=== PATIENT | female | born 1945 | race Caucasian/White ===

== ENCOUNTER 2020-09-07 06:39 | Outpatient (REF) | payer BC, MEDICARE, SELFPAY ==
[2020-09-07 06:52] LABS: Hemoglobin 7.9 g/dl (12.0-16.0); Mean Corpuscular HGB Conc 32.9 g/dl (31.0-35.0); Mean Corpuscular Hemoglobin 29.8 pg (27.0-33.0); Mean Corpuscular Volume 90.6 fL (80-98); Mean Platelet Volume 10.6 fL (9.4-12.3); Red Blood Count 2.65 X10*6/uL (4.20-5.50); Red Cell Distribution Width 17.4 % (11.0-16.0); White Blood Count 3.8 X10*3/uL (4.8-10.8)
[2020-09-07 06:54] LABS: NRBC Pct Auto 1.3 /100WBC (0.0-0.2); Platelet Count 46 X10*3/uL (160-400)
[2020-09-07 07:37] LABS: Alanine Aminotransferase 17 U/L (0-31); Albumin Level 1.6 g/dL (3.5-5.0); Alkaline Phosphatase 77 U/L (39-117); Anion Gap 9 (12-20); Aspartate Amino Transferase 23 U/L (5-31); Bilirubin Total 0.8 mg/dL (0.0-1.0); Blood Urea Nitrogen 14 mg/dL (9-16); Calcium 7.5 mg/dL (8.4-10.2); Carbon Dioxide 29 mmol/L (22-29); Chloride 90 mmol/L (96-108); Estimated Glomerular Filt Rate 9; Glucose Random 78 mg/dL (60-115); Potassium 3.8 mmol/L (3.3-5.1); Sodium 124 mmol/L (135-145); Total Protein 9.3 g/dL (6.5-8.0)
== END 2020-09-07 06:40 | disposition home or self-care (01) ==
LOC: HO.MMNH1L 06:39
PROVIDERS: Visit Provider Family Medicine
DX: A04.72 Enterocolitis due to Clostridium difficile, not specified as recurrent (principal)
CPT/HCPCS: 36415; 80053; 85027

== ENCOUNTER 2020-09-10 17:00 | Outpatient (REF) | payer MEDICARE, SELFPAY ==
[2020-09-12 12:20] LABS: CDiff Gene PCR POSITIVE (Negative)
[2020-09-12 13:08] LABS: CDiff Toxin Positive (Negative)
[2020-09-12 13:10] LABS: CDIFF Internal ctrl Dots and bkg OK (V)
== END 2020-09-10 17:01 | disposition home or self-care (01) ==
LOC: HO.MMNH1L 17:00
PROVIDERS: Visit Provider Family Medicine
DX: R19.7 Diarrhea, unspecified (principal); R19.5 Other fecal abnormalities
CPT/HCPCS: 36415; 87324; 87493

== ENCOUNTER 2020-09-13 00:27 | Outpatient (REF) | payer MEDICARE, SELFPAY ==
[2020-09-13 06:08] LABS: Mean Corpuscular HGB Conc 31.7 g/dl (31.0-35.0); Mean Corpuscular Hemoglobin 29.1 pg (27.0-33.0); Mean Corpuscular Volume 91.8 fL (80-98); Mean Platelet Volume 9.6 fL (9.4-12.3); NRBC Pct Auto 0.6 /100WBC (0.0-0.2); Red Cell Distribution Width 18.5 % (11.0-16.0); White Blood Count 4.9 X10*3/uL (4.8-10.8)
[2020-09-13 06:27] LABS: Anion Gap 9 (12-20); Blood Urea Nitrogen 20 mg/dL (9-16); Calcium 7.2 mg/dL (8.4-10.2); Carbon Dioxide 28 mmol/L (22-29); Chloride 98 mmol/L (96-108); Glucose Random 72 mg/dL (60-115); Potassium 3.5 mmol/L (3.3-5.1); Sodium 131 mmol/L (135-145)
[2020-09-13 06:33] LABS: Platelet Count 45 X10*3/uL (160-400)
[2020-09-13 06:37] LABS: Hematocrit 20.2 % (37-47); Hemoglobin 6.4 g/dl (12.0-16.0)
[2020-09-13 07:00] LABS: Estimated Glomerular Filt Rate 8
== END 2020-09-13 00:28 | disposition home or self-care (01) ==
LOC: HO.MMNH1L 00:27
PROVIDERS: Visit Provider Family Medicine
DX: A04.72 Enterocolitis due to Clostridium difficile, not specified as recurrent (principal)
CPT/HCPCS: 36415; 80048; 85027

== ENCOUNTER 2020-09-14 06:34 | Outpatient (REF) | payer MEDICARE, SELFPAY | END 2020-09-14 06:35 | disposition home or self-care (01) | LOC: HO.MMNH1L 06:34 | PROVIDERS: Visit Provider Family Medicine | DX: Z13.89 Encounter for screening for other disorder (principal) ==

== ENCOUNTER 2020-09-15 | Outpatient (REF) | payer MEDICARE, SELFPAY ==
[2020-09-15 06:20] LABS: Hematocrit 21.2 % (37-47); Mean Corpuscular HGB Conc 32.5 g/dl (31.0-35.0); Mean Corpuscular Hemoglobin 29.9 pg (27.0-33.0); Mean Corpuscular Volume 91.8 fL (80-98); Mean Platelet Volume 10.8 fL (9.4-12.3); NRBC Pct Auto 0.8 /100WBC (0.0-0.2); Red Blood Count 2.31 X10*6/uL (4.20-5.50); Red Cell Distribution Width 18.7 % (11.0-16.0); White Blood Count 5.3 X10*3/uL (4.8-10.8)
[2020-09-15 06:35] LABS: Platelet Count 57 X10*3/uL (160-400)
[2020-09-15 06:37] LABS: Hemoglobin 6.9 g/dl (12.0-16.0)
== END 2020-09-15 00:01 | disposition home or self-care (01) ==
LOC: HO.MMNH1L
PROVIDERS: Visit Provider Family Medicine
DX: I12.0 Hypertensive chronic kidney disease with stage 5 chronic kidney disease or end stage renal disease (principal); N18.6 End stage renal disease
CPT/HCPCS: 36415; 85027

== ENCOUNTER 2020-09-17 06:22 | Outpatient (REF) | payer MEDICARE, SELFPAY ==
[2020-09-19 20:01] LABS: TS Negative Control Passed; TS Panel A 0; TS Panel B 1; TS Positive Control Passed; TSpotTB Negative (SeeBelow)
== END 2020-09-17 06:23 | disposition home or self-care (01) ==
LOC: HO.MMNH1L 06:22
PROVIDERS: Visit Provider Family Medicine
DX: Z11.1 Encounter for screening for respiratory tuberculosis (principal); I10 Essential (primary) hypertension
CPT/HCPCS: 36415; 86481

== ENCOUNTER 2020-09-20 00:09 | Outpatient (REF) | payer MEDICARE, SELFPAY ==
[2020-09-20 07:08] LABS: Mean Corpuscular HGB Conc 31.5 g/dl (31.0-35.0); Mean Corpuscular Hemoglobin 29.1 pg (27.0-33.0); Mean Corpuscular Volume 92.5 fL (80-98); Mean Platelet Volume 10.8 fL (9.4-12.3); NRBC Pct Auto 0.9 /100WBC (0.0-0.2); Red Blood Count 1.99 X10*6/uL (4.20-5.50); Red Cell Distribution Width 19.5 % (11.0-16.0); White Blood Count 5.6 X10*3/uL (4.8-10.8)
[2020-09-20 07:37] LABS: Anion Gap 9 (12-20); Blood Urea Nitrogen 11 mg/dL (9-16); Calcium 7.3 mg/dL (8.4-10.2); Carbon Dioxide 26 mmol/L (22-29); Chloride 103 mmol/L (96-108); Estimated Glomerular Filt Rate 9; Glucose Random 75 mg/dL (60-115); Potassium 2.9 mmol/L (3.3-5.1); Sodium 135 mmol/L (135-145)
[2020-09-20 07:41] LABS: Hemoglobin 5.8 g/dl (12.0-16.0)
[2020-09-20 07:42] LABS: Hematocrit 18.4 % (37-47); Platelet Count 64 X10*3/uL (160-400)
== END 2020-09-20 00:10 | disposition home or self-care (01) ==
LOC: HO.MMNH1L 00:09
PROVIDERS: Visit Provider Family Medicine
DX: A04.72 Enterocolitis due to Clostridium difficile, not specified as recurrent (principal)
CPT/HCPCS: 36415; 80048; 85027

== ENCOUNTER 2020-09-20 10:09 | Inpatient (IN) | payer MEDICARE, SELFPAY ==
[2020-09-20] VITALS (13 sets, daily range): BP systolic 97–138; BP diastolic 41–69; PULSE 89–108; RESP 16–22; TEMP 36.3–37.2; O2SAT 95–100; BMI 33.8
--- NOTE | ~2020-09-20 | CT_ITS ---
EXAMINATION: CT ABDOMEN AND PELVIS WITHOUT CONTRAST CLINICAL INFORMATION: Cramping abdominal pain. History of C. difficile. COMPARISON: None TECHNIQUE: Multidetector volumetric imaging was performed from the superior aspect of the liver through the pubic symphysis. Sagittal and coronal reformatted images were obtained on the technologist's workstation. This CT examination was performed using dose optimization techniques as appropriate, variously including the following: *Automated exposure control *Adjustment of mA and/or kV according to patient size (this includes techniques or standardized protocols for targeted exams where dose is matched to indication/reason for exam; i.e. extremities or head) *Use of iterative reconstruction technique DLP: 658.98 mGy-cm FINDINGS: LUNG BASES: The visualized lung bases are unremarkable. No evidence of any pleural or pericardial effusion. Periarticular calcifications are seen. LIVER, GALLBLADDER, AND BILIARY TREE: Subtle nonspecific heterogeneous hypodensity is noted within the left lobe of the liver (image #25 series 5 on image #125 series 4), not optimally characterized. Nonvisualized gallbladder, presumably surgically absent. No evidence of any intrahepatic or extrahepatic biliary ductal dilatation. PANCREAS: Unremarkable. SPLEEN: Unremarkable. ADRENAL GLANDS: Unremarkable. KIDNEYS AND URETERS: The kidneys are normal in size, shape, and attenuation. Sub-5 mm nonobstructing calculus is present one on each side (image #67 series 5 and image #61 series 5), at the superior pole. No hydronephrosis, hydroureter seen. No perinephric stranding. Cortical hypodensities are present at the inferior pole of the right kidney and mid lateral cortex of the left kidney, not optimally characterized, may represent cysts. BLADDER: Suboptimally distended, not evaluated. GASTROINTESTINAL TRACT: Remarkable for presence of significant fecal residual within the large bowel to the level of the rectum. No evidence of any wall thickening is seen. No pericolonic inflammatory changes. The appendix is visualized at right lower quadrant (image #516 series 4) and is unremarkable. The small bowel loops are slightly prominent within the left upper to mid abdomen. Specific note is made of significant mural thickening solitary mid jejunum at left iliac fossa region (image #497 series 4). No evidence of any pneumatosis. No evidence of any abnormal air-fluid level present. The mesentery is unremarkable. The stomach is unremarkable. ABDOMINAL WALL: No significant hernia is appreciated. LYMPH NODES: Normal. VASCULAR: Diffuse atherosclerotic disease of the aorta and is branches PELVIC VISCERA: Trace amount of free fluid. No evidence of any free air. No pelvic mass. OSSEOUS STRUCTURES: Severe osteopenia. Multiple lytic lesions involving the sacrum, pelvis and multiple thoracolumbar vertebrae with superimposed severe compression fracture of L3, L1, T12, T11. The findings are suspicious for metastatic disease, myeloma or combination thereof. CT/CT abdomen pelvis wo con IMPRESSION: 1. Abnormal osseous skeleton showing multifocal destructive lesion associated with soft tissue component involving the pelvis, sacrum and the visualized thoracolumbar spine, suspicious for metastatic disease, myeloma, lymphoma etc. Given the spine involvement, the patient is at risk for cord compression. 2. Heterogeneous hypodense lesion involving left lower the liver, not optimally characterized on this nonenhanced study, given the osseous finding, suspicious for metastatic disease as well. 3. Proximal and mid small bowel loops are not abnormally thickened, may represent enteritis versus ischemia. Further differentiation cannot be made based on this imaging appearance alone. 4. Bilateral nonobstructing renal calculi. This critical result was discussed with Vanessa Quiroz M.D. at 11:57 AM on 09/20/2020 and it was ascertained that the content and urgency of the report was understood at the time of direct communication.
--- NOTE | 2020-09-20 10:11 | ECG_ITS ---
Test Reason : ABNORMAL LABS Blood Pressure : / mmHG Vent. Rate : 103 BPM Atrial Rate : 103 BPM P-R Int : 160 ms QRS Dur : 090 ms QT Int : 332 ms P-R-T Axes : 069 064 080 degrees QTc Int : 434 ms Artifact in tracing Sinus tachycardia ST & T wave abnormality, consider anterolateral ischemia Abnormal ECG No previous ECGs available Referred By: Vanessa Quiroz Electronically Signed By:JOSE SOLIS
--- NOTE | 2020-09-20 10:25 | ED.ABDPAIN ---
HPI - Abdominal Pain General Chief Complaint: Recheck/Abnormal Lab/Rx Stated Complaint: low h&h Time Seen by Provider: 09/20/20 10:11 Source: patient and EMS Mode of arrival: EMS Limitations: no limitations History of Present Illness HPI narrative: 75 yo female with hx of multiple myeloma on chemo, HTN, CKD on HD T S does not receive procrit, hx of anemia has had two transfusions in August, HLD, C diff on oral vancomycin dx 09/10 here with feeling weak, H/H trended down to 5.8 today, has noted some scant brb in her diarrhea up to 4 episodes a day, not on AC therapy, referred for transfusion of note Hgb has been below 7 since 09/13 and her baseline is around 8 to 9, she feels dry and weak on standing MD elicited complaint: abdominal pain (cramping) Pertinent past history: other (c diff colitis) Onset (ago): day(s) (few) Pain Consistency: intermittent Location: periumbilical Severity: mild Quality: cramping Radiation: none Migration to: no migration Exacerbating factors: nothing Relieving factors: nothing Context: recent antibiotic use Associated symptoms: nausea, hematochezia and other (weakness) Related Data Allergies Allergy/AdvReac Type Severity Reaction Status Date / Time No Known Allergies Allergy Unverified 08/23/20 15:09 [No Known Allergies*] Review of Systems Review of Systems Constitutional : No Weight loss, No Fever, No Chills ENT/Mouth : No sore throat, No Rhinorrhea Eyes: No Swelling, No Redness Cardiovascular : No Chest Pain, No SOB, No Edema Respiratory : No Cough, No Sputum, No Wheezing Gastrointestinal : Positive Nausea, Positive Vomiting, positive Diarrhea, positive abdominal Pain, pos Hematochezia, No Melena Genitourinary : No Dysuria, No Urinary Frequency, No Hematuria, No Urgency Musculoskeletal : No joint pain, No Myalgias, No Joint Swelling Skin : No Skin Lesions, No rash Neuro : pos Weakness, No Numbness, No Dizziness, No Headache Psych : No Anxiety/Panic, No Depression Heme/Lymph: No Bruising, No Lymphadenopathy Endocrine : No Polyuria, No Polydipsia All other systems reviewed and are negative. Physical Exam Vital Signs: Vital Signs: Last Vital Signs Temp 98.6 F 09/20/20 11:32 Pulse 107 H 09/20/20 11:32 Resp 22 H 09/20/20 11:32 BP 102/43 L 09/20/20 11:32 Pulse Ox 98 09/20/20 11:32 Body Mass Index 33.8 Appearance: Alert. Oriented X3. No acute distress. Eyes: Pupils equal, round and reactive to light. ENT: Pharynx normal. Neck: Normal inspection. Neck supple. CVS: Normal heart rate and rhythm. Pulses normal. perm a cath in chest c/d/i Respiratory: No respiratory distress. Breath sounds normal. Abdomen: Soft and mild periumbilical ttp no rebound or guarding, has small bruising and diffuse 1cm hematomas on pannus rectal: yellow brown stool, macerated buttock area but no abscess/cellulitis Skin: Skin warm and dry. pale skin color. Normal skin turgor. Extremities: No lower extremity edema. No calf ttp Neuro: Oriented X 3. No motor deficit. No sensory deficit. Course Course Course Narrative: plts are low but she is not actively bleeding right now. will hold transfusion at this time 2 UPRBCs ordered lactic acidosis due to CKD and not infection or severe sepsis, needs transfusion resuscitation not IVF patient's MAPs are low due to anemia and not infection or severe sepsis [id number] call from Radiology - extensive lytic lesions in her skeleton, pelvis/lumbar spine, bilateral non obstructing renal stones , L abdomen nonspecific colitis - which goes along with her c diff colitis for which she is on vancomycin MDM - Abdominal Pain MDM Narrative Medical decision making narrative: 75 yo female with hx of multiple myeloma on chemo, HTN, CKD on HD T S does not receive procrit, hx of anemia has had two transfusions in August, HLD, C diff on oral vancomycin dx 09/10 here with feeling weak, H/H trended down to 5.8 today, has noted some scant brb in her diarrhea up to 4 episodes a day, not on AC therapy, referred for transfusion of note Hgb has been below 7 since 09/13 and her baseline is around 8 to 9 - at this time the patient will need labs, lactic acid, EKG, 2 UPRBCs, CT scan for colitis, likely admission pending workup given her degree of anemia and symptoms. anemia likely multifactorial and related to the c diff, multiple myeloma, and CKD. Lab Data Result diagrams: 09/20/20 10:51 09/20/20 11:22 Labs: Lab Results 09/20/20 09/20/20 09/20/20 Range/Units 10:51 10:51 10:51 WBC 6.7 (4.8-10.8) X10*3/uL RBC 2.22 L (4.20-5.50) X10*6/uL Hgb 6.6 L* (12.0-16.0) g/dl Hct 20.7 L* (37-47) % MCV 93.2 (80-98) fL MCH 29.7 (27.0-33.0) pg MCHC 31.9 (31.0-35.0) g/dl RDW 19.8 H (11.0-16.0) % Plt Count 27 L D (160-400) X10*3/uL MPV 11.1 (9.4-12.3) fL Immature Gran % (Auto) Cancelled Neut % (Auto) Cancelled Lymph % (Auto) Cancelled [place] % (Auto) Cancelled Eos % (Auto) Cancelled Baso % (Auto) Cancelled Lymph # (Auto) Cancelled [place] # (Auto) Cancelled Eos # (Auto) Cancelled Baso # (Auto) Cancelled Abs Immat Gran (auto) Cancelled Absolute Neuts (auto) Cancelled Absolute Nucleated RBC 0.060 H (0.0-0.012) X10*3/uL Nucleated RBC % (auto) 0.9 H (0.0-0.2) /100WBC Neutrophils % (Manual) 66 (45-73) % Band Neutrophils % 8 H (3-5) % Lymphocytes % (Manual) 15 L (20-40) % Atypical Lymphs % (Man) 3 (0-6) % Monocytes % (Manual) 6 (2-11) % Metamyelocytes % 2 % Abs Neuts (Manual) 5.0 (2.2-7.9) X10*3/uL Lymphocytes # (Manual) 1.0 (0.6-4.8) X10*3/uL Atyp Lymphs # (Manual) 0.2 x10*3/uL Monocytes # (Manual) 0.4 (0.0-1.2) X10*3/uL Metamyelocytes # 0.1 X10*3/uL Nucleated RBCs 1 H (0-0) /100WBC Platelet Estimate DECREASED (NORMAL) Plt Morphology Comment NORMAL RBC Morphology NOTED Polychromasia 1+ (0-2) /OIF Macrocytosis 1+ (5-14) /OIF Ovalocytes 1+ (5-14) /OIF Acanthocytes (Spur) 1+ (0-2) /OIF PT 14.1 H (9.9-13.0) SEC INR 1.2 H (0.9-1.1) APTT 25.8 (24.1-38.0) SEC Sodium (135-145) mmol/L Potassium (3.3-5.1) mmol/L Chloride (96-108) mmol/L Carbon Dioxide (22-29) mmol/L Anion Gap (12-20) BUN (9-16) mg/dL Creatinine (0.5-1.4) mg/dL Estim Creat Clear Calc Estimated GFR Random Glucose (60-115) mg/dL Lactic Acid 2.4 H* (0.5-2.0) mmol/L Calcium (8.4-10.2) mg/dL Magnesium (1.6-2.6) mg/dL Total Bilirubin (0.0-1.0) mg/dL Direct Bilirubin (0.0-0.5) mg/dL AST (5-31) U/L ALT (0-31) U/L Alkaline Phosphatase (39-117) U/L Troponin I High Sens (<3.5-17.0) ng/L Total Protein (6.5-8.0) g/dL Albumin (3.5-5.0) g/dL Lipase (8-78) U/L Stool Occult Blood (NEGATIVE) COVID-19 (ISABELLA) (Negative) COVID-19 Clin Com Blood Type Antibody Screen Crossmatch 09/20/20 09/20/20 09/20/20 Range/Units 10:51 10:51 10:51 WBC (4.8-10.8) X10*3/uL RBC (4.20-5.50) X10*6/uL Hgb (12.0-16.0) g/dl Hct (37-47) % MCV (80-98) fL MCH (27.0-33.0) pg MCHC (31.0-35.0) g/dl RDW (11.0-16.0) % Plt Count (160-400) X10*3/uL MPV (9.4-12.3) fL Immature Gran % (Auto) Neut % (Auto) Lymph % (Auto) [place] % (Auto) Eos % (Auto) Baso % (Auto) Lymph # (Auto) [place] # (Auto) Eos # (Auto) Baso # (Auto) Abs Immat Gran (auto) Absolute Neuts (auto) Absolute Nucleated RBC (0.0-0.012) X10*3/uL Nucleated RBC % (auto) (0.0-0.2) /100WBC Neutrophils % (Manual) (45-73) % Band Neutrophils % (3-5) % Lymphocytes % (Manual) (20-40) % Atypical Lymphs % (Man) (0-6) % Monocytes % (Manual) (2-11) % Metamyelocytes % % Abs Neuts (Manual) (2.2-7.9) X10*3/uL Lymphocytes # (Manual) (0.6-4.8) X10*3/uL Atyp Lymphs # (Manual) x10*3/uL Monocytes # (Manual) (0.0-1.2) X10*3/uL Metamyelocytes # X10*3/uL Nucleated RBCs (0-0) /100WBC Platelet Estimate (NORMAL) Plt Morphology Comment RBC Morphology Polychromasia /OIF Macrocytosis /OIF Ovalocytes /OIF Acanthocytes (Spur) /OIF PT (9.9-13.0) SEC INR (0.9-1.1) APTT (24.1-38.0) SEC Sodium (135-145) mmol/L Potassium (3.3-5.1) mmol/L Chloride (96-108) mmol/L Carbon Dioxide (22-29) mmol/L Anion Gap (12-20) BUN (9-16) mg/dL Creatinine (0.5-1.4) mg/dL Estim Creat Clear Calc Estimated GFR Random Glucose (60-115) mg/dL Lactic Acid (0.5-2.0) mmol/L Calcium (8.4-10.2) mg/dL Magnesium (1.6-2.6) mg/dL Total Bilirubin (0.0-1.0) mg/dL Direct Bilirubin (0.0-0.5) mg/dL AST (5-31) U/L ALT (0-31) U/L Alkaline Phosphatase (39-117) U/L Troponin I High Sens 6.7 (<3.5-17.0) ng/L Total Protein (6.5-8.0) g/dL Albumin (3.5-5.0) g/dL Lipase (8-78) U/L Stool Occult Blood POSITIVE (NEGATIVE) COVID-19 (ISABELLA) Negative (Negative) COVID-19 Clin Com See Note Blood Type Antibody Screen Crossmatch 09/20/20 09/20/20 Range/Units 11:17 11:22 WBC (4.8-10.8) X10*3/uL RBC (4.20-5.50) X10*6/uL Hgb (12.0-16.0) g/dl Hct (37-47) % MCV (80-98) fL MCH (27.0-33.0) pg MCHC (31.0-35.0) g/dl RDW (11.0-16.0) % Plt Count (160-400) X10*3/uL MPV (9.4-12.3) fL Immature Gran % (Auto) Neut % (Auto) Lymph % (Auto) [place] % (Auto) Eos % (Auto) Baso % (Auto) Lymph # (Auto) [place] # (Auto) Eos # (Auto) Baso # (Auto) Abs Immat Gran (auto) Absolute Neuts (auto) Absolute Nucleated RBC (0.0-0.012) X10*3/uL Nucleated RBC % (auto) (0.0-0.2) /100WBC Neutrophils % (Manual) (45-73) % Band Neutrophils % (3-5) % Lymphocytes % (Manual) (20-40) % Atypical Lymphs % (Man) (0-6) % Monocytes % (Manual) (2-11) % Metamyelocytes % % Abs Neuts (Manual) (2.2-7.9) X10*3/uL Lymphocytes # (Manual) (0.6-4.8) X10*3/uL Atyp Lymphs # (Manual) x10*3/uL Monocytes # (Manual) (0.0-1.2) X10*3/uL Metamyelocytes # X10*3/uL Nucleated RBCs (0-0) /100WBC Platelet Estimate (NORMAL) Plt Morphology Comment RBC Morphology Polychromasia /OIF Macrocytosis /OIF Ovalocytes /OIF Acanthocytes (Spur) /OIF PT (9.9-13.0) SEC INR (0.9-1.1) APTT (24.1-38.0) SEC Sodium 134 L (135-145) mmol/L Potassium 3.5 D (3.3-5.1) mmol/L Chloride 101 (96-108) mmol/L Carbon Dioxide 24 (22-29) mmol/L Anion Gap 13 (12-20) BUN 14 (9-16) mg/dL Creatinine 5.36 H* (0.5-1.4) mg/dL Estim Creat Clear Calc 9.2 Estimated GFR 8 Random Glucose 91 (60-115) mg/dL Lactic Acid (0.5-2.0) mmol/L Calcium 7.8 L D (8.4-10.2) mg/dL Magnesium 1.6 (1.6-2.6) mg/dL Total Bilirubin 1.1 H (0.0-1.0) mg/dL Direct Bilirubin 0.4 (0.0-0.5) mg/dL AST 24 (5-31) U/L ALT 9 (0-31) U/L Alkaline Phosphatase 81 (39-117) U/L Troponin I High Sens (<3.5-17.0) ng/L Total Protein 9.2 H (6.5-8.0) g/dL Albumin 1.4 L (3.5-5.0) g/dL Lipase 35 (8-78) U/L Stool Occult Blood (NEGATIVE) COVID-19 (ISABELLA) (Negative) COVID-19 Clin Com Blood Type O Positive Antibody Screen NEGATIVE Crossmatch See Detail ECG Data Attestation: I personally reviewed and interpreted this ECG as follows: ECG interpretation date: 09/20/20 ECG interpretation time: 10:32 Interpretation: Rate: 103 Rhythm: sinus tachycardia [place]: normal Normal P waves. Normal TORY. Normal QRS complex. ST T wave : no [place], inverted in V4-V6, nonspecific flattening t waves qTC: normal prior studies: no priors The study has been interpreted contemporaneously by me. . Critical Care Time Critical Care Time Critical Care Time: Yes Total Critical Care Time: 30 Attestation: review of records, 2 units of PRBCs ordered I attest to this time spent taking care of the patient Discharge Plan Discharge Clinical Impression: Acute hypokalemia, C. difficile colitis Anemia Qualifiers: Anemia type: unspecified type Qualified Code(s): D64.9 - Anemia, unspecified CKD (chronic kidney disease) Qualifiers: Chronic kidney disease stage: unspecified stage Qualified Code(s): N18.9 - Chronic kidney disease, unspecified Patient Disposition: Admitted As Inpatient [facility] Past Medical History Attestation statement: The following information was validated with the patient. Medical History Anemia C. difficile colitis CKD (chronic kidney disease) HTN (hypertension) Multiple myeloma Social History Social History (Updated 09/20/20 @ 10:31 by Vanessa Quiroz DO) Patient Tobacco Use Status: Never used Tobacco Use of substances other than those prescribed or required for medical reasons: No Advance Directives: No Advance Directives Information Provided: Yes
[2020-09-20 10:58] LABS: Mean Corpuscular HGB Conc 31.9 g/dl (31.0-35.0); Mean Corpuscular Hemoglobin 29.7 pg (27.0-33.0); Mean Platelet Volume 11.1 fL (9.4-12.3); NRBC Pct Auto 0.9 /100WBC (0.0-0.2); Red Blood Count 2.22 X10*6/uL (4.20-5.50); Red Cell Distribution Width 19.8 % (11.0-16.0); White Blood Count 6.7 X10*3/uL (4.8-10.8)
[2020-09-20 11:00] LABS: OBS Int Ctl Valid YES; OBS1 POSITIVE (NEGATIVE)
[2020-09-20 11:06] LABS: Hemoglobin 6.6 g/dl (12.0-16.0)
[2020-09-20 11:07] LABS: Hematocrit 20.7 % (37-47); INTERNATIONAL NORM RATIO 1.2 (0.9-1.1); Mean Corpuscular Volume 93.2 fL (80-98)
[2020-09-20 11:08] LABS: Platelet Count 27 X10*3/uL (160-400)
[2020-09-20 11:10] LABS: Partial Thromboplastin Time 25.8 SEC (24.1-38.0)
[2020-09-20 11:15] LABS: COVID-19 Test Negative (Negative)
[2020-09-20 11:26] LABS: Atypical Lymph Absolute Manual 0.2 x10*3/uL; Atypical Lymphs Percent Manual 3 % (0-6); Band Neutrophils Percent 8 % (3-5); Lymphocytes Percent Manual 15 % (20-40); Metamyelocytes Absolute 0.1 X10*3/uL; Metamyelocytes Percent 2 %; Monocytes Absolute Manual 0.4 X10*3/uL (0.0-1.2); Monocytes Percent Manual 6 % (2-11); Neutrophils Percent Manual 66 % (45-73); Nucleated Red Blood Cells 1 /100WBC (0-0); Platelet Estimate DECREASED (NORMAL)
[2020-09-20 11:27] LABS: Platelet Morphology Comment NORMAL; RBC Morphology NOTED; Troponin-I High Sensitivity 6.7 ng/L (<3.5-17.0)
[2020-09-20 11:28] LABS: Acanthocytes 1+ (0-2) /OIF
[2020-09-20 11:29] LABS: Macrocytosis 1+ (5-14) /OIF; Ovalocytes 1+ (5-14) /OIF; Polychromasia 1+ (0-2) /OIF
[2020-09-20 11:30] LABS: Lactic Acid 2.4 mmol/L (0.5-2.0)
[2020-09-20] MEDS: Midodrine HCl 5 MG TABLET PO (11:31)
[2020-09-20 11:45] LABS: Prothrombin Time 14.1 SEC (9.9-13.0)
[2020-09-20 12:02] LABS: Alanine Aminotransferase 9 U/L (0-31); Albumin Level 1.4 g/dL (3.5-5.0); Alkaline Phosphatase 81 U/L (39-117); Anion Gap 13 (12-20); Aspartate Amino Transferase 24 U/L (5-31); Bilirubin Direct 0.4 mg/dL (0.0-0.5); Bilirubin Total 1.1 mg/dL (0.0-1.0); Blood Urea Nitrogen 14 mg/dL (9-16); Calcium 7.8 mg/dL (8.4-10.2); Carbon Dioxide 24 mmol/L (22-29); Chloride 101 mmol/L (96-108); Creatinine Clr Calc Pharmacy 9.2; Estimated Glomerular Filt Rate 8; Glucose Random 91 mg/dL (60-115); Lipase 35 U/L (8-78); Magnesium 1.6 mg/dL (1.6-2.6); Potassium 3.5 mmol/L (3.3-5.1); Sodium 134 mmol/L (135-145); Total Protein 9.2 g/dL (6.5-8.0)
[2020-09-20 12:56] LABS: Reflex Lactate? Lactic Acid Added
[2020-09-20 15:16] LABS: ~Lactic Acid-LAB USE ONLY 1.8 mmol/L (0.5-2.0)
--- NOTE | 2020-09-20 15:54 | P.HPHOSP_ITS ---
History of Present Illness Date of Service: 09/20/20 <Marianna Anne NP - Last Filed: 09/21/20 12:15> Chief Complaint: Dizziness <Marianna Anne NP - Last Filed: 09/21/20 12:15> 75-year-old presented to the ER with complaints dizziness, weakness over the last several days. She has a history of multiple myeloma and has been having diarrhea last Sunday to diff had noticed some blood in stool. She does have a history of blood transfusion past. She denied chest pain nausea, vomiting, fever, chills, recent illness. Her hemoglobin initially was noted to be 5.8 with hematocrit of 18.4, platelet count 64. abd ct showing nonspecific colitis. she was transfused 2 units of packed red blood cells in the ER, given Tylenol, midodrine, potassium. She will be admitted further management and treatment of symptomatic anemia. <Marianna Anne NP - Last Filed: 09/21/20 12:15> Review of Systems Review of Systems: Denies any recent fever chills or decrease in appetite respiratory denies any shortness of breath coverage production cardiovascular Denies chest pain gastrointestinal denies any dysphagia abdominal pain nausea vomiting or diarrhea genitourinary denies any dysuria frequency or hematuria musculoskeletal denies any joint pain or swelling neuropsych denies any weakness or seizures all other systems reviewed are negative <Marianna Anne NP - Last Filed: 09/21/20 12:15> [facility] Medical History: Medical History Anemia C. difficile colitis CKD (chronic kidney disease) HTN (hypertension) Multiple myeloma <Marianna Anne NP - Last Filed: 09/21/20 12:15> Pertinent family history: no cardiac history <Marianna Anne NP - Last Filed: 09/21/20 12:15> Social History: Social History (Updated 09/20/20 @ 10:31 by Vanessa Quiroz DO) Household Members: Significant Other Housing: House Do you presently have visiting nurse or other home services: No Patient Tobacco Use Status: Never used Tobacco service: No Current occupational status: retired <Marianna Anne NP - Last Filed: 09/21/20 12:15> Meds Allergies/Adverse reactions: Allergies Allergy/AdvReac Type Severity Reaction Status Date / Time lisinopril AdvReac Angioedema Verified 09/21/20 00:34 <Marianna Anne NP - Last Filed: 09/21/20 12:15> Home medications: Home Medications Medication Instructions Recorded Confirmed Last Taken Type acetaminophen 2 tab PO Q4H PRN 09/20/20 09/20/20 Unknown History albuterol sulfate [Proventil HFA] 2 puff INHALATION Q4H PRN 09/20/20 09/20/20 Unknown History allopurinol 2 tab PO DAILY 09/20/20 09/20/20 Unknown History atorvastatin 1 tab PO BEDTIME 09/20/20 09/20/20 Unknown History clonazepam 1 tab PO Q8H PRN 09/20/20 09/20/20 Unknown History loperamide 1 tab PO NEEDED 09/20/20 09/20/20 Unknown History loratadine 1 tab PO DAILY 09/20/20 09/20/20 Unknown History sevelamer carbonate [Renvela] 1 tab PO TID 09/20/20 09/20/20 Unknown History vancomycin HCl in water 125 mg QID 09/20/20 09/20/20 Unknown History <Marianna Anne NP - Last Filed: 09/21/20 12:15> Physical Exam Vital Signs and Narrative: Vital Signs: Last Vital Signs Temp 98.1 F 09/20/20 15:49 Pulse 96 09/20/20 15:49 Resp 16 09/20/20 15:49 BP 132/69 09/20/20 15:49 Pulse Ox 100 09/20/20 13:59 Body Mass Index 33.8 <Marianna Anne NP - Last Filed: 09/21/20 12:15> Appearing in no acute distress head is normocephalic atraumatic eyes pupils are PERRLA sclera is anicteric mouth throat mucous membranes are intact and moist neck is supple no lymphadenopathy, no JVD noted lung sounds are clear to auscultation heart regular rate rhythm, clear S1, S2 positive bowel sounds, abdomen is soft, nontender neuro patient is alert x3, no focal deficits <Marianna Anne NP - Last Filed: 09/21/20 12:15> Results Labs CBC and Chem 7: : 09/21/20 05:10 09/21/20 05:10 <Marianna Anne NP - Last Filed: 09/21/20 12:15> Labs: Laboratory Results - last 24 hr 09/20/20 09/20/20 09/20/20 10:51 10:51 10:51 MCV 93.2 MCH 29.7 MCHC 31.9 RDW 19.8 H Plt Count 27 L D MPV 11.1 Immature Gran % (Auto) Cancelled Neut % (Auto) Cancelled Lymph % (Auto) Cancelled [place] % (Auto) Cancelled Eos % (Auto) Cancelled Baso % (Auto) Cancelled Lymph # (Auto) Cancelled [place] # (Auto) Cancelled Eos # (Auto) Cancelled Baso # (Auto) Cancelled Abs Immat Gran (auto) Cancelled Absolute Neuts (auto) Cancelled Absolute Nucleated RBC 0.060 H Nucleated RBC % (auto) 0.9 H Neutrophils % (Manual) 66 Band Neutrophils % 8 H Lymphocytes % (Manual) 15 L Atypical Lymphs % (Man) 3 Monocytes % (Manual) 6 Metamyelocytes % 2 Abs Neuts (Manual) 5.0 Lymphocytes # (Manual) 1.0 Atyp Lymphs # (Manual) 0.2 Monocytes # (Manual) 0.4 Metamyelocytes # 0.1 Nucleated RBCs 1 H Platelet Estimate DECREASED Plt Morphology Comment NORMAL RBC Morphology NOTED Polychromasia 1+ (0-2) Macrocytosis 1+ (5-14) Ovalocytes 1+ (5-14) Acanthocytes (Spur) 1+ (0-2) PT 14.1 H INR 1.2 H APTT 25.8 Anion Gap Estim Creat Clear Calc Estimated GFR Random Glucose Lactic Acid 2.4 H* Lactic Acid Fup @ 2Hr Calcium Magnesium Total Bilirubin Direct Bilirubin AST ALT Alkaline Phosphatase Troponin I High Sens Total Protein Albumin Lipase Stool Occult Blood COVID-19 (ISABELLA) COVID-19 Clin Com Blood Type Antibody Screen Crossmatch 09/20/20 09/20/20 09/20/20 10:51 10:51 10:51 MCV MCH MCHC RDW Plt Count MPV Immature Gran % (Auto) Neut % (Auto) Lymph % (Auto) [place] % (Auto) Eos % (Auto) Baso % (Auto) Lymph # (Auto) [place] # (Auto) Eos # (Auto) Baso # (Auto) Abs Immat Gran (auto) Absolute Neuts (auto) Absolute Nucleated RBC Nucleated RBC % (auto) Neutrophils % (Manual) Band Neutrophils % Lymphocytes % (Manual) Atypical Lymphs % (Man) Monocytes % (Manual) Metamyelocytes % Abs Neuts (Manual) Lymphocytes # (Manual) Atyp Lymphs # (Manual) Monocytes # (Manual) Metamyelocytes # Nucleated RBCs Platelet Estimate Plt Morphology Comment RBC Morphology Polychromasia Macrocytosis Ovalocytes Acanthocytes (Spur) PT INR APTT Anion Gap Estim Creat Clear Calc Estimated GFR Random Glucose Lactic Acid Lactic Acid Fup @ 2Hr Calcium Magnesium Total Bilirubin Direct Bilirubin AST ALT Alkaline Phosphatase Troponin I High Sens 6.7 Total Protein Albumin Lipase Stool Occult Blood POSITIVE COVID-19 (ISABELLA) Negative COVID-19 Clin Com See Note Blood Type Antibody Screen Crossmatch 09/20/20 09/20/20 09/20/20 11:17 11:22 14:39 MCV MCH MCHC RDW Plt Count MPV Immature Gran % (Auto) Neut % (Auto) Lymph % (Auto) [place] % (Auto) Eos % (Auto) Baso % (Auto) Lymph # (Auto) [place] # (Auto) Eos # (Auto) Baso # (Auto) Abs Immat Gran (auto) Absolute Neuts (auto) Absolute Nucleated RBC Nucleated RBC % (auto) Neutrophils % (Manual) Band Neutrophils % Lymphocytes % (Manual) Atypical Lymphs % (Man) Monocytes % (Manual) Metamyelocytes % Abs Neuts (Manual) Lymphocytes # (Manual) Atyp Lymphs # (Manual) Monocytes # (Manual) Metamyelocytes # Nucleated RBCs Platelet Estimate Plt Morphology Comment RBC Morphology Polychromasia Macrocytosis Ovalocytes Acanthocytes (Spur) PT INR APTT Anion Gap 13 Estim Creat Clear Calc 9.2 Estimated GFR 8 Random Glucose 91 Lactic Acid Lactic Acid Fup @ 2Hr 1.8 Calcium 7.8 L D Magnesium 1.6 Total Bilirubin 1.1 H Direct Bilirubin 0.4 AST 24 ALT 9 Alkaline Phosphatase 81 Troponin I High Sens Total Protein 9.2 H Albumin 1.4 L Lipase 35 Stool Occult Blood COVID-19 (ISABELLA) COVID-19 Clin Com Blood Type O Positive Antibody Screen NEGATIVE Crossmatch See Detail <Marianna Anne HARDNESS INSPECTOR - Last Filed: 09/21/20 12:15> Imaging Radiologist's Impressions: Impressions Abdomen/Pelvis CT 09/20/20 10:22 IMPRESSION: 1. Abnormal osseous skeleton showing multifocal destructive lesion associated with soft tissue component involving the pelvis, sacrum and the visualized thoracolumbar spine, suspicious for metastatic disease, myeloma, lymphoma etc. Given the spine involvement, the patient is at risk for cord compression. 2. Heterogeneous hypodense lesion involving left lower the liver, not optimally characterized on this nonenhanced study, given the osseous finding, suspicious for metastatic disease as well. 3. Proximal and mid small bowel loops are not abnormally thickened, may represent enteritis versus ischemia. Further differentiation cannot be made based on this imaging appearance alone. 4. Bilateral nonobstructing renal calculi. This critical result was discussed with Vanessa Quiroz M.D. at 11:57 AM on 09/20/2020 and it was ascertained that the content and urgency of the report was understood at the time of direct communication. <Marianna Anne NP - Last Filed: 09/21/20 12:15> Assessment and Plan (1) Anemia: Qualifiers: Anemia type: unspecified type Qualified Code(s): D64.9 - Anemia, unspecified <Marianna Anne NP - Last Filed: 09/21/20 12:15> Status: Resolved <Marianna Anne NP - Last Filed: 09/21/20 12:15> 75 year old women admitted with anemia secondary to GI bleed GI bleed. unknown etiology. hx of cdiff diarrhea stool occult positive GI consult PPI Follow HH Symptomatic anemia. Mutifactorial with hx of multiple myeloma, cdiff with diarrhea, ckd -2 units prbc in the ED check HH post tx tx as necessary PPI Hypotension. likely secondary to anemia trending up Hold antihypertensives Hypokalemia. Repleted. Trend CKD. Dialysis , nephrology consult for dialysis schedule Cdiff. Chronic over 2 months. Continue oral vancomycin Multiple myeloma. Diagnosed several years ago follow onc as o/p chronically low platelets secondary to MM DVT prophylaxis with mechanical compression boots due to anemia Attending Dr. Hernandez Full code <Marianna Anne NP - Last Filed: 09/21/20 12:15> (2) CKD (chronic kidney disease): Qualifiers: Chronic kidney disease stage: unspecified stage Qualified Code(s): N18.9 - Chronic kidney disease, unspecified <VIRGINIA Santana L ast Filed: 09/21/20 12:15> Status: Acute <Marianna Anne NP - Last Filed: 09/21/20 12:15> I saw and examined patient and discussed finding, assessment, plan and disposition with midlvel and a I agree with the above, except if otherwise stated <Ricardo Hernandez MD - Last Filed: 10/05/20 15:38> Quality Stroke Does the patient have a stroke diagnosis?: No <Marianna Anne NP - Last Filed: 09/21/20 12:15> VTE Prior VTE?: No <Marianna Anne NP - Last Filed: 09/21/20 12:15> VTE Risk Level:: Medical - moderate - high <Marianna Anne NP - Last Filed: 09/21/20 12:15> VTE Device Contraindication: N/A - Device Ordered <Marianna Anne NP - Last Filed: 09/21/20 12:15> VTE Drug Contraindication: Treatment Not Indicated <Marianna Anne NP - Last Filed: 09/21/20 12:15>
[2020-09-20] MEDS: Acetaminophen 325 MG TABLET 650 MG PO (15:55)
[2020-09-20 18:50] LABS: Hemoglobin 8.4 g/dl (12.0-16.0)
[2020-09-20] MEDS: Atorvastatin Calcium 10 MG TABLET PO (20:17)
[2020-09-20] MEDS: vancomycin HCL Oral Solution 125 MG/5 ML SOLN.RECON PO (20:17)
[2020-09-20] MEDS: 0.9 % Sodium Chloride Flush 3 ML SYRINGE IVFLUSH (20:22)
[2020-09-21 03:45] VITALS: BP 105/59; PULSE 88; RESP 17; TEMP 36.6; O2SAT 98
[2020-09-21] MEDS: Omeprazole 20 MG CAPSULE.DR PO ×2 (05:11→16:34)
[2020-09-21 05:49] LABS: Hematocrit 26.8 % (37-47); Hemoglobin 8.6 g/dl (12.0-16.0); Mean Corpuscular HGB Conc 32.1 g/dl (31.0-35.0); Mean Corpuscular Hemoglobin 29.2 pg (27.0-33.0); Mean Corpuscular Volume 90.8 fL (80-98); Mean Platelet Volume 8.9 fL (9.4-12.3); NRBC Pct Auto 1.1 /100WBC (0.0-0.2); Red Blood Count 2.95 X10*6/uL (4.20-5.50); Red Cell Distribution Width 18.6 % (11.0-16.0); White Blood Count 7.2 X10*3/uL (4.8-10.8)
[2020-09-21 05:54] LABS: Platelet Count 56 X10*3/uL (160-400)
[2020-09-21 06:14] LABS: Band Neutrophils Percent 8 % (3-5); Basophils Abs Manual 0.1 X10*3/uL (0.0-0.3); Basophils Percent Manual 1 % (0-1); Lymphocytes Absolute Manual 0.6 X10*3/uL (0.6-4.8); Lymphocytes Percent Manual 9 % (20-40); Metamyelocytes Absolute 0.1 X10*3/uL; Metamyelocytes Percent 1 %; Monocytes Absolute Manual 0.5 X10*3/uL (0.0-1.2); Monocytes Percent Manual 7 % (2-11); Myelocytes Absolute 0.1 X10*/uL; Myelocytes Percent 1 %; Neutrophils Absolute Manual 5.8 X10*3/uL (2.2-7.9); Neutrophils Percent Manual 73 % (45-73)
[2020-09-21 06:16] LABS: Acanthocytes 1+ (0-2) /OIF; Platelet Estimate DECREASED (NORMAL); Platelet Morphology Comment NORMAL; Polychromasia 1+ (0-2) /OIF; RBC Morphology NOTED
[2020-09-21 06:40] LABS: Anion Gap 12 (12-20); Blood Urea Nitrogen 19 mg/dL (9-16); Calcium 7.8 mg/dL (8.4-10.2); Carbon Dioxide 24 mmol/L (22-29); Chloride 102 mmol/L (96-108); Creatinine Clr Calc Pharmacy 7.9; Estimated Glomerular Filt Rate 7; Glucose Random 72 mg/dL (60-115); Potassium 3.5 mmol/L (3.3-5.1); Sodium 134 mmol/L (135-145)
[2020-09-21 07:06] VITALS: BP 136/63; PULSE 86; RESP 18; TEMP 36.3; O2SAT 97
--- NOTE | 2020-09-21 08:51 | MHC.CM.PN ---
CM met with Patient ay bedside and addressed IMM, providing her with the original and placing a copy on the chart.Patient lives in a house with her S.O./HCP/Ramiro and she uses both a cane and a walker to assist with mobility. Patient's goal is to return home with a new referral to [facility] and CM has initiated and will follow for dc planning. Patient gores to HD Q T,TH,SAT 6 AM at [facility]. PCP is DR. Jesica Whiteside.
--- NOTE | 2020-09-21 09:38 | P.CDIC_ITS ---
CDI Concurrent Query Service Date: 09/21/20 Documentation Clarification: Please clarify if you are treating a proba ble/suspected/likely or confirmed: Based on the information below which of the following diagnosis best reflects the noted anemia: Acute blood loss Chronic blood loss anemia due to GI bleed Acute on chronic blood loss Other Unable to determine PLEASE DO NOT DELETE/MODIFY EXISTING CONTENT Additional information is needed in order to code to the highest accuracy and appropriate Severity of Illness (SOI). Please clarify the information noted below in your progress notes and discharge summary. Risk Factors/Clinical Indicators/Treatments GI bleed stool occult positive BRB in diarrhea HGB 6.4 Transfused 2 units PRBC in Ed feels dry and weak on standing hypotensive BP 107/53 CDS: Shayy Adhikari CCS, CDIS Contact Number: [phone] Please Review the information above and exercise your independent professional judgment in responding to the query. If you concur, pleas document in the PROGRESS NOTES and DISCHARGE SUMMARY. If you do not agree with the query, please document in the query above. THIS QUERY IS PART OF THE PERMANENT MEDICAL RECORD
--- NOTE | 2020-09-21 09:42 | P.CNGI_ITS ---
History of Present Illness Data of Consult Service Date: 09/21/20 Requesting physician: Marianna Anne Primary Care Provider: Kenna Whiteside MD HPI Reason for consult: anemia 75-year-old w hx of mutliple myeloma, CKD-on dilaysis and recent dx c diff who I am seeing for anemia. She presented to the ER with complaints dizziness, weakness over the last several days. she has also been having diarrhea and seen bright red blood in stools on 2-3 occasions. Labs revealed HGB 5.8 and she was transfused x 2 unit sPRBC CTY imaging revealed metastatic disease to spine and liver with non specifc colitis pattern she has had recurrent c diff infection as well, and being treated again for another bout, with her c/o 5-6 times diarrhea daily. she denies abdominal pain does a]have nausea. Not been taking nsaids. I saw her in dialysis unit and she felt better than admission. Review of Systems Review of Systems: Constitutional : No Weight loss, No Fever, No Chills ENT/Mouth : No sore throat, No Rhinorrhea Eyes: No Swelling, No Redness Cardiovascular : No Chest Pain, No SOB, No Edema Respiratory : No Cough, No Sputum, No Wheezing Gastrointestinal : see HPI Genitourinary : NO Dysuria, No Urinary Frequency, No Hematuria, No Urgency Musculoskeletal : No joint pain, No Myalgias, No Joint Swelling Skin : No Skin Lesions, No rash Neuro : No Weakness, No Numbness, No Dizziness, No Headache Psych : No Anxiety/Panic, No Depression Heme/Lymph: No Bruising, No Lymphadenopathy Endocrine : No Polyuria, No Polydipsia All other systems reviewed and are negative. [facility] Past Medical History Medical History Anemia C. difficile colitis CKD (chronic kidney disease) HTN (hypertension) Multiple myeloma Family History Pertinent family history: no cardiac history Social History Social History (Updated 09/20/20 @ 10:31 by Vanessa Quiroz DO) Household Members: Significant Other Housing: House Do you presently have visiting nurse or other home services: No Patient Tobacco Use Status: Never used Tobacco service: No Current occupational status: retired Meds Allergies Allergy/AdvReac Type Severity Reaction Status Date / Time lisinopril AdvReac Angioedema Verified 09/21/20 00:34 Active Medications: Current Medications Generic Name Dose Route Start Last Admin Trade Name Romainq PRN Reason Stop Dose Admin Acetaminophen 650 mg 09/20/20 15:55 Acetaminophen 325 Mg Tablet PO Q6H PRN Pain, Mild (Pain Scale 1-3) Albuterol Sulfate 2 puff 09/20/20 17:33 Albuterol Sulfate 90 Mcg 8 Gm Inhaler INHALE Q4H PRN dyspnea Allopurinol 200 mg 09/21/20 09:00 Allopurinol 100 Mg Tablet PO DAILY PENDING SALE TO [facility] Atorvastatin Calcium 10 mg 09/20/20 21:00 09/20/20 20:17 Atorvastatin Calcium 10 Mg Tablet PO 10 mg BEDTIME PENDING SALE TO [facility] Administration Clonazepam 0.5 mg 09/20/20 17:33 Clonazepam 0.5 Mg Tablet PO Q8H PRN anxiety Loperamide HCl 1 mg 09/20/20 17:45 Loperamide Hcl 2 Mg Capsule PO DAILY PRN Diarrhea Loratadine 10 mg 09/21/20 09:00 Loratadine 10 Mg Tablet PO DAILY PENDING SALE TO [facility] Omeprazole 20 mg 09/21/20 06:30 09/21/20 05:11 Omeprazole 20 Mg Capsule.Dr PO 20 mg BID@0630,1630 PENDING SALE TO [facility] Administration Ondansetron HCl 4 mg 09/20/20 15:55 Ondansetron Hcl 4 Mg/2 Ml Vial IVPUSH Q8H PRN Nausea and Vomiting Sevelamer Carbonate 800 mg 09/20/20 21:00 09/20/20 20:53 Sevelamer Carbonate Tablet 800 Mg Tablet PO Not Given TID PENDING SALE TO [facility] Sodium Chloride 3 ml 09/20/20 16:00 09/21/20 09:04 0.9 % Sodium Chloride Flush 3 Ml Syringe IVFLUSH Not Given QSHIFT PENDING SALE TO [facility] Vancomycin HCl 125 mg 09/20/20 21:00 09/20/20 20:17 Vancomycin Hcl Oral Solution 125 Mg/5 Ml Soln.Recon PO 125 mg QID PENDING SALE TO [facility] Administration Home Medications Medication Instructions Recorded Confirmed Last Taken Type acetaminophen 2 tab PO Q4H PRN 09/20/20 09/20/20 Unknown History albuterol sulfate [Proventil HFA] 2 puff INHALATION Q4H PRN 09/20/20 09/20/20 Unknown History allopurinol 2 tab PO DAILY 09/20/20 09/20/20 Unknown History atorvastatin 1 tab PO BEDTIME 09/20/20 09/20/20 Unknown History clonazepam 1 tab PO Q8H PRN 09/20/20 09/20/20 Unknown History loperamide 1 tab PO NEEDED 09/20/20 09/20/20 Unknown History loratadine 1 tab PO DAILY 09/20/20 09/20/20 Unknown History sevelamer carbonate [Renvela] 1 tab PO TID 09/20/20 09/20/20 Unknown History vancomycin HCl in water 125 mg QID 09/20/20 09/20/20 Unknown History Physical Exam Vital Signs: Vital Signs: Last Vital Signs Temp 97.3 F 09/21/20 07:06 Pulse 86 09/21/20 07:06 Resp 18 09/21/20 07:06 BP 136/63 09/21/20 07:06 Pulse Ox 97 09/21/20 07:06 Body Mass Index 33.8 EXAM: GENERAL: The patient is well developed and nontoxic. VITAL SIGNS:see workflow HEENT: Nonicteric sclerae, PERRLA, EOMI. Oropharynx clear. Moist mucous membranes. Conjunctivae appear well perfused. No thyroid mass. CHEST: Chest wall is nontender. HEART: Regular rate and rhythm without murmurs. LUNGS: Clear to auscultation bilaterally. ABDOMEN: Soft, positive bowel sounds, nontender, no organomegaly.no flank tenderness GENITAL:not done RECTAL: not done SKIN: No rash, no excessive bruising, petechiae, or purpura. NEUROLOGIC: Cranial nerves II-XII intact without motor/sensory deficit. Results Labs CBC & Chem 7: 09/21/20 05:10 09/21/20 05:10 Labs: Short CBC 09/20/20 09/20/20 09/21/20 Range/Units 10:51 18:34 05:10 WBC 6.7 7.2 (4.8-10.8) X10*3/uL Hgb 6.6 L* 8.4 L D 8.6 L (12.0-16.0) g/dl Hct 20.7 L* 26.0 L D 26.8 L (37-47) % Plt Count 27 L D 56 L D (160-400) X10*3/uL BMP 09/20/20 09/21/20 11:22 05:10 Sodium 134 L 134 L Potassium 3.5 D 3.5 Chloride 101 102 Carbon Dioxide 24 24 BUN 14 19 H Creatinine 5.36 H* 6.21 H* Calcium 7.8 L D 7.8 L Liver Function 09/20/20 Range/Units 11:22 Total Bilirubin 1.1 H (0.0-1.0) mg/dL Direct Bilirubin 0.4 (0.0-0.5) mg/dL AST 24 (5-31) U/L ALT 9 (0-31) U/L Alkaline Phosphatase 81 (39-117) U/L Albumin 1.4 L (3.5-5.0) g/dL A/P; 1/ Acute on chronic blood loss anemia -multifactorial from c diff colitis, myeloma with mets, rectal bleeding (prob hemorrhoidal from diarrhea), and anemia of chronic disease 2/2 CKD PLAN: 1/ Would treat the c diff aggressively, may benefit from fidaxomycin or fecal transplant vs monoclonal Ab therapy 2/ hold on endoscopy for the moment, cpnt to monitor stool output, if has ongoing bleeding then maybe limited sigmoidoscopy Procedures Date of Service Date of Service: 09/21/20
--- NOTE | 2020-09-21 10:22 | MHC.CLN ---
RE: CONSULT FOR WT LOSS AND POOR PO PT WITH 8% WT LOSS X 1 YEAR, NOT SIGNIFICANT AT THIS TIME POOR PO ESTIMATOR JEWELRY DIET RX: 2GM NA -WILL ADD LOW K LOW PHOS PER RENAL R/T HD PT WITH INCREASED NUTRITION RISK R/T HD AND C-DIFF+ WILL ADD GLUCERNA BID TO INCREASE KCALS FOLLOWING
[2020-09-21] MEDS: diphenhydrAMINE HCL 50 MG/ML VIAL 25 MG IVPUSH (10:40)
--- NOTE | 2020-09-21 11:02 | MHC.CM.PN ---
Per ROUNDS discussion, Patient will be medically cleared for dc to home today, with [facility]. A referral was made to NA, who has been notified of today's dc. Last IMM addressed this morning.
[2020-09-21 11:13] VITALS: BP 122/68; PULSE 92; RESP 18; TEMP 36.6; O2SAT 98
--- NOTE | 2020-09-21 12:19 | P.DS_ITS ---
DS: Providers Provider Date of Service: 09/22/20 Date of admission: 09/20/20 15:55 Date of discharge: 09/22/20 Primary care physician: Kenna Whiteside MD Admitting clinician: Marianna Anne Attending physician on admission: Ricardo Trent Consults: 09/20/20 16:07 Consult to Gastroenterology Routine Consulting Provider: Reagan Joel Reason for consultation: gi bleed, anemia Has provider been notified: No 09/20/20 16:12 Consult to Nephrology Routine Consulting Provider: Jose Miguel Fam Reason for consultation: dialysis t, th, sat Has provider been notified: No Attending physician on discharge: Rusty Catherine Discharging clinician: Marianna Anne DS: Diagnosis Discharge Diagnosis (1) Anemia: Status: Resolved DS: Medications Discharge Medications Home Medications: Home Medications Medication Instructions Recorded Confirmed acetaminophen 2 tab PO Q4H PRN 09/20/20 09/20/20 albuterol sulfate [Proventil HFA] 2 puff INHALATION Q4H PRN 09/20/20 09/20/20 allopurinol 2 tab PO DAILY 09/20/20 09/20/20 atorvastatin 1 tab PO BEDTIME 09/20/20 09/20/20 clonazepam 1 tab PO Q8H PRN 09/20/20 09/20/20 loperamide 1 tab PO NEEDED 09/20/20 09/20/20 loratadine 1 tab PO DAILY 09/20/20 09/20/20 sevelamer carbonate [Renvela] 1 tab PO TID 09/20/20 09/20/20 vancomycin HCl in water 125 mg QID 09/20/20 09/20/20 DS: Summary Hospital Course Hospital Course: 75-year-old presented to the ER with complaints dizziness, weakness over the last several days. She has a history of multiple myeloma and has been having diarrhea last Sunday to C diff had noticed some blood in stool. She does have a history of blood transfusion past. She denied chest pain nausea, vomiting, fever, chills, recent illness. Her hemoglobin initially was noted to be 5.8 with hematocrit of 18.4, platelet count 64. abd ct showing nonspecific colitis. she was transfused 2 units of packed red blood cells in the ER, given Tylenol, midodrine, potassium. She will be admitted further management and treatment of symptomatic anemia. Symptomatic anemia. History of multiple myeloma with history of anemia and blood transfusion in the past. She also has a hx of cdiff that she has been being treated for over the last 2 months with oral vancomycin. She was transfused with 2 units of PRBC while inpatient. She was seen and examined by gastroenterology with no further inpatient workup recommendations. She received dialysis on 09/21/20 and she should continue at her regular dialysis center as outpatient. Time Spent with Patient Time attestation: Total time spent providing and/or coordinating discharge services: Discharge coordination time: Greater than 30 minutes Quality: Stroke Does the patient have a stroke diagnosis?: No Physical Exam Vital Signs: Vital Signs: Last Vital Signs Temp 97.9 F 09/21/20 11:13 Pulse 92 09/21/20 11:13 Resp 18 09/21/20 11:13 BP 122/68 09/21/20 11:13 Pulse Ox 98 09/21/20 11:13 Body Mass Index 33.8 Appearing in no acute distress head is normocephalic atraumatic eyes pupils are PERRLA sclera is anicteric mouth throat mucous membranes are intact and moist neck is supple no lymphadenopathy, no JVD noted lung sounds are clear to auscultation heart regular rate rhythm, clear S1, S2 positive bowel sounds, abdomen is soft, nontender neuro patient is alert x3, no focal deficits DS: Data Data Completed and Pending Labs on day of discharge: Laboratory Results - last 24 hr 09/20/20 09/20/20 09/20/20 11:17 14:39 18:34 WBC RBC Hgb 8.4 L D Hct 26.0 L D MCV MCH MCHC RDW Plt Count MPV Immature Gran % (Auto) Neut % (Auto) Lymph % (Auto) [place] % (Auto) Eos % (Auto) Baso % (Auto) Lymph # (Auto) [place] # (Auto) Eos # (Auto) Baso # (Auto) Abs Immat Gran (auto) Absolute Neuts (auto) Absolute Nucleated RBC Nucleated RBC % (auto) Neutrophils % (Manual) Band Neutrophils % Lymphocytes % (Manual) Monocytes % (Manual) Basophils % (Manual) Metamyelocytes % Myelocytes % Abs Neuts (Manual) Lymphocytes # (Manual) Monocytes # (Manual) Basophils # (Manual) Metamyelocytes # Myelocytes # Platelet Estimate Plt Morphology Comment RBC Morphology Polychromasia Acanthocytes (Spur) Sodium Potassium Chloride Carbon Dioxide Anion Gap BUN Creatinine Estim Creat Clear Calc Estimated GFR Random Glucose Lactic Acid Fup @ 2Hr 1.8 Calcium Blood Type O Positive Antibody Screen NEGATIVE Crossmatch See Detail 09/21/20 09/21/20 05:10 05:10 WBC 7.2 RBC 2.95 L D Hgb 8.6 L Hct 26.8 L MCV 90.8 MCH 29.2 MCHC 32.1 RDW 18.6 H Plt Count 56 L D MPV 8.9 L Immature Gran % (Auto) Cancelled Neut % (Auto) Cancelled Lymph % (Auto) Cancelled [place] % (Auto) Cancelled Eos % (Auto) Cancelled Baso % (Auto) Cancelled Lymph # (Auto) Cancelled [place] # (Auto) Cancelled Eos # (Auto) Cancelled Baso # (Auto) Cancelled Abs Immat Gran (auto) Cancelled Absolute Neuts (auto) Cancelled Absolute Nucleated RBC 0.080 H Nucleated RBC % (auto) 1.1 H Neutrophils % (Manual) 73 Band Neutrophils % 8 H Lymphocytes % (Manual) 9 L Monocytes % (Manual) 7 Basophils % (Manual) 1 Metamyelocytes % 1 Myelocytes % 1 Abs Neuts (Manual) 5.8 Lymphocytes # (Manual) 0.6 Monocytes # (Manual) 0.5 Basophils # (Manual) 0.1 Metamyelocytes # 0.1 Myelocytes # 0.1 Platelet Estimate DECREASED Plt Morphology Comment NORMAL RBC Morphology NOTED Polychromasia 1+ (0-2) Acanthocytes (Spur) 1+ (0-2) Sodium 134 L Potassium 3.5 Chloride 102 Carbon Dioxide 24 Anion Gap 12 BUN 19 H Creatinine 6.21 H* Estim Creat Clear Calc 7.9 Estimated GFR 7 Random Glucose 72 Lactic Acid Fup @ 2Hr Calcium 7.8 L Blood Type Antibody Screen Crossmatch Discharge Plan Discharge Anticipated Discharge Date/Time: 09/21/20 12:15 Patient Disposition: Xfer Inpatient Rehab Fac Discharge Diagnosis: Severe anemia history of C diff hypotension CKD multiple myeloma Referrals: [facility] [Outside] - 1 Week [facility] [Outside] - 1 Week Kenna Whiteside MD [Primary Care Provider] - 1 Week Discharge Medications: Continued acetaminophen 325 mg tablet 2 tab PO Q4H PRN (Reason: Pain) RF: 0 atorvastatin 10 mg tablet 1 tab PO BEDTIME RF: 0 clonazepam 0.5 mg tablet 1 tab PO Q8H PRN (Reason: anxiety) RF: 0 loperamide 2 mg tablet 1 tab PO NEEDED RF: 0 allopurinol 100 mg tablet 2 tab PO DAILY RF: 0 albuterol sulfate [Proventil HFA] 90 mcg/actuation HFA aerosol inhaler 2 puff inhalation Q4H PRN (Reason: dyspnea) RF: 0 loratadine 10 mg tablet 1 tab PO DAILY RF: 0 sevelamer carbonate [Renvela] 800 mg tablet 1 tab PO TID RF: 0 vancomycin HCl in water 125 mg suspension 125 mg QID RF: 0 Discharge Orders: Discharge Order (Routine); Ordered 09/22/20 Ordered By: Marianna Anne Diet: advance to usual diet Activity on Discharge: As tolerated Stand Alone Forms: Patient Portal Discharge page Care Plan Goals: Complete treatment of C diff infection as prescribed Health Concerns: Severe anemia history of C diff hypotension CKD multiple myeloma Plan of Treatment: follow-up with primary care provider as needed follow-up with communications associate as needed Assessment: see discharge summary
[2020-09-21] MEDS: allopurinoL 100 MG TABLET 200 MG PO (14:21)
[2020-09-21] MEDS: Sevelamer Carbonate Tablet 800 MG TABLET PO ×2 (14:22→20:56)
[2020-09-21] MEDS: vancomycin HCL Oral Solution 125 MG/5 ML SOLN.RECON PO ×3 (14:22→20:56)
[2020-09-21] MEDS: Loratadine 10 MG TABLET PO (14:22)
[2020-09-21 15:06] VITALS: BP 121/57; PULSE 96; RESP 18; TEMP 36.8; O2SAT 99
[2020-09-21] MEDS: 0.9 % Sodium Chloride Flush 3 ML SYRINGE IVFLUSH ×2 (16:34→20:57)
--- NOTE | 2020-09-21 17:37 | P.PNIM_ITS ---
Subjective Subjective Date of Service: 09/21/20 Interval History: Follow up anemia better today no diarrhea Physical Exam Vital Signs: Vital Signs: Last Vital Signs Temp 98.3 F 09/21/20 15:06 Pulse 96 09/21/20 15:06 Resp 18 09/21/20 15:06 BP 121/57 L 09/21/20 15:06 Pulse Ox 99 09/21/20 15:06 Body Mass Index 33.8 Appearing in no acute distress lung sounds are clear to auscultation heart regular rate rhythm, clear S1, S2 positive bowel sounds, abdomen is soft, nontender neuro patient is alert x3, no focal deficits Objective Data Current Medications Generic Name Dose Route Start Last Admin Trade Name Freq PRN Reason Stop Dose Admin Acetaminophen 650 mg 09/20/20 15:55 Acetaminophen 325 Mg Tablet PO Q6H PRN Pain, Mild (Pain Scale 1-3) Albuterol Sulfate 2 puff 09/20/20 17:33 Albuterol Sulfate 90 Mcg 8 Gm Inhaler INHALE Q4H PRN dyspnea Allopurinol 200 mg 09/21/20 09:00 09/21/20 14:21 Allopurinol 100 Mg Tablet PO 200 mg DAILY DANIEL Administration Atorvastatin Calcium 10 mg 09/20/20 21:00 09/20/20 20:17 Atorvastatin Calcium 10 Mg Tablet PO 10 mg BEDTIME DANIEL Administration Clonazepam 0.5 mg 09/20/20 17:33 Clonazepam 0.5 Mg Tablet PO Q8H PRN anxiety Diphenhydramine HCl 25 mg 09/21/20 10:01 09/21/20 10:40 Diphenhydramine Hcl 50 Mg/Ml Vial IVPUSH 25 mg Q6H PRN Administration Rash Loperamide HCl 1 mg 09/20/20 17:45 Loperamide Hcl 2 Mg Capsule PO DAILY PRN Diarrhea Loratadine 10 mg 09/21/20 09:00 09/21/20 14:22 Loratadine 10 Mg Tablet PO 10 mg DAILY DANIEL Administration Omeprazole 20 mg 09/21/20 06:30 09/21/20 16:34 Omeprazole 20 Mg Capsule.Dr PO 20 mg BID@0630,1630 DANIEL Administration Ondansetron HCl 4 mg 09/20/20 15:55 Ondansetron Hcl 4 Mg/2 Ml Vial IVPUSH Q8H PRN Nausea and Vomiting Sevelamer Carbonate 800 mg 09/20/20 21:00 09/21/20 14:22 Sevelamer Carbonate Tablet 800 Mg Tablet PO 800 mg TID DANIEL Administration Sodium Chloride 3 ml 09/20/20 16:00 09/21/20 16:34 0.9 % Sodium Chloride Flush 3 Ml Syringe IVFLUSH 3 ml QSHIFT DANIEL Administration Vancomycin HCl 125 mg 09/20/20 21:00 09/21/20 16:34 Vancomycin Hcl Oral Solution 125 Mg/5 Ml Soln.Recon PO 125 mg QID DANIEL Administration Labs CBC & Chem 7: 09/21/20 05:10 09/21/20 05:10 Labs: Laboratory Results - last 24 hr 09/20/20 09/21/20 09/21/20 11:17 05:10 05:10 MCV 90.8 MCH 29.2 MCHC 32.1 RDW 18.6 H Plt Count 56 L D MPV 8.9 L Immature Gran % (Auto) Cancelled Neut % (Auto) Cancelled Lymph % (Auto) Cancelled [place] % (Auto) Cancelled Eos % (Auto) Cancelled Baso % (Auto) Cancelled Lymph # (Auto) Cancelled [place] # (Auto) Cancelled Eos # (Auto) Cancelled Baso # (Auto) Cancelled Abs Immat Gran (auto) Cancelled Absolute Neuts (auto) Cancelled Absolute Nucleated RBC 0.080 H Nucleated RBC % (auto) 1.1 H Neutrophils % (Manual) 73 Band Neutrophils % 8 H Lymphocytes % (Manual) 9 L Monocytes % (Manual) 7 Basophils % (Manual) 1 Metamyelocytes % 1 Myelocytes % 1 Abs Neuts (Manual) 5.8 Lymphocytes # (Manual) 0.6 Monocytes # (Manual) 0.5 Basophils # (Manual) 0.1 Metamyelocytes # 0.1 Myelocytes # 0.1 Platelet Estimate DECREASED Plt Morphology Comment NORMAL RBC Morphology NOTED Polychromasia 1+ (0-2) Acanthocytes (Spur) 1+ (0-2) Anion Gap 12 Estim Creat Clear Calc 7.9 Estimated GFR 7 Random Glucose 72 Calcium 7.8 L Crossmatch See Detail Progress Note: A&P (1) Anemia: Status: Acute Assessment and Plan: 75 year old women admitted with anemia secondary to GI bleed GI bleed. unknown etiology. hx of cdiff diarrhea stool occult positive no bleeding counts stable GI rec no furtherr workup at this time PPI Follow HH Symptomatic anemia. Mutifactorial with hx of multiple myeloma, cdiff with diarrhea, ckd -2 units prbc in the ED tx as necessary PPI Hypotension. likely secondary to anemia trending up Hold antihypertensives Hypokalemia. Repleted. Trend CKD. Dialysis T,, nephrology consult for dialysis schedule Cdiff. Chronic over 2 months. Continue oral vancomycin Multiple myeloma. Diagnosed several years ago follow onc as o/p chronically low platelets secondary to MM DISPO wants to return home. pt eval DVT prophylaxis with mechanical compression boots due to anemia Attending Dr. Catherine Full code Quality Stroke Does the patient have a stroke diagnosis?: No VTE Prior VTE?: No VTE Risk Level:: Medical - moderate - high VTE Device Contraindication: N/A - Device Ordered VTE Drug Contraindication: Treatment Not Indicated
--- NOTE | 2020-09-21 17:50 | PM.CNNEP ---
History of Present Illness Reason for Consult Consult date: 09/21/20 Reason for consult: ESRD Requesting physician: Ricardo Hernandez Chief Complaint Chief complaint: Anemia GI bleed History of Present Illness Narrative: ESRD PT adm with symptomatic anemia. Oveall feeling better now Relatively new to HD Makes very littel urine Review of Systems Review of Systems Constitutional : No Weight loss, No Fever, No Chills ENT/Mouth : No sore throat, No Rhinorrhea Eyes: No Swelling, No Redness Cardiovascular : No Chest Pain, No SOB, No Edema Respiratory : No Cough, No Sputum, No Wheezing Gastrointestinal : see HPI Genitourinary : NO Dysuria, No Urinary Frequency, No Hematuria, No Urgency Musculoskeletal : No joint pain, No Myalgias, No Joint Swelling Skin : No Skin Lesions, No rash Neuro : No Weakness, No Numbness, No Dizziness, No Headache Psych : No Anxiety/Panic, No Depression Heme/Lymph: No Bruising, No Lymphadenopathy Endocrine : No Polyuria, No Polydipsia All other systems reviewed and are negative. [facility] Past Medical History Medical History Anemia C. difficile colitis CKD (chronic kidney disease) HTN (hypertension) Multiple myeloma Family History Pertinent family history: no cardiac history Social History Social History (Updated 09/20/20 @ 10:31 by Vanessa Quiroz DO) Household Members: Significant Other Housing: House Do you presently have visiting nurse or other home services: No Patient Tobacco Use Status: Never used Tobacco service: No Current occupational status: retired Meds Allergies Allergy/AdvReac Type Severity Reaction Status Date / Time lisinopril AdvReac Angioedema Verified 09/21/20 00:34 Active Medications: Current Medications Generic Name Dose Route Start Last Admin Trade Name Freq PRN Reason Stop Dose Admin Acetaminophen 650 mg 09/20/20 15:55 Acetaminophen 325 Mg Tablet PO Q6H PRN Pain, Mild (Pain Scale 1-3) Albuterol Sulfate 2 puff 09/20/20 17:33 Albuterol Sulfate 90 Mcg 8 Gm Inhaler INHALE Q4H PRN dyspnea Allopurinol 200 mg 09/21/20 09:00 09/21/20 14:21 Allopurinol 100 Mg Tablet PO 200 mg DAILY DANIEL Administration Atorvastatin Calcium 10 mg 09/20/20 21:00 09/20/20 20:17 Atorvastatin Calcium 10 Mg Tablet PO 10 mg BEDTIME DANIEL Administration Clonazepam 0.5 mg 09/20/20 17:33 Clonazepam 0.5 Mg Tablet PO Q8H PRN anxiety Diphenhydramine HCl 25 mg 09/21/20 10:01 09/21/20 10:40 Diphenhydramine Hcl 50 Mg/Ml Vial IVPUSH 25 mg Q6H PRN Administration Rash Loperamide HCl 1 mg 09/20/20 17:45 Loperamide Hcl 2 Mg Capsule PO DAILY PRN Diarrhea Loratadine 10 mg 09/21/20 09:00 09/21/20 14:22 Loratadine 10 Mg Tablet PO 10 mg DAILY DANIEL Administration Omeprazole 20 mg 09/21/20 06:30 09/21/20 16:34 Omeprazole 20 Mg Capsule.Dr PO 20 mg BID@0630,1630 DANIEL Administration Ondansetron HCl 4 mg 09/20/20 15:55 Ondansetron Hcl 4 Mg/2 Ml Vial IVPUSH Q8H PRN Nausea and Vomiting Sevelamer Carbonate 800 mg 09/20/20 21:00 09/21/20 14:22 Sevelamer Carbonate Tablet 800 Mg Tablet PO 800 mg TID DANIEL Administration Sodium Chloride 3 ml 09/20/20 16:00 09/21/20 16:34 0.9 % Sodium Chloride Flush 3 Ml Syringe IVFLUSH 3 ml QSHIFT DANIEL Administration Vancomycin HCl 125 mg 09/20/20 21:00 09/21/20 16:34 Vancomycin Hcl Oral Solution 125 Mg/5 Ml Soln.Recon PO 125 mg QID DANIEL Administration Home Medications Medication Instructions Recorded Confirmed Last Taken Type acetaminophen 2 tab PO Q4H PRN 09/20/20 09/20/20 Unknown History albuterol sulfate [Proventil HFA] 2 puff INHALATION Q4H PRN 09/20/20 09/20/20 Unknown History allopurinol 2 tab PO DAILY 09/20/20 09/20/20 Unknown History atorvastatin 1 tab PO BEDTIME 09/20/20 09/20/20 Unknown History clonazepam 1 tab PO Q8H PRN 09/20/20 09/20/20 Unknown History loperamide 1 tab PO NEEDED 09/20/20 09/20/20 Unknown History loratadine 1 tab PO DAILY 09/20/20 09/20/20 Unknown History sevelamer carbonate [Renvela] 1 tab PO TID 09/20/20 09/20/20 Unknown History vancomycin HCl in water 125 mg QID 09/20/20 09/20/20 Unknown History Physical Exam Vital Signs: Last Vital Signs Temp 98.3 F 09/21/20 15:06 Pulse 96 09/21/20 15:06 Resp 18 09/21/20 15:06 BP 121/57 L 09/21/20 15:06 Pulse Ox 99 09/21/20 15:06 Body Mass Index 33.8 Results Lab Results Result Diagrams: 09/21/20 05:10 09/21/20 05:10 Lab results: Chemistry 09/20/20 09/21/20 11:22 05:10 Sodium 134 L 134 L Potassium 3.5 D 3.5 Carbon Dioxide 24 24 BUN 14 19 H Creatinine 5.36 H* 6.21 H* Calcium 7.8 L D 7.8 L Hematology 09/20/20 09/20/20 09/21/20 10:51 18:34 05:10 WBC 6.7 7.2 Hgb 6.6 L* 8.4 L D 8.6 L Plt Count 27 L D 56 L D Assessment and Plan (1) Anemia: Qualifiers: Anemia type: unspecified type Qualified Code(s): D64.9 - Anemia, unspecified Status: Acute 75 year old women ESRD ( TTS) admitted with anemia secondary to GI bleed 1. ESRD 2. Anemia: s/p xfusion; w/u in progress REC: cont HD TTS; cont usu meds; GI eval re anemia Procedures Date of Service Date of Service: 09/21/20
[2020-09-21 19:01] VITALS: BP 116/55; PULSE 100; RESP 18; TEMP 37.1; O2SAT 98
[2020-09-21] MEDS: Atorvastatin Calcium 10 MG TABLET PO (20:57)
[2020-09-21] MEDS: Acetaminophen 325 MG TABLET 650 MG PO (21:14)
[2020-09-22] VITALS: BP 113/63; PULSE 88; RESP 18; TEMP 37.2; O2SAT 98
[2020-09-22 04:00] VITALS: BP 116/63; PULSE 87; RESP 18; TEMP 36.4; O2SAT 98
[2020-09-22] MEDS: Omeprazole 20 MG CAPSULE.DR PO ×2 (05:33→15:26)
[2020-09-22 07:05] VITALS: BP 113/57; PULSE 89; RESP 18; TEMP 36.6; O2SAT 98
[2020-09-22 08:07] VITALS: BP 113/57; PULSE 89; O2SAT 98
[2020-09-22] MEDS: vancomycin HCL Oral Solution 125 MG/5 ML SOLN.RECON PO ×2 (08:17→12:21)
[2020-09-22] MEDS: Sevelamer Carbonate Tablet 800 MG TABLET PO ×2 (08:18→15:26)
[2020-09-22] MEDS: Loratadine 10 MG TABLET PO (08:18)
[2020-09-22] MEDS: allopurinoL 100 MG TABLET 200 MG PO (08:18)
[2020-09-22] MEDS: 0.9 % Sodium Chloride Flush 3 ML SYRINGE IVFLUSH (08:19)
[2020-09-22] MEDS: Acetaminophen 325 MG TABLET 650 MG PO (08:29)
--- NOTE | 2020-09-22 10:58 | MHC.CM.PN ---
Addendum entered by Luisa Lamb 09/22/20 15:10: [facility] HAS RECEIVED AUTH FROM [employer] INS[employer]ANCE [employer]. PT WILL BE TRANSPORTED VIA BLS TO [facility] Original Note: CM MET WITH PT THIS MORNING TO DISCUSS DC PLANS. PT INITIALLY REPORTING SHE WOULD LIKE TO GO HOME AND FEELS SHE CAN MANAGE. PT MADE AWARE SHE IS NOT LONGER ACTIVE WITH A [facility] HERS LEFT THE PRACTICE. CM PROVIDED A LIST OF [facility] IN THE SAME PRACTICE, [facility], AND INFORMED HER SHE WOULD NEED TO LIST A NEW ONE WITH HER INSURANCE COMPANY FOR [facility] TO BE ABLE TO PROVIDE SERVICES. PT INDICATED UNDERSTANDING AND A LIST OF MDS WAS PROVIDED. CM RETURNED TO SEE PT BEFORE ROUNDS AND PT REPORTED SHE WAS FEELING UNSURE ABOUT HER DC PLANS. AFTER FURTHER DISCUSSION, PT REPORTED SHE WOULD LIKE TO SEE IF SHE CAN RETURN TO STR AT [facility]. CM SENT UPDATES TO [facility] WHO REPORTED THEY COULD OFFER A BED. PT WILL DC TO [facility] FOR [id number] PENDING INSURANCE AUTH. BLS TRANSPORT
[2020-09-22 11:05] VITALS: BP 110/56; PULSE 90; RESP 18; TEMP 36.6; O2SAT 99
[2020-09-22] MEDS: ondansetron HCL 4 MG/2 ML VIAL IVPUSH (12:48)
[2020-09-22 15:20] VITALS: BP 120/64; PULSE 95; RESP 15; TEMP 37.2; O2SAT 98
== END 2020-09-22 15:44 | DRG 371 ==
LOC: HO.ED 13:08 → HO.IMC 16:10
PROVIDERS: Admitting Provider Nurse Practitioner Acute Care; Emergency Provider Emergency Medicine; PCP Internal Medicine; Visit Provider Family Medicine
DX: A04.71 Enterocolitis due to Clostridium difficile, recurrent (principal); N18.6 End stage renal disease; K92.1 Melena; D62 Acute posthemorrhagic anemia; C90.00 Multiple myeloma not having achieved remission; I12.0 Hypertensive chronic kidney disease with stage 5 chronic kidney disease or end stage renal disease; E87.2 Acidosis; D69.6 Thrombocytopenia, unspecified; I95.9 Hypotension, unspecified; E87.6 Hypokalemia; D63.1 Anemia in chronic kidney disease; Z99.2 Dependence on renal dialysis; Z20.822 Contact with and (suspected) exposure to COVID-19; Z79.899 Other long term (current) drug therapy
CPT/HCPCS: 36415; 74176; 80048; 80076; 82272; 83605; 83690; 83735; 84484; 85007; 85014; 85018; 85025; 85027; 85610; 85730; 86850; 86900; 86901; 86923; 87635; 90999; 93005; 97162; 99285; J1200; J2405; P9016

== ENCOUNTER 2020-09-27 | Outpatient (REF) | payer MEDICARE, SELFPAY ==
[2020-09-27 07:27] LABS: Hematocrit 25.1 % (37-47); Mean Corpuscular HGB Conc 31.9 g/dl (31.0-35.0); Mean Corpuscular Hemoglobin 29.3 pg (27.0-33.0); Mean Corpuscular Volume 91.9 fL (80-98); Mean Platelet Volume 10.7 fL (9.4-12.3); Red Blood Count 2.73 X10*6/uL (4.20-5.50); Red Cell Distribution Width 18.9 % (11.0-16.0); White Blood Count 4.9 X10*3/uL (4.8-10.8)
[2020-09-27 07:49] LABS: NRBC Pct Auto 1.6 /100WBC (0.0-0.2); Platelet Count 72 X10*3/uL (160-400)
[2020-09-27 08:22] LABS: Anion Gap 10 (12-20); Blood Urea Nitrogen 12 mg/dL (9-16); Calcium 7.5 mg/dL (8.4-10.2); Carbon Dioxide 26 mmol/L (22-29); Chloride 98 mmol/L (96-108); Estimated Glomerular Filt Rate 9; Glucose Random 72 mg/dL (60-115); Potassium 3.3 mmol/L (3.3-5.1); Sodium 131 mmol/L (135-145)
== END 2020-09-27 00:01 | disposition home or self-care (01) ==
LOC: HO.MMNH1L
PROVIDERS: Visit Provider Family Medicine
DX: A04.72 Enterocolitis due to Clostridium difficile, not specified as recurrent (principal)
CPT/HCPCS: 36415; 80048; 85027

== ENCOUNTER 2020-09-28 17:00 | Outpatient (REF) | payer MEDICARE, SELFPAY ==
[2020-09-29 07:44] LABS: CDiff Gene PCR NEGATIVE (Negative)
== END 2020-09-28 17:01 | disposition home or self-care (01) ==
LOC: HO.MMNH1L 17:00
PROVIDERS: Visit Provider Family Medicine
DX: A04.72 Enterocolitis due to Clostridium difficile, not specified as recurrent (principal)
CPT/HCPCS: 36415; 87493

== ENCOUNTER 2020-09-29 05:21 | Outpatient (REF) | payer MEDICARE, SELFPAY | END 2020-09-29 05:22 | disposition home or self-care (01) | LOC: HO.MMNH1L 05:21 | PROVIDERS: Visit Provider Family Medicine | DX: Z13.89 Encounter for screening for other disorder (principal) ==

== ENCOUNTER 2020-10-04 00:44 | Outpatient (REF) | payer MEDICARE, SELFPAY ==
[2020-10-04 06:13] LABS: Hematocrit 24.8 % (37-47); Hemoglobin 7.9 g/dl (12.0-16.0); Mean Corpuscular HGB Conc 31.9 g/dl (31.0-35.0); Mean Corpuscular Volume 91.2 fL (80-98); Mean Platelet Volume 9.8 fL (9.4-12.3); NRBC Pct Auto 0.8 /100WBC (0.0-0.2); Red Blood Count 2.72 X10*6/uL (4.20-5.50); Red Cell Distribution Width 18.8 % (11.0-16.0); White Blood Count 6.6 X10*3/uL (4.8-10.8)
[2020-10-04 06:26] LABS: Platelet Count 86 X10*3/uL (160-400)
[2020-10-04 06:36] LABS: Anion Gap 11 (12-20); Blood Urea Nitrogen 11 mg/dL (9-16); Calcium 7.2 mg/dL (8.4-10.2); Carbon Dioxide 26 mmol/L (22-29); Chloride 98 mmol/L (96-108); Estimated Glomerular Filt Rate 9; Glucose Random 74 mg/dL (60-115); Sodium 132 mmol/L (135-145)
== END 2020-10-04 00:45 | disposition home or self-care (01) ==
LOC: HO.MMNH1L 00:44
PROVIDERS: Visit Provider Family Medicine
DX: A04.72 Enterocolitis due to Clostridium difficile, not specified as recurrent (principal)
CPT/HCPCS: 36415; 80048; 85027

== ENCOUNTER 2020-10-05 20:00 | Outpatient (REF) | payer MEDICARE, SELFPAY ==
[2020-10-06 07:39] LABS: CDiff Gene PCR NEGATIVE (Negative)
== END 2020-10-05 20:01 | disposition home or self-care (01) ==
LOC: HO.MMNH1L 20:00
PROVIDERS: Visit Provider Family Medicine
DX: A04.72 Enterocolitis due to Clostridium difficile, not specified as recurrent (principal)
CPT/HCPCS: 36415; 87493

== ENCOUNTER 2020-10-08 07:00 | Outpatient (REF) | payer MEDICARE, SELFPAY ==
[2020-10-08 07:14] LABS: Hematocrit 22.3 % (37-47); Hemoglobin 7.4 g/dl (12.0-16.0); Mean Corpuscular HGB Conc 33.2 g/dl (31.0-35.0); Mean Corpuscular Hemoglobin 29.6 pg (27.0-33.0); Mean Corpuscular Volume 89.2 fL (80-98)
[2020-10-08 07:16] LABS: Mean Platelet Volume 10.4 fL (9.4-12.3); NRBC Pct Auto 0.7 /100WBC (0.0-0.2); Red Cell Distribution Width 18.9 % (11.0-16.0); White Blood Count 7.3 X10*3/uL (4.8-10.8)
[2020-10-08 07:17] LABS: Platelet Count 89 X10*3/uL (160-400)
[2020-10-08 07:57] LABS: Alanine Aminotransferase < 6 U/L (0-31); Albumin Level 1.3 g/dL (3.5-5.0); Alkaline Phosphatase 78 U/L (39-117); Aspartate Amino Transferase 20 U/L (5-31); Bilirubin Total 0.5 mg/dL (0.0-1.0); Blood Urea Nitrogen 24 mg/dL (9-16); Calcium 7.5 mg/dL (8.4-10.2); Glucose Random 84 mg/dL (60-115); Total Protein 9.5 g/dL (6.5-8.0)
[2020-10-08 08:13] LABS: Estimated Glomerular Filt Rate 7
[2020-10-08 08:14] LABS: Anion Gap 12 (12-20); Carbon Dioxide 22 mmol/L (22-29); Chloride 95 mmol/L (96-108); Potassium 3.4 mmol/L (3.3-5.1); Sodium 126 mmol/L (135-145)
== END 2020-10-08 07:01 | disposition home or self-care (01) ==
LOC: HO.MMNH1L 07:00
PROVIDERS: Visit Provider Family Medicine
DX: I95.9 Hypotension, unspecified (principal)
CPT/HCPCS: 36415; 80053; 85027

== ENCOUNTER 2020-10-11 07:57 | Outpatient (REF) | payer MEDICARE, SELFPAY ==
[2020-10-11 06:45] LABS: Mean Corpuscular HGB Conc 32.4 g/dl (31.0-35.0); Mean Corpuscular Hemoglobin 29.2 pg (27.0-33.0); Mean Corpuscular Volume 90.1 fL (80-98); Mean Platelet Volume 9.8 fL (9.4-12.3); Red Blood Count 2.02 X10*6/uL (4.20-5.50); Red Cell Distribution Width 19.4 % (11.0-16.0)
[2020-10-11 06:53] LABS: Anion Gap 8 (12-20); Blood Urea Nitrogen 14 mg/dL (9-16); Calcium 6.9 mg/dL (8.4-10.2); Carbon Dioxide 27 mmol/L (22-29); Chloride 100 mmol/L (96-108); Glucose Random 72 mg/dL (60-115); Potassium 3.2 mmol/L (3.3-5.1); Sodium 132 mmol/L (135-145)
[2020-10-11 07:33] LABS: Estimated Glomerular Filt Rate 8
[2020-10-11 07:39] LABS: NRBC Pct Auto 1.5 /100WBC (0.0-0.2); Platelet Count 70 X10*3/uL (160-400)
[2020-10-11 07:43] LABS: Hemoglobin 5.9 g/dl (12.0-16.0)
[2020-10-11 07:44] LABS: Hematocrit 18.2 % (37-47)
== END 2020-10-11 07:58 | disposition home or self-care (01) ==
LOC: HO.MMNH1L 07:57
PROVIDERS: Visit Provider Family Medicine
DX: A04.72 Enterocolitis due to Clostridium difficile, not specified as recurrent (principal)
CPT/HCPCS: 36415; 80048; 85027

== ENCOUNTER 2020-10-15 05:58 | Outpatient (REF) | payer MEDICARE, SELFPAY ==
[2020-10-15 06:16] LABS: Mean Corpuscular HGB Conc 33.8 g/dl (31.0-35.0); Mean Corpuscular Hemoglobin 29.7 pg (27.0-33.0); Mean Corpuscular Volume 87.8 fL (80-98); Mean Platelet Volume 9.9 fL (9.4-12.3); Red Blood Count 2.29 X10*6/uL (4.20-5.50); Red Cell Distribution Width 18.6 % (11.0-16.0); White Blood Count 6.4 X10*3/uL (4.8-10.8)
[2020-10-15 06:34] LABS: Alanine Aminotransferase 6 U/L (0-31); Albumin Level 1.1 g/dL (3.5-5.0); Alkaline Phosphatase 77 U/L (39-117); Anion Gap 7 (12-20); Aspartate Amino Transferase 16 U/L (5-31); Bilirubin Total 0.8 mg/dL (0.0-1.0); Blood Urea Nitrogen 10 mg/dL (9-16); Calcium 7.6 mg/dL (8.4-10.2); Carbon Dioxide 28 mmol/L (22-29); Chloride 96 mmol/L (96-108); Estimated Glomerular Filt Rate 14; Glucose Random 76 mg/dL (60-115); Potassium 3.4 mmol/L (3.3-5.1); Sodium 128 mmol/L (135-145); Total Protein 9.1 g/dL (6.5-8.0)
[2020-10-15 07:08] LABS: Platelet Count 64 X10*3/uL (160-400)
[2020-10-15 07:11] LABS: Hematocrit 20.1 % (37-47); Hemoglobin 6.8 g/dl (12.0-16.0)
== END 2020-10-15 05:59 | disposition home or self-care (01) ==
LOC: HO.MMNH1L 05:58
PROVIDERS: Visit Provider Family Medicine
DX: D64.9 Anemia, unspecified (principal)
CPT/HCPCS: 36415; 80053; 85027

== ENCOUNTER 2020-10-18 21:13 | Outpatient (REF) | payer MEDICARE, SELFPAY ==
[2020-10-18 06:43] LABS: Mean Corpuscular HGB Conc 33.9 g/dl (31.0-35.0); Mean Corpuscular Hemoglobin 29.4 pg (27.0-33.0); Mean Corpuscular Volume 86.6 fL (80-98); Mean Platelet Volume 11.6 fL (9.4-12.3); NRBC Pct Auto 0.5 /100WBC (0.0-0.2); Red Blood Count 2.01 X10*6/uL (4.20-5.50); Red Cell Distribution Width 18.7 % (11.0-16.0); White Blood Count 7.5 X10*3/uL (4.8-10.8)
[2020-10-18 07:27] LABS: Platelet Count 53 X10*3/uL (160-400)
[2020-10-18 07:28] LABS: Hematocrit 17.4 % (37-47); Hemoglobin 5.9 g/dl (12.0-16.0)
[2020-10-18 07:43] LABS: Anion Gap 9 (12-20); Blood Urea Nitrogen 15 mg/dL (9-16); Calcium 6.9 mg/dL (8.4-10.2); Carbon Dioxide 25 mmol/L (22-29); Chloride 95 mmol/L (96-108); Estimated Glomerular Filt Rate 10; Glucose Random 84 mg/dL (60-115); Potassium 3.1 mmol/L (3.3-5.1); Sodium 126 mmol/L (135-145)
== END 2020-10-18 21:14 | disposition home or self-care (01) ==
LOC: HO.MMNH1L 21:13
PROVIDERS: Visit Provider Family Medicine
DX: A04.72 Enterocolitis due to Clostridium difficile, not specified as recurrent (principal)
CPT/HCPCS: 36415; 80048; 85027

== ENCOUNTER 2020-10-19 12:25 | Inpatient (IN) | payer MEDICARE, SELFPAY ==
[2020-10-19] VITALS (19 sets, daily range): BP systolic 85–132; BP diastolic 37–66; PULSE 89–124; RESP 16–29; TEMP 37.1–38.5; O2SAT 96–100; BMI 32.0; BMI 31.1
--- NOTE | ~2020-10-19 | XR_ITS ---
EXAMINATION: XR SACRUM AND COCCYX CLINICAL INFORMATION: Decubitus ulcers. COMPARISON: CT pelvis 10/19/2020. TECHNIQUE: 2 frontal views and a lateral projection are obtained for a total of 3 views. FINDINGS: There are lytic lesions again noted involving the left and right sacral wing and medial right ilium, better visualized on recent CT. There is no interval new visible destructive process or periostitis or fracture. Degenerative changes are seen lower lumbar spine with mild disc narrowing L4-L5 and facet degeneration L4-S1. There is no gas tracking in the soft tissues. XR/XR sacrum coccyx min 2V IMPRESSION: 1. Known lytic lesion sacrum and pelvis, better appreciated on recent CT. 2. No interval visible new destructive process, fracture, or periostitis. No gas tracking in the soft tissues.
--- NOTE | ~2020-10-19 | XR_ITS ---
EXAMINATION: XR CHEST CLINICAL INFORMATION: NG tube placement COMPARISON: 10/19/2020 TECHNIQUE: Frontal view of the chest was obtained. FINDINGS: NG tube overlies the left upper quadrant may be within a dilated stomach. The distal tip is not visualized on this study. Catheter overlies the superior vena cava. There is no pneumothorax. Once again coarse interstitial markings within the lungs. More prominent than previous exam. Attention to follow-up XR/XR chest 1V IMPRESSION: NG tube overlying left upper quadrant may well be within the stomach. The distal tip is not visualized.
--- NOTE | ~2020-10-19 | IR_ITS ---
PROCEDURE: IR INSERTION OF TEMPORARY DIALYSIS CATHETER CLINICAL INFORMATION: Needs origin dialysis. Last dialysis catheter was removed due to infection 3 days ago. COMPARISON: None TECHNIQUE: Following explaining ultrasound fluoroscopy guided placement of temporary dialysis catheter procedure, benefits and risk to patient's , a written consent was obtained and percent. Patient was placed supine on fluoroscopy table and prone on the ultrasound imaging was obtained. An optimal site was selected and marked on the skin. The marked site was cleaned and draped in usual sterile manner. 1% lidocaine was injected puncture site. Under sterile ultrasound guidance a singlewall needle was advanced laterally into the jugular vein. After serving venous return 18 guidewire was advanced and placed in the SVC and needle withdrawn. Over the guidewire 5 [place] dilator was placed and guidewire Removed. A 0.035 inch guidewire this placed and advanced into the IVC under fluoroscopy guidance. The 5 [place] dilator was removed and the tract was dilated to 12 [place]. A 12 [place] temporary dialysis catheter was inserted under fluoroscopy. The guidewire was removed. The catheter was anchored by two 3-0 nylon sutures to the skin. Both ports of the catheter were flushed with heparinized saline. Sterile dressing was applied post procedure. Patient tolerated procedure extremely well. No IV sedation was administered. All elements of maximal sterile barrier technique followed including use of cap, mask, sterile gown, sterile gloves, a sterile full body drape and hand hygiene. Also followed skin preparation with 2% chlorhexidine for cutaneous antisepsis, and sterile ultrasound preparation with sterile gel and probe cover when applicable. FINDINGS: On preliminary ultrasound imaging there is widely patent jugular vein. There is a bruising seen along the right anterior chest wall and the anterior neck from low platelet count and previous surgical removal of permacath. A 12 [place] 32 cm long dialysis catheter was inserted without immediate convocations. IR/IR cvc insert central tunnel IMPRESSION: Successful ultrasound and fluoroscopy-guided placement of a 12 [place] temporary catheter 13 cm long. Fluoroscopy time: 0.2 minutes. Dose area product: 37 cGy/cm2
--- NOTE | ~2020-10-19 | CT_ITS ---
EXAMINATION: CT HEAD WITHOUT CONTRAST CLINICAL INFORMATION: Altered mental status COMPARISON: None TECHNIQUE: Contiguous axial imaging was performed from the skull base to vertex without intravenous administration of contrast. Today's examination is limited secondary to motion artifact. This CT examination was performed using dose optimization techniques as appropriate, variously including the following: *Automated exposure control *Adjustment of mA and/or kV according to patient size (this includes techniques or standardized protocols for targeted exams where dose is matched to indication/reason for exam; i.e. extremities or head) *Use of iterative reconstruction technique DLP: 767 mGy-cm FINDINGS: There is no evidence of acute intracranial hemorrhage or territorial infarction. No abnormal mass effect or midline shift is appreciated. Bosch-white differentiation is well preserved. No extra-axial fluid collections. The ventricular system and cortical sulci are mildly prominent, consistent with age-appropriate volume loss. There are areas of low density in the periventricular and subcortical white matter, most consistent with sequelae of microvascular ischemic change. The osseous structures and soft tissues are normal. There are calcifications of the cavernous internal carotid arteries. The visualized paranasal sinuses and mastoid air cells are well aerated. CT/CT head/brain wo con IMPRESSION: Chronic microvascular ischemic changes with no CT evidence of acute intracranial abnormality.
--- NOTE | ~2020-10-19 | MR_ITS ---
EXAMINATION: BRAIN MRI WITHOUT CONTRAST CLINICAL INFORMATION: Encephalopathy COMPARISON: CT scan of the head 10/24/2020. TECHNIQUE: Multiplanar MR imaging of the brain was performed without contrast. FINDINGS: There are scattered nonspecific foci of T2 FLAIR signal hyperintensity within the periventricular white matter. No acute territorial infarct. No pathological magnetic susceptibility artifact. Intracranial vascular flow voids are maintained. There is no intracranial mass effect or midline shift. Lateral and third ventricles are normal. No hydrocephalus. There is diffuse reduction of bone marrow signal intensity on T1 sequences. Midline structures are otherwise unremarkable. No mastoid middle ear effusion. No active paranasal sinus disease. MR/MR head/brain wo con IMPRESSION: There is diffuse reduction of bone marrow signal intensity on T1 sequences. This nonspecific finding can be seen in setting of anemia or other infiltrative bone marrow processes. Scattered chronic small vessel ischemic changes are visualized within the periventricular white matter. No evidence of acute territorial infarct or hemorrhage.
--- NOTE | ~2020-10-19 | XR_ITS ---
EXAMINATION: XR CHEST CLINICAL INFORMATION: Anemia COMPARISON: Previous chest x-ray most recent March 2019 TECHNIQUE: Frontal view of the chest was obtained. FINDINGS: The cardiac and mediastinal contours are normal. There is a new right jugular permacath with tip projecting over the cavoatrial junction. The lungs are clear. There is no pleural effusion or pneumothorax. There are degenerative changes of the spine. XR/XR chest 1V IMPRESSION: No evidence for acute disease in the chest.
--- NOTE | ~2020-10-19 | IR_ITS ---
EXAMINATION: TUNNELED CATHETER REMOVAL CLINICAL INFORMATION: Infected permacath COMPARISON: None TECHNIQUE/FINDINGS: The skin and soft tissues of the right anterior chest around the permacath were prepped and draped in the usual sterile fashion. The skin and soft tissues were anesthetized with 1% lidocaine plain. Using blunt dissection, the permacath was dissected from the fibrous cuff and removed. Manual pressure was held over the patient and hemostasis was achieved. The catheter tip was sent for culture. IR/IR cvc remov tunnel wo prt/felt checker IMPRESSION: Right internal jugular permacath removal.
--- NOTE | ~2020-10-19 | CT_ITS ---
EXAMINATION: CT ABDOMEN AND PELVIS WITHOUT CONTRAST CLINICAL INFORMATION: Diarrhea. Rule out toxic megacolon. COMPARISON: Previous CT of the abdomen and pelvis September 2020 TECHNIQUE: Multidetector volumetric imaging was performed from the superior aspect of the liver through the pubic symphysis. Sagittal and coronal reformatted images were obtained on the technologist's workstation. This CT examination was performed using dose optimization techniques as appropriate, variously including the following: *Automated exposure control *Adjustment of mA and/or kV according to patient size (this includes techniques or standardized protocols for targeted exams where dose is matched to indication/reason for exam; i.e. extremities or head) *Use of iterative reconstruction technique DLP: 637 mGy-cm FINDINGS: LUNG BASES: The visualized lung bases are unremarkable. LIVER, GALLBLADDER, AND BILIARY TREE: There is a heterogeneous ill-defined lesion in the lateral segment of the left lobe of the liver. This appears unchanged. The gallbladder is unremarkable. There is no biliary duct dilatation. PANCREAS: Unremarkable. SPLEEN: Unremarkable. ADRENAL GLANDS: Unremarkable. KIDNEYS AND URETERS: There are small bilateral renal stones. There are bilateral low-attenuation renal lesions that appears stable. These are not appreciably changed from prior exam and may represent this. BLADDER: There is a High catheter in the bladder. The bladder is empty. GASTROINTESTINAL TRACT: There is wall thickening of the distal colon and rectum. The bowel does not appear dilated. No evidence of megacolon is seen. Small and large bowel is otherwise unremarkable. The appendix is unremarkable. The stomach is not optimally distended. ABDOMINAL WALL: No hernia is seen. There are multiple subcutaneous nodular densities. This may be related to some mediastinal injection sites. LYMPH NODES: Normal. VASCULAR: There is evidence of atherosclerotic disease. No aneurysm is seen. PELVIC VISCERA: Unremarkable. OSSEOUS STRUCTURES: There are multiple lytic lesions. Largest lesion is in the right iliac bone near the sacroiliac joint measuring 1.5 x 3.5 cm with some extension into the soft tissues and lesion in the sacrum extending to the soft tissues measuring 3 cm. This does not appear appreciably changed from September 2020 exam. There are T8 T11 at L1 vertebral body compression fractures that appear unchanged. Probable Schmorl's node in the T12 vertebral body. There may be a compression fracture the inferior endplate of the L5 vertebral body. This appears unchanged. CT/CT abdomen pelvis wo con IMPRESSION: Wall thickening of the distal colon and rectum suggestive of proctocolitis. No evidence of megacolon. Stable heterogeneous lesion in the lateral segment of the left lobe of the liver. Small bilateral renal stones and probable bilateral renal cysts. High catheter in the bladder. No change in the lytic bone lesions from September 2020.
--- NOTE | 2020-10-19 12:56 | ECG_ITS ---
Test Reason : WEAKNESS Blood Pressure : / mmHG Vent. Rate : 120 BPM Atrial Rate : 120 BPM P-R Int : 162 ms QRS Dur : 084 ms QT Int : 308 ms P-R-T Axes : 036 064 202 degrees QTc Int : 435 ms Sinus tachycardia Cannot rule out Inferior infarct , age undetermined ST & T wave abnormality, consider anterolateral ischemia Abnormal ECG When compared with ECG of 20-SEP-2020 10:28, No significant change was found Referred By: Thelma Baez Electronically Signed By:Matthias Crooks
[2020-10-19 13:02] LABS: PLT CLUMP 1
[2020-10-19 13:04] LABS: Mean Corpuscular HGB Conc 35.1 g/dl (31.0-35.0); Mean Corpuscular Hemoglobin 29.7 pg (27.0-33.0); Mean Corpuscular Volume 84.5 fL (80-98); Mean Platelet Volume 10.4 fL (9.4-12.3); Red Blood Count 2.19 X10*6/uL (4.20-5.50); Red Cell Distribution Width 18.6 % (11.0-16.0); White Blood Count 9.3 X10*3/uL (4.8-10.8)
[2020-10-19 13:06] LABS: NRBC Pct Auto 1.4 /100WBC (0.0-0.2); Platelet Count 63 X10*3/uL (160-400)
[2020-10-19 13:08] LABS: INTERNATIONAL NORM RATIO 1.5 (0.9-1.1); Prothrombin Time 17.2 SEC (9.9-13.0)
[2020-10-19 13:09] LABS: Hemoglobin 6.5 g/dl (12.0-16.0)
[2020-10-19 13:10] LABS: Hematocrit 18.5 % (37-47)
[2020-10-19 13:17] LABS: Partial Thromboplastin Time 24.1 SEC (24.1-38.0)
[2020-10-19 13:44] LABS: Alanine Aminotransferase 8 U/L (0-31); Anion Gap 12 (12-20); Aspartate Amino Transferase 29 U/L (5-31); Bilirubin Total 0.6 mg/dL (0.0-1.0); Blood Urea Nitrogen 6 mg/dL (9-16); C Reactive Protein 17.17 mg/dL (< or = 0.50); Calcium 6.8 mg/dL (8.4-10.2); Carbon Dioxide 26 mmol/L (22-29); Chloride 96 mmol/L (96-108); Estimated Glomerular Filt Rate 27; Glucose Random 79 mg/dL (60-115); Magnesium 1.5 mg/dL (1.6-2.6); Potassium 3.5 mmol/L (3.3-5.1); Sodium 130 mmol/L (135-145); Total Protein 9.7 g/dL (6.5-8.0)
[2020-10-19 13:44] LABS: OBS1 NEGATIVE (NEGATIVE)
[2020-10-19 13:45] LABS: OBS Int Ctl Valid YES
[2020-10-19 13:45] LABS: Albumin Level 1.1 g/dL (3.5-5.0); Alkaline Phosphatase 95 U/L (39-117); Lipase 12 U/L (8-78)
--- NOTE | 2020-10-19 13:48 | ED.RECABL ---
HPI - Recheck/Abnormal Lab/Rx General Chief Complaint: Recheck/Abnormal Lab/Rx Stated Complaint: abnormal labs/blood transfusion Time Seen by Provider: 10/19/20 12:47 Source: patient and EMS Mode of arrival: EMS History of Present Illness HPI narrative: 75-year-old female with a past medical history of anemia, C diff colitis, CKD on dialysis (Sun//Sun), HTN, multiple myeloma, BIBA from [facility], [place] for low H&H noted to be 5.9/17.4 outpatient labs yesterday. Patient reports generalized myalgias and nonbloody diarrhea. Reports about 10-15 episodes of diarrhea daily. Was recently treated for C diff, not currently on antibiotics. Denies fever, chills, CP/SOB, abdominal pain, nausea/vomiting, lightheadedness/dizziness Last dialysis session today MD complaint: abnormal lab Related Data Home Medications Medication Instructions Recorded Confirmed acetaminophen 325 mg tablet 2 tab PO Q6H PRN 09/20/20 10/19/20 albuterol sulfate 90 mcg/actuation 2 puff INHALATION Q4H PRN 09/20/20 10/19/20 aerosol inhaler (Proventil HFA) allopurinol 100 mg tablet 2 tab PO DAILY 09/20/20 10/19/20 atorvastatin 10 mg tablet 1 tab PO BEDTIME 09/20/20 10/19/20 clonazepam 0.5 mg tablet 1 tab PO Q8H PRN 09/20/20 10/19/20 loperamide 2 mg tablet 1 tab PO Q3H PRN 09/20/20 10/19/20 loratadine 10 mg tablet 1 tab PO DAILY 09/20/20 10/19/20 aspirin 81 mg chewable tablet 81 mg PO DAILY 10/19/20 10/19/20 carboxymethylcellulose sodium 1 % 2 drp OPHTHALMIC (EYE) Q4H PRN 10/19/20 10/19/20 eye drops (Artificial Tears (carboxymethylcellulose)) diclofenac sodium 1 % topical gel 4 g TOPICAL BID 10/19/20 10/19/20 hydrocortisone 1 % topical cream 1 appl TOPICAL TID PRN 10/19/20 10/19/20 melatonin 5 mg tablet 5 mg PO BEDTIME 10/19/20 10/19/20 metoclopramide HCl 5 mg tablet 5 mg PO BID 10/19/20 10/19/20 midodrine 10 mg tablet 10 mg PO TUTHSA 10/19/20 10/19/20 nystatin 100,000 unit/gram topical 1 appl TOPICAL TID 10/19/20 10/19/20 powder omeprazole 40 mg capsule,delayed 40 mg PO DAILY 10/19/20 10/19/20 release ondansetron HCl 4 mg tablet 4 mg PO Q6H PRN 10/19/20 10/19/20 (Zofran) phenyleph-shark liver 1 appl [place] BID PRN 10/19/20 10/19/20 [id number] rectal cream polyethylene glycol 3350 17 17 g PO BEDTIME 10/19/20 10/19/20 gram/dose oral powder (Miralax) Allergies Allergy/AdvReac Type Severity Reaction Status Date / Time lisinopril AdvReac Angioedema Verified 09/21/20 00:34 Review of Systems Review of Systems: Constitutional: No Fever, No Chills, No Fatigue, No Malaise ENT/Mouth: No Ear Pain, No Nasal Congestion Eyes: No Eye Pain, No Vision Changes Cardiovascular: No Chest Pain, No SOB, No Edema Respiratory: No Cough, No Dyspnea Gastrointestinal: No Nausea, No Vomiting, + Diarrhea, No Constipation, No Abdominal pain, No Hematochezia, No Melena Genitourinary: No Dysuria, No Urinary Frequency, No Hematuria Musculoskeletal: No joint pain, + Myalgias Skin: No Skin Lesions, No rash Neuro: No Weakness, No Numbness, No Loss of Consciousness, No Dizziness Heme/Lymph: No Bruising, No Bleeding Yes all other systems are reviewed and are negative [facility] Past Medical History Attestation statement: The following information was validated with the patient. Medical History Anemia C. difficile colitis CKD (chronic kidney disease) HTN (hypertension) Multiple myeloma Social History Social History (Updated 09/20/20 @ 10:31 by Vanessa Quiroz DO) Household Members: Significant Other Housing: House Do you presently have visiting nurse or other home services: No Patient Tobacco Use Status: Never used Tobacco Advance Directives: No Advance Directives Information Provided: No service: No Current occupational status: retired Physical Exam Vital Signs: Vital Signs: Last Vital Signs Temp 100.8 F H 10/19/20 17:04 Pulse 113 H 10/19/20 17:04 Resp 20 10/19/20 17:04 BP 132/66 10/19/20 17:04 Pulse Ox 99 10/19/20 15:26 Body Mass Index 32.0 Const: General: cooperative Orientation/consciousness: patient oriented x3 Limitations: no limitations HENMT: Head: Yes normal to inspection Ears: hearing grossly normal bilaterally General nose exam: Normal external nose present Face and sinus: Yes normal facial exam Eyes: Other: Conjunctival pallor EOM: EOMs intact bilaterally Neck: Neck: Yes normal visual inspection Resp: Effort & Inspection: normal respiratory effort Auscultation: clear to auscultation bilaterally Cardio: Rate: regular rate Heart sounds: S1 normal heart sound present and S2 normal heart sound present GI: Inspection: Yes normal to inspection Palpation (GI): Soft to palpation, nontender, no guarding and not rigid : Other: Brown stool noted on rectal Skin breakdown noted to bilateral labia with skin friability/bleeding Skin: Rashes: no rashes Wounds: no wounds Neuro: General: patient oriented x3 Extrem: General: Yes normal to inspection Course Course Course Narrative: While cleaning patient noted skin breakdown, sent culture for herpes >reports she is chronically incontinent, High placed with pyuria expressed -1411--no leukocytosis. H&H low at 6.5 / 18.5 >> blood consent signed and in patient's chart. 2 units RBCs signed -hyponatremia chronically. Chronic CKD however renal function better than baseline as patient received dialysis this morning -lactic negative, occult stool negative -151--patient now noted to be febrile to 101.1, persistently tachycardic, hypotensive, likely due to anemia/volume. UA is positive. Organ dysfunction is chronic. Low concern for severe sepsis, vital sign abnormalities likely from anemia. Avoiding 30mg/kg IVF due to patient's CKD and need for blood products. RBCs currently running. IV Ceftriaxone ordered for UTI -1515--patient is C diff positive >> p.o. Vancomycin ordered Case discussed with GI doctor Marycruz who states patient may need of stool transplant, however has other reasons for infectious source at this time. Recommend ID consult, PO Vancomycin, IV Flagyl, and CT AP -1654--CT abdomen pelvis wo con IMPRESSION: Wall thickening of the distal colon and rectum suggestive of proctocolitis. No evidence of megacolon. Stable heterogeneous lesion in the lateral segment of the left lobe of the liver. Small bilateral renal stones and probable bilateral renal cysts. High catheter in the bladder. No change in the lytic bone lesions from September 2020. > vital signs improving with therapies. Plan to admit for further management. Patient currently ice packs placed on her to aid in fever reduction -1730--patient admitted for further management MDM - Recheck/Abnormal Lab/Rx MDM Narrative Medical decision making narrative: 75-year-old female with a past medical history of anemia, C diff colitis, CKD on dialysis (e//Sun), HTN, multiple myeloma, BIBA from [facility], [place] for low H&H noted to be 5.9/17.4 outpatient labs yesterday. Patient reports generalized myalgias and nonbloody diarrhea. On exam tachycardic likely from anemia, BP 103/55 likely from anemia/volume status, grade temp of 99.1?, NAD, abdomen soft/nontender, brown stool noted on rectal. Concern for anemia of chronic disease vs GI bleed. Rule out metabolic and infectious etiology. Concern for C diff/infectious diarrhea Plan: EKG, labs, UA, CXR, occult stool, stool studies, re-evaluate Medical Records Attestation: I reviewed the patient's medical records. Lab Data Attestation: I reviewed the patient's lab results. Result diagrams: 10/19/20 17:51 10/19/20 12:50 Labs: Lab Results 10/19/20 10/19/20 10/19/20 Range/Units 12:50 12:50 12:50 WBC 9.3 (4.8-10.8) X10*3/uL RBC 2.19 L (4.20-5.50) X10*6/uL Hgb 6.5 L* (12.0-16.0) g/dl Hct 18.5 L* (37-47) % MCV 84.5 (80-98) fL MCH 29.7 (27.0-33.0) pg MCHC 35.1 H (31.0-35.0) g/dl RDW 18.6 H (11.0-16.0) % Plt Count 63 L (160-400) X10*3/uL MPV 10.4 (9.4-12.3) fL Immature Gran % (Auto) Cancelled Neut % (Auto) Cancelled Lymph % (Auto) Cancelled [place] % (Auto) Cancelled Eos % (Auto) Cancelled Baso % (Auto) Cancelled Lymph # (Auto) Cancelled [place] # (Auto) Cancelled Eos # (Auto) Cancelled Baso # (Auto) Cancelled Abs Immat Gran (auto) Cancelled Absolute Neuts (auto) Cancelled Absolute Nucleated RBC 0.130 H (0.0-0.012) X10*3/uL Nucleated RBC % (auto) 1.4 H (0.0-0.2) /100WBC Neutrophils % (Manual) 58 (45-73) % Band Neutrophils % 15 H (3-5) % Lymphocytes % (Manual) 8 L (20-40) % Atypical Lymphs % (Man) 3 (0-6) % Monocytes % (Manual) 10 (2-11) % Eosinophils % (Manual) 1 (0-4) % Metamyelocytes % 5 % Abs Neuts (Manual) 6.8 (2.2-7.9) X10*3/uL Lymphocytes # (Manual) 0.7 (0.6-4.8) X10*3/uL Atyp Lymphs # (Manual) 0.3 x10*3/uL Monocytes # (Manual) 0.9 (0.0-1.2) X10*3/uL Eosinophils # (Manual) 0.1 (0.0-0.8) X10*3/UL Metamyelocytes # 0.5 X10*3/uL Nucleated RBCs 5 H (0-0) /100WBC Toxic Vacuolation PRESENT Platelet Estimate DECREASED (NORMAL) Large Platelets PRESENT Plt Morphology Comment NOTED RBC Morphology NOTED Polychromasia 1+ (0-2) /OIF Hypochromasia 1+ (5-14) /OIF Microcytosis 1+ (5-14) /OIF Macrocytosis 1+ (5-14) /OIF Target Cells 1+ (5-14) /OIF Tear Drop Cells 1+ (0-2) /OIF Ovalocytes 1+ (5-14) /OIF Acanthocytes (Spur) 1+ (0-2) /OIF PT 17.2 H D (9.9-13.0) SEC INR 1.5 H (0.9-1.1) APTT 24.1 (24.1-38.0) SEC Sodium 130 L (135-145) mmol/L Potassium 3.5 (3.3-5.1) mmol/L Chloride 96 (96-108) mmol/L Carbon Dioxide 26 (22-29) mmol/L Anion Gap 12 (12-20) BUN 6 L D (9-16) mg/dL Creatinine 1.85 H (0.5-1.4) mg/dL Estim Creat Clear Calc 26.0 Estimated GFR 27 Random Glucose 79 (60-115) mg/dL Lactic Acid (0.5-2.0) mmol/L Calcium 6.8 L (8.4-10.2) mg/dL Magnesium 1.5 L (1.6-2.6) mg/dL Total Bilirubin 0.6 (0.0-1.0) mg/dL AST 29 D (5-31) U/L ALT 8 (0-31) U/L Alkaline Phosphatase 95 D (39-117) U/L C-Reactive Protein 17.17 H (< or = 0.50) mg/dL Total Protein 9.7 H (6.5-8.0) g/dL Albumin 1.1 L (3.5-5.0) g/dL Lipase 12 (8-78) U/L Urine Color Urine Appearance Urine pH (5.0-8.0) Ur Specific [place] (1.005-1.025) Urine Protein (NEG-TRACE) MG/DL Urine Glucose (UA) (NEG) MG/DL Urine Ketones (NEG) MG/DL Urine Blood (NEG) Urine Nitrite (NEG) Ur Leukocyte Esterase (NEG) Urine RBC (0) /HPF Urine WBC (0-4) /HPF Ur Squamous Epith Cells /LPF Urine Bacteria /LPF Stool Occult Blood (NEGATIVE) Stool Leukocytes, Qual (NEGATIVE) Chlam trachomat DNA PCR C. difficile Tox B Gene (Negative) C. difficile Toxin A&B (Negative) C. difficile Interpret COVID-19 (ISABELLA) (Negative) COVID-19 Clin Com N.gonorrhoeae DNA (PCR) Blood Type Antibody Screen Crossmatch 10/19/20 10/19/20 10/19/20 Range/Units 13:19 13:19 13:29 WBC (4.8-10.8) X10*3/uL RBC (4.20-5.50) X10*6/uL Hgb (12.0-16.0) g/dl Hct (37-47) % MCV (80-98) fL MCH (27.0-33.0) pg MCHC (31.0-35.0) g/dl RDW (11.0-16.0) % Plt Count (160-400) X10*3/uL MPV (9.4-12.3) fL Immature Gran % (Auto) Neut % (Auto) Lymph % (Auto) [place] % (Auto) Eos % (Auto) Baso % (Auto) Lymph # (Auto) [place] # (Auto) Eos # (Auto) Baso # (Auto) Abs Immat Gran (auto) Absolute Neuts (auto) Absolute Nucleated RBC (0.0-0.012) X10*3/uL Nucleated RBC % (auto) (0.0-0.2) /100WBC Neutrophils % (Manual) (45-73) % Band Neutrophils % (3-5) % Lymphocytes % (Manual) (20-40) % Atypical Lymphs % (Man) (0-6) % Monocytes % (Manual) (2-11) % Eosinophils % (Manual) (0-4) % Metamyelocytes % % Abs Neuts (Manual) (2.2-7.9) X10*3/uL Lymphocytes # (Manual) (0.6-4.8) X10*3/uL Atyp Lymphs # (Manual) x10*3/uL Monocytes # (Manual) (0.0-1.2) X10*3/uL Eosinophils # (Manual) (0.0-0.8) X10*3/UL Metamyelocytes # X10*3/uL Nucleated RBCs (0-0) /100WBC Toxic Vacuolation Platelet Estimate (NORMAL) Large Platelets Plt Morphology Comment RBC Morphology Polychromasia /OIF Hypochromasia /OIF Microcytosis /OIF Macrocytosis /OIF Target Cells /OIF Tear Drop Cells /OIF Ovalocytes /OIF Acanthocytes (Spur) /OIF PT (9.9-13.0) SEC INR (0.9-1.1) APTT (24.1-38.0) SEC Sodium (135-145) mmol/L Potassium (3.3-5.1) mmol/L Chloride (96-108) mmol/L Carbon Dioxide (22-29) mmol/L Anion Gap (12-20) BUN (9-16) mg/dL Creatinine (0.5-1.4) mg/dL Estim Creat Clear Calc Estimated GFR Random Glucose (60-115) mg/dL Lactic Acid 1.8 (0.5-2.0) mmol/L Calcium (8.4-10.2) mg/dL Magnesium (1.6-2.6) mg/dL Total Bilirubin (0.0-1.0) mg/dL AST (5-31) U/L ALT (0-31) U/L Alkaline Phosphatase (39-117) U/L C-Reactive Protein (< or = 0.50) mg/dL Total Protein (6.5-8.0) g/dL Albumin (3.5-5.0) g/dL Lipase (8-78) U/L Urine Color Urine Appearance Urine pH (5.0-8.0) Ur Specific [place] (1.005-1.025) Urine Protein (NEG-TRACE) MG/DL Urine Glucose (UA) (NEG) MG/DL Urine Ketones (NEG) MG/DL Urine Blood (NEG) Urine Nitrite (NEG) Ur Leukocyte Esterase (NEG) Urine RBC (0) /HPF Urine WBC (0-4) /HPF Ur Squamous Epith Cells /LPF Urine Bacteria /LPF Stool Occult Blood (NEGATIVE) Stool Leukocytes, Qual NEGATIVE (NEGATIVE) Chlam trachomat DNA PCR C. difficile Tox B Gene POSITIVE A* (Negative) C. difficile Toxin A&B Positive A* (Negative) C. difficile Interpret SEE NOTE COVID-19 (ISABELLA) (Negative) COVID-19 Clin Com N.gonorrhoeae DNA (PCR) Blood Type Antibody Screen Crossmatch 10/19/20 10/19/20 10/19/20 Range/Units 13:29 13:32 13:33 WBC (4.8-10.8) X10*3/uL RBC (4.20-5.50) X10*6/uL Hgb (12.0-16.0) g/dl Hct (37-47) % MCV (80-98) fL MCH (27.0-33.0) pg MCHC (31.0-35.0) g/dl RDW (11.0-16.0) % Plt Count (160-400) X10*3/uL MPV (9.4-12.3) fL Immature Gran % (Auto) Neut % (Auto) Lymph % (Auto) [place] % (Auto) Eos % (Auto) Baso % (Auto) Lymph # (Auto) [place] # (Auto) Eos # (Auto) Baso # (Auto) Abs Immat Gran (auto) Absolute Neuts (auto) Absolute Nucleated RBC (0.0-0.012) X10*3/uL Nucleated RBC % (auto) (0.0-0.2) /100WBC Neutrophils % (Manual) (45-73) % Band Neutrophils % (3-5) % Lymphocytes % (Manual) (20-40) % Atypical Lymphs % (Man) (0-6) % Monocytes % (Manual) (2-11) % Eosinophils % (Manual) (0-4) % Metamyelocytes % % Abs Neuts (Manual) (2.2-7.9) X10*3/uL Lymphocytes # (Manual) (0.6-4.8) X10*3/uL Atyp Lymphs # (Manual) x10*3/uL Monocytes # (Manual) (0.0-1.2) X10*3/uL Eosinophils # (Manual) (0.0-0.8) X10*3/UL Metamyelocytes # X10*3/uL Nucleated RBCs (0-0) /100WBC Toxic Vacuolation Platelet Estimate (NORMAL) Large Platelets Plt Morphology Comment RBC Morphology Polychromasia /OIF Hypochromasia /OIF Microcytosis /OIF Macrocytosis /OIF Target Cells /OIF Tear Drop Cells /OIF Ovalocytes /OIF Acanthocytes (Spur) /OIF PT (9.9-13.0) SEC INR (0.9-1.1) APTT (24.1-38.0) SEC Sodium (135-145) mmol/L Potassium (3.3-5.1) mmol/L Chloride (96-108) mmol/L Carbon Dioxide (22-29) mmol/L Anion Gap (12-20) BUN (9-16) mg/dL Creatinine (0.5-1.4) mg/dL Estim Creat Clear Calc Estimated GFR Random Glucose (60-115) mg/dL Lactic Acid (0.5-2.0) mmol/L Calcium (8.4-10.2) mg/dL Magnesium (1.6-2.6) mg/dL Total Bilirubin (0.0-1.0) mg/dL AST (5-31) U/L ALT (0-31) U/L Alkaline Phosphatase (39-117) U/L C-Reactive Protein (< or = 0.50) mg/dL Total Protein (6.5-8.0) g/dL Albumin (3.5-5.0) g/dL Lipase (8-78) U/L Urine Color Urine Appearance Urine pH (5.0-8.0) Ur Specific [place] (1.005-1.025) Urine Protein (NEG-TRACE) MG/DL Urine Glucose (UA) (NEG) MG/DL Urine Ketones (NEG) MG/DL Urine Blood (NEG) Urine Nitrite (NEG) Ur Leukocyte Esterase (NEG) Urine RBC (0) /HPF Urine WBC (0-4) /HPF Ur Squamous Epith Cells /LPF Urine Bacteria /LPF Stool Occult Blood NEGATIVE (NEGATIVE) Stool Leukocytes, Qual (NEGATIVE) Chlam trachomat DNA PCR C. difficile Tox B Gene (Negative) C. difficile Toxin A&B (Negative) C. difficile Interpret COVID-19 (ISABELLA) Negative (Negative) COVID-19 Clin Com See Note N.gonorrhoeae DNA (PCR) Blood Type O Positive Antibody Screen NEGATIVE Crossmatch See Detail 10/19/20 10/19/20 10/19/20 Range/Units 14:24 14:24 17:51 WBC 10.5 (4.8-10.8) X10*3/uL RBC 2.84 L D (4.20-5.50) X10*6/uL Hgb 8.4 L D (12.0-16.0) g/dl Hct 24.3 L D (37-47) % MCV 85.6 (80-98) fL MCH 29.6 (27.0-33.0) pg MCHC 34.6 (31.0-35.0) g/dl RDW 16.7 H (11.0-16.0) % Plt Count 42 L D (160-400) X10*3/uL MPV 9.5 (9.4-12.3) fL Immature Gran % (Auto) Cancelled Neut % (Auto) Cancelled Lymph % (Auto) Cancelled [place] % (Auto) Cancelled Eos % (Auto) Cancelled Baso % (Auto) Cancelled Lymph # (Auto) Cancelled [place] # (Auto) Cancelled Eos # (Auto) Cancelled Baso # (Auto) Cancelled Abs Immat Gran (auto) Cancelled Absolute Neuts (auto) Cancelled Absolute Nucleated RBC 0.150 H (0.0-0.012) X10*3/uL Nucleated RBC % (auto) 1.4 H (0.0-0.2) /100WBC Neutrophils % (Manual) (45-73) % Band Neutrophils % (3-5) % Lymphocytes % (Manual) (20-40) % Atypical Lymphs % (Man) (0-6) % Monocytes % (Manual) (2-11) % Eosinophils % (Manual) (0-4) % Metamyelocytes % % Abs Neuts (Manual) (2.2-7.9) X10*3/uL Lymphocytes # (Manual) (0.6-4.8) X10*3/uL Atyp Lymphs # (Manual) x10*3/uL Monocytes # (Manual) (0.0-1.2) X10*3/uL Eosinophils # (Manual) (0.0-0.8) X10*3/UL Metamyelocytes # X10*3/uL Nucleated RBCs (0-0) /100WBC Toxic Vacuolation Platelet Estimate (NORMAL) Large Platelets Plt Morphology Comment RBC Morphology Polychromasia /OIF Hypochromasia /OIF Microcytosis /OIF Macrocytosis /OIF Target Cells /OIF Tear Drop Cells /OIF Ovalocytes /OIF Acanthocytes (Sp[place]) /OIF PT (9.9-13.0) SEC INR (0.9-1.1) APTT (24.1-38.0) SEC Sodium (135-145) mmol/L Potassium (3.3-5.1) mmol/L Chloride (96-108) mmol/L Carbon Dioxide (22-29) mmol/L Anion Gap (12-20) BUN (9-16) mg/dL Creatinine (0.5-1.4) mg/dL Estim Creat Clear Calc Estimated GFR Random Glucose (60-115) mg/dL Lactic Acid (0.5-2.0) mmol/L Calcium (8.4-10.2) mg/dL Magnesium (1.6-2.6) mg/dL Total Bilirubin (0.0-1.0) mg/dL AST (5-31) U/L ALT (0-31) U/L Alkaline Phosphatase (39-117) U/L C-Reactive Protein (< or = 0.50) mg/dL Total Protein (6.5-8.0) g/dL Albumin (3.5-5.0) g/dL Lipase (8-78) U/L Urine Color YELLOW Urine Appearance TURBID Urine pH 7.5 (5.0-8.0) Ur Specific [place] >= 1.030 H (1.005-1.025) Urine Protein 3+ H (NEG-TRACE) MG/DL Urine Glucose (UA) NEG (NEG) MG/DL Urine Ketones NEG (NEG) MG/DL Urine Blood 2+ H (NEG) Urine Nitrite POS H (NEG) Ur Leukocyte Esterase 3+ H (NEG) Urine RBC 5-9 H (0) /HPF Urine WBC 76-150 H (0-4) /HPF Ur Squamous Epith Cells NONE /LPF Urine Bacteria 4+ /LPF Stool Occult Blood (NEGATIVE) Stool Leukocytes, Qual (NEGATIVE) Chlam trachomat DNA PCR Cancelled C. difficile Tox B Gene (Negative) C. difficile Toxin A&B (Negative) C. difficile Interpret COVID-19 (ISABELLA) (Negative) COVID-19 Clin Com N.gonorrhoeae DNA (PCR) Cancelled Blood Type Antibody Screen Crossmatch Discharge Plan Discharge Clinical Impression: Anemia, CKD (chronic kidney disease), C. difficile colitis Patient Disposition: Admitted As Inpatient
[2020-10-19 13:51] LABS: Atypical Lymph Absolute Manual 0.3 x10*3/uL; Atypical Lymphs Percent Manual 3 % (0-6); Band Neutrophils Percent 15 % (3-5); Eosinophils Absolute Manual 0.1 X10*3/UL (0.0-0.8); Eosinophils Percent Manual 1 % (0-4); Lymphocytes Absolute Manual 0.7 X10*3/uL (0.6-4.8); Lymphocytes Percent Manual 8 % (20-40); Metamyelocytes Absolute 0.5 X10*3/uL; Metamyelocytes Percent 5 %; Monocytes Absolute Manual 0.9 X10*3/uL (0.0-1.2); Monocytes Percent Manual 10 % (2-11); Neutrophils Absolute Manual 6.8 X10*3/uL (2.2-7.9); Neutrophils Percent Manual 58 % (45-73); Nucleated Red Blood Cells 5 /100WBC (0-0)
[2020-10-19 13:52] LABS: Acanthocytes 1+ (0-2) /OIF; Hypochromasia 1+ (5-14) /OIF; Large Platelet PRESENT; Macrocytosis 1+ (5-14) /OIF; Microcytosis 1+ (5-14) /OIF; Ovalocytes 1+ (5-14) /OIF; Platelet Estimate DECREASED (NORMAL); Platelet Morphology Comment NOTED; Polychromasia 1+ (0-2) /OIF; RBC Morphology NOTED; Target Cells 1+ (5-14) /OIF; Tear Drop Cells 1+ (0-2) /OIF; Toxic Vacuolation PRESENT
[2020-10-19 14:01] LABS: IDNOW Serial# 9DD0AD1C
[2020-10-19 14:02] LABS: COVID-19 Test Negative (Negative)
[2020-10-19 14:09] LABS: Leukocytes Stool Qualitative NEGATIVE (NEGATIVE)
[2020-10-19 14:12] LABS: Lactic Acid 1.8 mmol/L (0.5-2.0)
[2020-10-19] MEDS: Magnesium Oxide 400 MG TABLET PO (14:26)
[2020-10-19 14:46] LABS: Glucose Urine UA NEG (NEG); Nitrite Urine POS (NEG); PH 7.5 (5.0-8.0); Specific Gravity - Urine >= 1.030 (1.005-1.025); UACC Culture Trigger YES; Urine Blood 2+ (NEG); Urine Ketones NEG (NEG); Urine Protein 3+ MG/DL (NEG-TRACE)
[2020-10-19 14:47] LABS: CDiff Gene PCR POSITIVE (Negative)
[2020-10-19 14:54] LABS: Appearance Urine TURBID; Color Urine YELLOW; Leukocyte Esterase Urine 3+ (NEG)
[2020-10-19 14:56] LABS: Bacteria Urine 4+ /LPF
--- NOTE | 2020-10-19 15:09 | PM.SEPSISNOT ---
Sepsis Bolus Exclusion Sepsis Bolus Exclusion CHF/Renal Failure This patient met severe sepsis criteria due to the following condition(s):: Hypotension In my clinical judgement the administration of 30 ml/kg of crystalloid would be detrimental to this patient due to the patient's following conditions:: Stage III or IV Chronic Kidney Disease (GFR<30) Replace the 30 mls/kg with: Crystalloids amount given in mls:: 1,050 Colloids amount given in mls:: 600
[2020-10-19] MEDS: Acetaminophen 325 MG TABLET 650 MG PO (15:11)
[2020-10-19 15:13] LABS: CDiff Toxin Positive (Negative)
[2020-10-19 15:15] LABS: CDIFF Internal ctrl Dots and bkg OK (V)
[2020-10-19] MEDS: cefTRIAXone sodium 1 GM in 0.9 % Sodium Chloride 50 ML IV (15:20)
[2020-10-19] MEDS: vancomycin HCL 125 MG CAPSULE PO ×2 (15:26→22:00)
[2020-10-19] MEDS: metroNIDAZOLE/NS 500 MG/100 ML PIGGYBACK 100 MG IV ×2 (16:01→23:19)
[2020-10-19] MEDS: 0.9 % Sodium Chloride 1,000 ML 999 ML IVCONT (16:43)
--- NOTE | 2020-10-19 16:51 | PHA.MEDREC ---
Pharmacy Consult ? Medication Reconciliation Pharmacy has completed the medication reconciliation.
[2020-10-19 18:01] LABS: Hematocrit 24.3 % (37-47); Hemoglobin 8.4 g/dl (12.0-16.0); Mean Corpuscular HGB Conc 34.6 g/dl (31.0-35.0); Mean Corpuscular Hemoglobin 29.6 pg (27.0-33.0); Mean Corpuscular Volume 85.6 fL (80-98); Mean Platelet Volume 9.5 fL (9.4-12.3); Red Blood Count 2.84 X10*6/uL (4.20-5.50); Red Cell Distribution Width 16.7 % (11.0-16.0); White Blood Count 10.5 X10*3/uL (4.8-10.8)
[2020-10-19 18:03] LABS: NRBC Pct Auto 1.4 /100WBC (0.0-0.2); Platelet Count 42 X10*3/uL (160-400)
[2020-10-19 19:00] LABS: Band Neutrophils Percent 3 % (3-5); Lymphocytes Absolute Manual 0.4 X10*3/uL (0.6-4.8); Lymphocytes Percent Manual 4 % (20-40); Monocytes Absolute Manual 0.5 X10*3/uL (0.0-1.2); Monocytes Percent Manual 5 % (2-11); Neutrophils Absolute Manual 9.6 X10*3/uL (2.2-7.9); Neutrophils Percent Manual 88 % (45-73); Nucleated Red Blood Cells 2 /100WBC (0-0)
[2020-10-19 19:01] LABS: Platelet Estimate DECREASED (NORMAL)
[2020-10-19 19:02] LABS: Large Platelet PRESENT
[2020-10-19 19:03] LABS: Hypochromasia 1+ (5-14) /OIF
[2020-10-19 19:05] LABS: Microcytosis 1+ (5-14) /OIF; Polychromasia 1+ (0-2) /OIF; Toxic Vacuolation PRESENT
[2020-10-19 19:07] LABS: Platelet Morphology Comment NORM
--- NOTE | 2020-10-19 19:09 | PC.NURSE ---
CTNG obtained and sent.
[2020-10-19 19:10] LABS: RBC Morphology NOTED
--- NOTE | 2020-10-19 20:10 | PC.NURSE ---
Hospitalist at bedside for primary eval.
--- NOTE | 2020-10-19 20:47 | PM.IMHP ---
History of Present Illness Date of Service: 10/19/20 Chief Complaint: Anemia 75-year-old female with a past medical history of multiple myeloma, anemia requiring blood transfusions-recently on 09/21/2020; history of C diff infection, ESRD on hemodialysis via Port-A-Cath, detention resident, mostly bed-bound as per the patient secondary to bilateral leg weakness; sent to the hospital today with a chief complaint of anemia. Patient mentioned that she was sent from the detention because her blood counts are low; patient denies any abdominal pain. Reports diarrhea. Denies any nausea or vomiting. Patient denies any chest pain palpitations lightheadedness or dizziness. Patient patient is not showed the chief she has any blood in the stool. Patient mentioned that she does not make urine; usually wears diapers at the detention. Off note patient has recent admission to the hospital on 09/20/2020 for a anemia, requiring 2 units of blood transfusion; ER course: ER team noted that the patient on presentation was mildly hypotensive; given gentle fluids of 1 L. Patient received dialysis. Patient's stool studies were positive for C diff; patient was given p.o. vancomycin; patient had a High placed and noted cloudy urine-consistent with UTI; given ceftriaxone. CT abdomen showed proctocolitis and stable liver lesion. Patient was also given Flagyl. Admitted to the hospital for further management. [facility] Medical History (Updated 10/24/20 @ 15:39 by Amparo Howard MD) Anemia Bacteremia C. difficile colitis CKD (chronic kidney disease) HTN (hypertension) Multiple myeloma Social History (Updated 09/20/20 @ 10:31 by Vanessa Quiroz DO) Household Members: None Housing: Other Do you presently have visiting nurse or other home services: Yes (from [facility]) Patient Tobacco Use Status: Never used Tobacco service: No Current occupational status: retired Meds Allergies Allergy/AdvReac Type Severity Reaction Status Date / Time lisinopril AdvReac Angioedema Verified 09/21/20 00:34 Active Medications: Current Medications Generic Name Dose Route Start Last Admin Trade Name Freq PRN Reason Stop Dose Admin Acetaminophen 650 mg 10/19/20 20:40 Acetaminophen 325 Mg Tablet PO Q6H PRN Pain, Mild (Pain Scale 1-3) Ceftriaxone Sodium 1 gm/ 50 mls @ 100 mls/hr 10/19/20 20:45 Sodium Chloride IV Q24H [facility] Metronidazole 500 mg in 100 mls @ 100 mls/hr 10/19/20 20:45 Flagyl IV Q8H [facility] Melatonin 6 mg 10/19/20 20:40 Melatonin 3 Mg Tablet PO BEDTIME PRN Insomnia Pharmacy Consult 1 each 10/19/20 12:56 Consult Rx Perform Med Rec MISCELLANE ONCE PRN Consult order Senna 17.2 mg 10/19/20 20:40 Sennosides 8.6 Mg Tablet PO BEDTIME PRN Constipation Sodium Chloride 3 ml 10/20/20 00:00 0.9 % Sodium Chloride Flush 3 Ml Syringe IVFLUSH QSHIFT [facility] Vancomycin HCl 125 mg 10/19/20 20:45 Vancomycin Hcl 125 Mg Capsule PO Q6H [facility] Home Medications Medication Instructions Recorded Confirmed Last Taken Type acetaminophen 325 mg tablet 2 tab PO Q6H PRN 09/20/20 10/19/20 Unknown History albuterol sulfate 90 mcg/actuation 2 puff INHALATION Q4H PRN 09/20/20 10/19/20 Unknown History aerosol inhaler (Proventil HFA) allopurinol 100 mg tablet 2 tab PO DAILY 09/20/20 10/19/20 Unknown History atorvastatin 10 mg tablet 1 tab PO BEDTIME 09/20/20 10/19/20 Unknown History clonazepam 0.5 mg tablet 1 tab PO Q8H PRN 09/20/20 10/19/20 Unknown History loperamide 2 mg tablet 1 tab PO Q3H PRN 09/20/20 10/19/20 Unknown History loratadine 10 mg tablet 1 tab PO DAILY 09/20/20 10/19/20 Unknown History aspirin 81 mg chewable tablet 81 mg PO DAILY 10/19/20 10/19/20 Unknown History carboxymethylcellulose sodium 1 % 2 drp OPHTHALMIC (EYE) Q4H PRN 10/19/20 10/19/20 Unknown History eye drops (Artificial Tears (carboxymethylcellulose)) diclofenac sodium 1 % topical gel 4 g TOPICAL BID 10/19/20 10/19/20 Unknown History hydrocortisone 1 % topical cream 1 appl TOPICAL TID PRN 10/19/20 10/19/20 Unknown History melatonin 5 mg tablet 5 mg PO BEDTIME 10/19/20 10/19/20 Unknown History metoclopramide HCl 5 mg tablet 5 mg PO BID 10/19/20 10/19/20 Unknown History midodrine 10 mg tablet 10 mg PO TUTHSA 10/19/20 10/19/20 Unknown History nystatin 100,000 unit/gram topical 1 appl TOPICAL TID 10/19/20 10/19/20 Unknown History powder omeprazole 40 mg capsule,delayed 40 mg PO DAILY 10/19/20 10/19/20 Unknown History release ondansetron HCl 4 mg tablet 4 mg PO Q6H PRN 10/19/20 10/19/20 Unknown History (Zofran) phenyleph-shark liver 1 appl MI BID PRN 10/19/20 10/19/20 Unknown History pvk-zkeyag-cal rectal cream polyethylene glycol 3350 17 17 g PO BEDTIME 10/19/20 10/19/20 Unknown History gram/dose oral powder (Miralax) Physical Exam Vital Signs and Narrative: Vital Signs: Last Vital Signs Temp 99.7 F 10/19/20 20:40 Pulse 103 H 10/19/20 20:40 Resp 24 H 10/19/20 20:40 BP 117/54 L 10/19/20 20:40 Pulse Ox 96 10/19/20 20:40 Body Mass Index 32.0 Gen: Appears be in no acute distress HEENT: NCAT, Moist mucosa. Pulmonary: Vesicular breath sounds, fair air entry CVS: Normal S1-S2 Abdomen: BS+, Soft, Nontender Extremities: Warm well perfused Neuro: Alert and awake. Moves all extremities equally. Mentating well. Skin: Noted decubitus ulcer/perineal rash/skin excoriations in the perineum; patient is on nystatin for. Patient was examined along with the RN at bedside Results Labs CBC and Chem 7: 10/29/20 08:41 10/29/20 08:41 Labs: Laboratory Results - last 24 hr 10/19/20 10/19/20 10/19/20 12:50 12:50 12:50 MCV 84.5 MCH 29.7 MCHC 35.1 H RDW 18.6 H Plt Count 63 L MPV 10.4 Immature Gran % (Auto) Cancelled Neut % (Auto) Cancelled Lymph % (Auto) Cancelled [place] % (Auto) Cancelled Eos % (Auto) Cancelled Baso % (Auto) Cancelled Lymph # (Auto) Cancelled [place] # (Auto) Cancelled Eos # (Auto) Cancelled Baso # (Auto) Cancelled Abs Immat Gran (auto) Cancelled Absolute Neuts (auto) Cancelled Absolute Nucleated RBC 0.130 H Nucleated RBC % (auto) 1.4 H Neutrophils % (Manual) 58 Band Neutrophils % 15 H Lymphocytes % (Manual) 8 L Atypical Lymphs % (Man) 3 Monocytes % (Manual) 10 Eosinophils % (Manual) 1 Metamyelocytes % 5 Abs Neuts (Manual) 6.8 Lymphocytes # (Manual) 0.7 Atyp Lymphs # (Manual) 0.3 Monocytes # (Manual) 0.9 Eosinophils # (Manual) 0.1 Metamyelocytes # 0.5 Nucleated RBCs 5 H Toxic Vacuolation PRESENT Platelet Estimate DECREASED Large Platelets PRESENT Plt Morphology Comment NOTED RBC Morphology NOTED Polychromasia 1+ (0-2) Hypochromasia 1+ (5-14) Microcytosis 1+ (5-14) Macrocytosis 1+ (5-14) Target Cells 1+ (5-14) Tear Drop Cells 1+ (0-2) Ovalocytes 1+ (5-14) Acanthocytes (Spur) 1+ (0-2) PT 17.2 H D INR 1.5 H APTT 24.1 Anion Gap 12 Estim Creat Clear Calc 26.0 Estimated GFR 27 Random Glucose 79 Lactic Acid Calcium 6.8 L Magnesium 1.5 L Total Bilirubin 0.6 AST 29 D ALT 8 Alkaline Phosphatase 95 D C-Reactive Protein 17.17 H Total Protein 9.7 H Albumin 1.1 L Lipase 12 Urine Color Urine Appearance Urine pH Ur Specific [place] Urine Protein Urine Glucose (UA) Urine Ketones Urine Blood Urine Nitrite Ur Leukocyte Esterase Urine RBC Urine WBC Ur Squamous Epith Cells Urine Bacteria Stool Occult Blood Stool Leukocytes, Qual Chlam trachomat DNA PCR C. difficile Tox B Gene C. difficile Toxin A&B C. difficile Interpret COVID-19 (ISABELLA) COVID-19 Clin Com N.gonorrhoeae DNA (PCR) Blood Type Antibody Screen Crossmatch 10/19/20 10/19/20 10/19/20 13:19 13:19 13:29 MCV MCH MCHC RDW Plt Count MPV Immature Gran % (Auto) Neut % (Auto) Lymph % (Auto) [place] % (Auto) Eos % (Auto) Baso % (Auto) Lymph # (Auto) [place] # (Auto) Eos # (Auto) Baso # (Auto) Abs Immat Gran (auto) Absolute Neuts (auto) Absolute Nucleated RBC Nucleated RBC % (auto) Neutrophils % (Manual) Band Neutrophils % Lymphocytes % (Manual) Atypical Lymphs % (Man) Monocytes % (Manual) Eosinophils % (Manual) Metamyelocytes % Abs Neuts (Manual) Lymphocytes # (Manual) Atyp Lymphs # (Manual) Monocytes # (Manual) Eosinophils # (Manual) Metamyelocytes # Nucleated RBCs Toxic Vacuolation Platelet Estimate Large Platelets Plt Morphology Comment RBC Morphology Polychromasia Hypochromasia Microcytosis Macrocytosis Target Cells Tear Drop Cells Ovalocytes Acanthocytes (Spur) PT INR APTT Anion Gap Estim Creat Clear Calc Estimated GFR Random Glucose Lactic Acid 1.8 Calcium Magnesium Total Bilirubin AST ALT Alkaline Phosphatase C-Reactive Protein Total Protein Albumin Lipase Urine Color Urine Appearance Urine pH Ur Specific [place] Urine Protein Urine Glucose (UA) Urine Ketones Urine Blood Urine Nitrite Ur Leukocyte Esterase Urine RBC Urine WBC Ur Squamous Epith Cells Urine Bacteria Stool Occult Blood Stool Leukocytes, Qual NEGATIVE Chlam trachomat DNA PCR C. difficile Tox B Gene POSITIVE A* C. difficile Toxin A&B Positive A* C. difficile Interpret SEE NOTE COVID-19 (ISABELLA) COVID-19 Clin Com N.gonorrhoeae DNA (PCR) Blood Type Antibody Screen Crossmatch 10/19/20 10/19/20 10/19/20 13:29 13:32 13:33 MCV MCH MCHC RDW Plt Count MPV Immature Gran % (Auto) Neut % (Auto) Lymph % (Auto) [place] % (Auto) Eos % (Auto) Baso % (Auto) Lymph # (Auto) [place] # (Auto) Eos # (Auto) Baso # (Auto) Abs Immat Gran (auto) Absolute Neuts (auto) Absolute Nucleated RBC Nucleated RBC % (auto) Neutrophils % (Manual) Band Neutrophils % Lymphocytes % (Manual) Atypical Lymphs % (Man) Monocytes % (Manual) Eosinophils % (Manual) Metamyelocytes % Abs Neuts (Manual) Lymphocytes # (Manual) Atyp Lymphs # (Manual) Monocytes # (Manual) Eosinophils # (Manual) Metamyelocytes # Nucleated RBCs Toxic Vacuolation Platelet Estimate Large Platelets Plt Morphology Comment RBC Morphology Polychromasia Hypochromasia Microcytosis Macrocytosis Target Cells Tear Drop Cells Ovalocytes Acanthocytes (Spur) PT INR APTT Anion Gap Estim Creat Clear Calc Estimated GFR Random Glucose Lactic Acid Calcium Magnesium Total Bilirubin AST ALT Alkaline Phosphatase C-Reactive Protein Total Protein Albumin Lipase Urine Color Urine Appearance Urine pH Ur Specific [place] Urine Protein Urine Glucose (UA) Urine Ketones Urine Blood Urine Nitrite Ur Leukocyte Esterase Urine RBC Urine WBC Ur Squamous Epith Cells Urine Bacteria Stool Occult Blood NEGATIVE Stool Leukocytes, Qual Chlam trachomat DNA PCR C. difficile Tox B Gene C. difficile Toxin A&B C. difficile Interpret COVID-19 (ISABELLA) Negative COVID-19 Clin Com See Note N.gonorrhoeae DNA (PCR) Blood Type O Positive Antibody Screen NEGATIVE Crossmatch See Detail 10/19/20 10/19/20 10/19/20 14:24 14:24 17:51 MCV 85.6 MCH 29.6 MCHC 34.6 RDW 16.7 H Plt Count 42 L D MPV 9.5 Immature Gran % (Auto) Cancelled Neut % (Auto) Cancelled Lymph % (Auto) Cancelled [place] % (Auto) Cancelled Eos % (Auto) Cancelled Baso % (Auto) Cancelled Lymph # (Auto) Cancelled [place] # (Auto) Cancelled Eos # (Auto) Cancelled Baso # (Auto) Cancelled Abs Immat Gran (auto) Cancelled Absolute Neuts (auto) Cancelled Absolute Nucleated RBC 0.150 H Nucleated RBC % (auto) 1.4 H Neutrophils % (Manual) 88 H Band Neutrophils % 3 Lymphocytes % (Manual) 4 L Atypical Lymphs % (Man) Monocytes % (Manual) 5 Eosinophils % (Manual) Metamyelocytes % Abs Neuts (Manual) 9.6 H Lymphocytes # (Manual) 0.4 L Atyp Lymphs # (Manual) Monocytes # (Manual) 0.5 Eosinophils # (Manual) Metamyelocytes # Nucleated RBCs 2 H Toxic Vacuolation PRESENT Platelet Estimate DECREASED Large Platelets PRESENT Plt Morphology Comment NORM RBC Morphology NOTED Polychromasia 1+ (0-2) Hypochromasia 1+ (5-14) Microcytosis 1+ (5-14) Macrocytosis Target Cells Tear Drop Cells Ovalocytes Acanthocytes (Spur) PT INR APTT Anion Gap Estim Creat Clear Calc Estimated GFR Random Glucose Lactic Acid Calcium Magnesium Total Bilirubin AST ALT Alkaline Phosphatase C-Reactive Protein Total Protein Albumin Lipase Urine Color YELLOW Urine Appearance TURBID Urine pH 7.5 Ur Specific [place] >= 1.030 H Urine Protein 3+ H Urine Glucose (UA) NEG Urine Ketones NEG Urine Blood 2+ H Urine Nitrite POS H Ur Leukocyte Esterase 3+ H Urine RBC 5-9 H Urine WBC 76-150 H Ur Squamous Epith Cells NONE Urine Bacteria 4+ Stool Occult Blood Stool Leukocytes, Qual Chlam trachomat DNA PCR Cancelled C. difficile Tox B Gene C. difficile Toxin A&B C. difficile Interpret COVID-19 (ISABELLA) COVID-19 Clin Com N.gonorrhoeae DNA (PCR) Cancelled Blood Type Antibody Screen Crossmatch Imaging Radiologist's Impressions: Impressions Chest X-Ray 10/19/20 13:17 IMPRESSION: No evidence for acute disease in the chest. Abdomen/Pelvis CT 10/19/20 15:45 IMPRESSION: Wall thickening of the distal colon and rectum suggestive of proctocolitis. No evidence of megacolon. Stable heterogeneous lesion in the lateral segment of the left lobe of the liver. Small bilateral renal stones and probable bilateral renal cysts. High catheter in the bladder. No change in the lytic bone lesions from September 2020. Assessment and Plan (1) Anemia: Status: Acute 75-year-old female with a past medical history of multiple myeloma, anemia requiring blood transfusions, ESRD on hemodialysis-TTS, history of C diff colitis, detention resident, mostly bedbound, history of thrombocytopenia with a chief complaint of anemia. Anemia: No obvious signs of bleeding reported. Stool guaiac was negative. Patient had similar presentations in the past requiring blood transfusion. Patient's hemoglobin on presentation was 5.9-received 2 units of blood transfusion; with improvement hemoglobin to 8.4. Thrombocytopenia: Stable at baseline. Patient denies any headaches blurry visions, bleeding. UTI/Proctocolitis/C diff infection: Continue p.o. vancomycin; continue IV ceftriaxone and Flagyl. Id consult for further recommendations on recurrent C diff. History of liver lesion: Stable as per the CT scan. Patient was seen by GI during the last admission. Recommended follow-up with GI. ESRD: Nephrology consult. DVT prophylaxis: SCD boots Code status: Full code Quality Stroke Does the patient have a stroke diagnosis?: No VTE Prior VTE?: No VTE Risk Level:: Medical - moderate - high VTE Device Contraindication: N/A - Device Ordered VTE Drug Contraindication: Treatment Not Indicated
--- NOTE | 2020-10-19 21:22 | PC.NURSE ---
This RN calling [facility] to give report.
[2020-10-19] MEDS: Atorvastatin Calcium 10 MG TABLET PO (22:00)
--- NOTE | 2020-10-19 22:03 | PC.NURSE ---
Pt medicated with 2100 medications, not all available in the pyxis. Pt requesting medications crushed, able to swallow Vanco without difficulty.
--- NOTE | 2020-10-19 22:21 | PC.NURSE ---
This RN calling [facility] again, [facility] to call back for report.
--- NOTE | 2020-10-19 22:32 | PC.NURSE ---
Report given to MARY Black.
[2020-10-19] MEDS: Metoclopramide HCl 5 MG TABLET PO (23:19)
[2020-10-19] MEDS: Midodrine HCl 10 MG TABLET PO (23:19)
--- NOTE | 2020-10-20 | ECG_ITS ---
Test Reason : WEAKNESS Blood Pressure : / mmHG Vent. Rate : 101 BPM Atrial Rate : 101 BPM P-R Int : 152 ms QRS Dur : 086 ms QT Int : 338 ms P-R-T Axes : 061 055 051 degrees QTc Int : 438 ms Sinus tachycardia T wave abnormality, consider inferior ischemia T wave abnormality, consider anterolateral ischemia Abnormal ECG When compared with ECG of 19-OCT-2020 14:22, Fusion complexes are no longer Present AR interval has decreased Referred By: Umair Brand Electronically Signed By:
[2020-10-20] MEDS: 0.9 % Sodium Chloride Flush 3 ML SYRINGE IVFLUSH ×4 (00:50→20:33)
[2020-10-20] MEDS: vancomycin HCL 125 MG CAPSULE PO ×4 (02:42→20:32)
[2020-10-20] MEDS: clonazePAM 0.5 MG TABLET PO (03:31)
[2020-10-20 04:00] VITALS: BP 118/56; PULSE 101; RESP 20; TEMP 36.4; O2SAT 98
[2020-10-20 06:19] LABS: CT PCR NOT DETECTED (Not Detect.); NG PCR NOT DETECTED (Not Detect.)
[2020-10-20 06:50] LABS: Hematocrit 24.1 % (37-47); Hemoglobin 8.4 g/dl (12.0-16.0); Mean Corpuscular HGB Conc 34.9 g/dl (31.0-35.0); Mean Corpuscular Hemoglobin 29.6 pg (27.0-33.0); Mean Corpuscular Volume 84.9 fL (80-98); Mean Platelet Volume 9.2 fL (9.4-12.3); Red Blood Count 2.84 X10*6/uL (4.20-5.50); Red Cell Distribution Width 17.1 % (11.0-16.0); White Blood Count 9.5 X10*3/uL (4.8-10.8)
[2020-10-20 06:53] LABS: NRBC Pct Auto 1.9 /100WBC (0.0-0.2); Platelet Count 49 X10*3/uL (160-400)
[2020-10-20 07:11] LABS: Anion Gap 8 (12-20); Blood Urea Nitrogen 11 mg/dL (9-16); Calcium 6.5 mg/dL (8.4-10.2); Carbon Dioxide 27 mmol/L (22-29); Chloride 98 mmol/L (96-108); Creatinine Clr Calc Pharmacy 17.6; Estimated Glomerular Filt Rate 17; Glucose Random 69 mg/dL (60-115); Potassium 3.2 mmol/L (3.3-5.1); Sodium 130 mmol/L (135-145)
[2020-10-20 07:36] LABS: Atypical Lymph Absolute Manual 0.3 x10*3/uL; Atypical Lymphs Percent Manual 3 % (0-6); Band Neutrophils Percent 5 % (3-5); Lymphocytes Absolute Manual 0.1 X10*3/uL (0.6-4.8); Lymphocytes Percent Manual 1 % (20-40); Metamyelocytes Absolute 0.1 X10*3/uL; Metamyelocytes Percent 1 %; Monocytes Absolute Manual 0.6 X10*3/uL (0.0-1.2); Monocytes Percent Manual 6 % (2-11); Neutrophils Absolute Manual 8.5 X10*3/uL (2.2-7.9); Neutrophils Percent Manual 84 % (45-73); Nucleated Red Blood Cells 4 /100WBC (0-0)
[2020-10-20 07:39] LABS: Hypochromasia 1+ (5-14) /OIF; Platelet Estimate DECREASED (NORMAL); Platelet Morphology Comment NORMAL; Polychromasia 1+ (0-2) /OIF; RBC Morphology NOTED; Rouleau PRESENT
[2020-10-20 07:40] LABS: Toxic Vacuolation PRESENT
[2020-10-20 08:00] VITALS: BP 114/61; PULSE 103; RESP 17; TEMP 37.3; O2SAT 98
[2020-10-20] MEDS: metroNIDAZOLE/NS 500 MG/100 ML PIGGYBACK 100 MG IV ×2 (09:21→17:25)
[2020-10-20] MEDS: Aspirin 81 MG TAB.CHEW PO (09:21)
[2020-10-20] MEDS: allopurinoL 100 MG TABLET 200 MG PO (09:22)
[2020-10-20] MEDS: Metoclopramide HCl 5 MG TABLET PO ×2 (09:22→20:32)
[2020-10-20] MEDS: Loratadine 10 MG TABLET PO (09:22)
[2020-10-20] MEDS: Nystatin Powder 15 GM BOTTLE 1 APPL TOPICAL ×3 (10:06→21:00)
--- NOTE | 2020-10-20 10:31 | PM.CNNEP ---
History of Present Illness Reason for Consult Consult date: 10/20/20 Reason for consult: ESRD Requesting physician: Ricardo Hernandez Chief Complaint Chief complaint: C Diff colitis History of Present Illness Narrative: Full Renal Conult dictated HD schedule for tomorrow to cont her on TTS schedule PMFSH Past Medical History Medical History Anemia C. difficile colitis CKD (chronic kidney disease) HTN (hypertension) Multiple myeloma Social History Social History (Updated 09/20/20 @ 10:31 by Vanessa Quiroz DO) Household Members: None Housing: Other Do you presently have visiting nurse or other home services: Yes (from [facility]) Patient Tobacco Use Status: Never used Tobacco Have you been hit, kicked, punched, or otherwise hurt by someone within the past year? If so, by whom?: No Do you feel safe in your current relationship?: No Is there a partner from a previous relationship who is making you feel unsafe now?: No Are you made to feel afraid or neglected: No Advance Directives: No Advance Directives Information Provided: No Do you have thoughts of harming others: None Recently lost weight without trying: No Eating poorly because of decreased appetite: No service: No Current occupational status: retired Meds Allergies Allergy/AdvReac Type Severity Reaction Status Date / Time lisinopril AdvReac Angioedema Verified 09/21/20 00:34 Active Medications: Current Medications Generic Name Dose Route Start Last Admin Trade Name Freq PRN Reason Stop Dose Admin Acetaminophen 650 mg 10/19/20 20:40 Acetaminophen 325 Mg Tablet PO Q6H PRN Pain, Mild (Pain Scale 1-3) Albuterol Sulfate 2 puff 10/19/20 20:44 Albuterol Sulfate 90 Mcg 8 Gm Inhaler INHALE Q4H PRN dyspnea Allopurinol 200 mg 10/20/20 09:00 10/20/20 09:22 Allopurinol 100 Mg Tablet PO 200 mg DAILY DANIEL Administration Aspirin 81 mg 10/20/20 09:00 10/20/20 09:21 Aspirin 81 Mg Tab.Chew PO 81 mg DAILY DANIEL Administration Atorvastatin Calcium 10 mg 10/19/20 21:00 10/19/20 22:00 Atorvastatin Calcium 10 Mg Tablet PO 10 mg BEDTIME DANIEL Administration Clonazepam 0.5 mg 10/19/20 20:44 10/20/20 03:31 Clonazepam 0.5 Mg Tablet PO 0.5 mg Q8H PRN Administration anxiety Ceftriaxone Sodium 1 gm/ 50 mls @ 100 mls/hr 10/20/20 15:00 Sodium Chloride IV Q24H DANIEL Metronidazole 500 mg in 100 mls @ 100 mls/hr 10/19/20 23:45 10/20/20 09:21 Flagyl IV 100 mls/hr Q8H [facility] Administration Loratadine 10 mg 10/20/20 09:00 10/20/20 09:22 Loratadine 10 Mg Tablet PO 10 mg DAILY [facility] Administration Melatonin 6 mg 10/19/20 20:40 Melatonin 3 Mg Tablet PO BEDTIME PRN Insomnia Metoclopramide HCl 5 mg 10/19/20 21:00 10/20/20 09:22 Metoclopramide Hcl 5 Mg Tablet PO 5 mg BID [facility] Administration Midodrine 10 mg 10/19/20 20:45 10/19/20 23:19 Midodrine Hcl 10 Mg Tablet PO 10 mg TUTHSA [facility] Administration Nystatin 1 appl 10/19/20 21:00 10/20/20 10:06 Nystatin Powder 15 Gm Bottle TOPICAL 1 appl TID [facility] Administration Protocol Omeprazole 40 mg 10/20/20 06:30 10/20/20 06:15 Omeprazole 40 Mg Capsule. PO Not Given DAILY@0630 [facility] Pharmacy Consult 1 each 10/19/20 12:56 Consult Rx Perform Med Rec MISCELLANE ONCE PRN Consult order Polyethylene Glycol 17 gm 10/19/20 21:00 10/19/20 23:20 Polyethylene Glycol 3350 17 Gm Powd.Pack PO Not Given BEDTIME [facility] Senna 17.2 mg 10/19/20 20:40 Sennosides 8.6 Mg Tablet PO BEDTIME PRN Constipation Sodium Chloride 3 ml 10/20/20 00:00 10/20/20 09:22 0.9 % Sodium Chloride Flush 3 Ml Syringe IVFLUSH 3 ml QSHIFT [facility] Administration Vancomycin HCl 125 mg 10/19/20 21:00 10/20/20 09:22 Vancomycin Hcl 125 Mg Capsule PO 125 mg Q6H [facility] Administration Home Medications Medication Instructions Recorded Confirmed Last Taken Type acetaminophen 325 mg tablet 2 tab PO Q6H PRN 09/20/20 10/19/20 Unknown History albuterol sulfate 90 mcg/actuation 2 puff INHALATION Q4H PRN 09/20/20 10/19/20 Unknown History aerosol inhaler (Proventil HFA) allopurinol 100 mg tablet 2 tab PO DAILY 09/20/20 10/19/20 Unknown History atorvastatin 10 mg tablet 1 tab PO BEDTIME 09/20/20 10/19/20 Unknown History clonazepam 0.5 mg tablet 1 tab PO Q8H PRN 09/20/20 10/19/20 Unknown History loperamide 2 mg tablet 1 tab PO Q3H PRN 09/20/20 10/19/20 Unknown History loratadine 10 mg tablet 1 tab PO DAILY 09/20/20 10/19/20 Unknown History aspirin 81 mg chewable tablet 81 mg PO DAILY 10/19/20 10/19/20 Unknown History carboxymethylcellulose sodium 1 % 2 drp OPHTHALMIC (EYE) Q4H PRN 10/19/20 10/19/20 Unknown History eye drops (Artificial Tears (carboxymethylcellulose)) diclofenac sodium 1 % topical gel 4 g TOPICAL BID 10/19/20 10/19/20 Unknown History hydrocortisone 1 % topical cream 1 appl TOPICAL TID PRN 10/19/20 10/19/20 Unknown History melatonin 5 mg tablet 5 mg PO BEDTIME 10/19/20 10/19/20 Unknown History metoclopramide HCl 5 mg tablet 5 mg PO BID 10/19/20 10/19/20 Unknown History midodrine 10 mg tablet 10 mg PO TUTHSA 10/19/20 10/19/20 Unknown History nystatin 100,000 unit/gram topical 1 appl TOPICAL TID 10/19/20 10/19/20 Unknown History powder omeprazole 40 mg capsule,delayed 40 mg PO DAILY 10/19/20 10/19/20 Unknown History release ondansetron HCl 4 mg tablet 4 mg PO Q6H PRN 10/19/20 10/19/20 Unknown History (Zofran) phenyleph-shark liver 1 appl [place] BID PRN 10/19/20 10/19/20 Unknown History [id number] rectal cream polyethylene glycol 3350 17 17 g PO BEDTIME 10/19/20 10/19/20 Unknown History gram/dose oral powder (Miralax) Physical Exam Vital Signs: Last Vital Signs Temp 99.2 F 10/20/20 08:00 Pulse 103 H 10/20/20 08:00 Resp 17 10/20/20 08:00 BP 114/61 10/20/20 08:00 Pulse Ox 98 10/20/20 08:00 Body Mass Index 31.1 Results Lab Results Result Diagrams: 10/20/20 05:17 10/20/20 05:17 Lab results: Chemistry 10/19/20 10/20/20 12:50 05:17 Sodium 130 L 130 L Potassium 3.5 3.2 L Carbon Dioxide 26 27 BUN 6 L D 11 D Creatinine 1.85 H 2.69 H Calcium 6.8 L 6.5 L Hematology 10/19/20 10/19/20 10/20/20 12:50 17:51 05:17 WBC 9.3 10.5 9.5 Hgb 6.5 L* 8.4 L D 8.4 L Plt Count 63 L 42 L D 49 L Urinalysis 10/19/20 14:24 Urine Color YELLOW Urine Appearance TURBID Urine pH 7.5 Ur Specific [place] >= 1.030 H Urine Protein 3+ H Urine Glucose (UA) NEG Urine Ketones NEG Urine Blood 2+ H Urine Nitrite POS H Ur Leukocyte Esterase 3+ H Urine RBC 5-9 H Urine WBC 76-150 H Ur Squamous Epith Cells NONE Procedures Date of Service Date of Service: 10/20/20
--- NOTE | 2020-10-20 11:24 | HO.PM.IMPN ---
Subjective Subjective Date of Service: 10/20/20 Interval History: Seen in f/u fo cdif, anemia is better, no new issues Review of Systems Gen: no fever Resp: no sob, no cough CV: no chest, no MAYORGA, no leg edema GI: No n/v, no abd pain Neuro: No confusion Physical Exam Vital Signs: Vital Signs: Last Vital Signs Temp 99.2 F 10/20/20 08:00 Pulse 103 H 10/20/20 08:00 Resp 17 10/20/20 08:00 BP 114/61 10/20/20 08:00 Pulse Ox 98 10/20/20 08:00 Body Mass Index 31.1 Const: General: cooperative Orientation/consciousness: patient oriented x3 Limitations: no limitations Resp: Effort & Inspection: normal respiratory effort Auscultation: clear to auscultation bilaterally Cardio: Rate: regular rate Heart sounds: S1 normal heart sound present and S2 normal heart sound present GI: Inspection: Yes normal to inspection Palpation (GI): Soft to palpation, nontender, no guarding and not rigid Skin: Rashes: no rashes Wounds: no wounds Neuro: General: patient oriented x3 Extrem: General: Yes normal to inspection Objective Data Current Medications Generic Name Dose Route Start Last Admin Trade Name Freq PRN Reason Stop Dose Admin Acetaminophen 650 mg 10/19/20 20:40 Acetaminophen 325 Mg Tablet PO Q6H PRN Pain, Mild (Pain Scale 1-3) Albuterol Sulfate 2 puff 10/19/20 20:44 Albuterol Sulfate 90 Mcg 8 Gm Inhaler INHALE Q4H PRN dyspnea Allopurinol 200 mg 10/20/20 09:00 10/20/20 09:22 Allopurinol 100 Mg Tablet PO 200 mg DAILY DANIEL Administration Aspirin 81 mg 10/20/20 09:00 10/20/20 09:21 Aspirin 81 Mg Tab.Chew PO 81 mg DAILY DANIEL Administration Atorvastatin Calcium 10 mg 10/19/20 21:00 10/19/20 22:00 Atorvastatin Calcium 10 Mg Tablet PO 10 mg BEDTIME DANIEL Administration Clonazepam 0.5 mg 10/19/20 20:44 10/20/20 03:31 Clonazepam 0.5 Mg Tablet PO 0.5 mg Q8H PRN Administration anxiety Ceftriaxone Sodium 1 gm/ 50 mls @ 100 mls/hr 10/20/20 15:00 Sodium Chloride IV Q24H DANIEL Metronidazole 500 mg in 100 mls @ 100 mls/hr 10/19/20 23:45 10/20/20 10:45 Flagyl IV Infused Q8H [facility] Infusion Loratadine 10 mg 10/20/20 09:00 10/20/20 09:22 Loratadine 10 Mg Tablet PO 10 mg DAILY [facility] Administration Melatonin 6 mg 10/19/20 20:40 Melatonin 3 Mg Tablet PO BEDTIME PRN Insomnia Metoclopramide HCl 5 mg 10/19/20 21:00 10/20/20 09:22 Metoclopramide Hcl 5 Mg Tablet PO 5 mg BID [facility] Administration Midodrine 10 mg 10/19/20 20:45 10/19/20 23:19 Midodrine Hcl 10 Mg Tablet PO 10 mg TUTHSA [facility] Administration Nystatin 1 appl 10/19/20 21:00 10/20/20 10:06 Nystatin Powder 15 Gm Bottle TOPICAL 1 appl TID [facility] Administration Protocol Omeprazole 40 mg 10/20/20 06:30 10/20/20 06:15 Omeprazole 40 Mg Capsule. PO Not Given DAILY@0630 [facility] Pharmacy Consult 1 each 10/19/20 12:56 Consult Rx Perform Med Rec MISCELLANE ONCE PRN Consult order Polyethylene Glycol 17 gm 10/19/20 21:00 10/19/20 23:20 Polyethylene Glycol 3350 17 Gm Powd.Pack PO Not Given BEDTIME [facility] Senna 17.2 mg 10/19/20 20:40 Sennosides 8.6 Mg Tablet PO BEDTIME PRN Constipation Sodium Chloride 3 ml 10/20/20 00:00 10/20/20 09:22 0.9 % Sodium Chloride Flush 3 Ml Syringe IVFLUSH 3 ml QSHIFT [facility] Administration Vancomycin HCl 125 mg 10/19/20 21:00 10/20/20 09:22 Vancomycin Hcl 125 Mg Capsule PO 125 mg Q6H [facility] Administration Labs CBC & Chem 7: 10/20/20 05:17 10/20/20 05:17 Labs: Laboratory Results - last 24 hr 10/19/20 10/19/20 10/19/20 12:50 12:50 12:50 MCV 84.5 MCH 29.7 MCHC 35.1 H RDW 18.6 H Plt Count 63 L MPV 10.4 Immature Gran % (Auto) Cancelled Neut % (Auto) Cancelled Lymph % (Auto) Cancelled [place] % (Auto) Cancelled Eos % (Auto) Cancelled Baso % (Auto) Cancelled Lymph # (Auto) Cancelled [place] # (Auto) Cancelled Eos # (Auto) Cancelled Baso # (Auto) Cancelled Abs Immat Gran (auto) Cancelled Absolute Neuts (auto) Cancelled Absolute Nucleated RBC 0.130 H Nucleated RBC % (auto) 1.4 H Neutrophils % (Manual) 58 Band Neutrophils % 15 H Lymphocytes % (Manual) 8 L Atypical Lymphs % (Man) 3 Monocytes % (Manual) 10 Eosinophils % (Manual) 1 Metamyelocytes % 5 Abs Neuts (Manual) 6.8 Lymphocytes # (Manual) 0.7 Atyp Lymphs # (Manual) 0.3 Monocytes # (Manual) 0.9 Eosinophils # (Manual) 0.1 Metamyelocytes # 0.5 Nucleated RBCs 5 H Toxic Vacuolation PRESENT Platelet Estimate DECREASED Large Platelets PRESENT Plt Morphology Comment NOTED RBC Morphology NOTED Polychromasia 1+ (0-2) Hypochromasia 1+ (5-14) Microcytosis 1+ (5-14) Macrocytosis 1+ (5-14) Target Cells 1+ (5-14) Tear Drop Cells 1+ (0-2) Ovalocytes 1+ (5-14) Acanthocytes (Spur) 1+ (0-2) Rouleaux Smear Path Review PT 17.2 H D INR 1.5 H APTT 24.1 Anion Gap 12 Estim Creat Clear Calc 26.0 Estimated GFR 27 Random Glucose 79 Lactic Acid Calcium 6.8 L Magnesium 1.5 L Total Bilirubin 0.6 AST 29 D ALT 8 Alkaline Phosphatase 95 D C-Reactive Protein 17.17 H Total Protein 9.7 H Albumin 1.1 L Lipase 12 Urine Color Urine Appearance Urine pH Ur Specific [place] Urine Protein Urine Glucose (UA) Urine Ketones Urine Blood Urine Nitrite Ur Leukocyte Esterase Urine RBC Urine WBC Ur Squamous Epith Cells Urine Bacteria Stool Occult Blood Stool Leukocytes, Qual Chlam trachomat DNA PCR C. difficile Tox B Gene C. difficile Toxin A&B C. difficile Interpret COVID-19 (ISABELLA) COVID-19 Clin Com N.gonorrhoeae DNA (PCR) Blood Type Antibody Screen Crossmatch 10/19/20 10/19/20 10/19/20 13:19 13:19 13:29 MCV MCH MCHC RDW Plt Count MPV Immature Gran % (Auto) Neut % (Auto) Lymph % (Auto) [place] % (Auto) Eos % (Auto) Baso % (Auto) Lymph # (Auto) [place] # (Auto) Eos # (Auto) Baso # (Auto) Abs Immat Gran (auto) Absolute Neuts (auto) Absolute Nucleated RBC Nucleated RBC % (auto) Neutrophils % (Manual) Band Neutrophils % Lymphocytes % (Manual) Atypical Lymphs % (Man) Monocytes % (Manual) Eosinophils % (Manual) Metamyelocytes % Abs Neuts (Manual) Lymphocytes # (Manual) Atyp Lymphs # (Manual) Monocytes # (Manual) Eosinophils # (Manual) Metamyelocytes # Nucleated RBCs Toxic Vacuolation Platelet Estimate Large Platelets Plt Morphology Comment RBC Morphology Polychromasia Hypochromasia Microcytosis Macrocytosis Target Cells Tear Drop Cells Ovalocytes Acanthocytes (Spur) Rouleaux Smear Path Review PT INR APTT Anion Gap Estim Creat Clear Calc Estimated GFR Random Glucose Lactic Acid 1.8 Calcium Magnesium Total Bilirubin AST ALT Alkaline Phosphatase C-Reactive Protein Total Protein Albumin Lipase Urine Color Urine Appearance Urine pH Ur Specific [place] Urine Protein Urine Glucose (UA) Urine Ketones Urine Blood Urine Nitrite Ur Leukocyte Esterase Urine RBC Urine WBC Ur Squamous Epith Cells Urine Bacteria Stool Occult Blood Stool Leukocytes, Qual NEGATIVE Chlam trachomat DNA PCR C. difficile Tox B Gene POSITIVE A* C. difficile Toxin A&B Positive A* C. difficile Interpret SEE NOTE COVID-19 (ISABELLA) COVID-19 Clin Com N.gonorrhoeae DNA (PCR) Blood Type Antibody Screen Crossmatch 10/19/20 10/19/20 10/19/20 13:29 13:32 13:33 MCV MCH MCHC RDW Plt Count MPV Immature Gran % (Auto) Neut % (Auto) Lymph % (Auto) [place] % (Auto) Eos % (Auto) Baso % (Auto) Lymph # (Auto) [place] # (Auto) Eos # (Auto) Baso # (Auto) Abs Immat Gran (auto) Absolute Neuts (auto) Absolute Nucleated RBC Nucleated RBC % (auto) Neutrophils % (Manual) Band Neutrophils % Lymphocytes % (Manual) Atypical Lymphs % (Man) Monocytes % (Manual) Eosinophils % (Manual) Metamyelocytes % Abs Neuts (Manual) Lymphocytes # (Manual) Atyp Lymphs # (Manual) Monocytes # (Manual) Eosinophils # (Manual) Metamyelocytes # Nucleated RBCs Toxic Vacuolation Platelet Estimate Large Platelets Plt Morphology Comment RBC Morphology Polychromasia Hypochromasia Microcytosis Macrocytosis Target Cells Tear Drop Cells Ovalocytes Acanthocytes (Spur) Rouleaux Smear Path Review PT INR APTT Anion Gap Estim Creat Clear Calc Estimated GFR Random Glucose Lactic Acid Calcium Magnesium Total Bilirubin AST ALT Alkaline Phosphatase C-Reactive Protein Total Protein Albumin Lipase Urine Color Urine Appearance Urine pH Ur Specific [place] Urine Protein Urine Glucose (UA) Urine Ketones Urine Blood Urine Nitrite Ur Leukocyte Esterase Urine RBC Urine WBC Ur Squamous Epith Cells Urine Bacteria Stool Occult Blood NEGATIVE Stool Leukocytes, Qual Chlam trachomat DNA PCR C. difficile Tox B Gene C. difficile Toxin A&B C. difficile Interpret COVID-19 (ISABELLA) Negative COVID-19 Clin Com See Note N.gonorrhoeae DNA (PCR) Blood Type O Positive Antibody Screen NEGATIVE Crossmatch See Detail 10/19/20 10/19/20 10/19/20 14:24 14:24 17:51 MCV 85.6 MCH 29.6 MCHC 34.6 RDW 16.7 H Plt Count 42 L D MPV 9.5 Immature Gran % (Auto) Cancelled Neut % (Auto) Cancelled Lymph % (Auto) Cancelled [place] % (Auto) Cancelled Eos % (Auto) Cancelled Baso % (Auto) Cancelled Lymph # (Auto) Cancelled [place] # (Auto) Cancelled Eos # (Auto) Cancelled Baso # (Auto) Cancelled Abs Immat Gran (auto) Cancelled Absolute Neuts (auto) Cancelled Absolute Nucleated RBC 0.150 H Nucleated RBC % (auto) 1.4 H Neutrophils % (Manual) 88 H Band Neutrophils % 3 Lymphocytes % (Manual) 4 L Atypical Lymphs % (Man) Monocytes % (Manual) 5 Eosinophils % (Manual) Metamyelocytes % Abs Neuts (Manual) 9.6 H Lymphocytes # (Manual) 0.4 L Atyp Lymphs # (Manual) Monocytes # (Manual) 0.5 Eosinophils # (Manual) Metamyelocytes # Nucleated RBCs 2 H Toxic Vacuolation PRESENT Platelet Estimate DECREASED Large Platelets PRESENT Plt Morphology Comment NORM RBC Morphology NOTED Polychromasia 1+ (0-2) Hypochromasia 1+ (5-14) Microcytosis 1+ (5-14) Macrocytosis Target Cells Tear Drop Cells Ovalocytes Acanthocytes (Spur) Rouleaux Smear Path Review Cancelled PT INR APTT Anion Gap Estim Creat Clear Calc Estimated GFR Random Glucose Lactic Acid Calcium Magnesium Total Bilirubin AST ALT Alkaline Phosphatase C-Reactive Protein Total Protein Albumin Lipase Urine Color YELLOW Urine Appearance TURBID Urine pH 7.5 Ur Specific [place] >= 1.030 H Urine Protein 3+ H Urine Glucose (UA) NEG Urine Ketones NEG Urine Blood 2+ H Urine Nitrite POS H Ur Leukocyte Esterase 3+ H Urine RBC 5-9 H Urine WBC 76-150 H Ur Squamous Epith Cells NONE Urine Bacteria 4+ Stool Occult Blood Stool Leukocytes, Qual Chlam trachomat DNA PCR Cancelled C. difficile Tox B Gene C. difficile Toxin A&B C. difficile Interpret COVID-19 (ISABELLA) COVID-19 Clin Com N.gonorrhoeae DNA (PCR) Cancelled Blood Type Antibody Screen Crossmatch 10/19/20 10/20/20 10/20/20 19:05 05:17 05:17 MCV 84.9 MCH 29.6 MCHC 34.9 RDW 17.1 H Plt Count 49 L MPV 9.2 L Immature Gran % (Auto) Cancelled Neut % (Auto) Cancelled Lymph % (Auto) Cancelled [place] % (Auto) Cancelled Eos % (Auto) Cancelled Baso % (Auto) Cancelled Lymph # (Auto) Cancelled [place] # (Auto) Cancelled Eos # (Auto) Cancelled Baso # (Auto) Cancelled Abs Immat Gran (auto) Cancelled Absolute Neuts (auto) Cancelled Absolute Nucleated RBC 0.180 H Nucleated RBC % (auto) 1.9 H Neutrophils % (Manual) 84 H Band Neutrophils % 5 Lymphocytes % (Manual) 1 L Atypical Lymphs % (Man) 3 Monocytes % (Manual) 6 Eosinophils % (Manual) Metamyelocytes % 1 Abs Neuts (Manual) 8.5 H Lymphocytes # (Manual) 0.1 L Atyp Lymphs # (Manual) 0.3 Monocytes # (Manual) 0.6 Eosinophils # (Manual) Metamyelocytes # 0.1 Nucleated RBCs 4 H Toxic Vacuolation PRESENT Platelet Estimate DECREASED Large Platelets Plt Morphology Comment NORMAL RBC Morphology NOTED Polychromasia 1+ (0-2) Hypochromasia 1+ (5-14) Microcytosis Macrocytosis Target Cells Tear Drop Cells Ovalocytes Acanthocytes (Spur) Rouleaux PRESENT Smear Path Review PT INR APTT Anion Gap 8 L Estim Creat Clear Calc 17.6 Estimated GFR 17 Random Glucose 69 Lactic Acid Calcium 6.5 L Magnesium Total Bilirubin AST ALT Alkaline Phosphatase C-Reactive Protein Total Protein Albumin Lipase Urine Color Urine Appearance Urine pH Ur Specific [place] Urine Protein Urine Glucose (UA) Urine Ketones Urine Blood Urine Nitrite Ur Leukocyte Esterase Urine RBC Urine WBC Ur Squamous Epith Cells Urine Bacteria Stool Occult Blood Stool Leukocytes, Qual Chlam trachomat DNA PCR NOT DETECTED C. difficile Tox B Gene C. difficile Toxin A&B C. difficile Interpret COVID-19 (ISABELLA) COVID-19 Clin Com N.gonorrhoeae DNA (PCR) NOT DETECTED Blood Type Antibody Screen Crossmatch Assessment and Plan (1) Anemia: Status: Acute (2) CKD (chronic kidney disease): Status: Acute (3) C. difficile colitis: Status: Acute Assessment and Plan: 75-year-old female with a past medical history of multiple myeloma, anemia requiring blood transfusions, ESRD on hemodialysis-TTS, history of C diff colitis, snf resident, mostly bedbound, history of thrombocytopenia with a chief complaint of anemia. Anemia:? No obvious signs of bleeding reported.? Stool guaiac was negative.? Patient had similar presentations in the past requiring blood transfusion. Patient's hemoglobin on presentation was 5.9-received 2 units of blood transfusion; with improvement hemoglobin to 8.4. C, and essentially unchanged overnight. Thrombocytopenia:? Chronic, stable C dif--Vanco PO GPCC bacteremia--IV Vanco, ID consult Proctocolitis/C diff infection.. IV Ceftriaxone History of liver lesion:? Stable as per the CT scan.? Patient was seen by GI during the last admission.? Recommended follow-up with GI. ESRD:? Nephrology consult., HD TTS Possible dc tomorrow Quality Stroke Does the patient have a stroke diagnosis?: No VTE Prior VTE?: No VTE Risk Level:: Medical - moderate - high VTE Device Contraindication: N/A - Device Ordered VTE Drug Contraindication: Treatment Not Indicated
[2020-10-20 11:47] VITALS: BP 109/58; PULSE 100; RESP 19; TEMP 37.7; O2SAT 98
[2020-10-20] MEDS: cefTRIAXone sodium 1 GM in 0.9 % Sodium Chloride 50 ML IV (14:46)
[2020-10-20 15:49] VITALS: BP 162/82; PULSE 110; RESP 15; TEMP 36.6; O2SAT 96
--- NOTE | 2020-10-20 17:35 | P.CNID_ITS ---
History of Present Illness Data of Consult Service Date: 10/20/20 Requesting physician: Ricardo Hernandez Primary Care Provider: Chris Giron MD HPI Reason for consult: bacteremia,Cdiff She presents to hospital with weakness and lethargy She is bedbound and has multiple myeloma She has had Cdiff and has been on po Vancomycin Review of Systems Review of Systems: Yes Unobtainable due to mental condition [facility] Past Medical History Medical History (Updated 10/20/20 @ 17:39 by Terese Long MD) Anemia Bacteremia C. difficile colitis CKD (chronic kidney disease) HTN (hypertension) Multiple myeloma Social History Social History (Updated 09/20/20 @ 10:31 by Vanessa Quiroz DO) Household Members: None Housing: Other Do you presently have visiting nurse or other home services: Yes (from [facility]) Patient Tobacco Use Status: Never used Tobacco Currently Displaying Signs/Symptoms of Drug Intoxication Withdrawal: No Have you been hit, kicked, punched, or otherwise hurt by someone within the past year? If so, by whom?: No Do you feel safe in your current relationship?: No Is there a partner from a previous relationship who is making you feel unsafe now?: No Are you made to feel afraid or neglected: No Advance Directives: No Advance Directives Information Provided: No Do you have thoughts of harming others: None Do you have a plan to hurt others: No Plan Recently lost weight without trying: No Eating poorly because of decreased appetite: No service: No Current occupational status: retired Meds Allergies Allergy/AdvReac Type Severity Reaction Status Date / Time lisinopril AdvReac Angioedema Verified 09/21/20 00:34 Active Medications: Current Medications Generic Name Dose Route Start Last Admin Trade Name Freq PRN Reason Stop Dose Admin Acetaminophen 650 mg 10/19/20 20:40 Acetaminophen 325 Mg Tablet PO Q6H PRN Pain, Mild (Pain Scale 1-3) Albuterol Sulfate 2 puff 10/19/20 20:44 Albuterol Sulfate 90 Mcg 8 Gm Inhaler INHALE Q4H PRN dyspnea Allopurinol 200 mg 10/20/20 09:00 10/20/20 09:22 Allopurinol 100 Mg Tablet PO 200 mg DAILY DANIEL Administration Aspirin 81 mg 10/20/20 09:00 10/20/20 09:21 Aspirin 81 Mg Tab.Chew PO 81 mg DAILY DANIEL Administration Atorvastatin Calcium 10 mg 10/19/20 21:00 10/19/20 22:00 Atorvastatin Calcium 10 Mg Tablet PO 10 mg BEDTIME DANIEL Administration Clonazepam 0.5 mg 10/19/20 20:44 10/20/20 03:31 Clonazepam 0.5 Mg Tablet PO 0.5 mg Q8H PRN Administration anxiety Ceftriaxone Sodium 1 gm/ 50 mls @ 100 mls/hr 10/20/20 15:00 10/20/20 15:59 Sodium Chloride IV Infused Q24H DANIEL Infusion Metronidazole 500 mg in 100 mls @ 100 mls/hr 10/19/20 23:45 10/20/20 17:25 Flagyl IV 100 mls/hr Q8H DANIEL Administration Vancomycin HCl 750 mg/ Sodium 265 mls @ 265 mls/hr 10/20/20 17:00 Chloride IV Q24H DANIEL Loratadine 10 mg 10/20/20 09:00 10/20/20 09:22 Loratadine 10 Mg Tablet PO 10 mg DAILY [facility] Administration Melatonin 6 mg 10/19/20 20:40 Melatonin 3 Mg Tablet PO BEDTIME PRN Insomnia Metoclopramide HCl 5 mg 10/19/20 21:00 10/20/20 09:22 Metoclopramide Hcl 5 Mg Tablet PO 5 mg BID [facility] Administration Midodrine 10 mg 10/19/20 20:45 10/19/20 23:19 Midodrine Hcl 10 Mg Tablet PO 10 mg TUTHSA [facility] Administration Nystatin 1 appl 10/19/20 21:00 10/20/20 14:46 Nystatin Powder 15 Gm Bottle TOPICAL 1 appl TID [facility] Administration Protocol Omeprazole 40 mg 10/20/20 06:30 10/20/20 06:15 Omeprazole 40 Mg Capsule. PO Not Given DAILY@0630 [facility] Pharmacy Consult 1 each 10/19/20 12:56 Consult Rx Perform Med Rec MISCELLANE ONCE PRN Consult order Pharmacy Consult 1 each 10/20/20 15:23 Consult Rx Vancomycin Dosing MISCELLANE DAILY PRN Consult order Polyethylene Glycol 17 gm 10/19/20 21:00 10/19/20 23:20 Polyethylene Glycol 3350 17 Gm Powd.Pack PO Not Given BEDTIME [facility] Senna 17.2 mg 10/19/20 20:40 Sennosides 8.6 Mg Tablet PO BEDTIME PRN Constipation Sodium Chloride 3 ml 10/20/20 00:00 10/20/20 17:26 0.9 % Sodium Chloride Flush 3 Ml Syringe IVFLUSH 3 ml QSHIFT DANIEL Administration Vancomycin HCl 125 mg 10/19/20 21:00 10/20/20 14:46 Vancomycin Hcl 125 Mg Capsule PO 125 mg Q6H DANIEL Administration Home Medications Medication Instructions Recorded Confirmed Last Taken Type acetaminophen 325 mg tablet 2 tab PO Q6H PRN 09/20/20 10/19/20 Unknown History albuterol sulfate 90 mcg/actuation 2 puff INHALATION Q4H PRN 09/20/20 10/19/20 Unknown History aerosol inhaler (Proventil HFA) allopurinol 100 mg tablet 2 tab PO DAILY 09/20/20 10/19/20 Unknown History atorvastatin 10 mg tablet 1 tab PO BEDTIME 09/20/20 10/19/20 Unknown History clonazepam 0.5 mg tablet 1 tab PO Q8H PRN 09/20/20 10/19/20 Unknown History loperamide 2 mg tablet 1 tab PO Q3H PRN 09/20/20 10/19/20 Unknown History loratadine 10 mg tablet 1 tab PO DAILY 09/20/20 10/19/20 Unknown History aspirin 81 mg chewable tablet 81 mg PO DAILY 10/19/20 10/19/20 Unknown History carboxymethylcellulose sodium 1 % 2 drp OPHTHALMIC (EYE) Q4H PRN 10/19/20 10/19/20 Unknown History eye drops (Artificial Tears (carboxymethylcellulose)) diclofenac sodium 1 % topical gel 4 g TOPICAL BID 10/19/20 10/19/20 Unknown History hydrocortisone 1 % topical cream 1 appl TOPICAL TID PRN 10/19/20 10/19/20 Unknown History melatonin 5 mg tablet 5 mg PO BEDTIME 10/19/20 10/19/20 Unknown History metoclopramide HCl 5 mg tablet 5 mg PO BID 10/19/20 10/19/20 Unknown History midodrine 10 mg tablet 10 mg PO TUTHSA 10/19/20 10/19/20 Unknown History nystatin 100,000 unit/gram topical 1 appl TOPICAL TID 10/19/20 10/19/20 Unknown History powder omeprazole 40 mg capsule,delayed 40 mg PO DAILY 10/19/20 10/19/20 Unknown History release ondansetron HCl 4 mg tablet 4 mg PO Q6H PRN 10/19/20 10/19/20 Unknown History (Zofran) phenyleph-shark liver 1 appl [place] BID PRN 10/19/20 10/19/20 Unknown History nll-hookci-uim rectal cream polyethylene glycol 3350 17 17 g PO BEDTIME 10/19/20 10/19/20 Unknown History gram/dose oral powder (Miralax) Physical Exam Vital Signs: Vital Signs: Last Vital Signs Temp 97.9 F 10/20/20 15:49 Pulse 110 H 10/20/20 15:49 Resp 15 10/20/20 15:49 BP 162/82 H 10/20/20 15:49 Pulse Ox 96 10/20/20 15:49 Body Mass Index 31.1 Const: General: cooperative HENMT: Head: Yes normal to inspection Mouth: Normal oral and palatal mucosa present Resp: Effort & Inspection: normal respiratory effort Cardio: Rate: regular rate Rhythm: regular rhythm GI: Palpation (GI): Soft to palpation and nontender Skin: General skin exam: no rashes or lesions noted Results Labs CBC & Chem 7: 10/20/20 05:17 10/20/20 05:17 Labs: Short CBC 10/19/20 10/19/20 10/20/20 Range/Units 12:50 17:51 05:17 WBC 9.3 10.5 9.5 (4.8-10.8) X10*3/uL Hgb 6.5 L* 8.4 L D 8.4 L (12.0-16.0) g/dl Hct 18.5 L* 24.3 L D 24.1 L (37-47) % Plt Count 63 L 42 L D 49 L (160-400) X10*3/uL BMP 10/20/20 05:17 Sodium 130 L Potassium 3.2 L Chloride 98 Carbon Dioxide 27 BUN 11 D Creatinine 2.69 H Calcium 6.5 L Microbiology Microbiology Results: Microbiology 10/19/20 15:01 Blood - Venous Blood Culture - Preliminary Prelim: GPC Gram Stain only 10/19/20 14:56 Blood - Venous Blood Culture - Preliminary Prelim: GPC Gram Stain only 10/19/20 00:00 Urine Catheterized - High Catheter Urine Culture - Final 10/19/20 13:19 Stool Stool Culture - Preliminary Culture in progress. Assessment and Plan (1) C. difficile colitis: Status: Acute (2) CKD (chronic kidney disease): Status: Acute (3) Bacteremia: Status: Acute She has gram positive organisms ?due to any developing decubitis H/o Cdiff Bacteremia Suggest IV Vancomycin to continue Continue Flagyl ?cdiff check echo and check decubitus osteomyelitsi
[2020-10-20] MEDS: vancomycin HCL 750 MG in 0.9 % Sodium Chloride 250 ML 265 MG IV (19:02)
[2020-10-20 19:25] VITALS: BP 128/60; PULSE 110; RESP 16; TEMP 37.4; O2SAT 98
[2020-10-20] MEDS: Atorvastatin Calcium 10 MG TABLET PO (20:32)
[2020-10-20] MEDS: Acetaminophen 325 MG TABLET 650 MG PO (20:32)
[2020-10-21] VITALS (9 sets, daily range): BP systolic 108–162; BP diastolic 51–78; PULSE 78–121; RESP 18–20; TEMP 36.2–39.1; O2SAT 94–98
[2020-10-21] MEDS: metroNIDAZOLE/NS 500 MG/100 ML PIGGYBACK 100 MG IV ×4 (00:11→23:07)
[2020-10-21] MEDS: vancomycin HCL 125 MG CAPSULE PO ×4 (01:50→23:07)
[2020-10-21] MEDS: Omeprazole 40 MG CAPSULE.DR PO (06:18)
[2020-10-21] MEDS: Loratadine 10 MG TABLET PO (08:22)
[2020-10-21] MEDS: allopurinoL 100 MG TABLET 200 MG PO (08:22)
[2020-10-21] MEDS: Metoclopramide HCl 5 MG TABLET PO ×2 (08:22→23:08)
[2020-10-21] MEDS: Aspirin 81 MG TAB.CHEW PO (08:22)
[2020-10-21] MEDS: 0.9 % Sodium Chloride Flush 3 ML SYRINGE IVFLUSH ×2 (08:30→17:22)
[2020-10-21] MEDS: Nystatin Powder 15 GM BOTTLE 1 APPL TOPICAL ×3 (08:38→23:08)
--- NOTE | 2020-10-21 08:48 | MHC.CM.PN ---
pt is from [facility], dc plan is to return there when medically stable. ref. has been made to . cm to cont. to follow.
--- NOTE | 2020-10-21 09:31 | P.CDIC_ITS ---
CDI Concurrent Query Service Date: 10/21/20 Documentation Clarification: Please clarify if you are treating a proba ble/suspected/likely or confirmed: Clarity of documentation within the medical record: Severe sepsis (treat, rule out) Other, please specify if known or undetermined Provider Response: Severe Sepsis PLEASE DO NOT DELETE/MODIFY EXISTING CONTENT Additional information is needed in order to code to the highest accuracy and appropriate Severity of Illness (SOI). Please clarify the information noted below in your progress notes and discharge summary. Risk Factors/Clinical Indicators/Treatments Event note 10/19 - Patient met severe sepsis criteria due to hypotension. Stage III or IV CKD. Temp 100.8 HR 113 RR 20 BP 132/66 103/55 likely from anemia IV Vancomycin, ID consult, C Diff colitis, GPCC Bacteremia. CDS: Shayy Adhikari CCS, CDIS Contact Number: [phone] Please Review the information above and exercise your independent professional judgment in responding to the query. If you concur, pleas document in the PROGRESS NOTES and DISCHARGE SUMMARY. If you do not agree with the query, please document in the query above. THIS QUERY IS PART OF THE PERMANENT MEDICAL RECORD
--- NOTE | 2020-10-21 12:33 | PM.PNNEP ---
Subjective Subjective Date of Service: 10/21/20 Interval history: Seen and examined. Events noted Physical Exam Vital Signs: Vital Signs: Last Vital Signs Temp 98.5 F 10/21/20 11:19 Pulse 78 10/21/20 11:19 Resp 20 10/21/20 11:19 BP 148/78 H 10/21/20 11:19 Pulse Ox 94 10/21/20 11:19 Body Mass Index 31.1 Const: General: cooperative Orientation/consciousness: patient oriented x3 Limitations: no limitations HENMT: Head: Yes normal to inspection Ears: hearing grossly normal bilaterally General nose exam: Normal external nose present Face and sinus: Yes normal facial exam Mouth: Normal oral and palatal mucosa present Eyes: Other: Conjunctival pallor EOM: EOMs intact bilaterally Neck: Neck: Yes normal visual inspection Resp: Effort & Inspection: normal respiratory effort Auscultation: clear to auscultation bilaterally Cardio: Rate: regular rate Rhythm: regular rhythm Heart sounds: S1 normal heart sound present and S2 normal heart sound present GI: Inspection: Yes normal to inspection Palpation (GI): Soft to palpation, nontender, no guarding and not rigid : Other: Brown stool noted on rectal Skin breakdown noted to bilateral labia with skin friability/bleeding Skin: General skin exam: no rashes or lesions noted Rashes: no rashes Wounds: no wounds Neuro: General: patient oriented x3 Extrem: General: Yes normal to inspection Objective Data Labs CBC & Chem 7: 10/20/20 05:17 10/20/20 05:17 Microbiology Microbiology Results: Microbiology 10/19/20 15:01 Blood - Venous Blood Culture - Preliminary Prelim: GPC Gram Stain only 10/19/20 14:56 Blood - Venous Blood Culture - Preliminary Gram positive cocci 10/19/20 13:19 Stool Stool Culture - Preliminary Normal so far. 10/19/20 00:00 Urine Catheterized - High Catheter Urine Culture - Final Procedures Date of Service Date of Service: 10/21/20 Assessment & Plan Assessment and plan (1) C. difficile colitis: Status: Acute (2) CKD (chronic kidney disease): Status: Acute (3) Bacteremia: Status: Acute Assessment and Plan: 1. ESRD: cont HD 3x/wk ( TTS) 2. GPC in blood very concerning for Line infection; vanco given and will cult off line and most likley will need Pcath removed tomorrow--await ID input 3. C. Dif REC: HD today and vanc after HD and possible Pcath removal next week; ID to see Time Spent With Patient Time: Total time spent is greater than 50% in coordination of care (as documented) at patient's floor/unit and/or counseling patient: Progress Note: Quality Stroke Does the patient have a stroke diagnosis?: No
--- NOTE | 2020-10-21 12:44 | HO.PM.IMPN ---
Subjective Subjective Date of Service: 10/22/20 Interval History: Seen in f/u fo cdif, and GPCC bacteremia, decub ulcer Review of Systems Gen: no fever Resp: no sob, no cough CV: no chest, no MAYORGA, no leg edema GI: No n/v, no abd pain Neuro: No confusion Physical Exam Vital Signs: Vital Signs: Last Vital Signs Temp 98.5 F 10/21/20 11:19 Pulse 78 10/21/20 11:19 Resp 20 10/21/20 11:19 BP 148/78 H 10/21/20 11:19 Pulse Ox 94 10/21/20 11:19 Body Mass Index 31.1 Const: Other: General: AO X 3, no acute distress Resp: CTA bilateral CVS: S1,S2,RRR GI: +BS, NT, no distention Skin: decub ulcer, see picture Neuro: motor grossly intact Psych: appropriate affect Objective Data Current Medications Generic Name Dose Route Start Last Admin Trade Name Freq PRN Reason Stop Dose Admin Acetaminophen 650 mg 10/19/20 20:40 10/20/20 20:32 Acetaminophen 325 Mg Tablet PO 650 mg Q6H PRN Administration Pain, Mild (Pain Scale 1-3) Albuterol Sulfate 2 puff 10/19/20 20:44 Albuterol Sulfate 90 Mcg 8 Gm Inhaler INHALE Q4H PRN dyspnea Allopurinol 200 mg 10/20/20 09:00 10/21/20 08:22 Allopurinol 100 Mg Tablet PO 200 mg DAILY DANIEL Administration Aspirin 81 mg 10/20/20 09:00 10/21/20 08:22 Aspirin 81 Mg Tab.Chew PO 81 mg DAILY DANIEL Administration Atorvastatin Calcium 10 mg 10/19/20 21:00 10/20/20 20:32 Atorvastatin Calcium 10 Mg Tablet PO 10 mg BEDTIME DANIEL Administration Clonazepam 0.5 mg 10/19/20 20:44 10/20/20 03:31 Clonazepam 0.5 Mg Tablet PO 0.5 mg Q8H PRN Administration anxiety Metronidazole 500 mg in 100 mls @ 100 mls/hr 10/19/20 23:45 10/21/20 09:30 Flagyl IV Infused Q8H DANIEL Infusion Vancomycin HCl 750 mg/ Sodium 265 mls @ 265 mls/hr 10/20/20 17:00 10/20/20 20:45 Chloride IV Infused Q24H DANIEL Infusion Loratadine 10 mg 10/20/20 09:00 10/21/20 08:22 Loratadine 10 Mg Tablet PO 10 mg DAILY [facility] Administration Melatonin 6 mg 10/19/20 20:40 Melatonin 3 Mg Tablet PO BEDTIME PRN Insomnia Metoclopramide HCl 5 mg 10/19/20 21:00 10/21/20 08:22 Metoclopramide Hcl 5 Mg Tablet PO 5 mg BID DANIEL Administration Midodrine 10 mg 10/19/20 20:45 10/19/20 23:19 Midodrine Hcl 10 Mg Tablet PO 10 mg TUTHSA [facility] Administration Nystatin 1 appl 10/19/20 21:00 10/21/20 08:38 Nystatin Powder 15 Gm Bottle TOPICAL 1 appl TID [facility] Administration Protocol Omeprazole 40 mg 10/20/20 06:30 10/21/20 06:18 Omeprazole 40 Mg Capsule. PO 40 mg DAILY@0630 [facility] Administration Pharmacy Consult 1 each 10/19/20 12:56 Consult Rx Perform Med Rec MISCELLANE ONCE PRN Consult order Pharmacy Consult 1 each 10/20/20 15:23 Consult Rx Vancomycin Dosing MISCELLANE DAILY PRN Consult order Polyethylene Glycol 17 gm 10/19/20 21:00 10/20/20 20:32 Polyethylene Glycol 3350 17 Gm Powd.Pack PO 17 gm BEDTIME [facility] Administration Senna 17.2 mg 10/19/20 20:40 Sennosides 8.6 Mg Tablet PO BEDTIME PRN Constipation Sodium Chloride 3 ml 10/20/20 00:00 10/21/20 08:30 0.9 % Sodium Chloride Flush 3 Ml Syringe IVFLUSH 3 ml QSHIFT [facility] Administration Vancomycin HCl 125 mg 10/19/20 21:00 10/21/20 08:34 Vancomycin Hcl 125 Mg Capsule PO 125 mg Q6H [facility] Administration Labs CBC & Chem 7: 10/22/20 08:11 10/22/20 08:11 Microbiology Microbiology Results: Microbiology 10/19/20 15:01 Blood Culture - Preliminary Blood - Venous Prelim: GPC Gram Stain only 10/19/20 14:56 Blood Culture - Preliminary Blood - Venous Gram positive cocci 10/19/20 13:19 Stool Culture - Preliminary Stool Normal so far. 10/19/20 00:00 Urine Culture - Final Urine Catheterized - High Catheter Assessment and Plan (1) Bacteremia: Status: Acute (2) Anemia: Status: Acute (3) CKD (chronic kidney disease): Status: Acute (4) C. difficile colitis: Status: Acute Assessment and Plan: 75-year-old female with a past medical history of multiple myeloma, anemia requiring blood transfusions, ESRD on hemodialysis-TTS, history of C diff colitis, correction resident, mostly bedbound, history of thrombocytopenia with a chief complaint of anemia. Anemia:? No obvious signs of bleeding reported.? Stool guaiac was negative.? Patient had similar presentations in the past requiring blood transfusion. Patient's hemoglobin on presentation was 5.9-received 2 units of blood transfusion; with improvement hemoglobin to 8.4. C, and essentially unchanged overnight. Thrombocytopenia:? Chronic, stable C dif--Vanco PO GPCC--bacteremia--IV vanco 750 yesterday, another dose today after dialysis, culture throught dialysis cather, echo to rule out IE, ID following, sacral xray Proctocolitis/C diff infection.. Flagyl and Vanco as above, History of liver lesion:? Stable as per the CT scan.? Patient was seen by GI during the last admission.? Recommended follow-up with GI. ESRD:? Nephrology consult., HD TTS Possible dc tomorrow Quality Stroke Does the patient have a stroke diagnosis?: No VTE Prior VTE?: No VTE Risk Level:: Medical - moderate - high VTE Device Contraindication: N/A - Device Ordered VTE Drug Contraindication: Treatment Not Indicated
--- NOTE | 2020-10-21 14:28 | CONS_ITS ---
DATE OF SERVICE: 10/20/2020 REASON FOR CONSULTATION: I was asked to see the patient to assist in evaluation and management of the patient's dialysis needs in the setting of being admitted to the hospital as a transfer from the nursing home facility because of low blood counts and abdominal pain. HISTORY OF PRESENT ILLNESS: In summary, the patient is a 75-year-old patient with myeloma; anemia, requiring blood transfusions history of Clostridium difficile; ESRD, dialyzed on Sunday, , Sunday, using a PermCath and apparently is predominantly bedbound due to bilateral leg weakness. As mentioned, she was sent to the hospital because her labs showed anemia and there was some abdominal pain. Her workup in the emergency room included stool studies that suggested a Clostridium difficile colitis. She also had a CAT scan, which showed colitis. Presently, she is feeling a bit better. She denies any chest pain or shortness of breath. PAST MEDICAL HISTORY: Notable for ESRD, myeloma, hypertension, history of Clostridium difficile colitis, and requiring transfusions the time for her low blood counts. MEDICATIONS: On admission noted in the admitting notes. Current medications are noted in the MAR. PHYSICAL EXAMINATION: VITAL SIGNS: Blood pressure of 114/60 with a heart rate in the 70s. She is afebrile. HEENT: Head is atraumatic. Mucous membranes are moist. LUNGS: Breath sounds bilaterally. CARDIAC: Regular rate. ABDOMEN: Soft and nontender. EXTREMITIES: No edema. She has a PermCath in the right IJ. LABORATORY DATA: Hemoglobin 8.4, hematocrit 24.1, white blood cell count 9.5. Her hemoglobin was 6.5 yesterday on admission, and apparently she got a unit of blood. Sodium 130, potassium 3.2, chloride 98, bicarb 27, calcium 6.5. IMPRESSION: A 75-year-old, end-stage renal disease patient with history of myeloma, admitted to the hospital with symptomatic anemia, abdominal pain and Clostridium difficile colitis diagnosed. 1. End-stage renal disease. We will continue her on the Sunday, , Sunday dialysis. 2. Anemia. She got transfused. We will continue on EPO. 3. Clostridium difficile colitis. She is getting treatment for that. 4. History of myeloma. SUGGESTIONS: At this time include continue her routine medications. We will plan for dialysis tomorrow, keep her on Sunday, and Sunday schedule. We will follow the patient closely with the team. MD ELIDA Waters/BOBBY / [id number]
--- NOTE | 2020-10-21 18:15 | PC.NURSE ---
Pt returned from dialysis with episode of incontinence and in need of repositioning. This RN and another RN turned pt where maceration on bilateral buttocks and bilateral boggy heels were noted. Pictures obtained and were placed on impaired skin documentation. Barrier cream applied on buttocks and pt repositioned. Barrier cream and blue booties applied to bilateral heels, and then heels elevated on a pillow. MD then notified and wound care consult ordered. Awaiting airloss bed.
[2020-10-21] MEDS: vancomycin HCL 750 MG in 0.9 % Sodium Chloride 250 ML 265 MG IV (18:45)
--- NOTE | 2020-10-21 18:48 | PC.NURSE ---
PATIENT PLACED ON TRUE AIRLOSS MATTRESS AND BED. CONTINUING EDUCATION SPECIALIST NOTIFIED.
[2020-10-21] MEDS: Atorvastatin Calcium 10 MG TABLET PO (23:08)
[2020-10-21] MEDS: Midodrine HCl 10 MG TABLET PO (23:10)
[2020-10-22] VITALS (7 sets, daily range): BP systolic 100–132; BP diastolic 53–74; PULSE 72–120; RESP 16–24; TEMP 36.4–37.3; O2SAT 95–98
[2020-10-22] MEDS: 0.9 % Sodium Chloride Flush 3 ML SYRINGE IVFLUSH ×4 (00:32→22:26)
[2020-10-22] MEDS: vancomycin HCL 125 MG CAPSULE PO ×4 (02:27→22:26)
--- NOTE | 2020-10-22 07:30 | CA_ITS ---
Transthoracic Echocardiogram Patient (Last, First, Middle): Shaina Colindres, Gender: Female Date of : 1945 Age: 75 Procedure Date: 10/22/2020 Procedure Type: Transthoracic Echocardiogram [place] [facility] [place] Height: 157.48 cm Weight: 77.11 kg BSA: 1.78 m2 Heart Rate: bpm BP: 105 / 54 mmHg [employer]: JESSICA Lake MD: Ricardo Hernandez MD Symptoms: bacteremia, rule IE Conclusions: - Normal left ventricular size, thickness, systolic function, and wall motion. - Normal right ventricular cavity size and systolic function. - There is mild calcification of the aortic valve. There is mild aortic valve stenosis. - Likely normal mitral valve structure and function. There is mild anterior mitral leaflet thickening. - Likely normal tricuspid valve structure and function. - Consider a KELLY if clinically appropriate. Findings Left Ventricle Normal left ventricular size, thickness, systolic function, and wall motion. The visually estimated ejection fraction is between 55-60%. Abnormal diastolic function is noted. Spectral Doppler is indicative of an impaired relaxation filling pattern. E/E prime ratio is between 8 and 15 consistent with indeterminate filling pressures. Right Ventricle Normal right ventricular cavity size and systolic function. Atria Both atria are normal in size. Aortic Valve There is a normal trileaflet aortic valve. There is mild calcification of the aortic valve. There is mild aortic valve stenosis. There is no aortic valve regurgitation. Mitral Valve Likely normal mitral valve structure and function. There is mild anterior mitral leaflet thickening. There is trace mitral valve regurgitation. There is no mitral valve stenosis. Pulmonic Valve The pulmonic valve is likely normal. Tricuspid Valve Likely normal tricuspid valve structure and function. There is trace tricuspid valve regurgitation. Normal right atrial pressure. There is no evidence of pulmonary hypertension. Great Vessels All visible segments of the aorta are normal in size. The pulmonary artery was not well visualized. Venous The inferior vena cava is normal in size and collapses greater than 50% with inspiration. Pericardium/Pleural There is no evidence of pericardial effusion. Prior Study Comparison No prior study available for comparison. Recommendations, Care & Conclusions Consider a KELLY if clinically appropriate. Measurements 2D Linear Measurements RVIDd: 3.46 RVIDd Index: 1.94 IVSd: 0.78 0.6-0.9/0.6-1.0 cm LVIDd: 5.44 3.9-5.3/4.2-5.9 cm LVIDd Index: 3.06 2.4-3.2/2.2-3.1 cm/m2 LVIDs: 3.35 2.0-3.6 cm LVPWd: 0.70 0.7-1.1 cm Ao Root: 2.80 2.1-3.5 cm LA Diam: 3.90 2.7-3.8/3.0-4.0 cm LAIDs Index: 2.19 1.5-2.3 cm/m2 LV Mass: 176.90 67-162/88-224 g LV Mass Index: 99.38 43-95/49-115 g/m2 LVOT Diam: 2.10 3.0+(-)1.3 cm 2D Systolic Function EF 4C: 59.50 >55% EF 2C: 55.10 >55% EF BiP: 58.40 >55% Mitral Valve MV Pk E: 0.92 MV PK A: 1.26 MV Decel Time: 114.00 E/A: 0.70 E'Lateral: 6.74 E'Medial: 7.18 E/E' Med: 12.80 E/E' Lat: 13.60 PHT: 70.00 MVA PHT: 3.14 Decel Hancock: 4.74 Aortic Valve AoV Pk Luis: 2.12 AoV Mn Luis: 1.55 AoV VTI: 0.40 AoV Pk Grad: 18.00 Aov Mn Grad: 11.00 LILIANA Cont.VTI: 2.85 LVOT LVOT Pk Luis: 1.67 LVOT Mn Luis: 1.14 LVOT VTI: 0.33 LVOT Pk Grad: 11.00 LVOT Mn Grad: 6.00 LVOT Diam: 2.10 LVOT Area: 3.46 Diastolic Function MV Pk E: 0.92 MV Pk A: 1.26 E/A: 0.70 E'Medial: 7.18 E/E' Med: 12.80 E' Laterial: 6.74 E/E' Lat: 13.60 Tricuspid Valve TR Pk Luis: 2.92 TR Pk Grad: 34.00 RA Press: 3.00 RVSP: 37.00 Great Vessels Aorta Ao Root-2D: 2.80 2.0-3.7 cm Ao Asc: 3.10 2.1-3.4 cm Ao Arch: 2.30 Updated in Other Vendor System with Status of Final Matthias Crooks MD electronically signed on 10/22/2020 10:01:56 PM with status of Final
[2020-10-22 08:56] LABS: Hematocrit 22.9 % (37-47); Hemoglobin 7.8 g/dl (12.0-16.0); Mean Corpuscular HGB Conc 34.1 g/dl (31.0-35.0); Mean Corpuscular Hemoglobin 29.2 pg (27.0-33.0); Mean Corpuscular Volume 85.8 fL (80-98); Red Blood Count 2.67 X10*6/uL (4.20-5.50); Red Cell Distribution Width 18.1 % (11.0-16.0); White Blood Count 10.6 X10*3/uL (4.8-10.8)
[2020-10-22 08:57] LABS: NRBC Pct Auto 1.2 /100WBC (0.0-0.2)
[2020-10-22 09:17] LABS: Mean Platelet Volume 9.9 fL (9.4-12.3); Platelet Count 32 X10*3/uL (160-400)
[2020-10-22] MEDS: metroNIDAZOLE/NS 500 MG/100 ML PIGGYBACK 100 MG IV (09:22)
[2020-10-22] MEDS: Metoclopramide HCl 5 MG TABLET PO ×2 (09:23→22:26)
[2020-10-22] MEDS: Loratadine 10 MG TABLET PO (09:23)
[2020-10-22] MEDS: Aspirin 81 MG TAB.CHEW PO (09:23)
[2020-10-22] MEDS: allopurinoL 100 MG TABLET 200 MG PO (09:23)
[2020-10-22] MEDS: Nystatin Powder 15 GM BOTTLE 1 APPL TOPICAL ×3 (09:24→22:26)
[2020-10-22 09:36] LABS: Anion Gap 7 (12-20); Blood Urea Nitrogen 7 mg/dL (9-16); Calcium 7.8 mg/dL (8.4-10.2); Carbon Dioxide 22 mmol/L (22-29); Chloride 104 mmol/L (96-108); Creatinine Clr Calc Pharmacy 16.6; Estimated Glomerular Filt Rate 16; Glucose Random 51 mg/dL (60-115); Potassium 3.3 mmol/L (3.3-5.1); Sodium 130 mmol/L (135-145)
--- NOTE | 2020-10-22 10:20 | PM.PNNEP ---
Subjective Subjective Date of Service: 10/22/20 Interval history: Seen and examined. Events noted Lethargic this am--BS 50 and ggetting IV D50 now Bld cult reptively GPC--from bld and Pcath Physical Exam Vital Signs: Vital Signs: Last Vital Signs Temp 97.6 F 10/22/20 07:27 Pulse 98 10/22/20 07:27 Resp 18 10/22/20 07:27 BP 132/60 10/22/20 07:27 Pulse Ox 95 10/22/20 07:27 Body Mass Index 31.1 Const: General: cooperative Orientation/consciousness: patient oriented x3 Limitations: no limitations HENMT: Head: Yes normal to inspection Ears: hearing grossly normal bilaterally General nose exam: Normal external nose present Face and sinus: Yes normal facial exam Mouth: Normal oral and palatal mucosa present Eyes: Other: Conjunctival pallor EOM: EOMs intact bilaterally Neck: Neck: Yes normal visual inspection Resp: Effort & Inspection: normal respiratory effort Auscultation: clear to auscultation bilaterally Cardio: Rate: regular rate Rhythm: regular rhythm Heart sounds: S1 normal heart sound present and S2 normal heart sound present GI: Inspection: Yes normal to inspection Palpation (GI): Soft to palpation, nontender, no guarding and not rigid : Other: Brown stool noted on rectal Skin breakdown noted to bilateral labia with skin friability/bleeding Skin: General skin exam: no rashes or lesions noted Rashes: no rashes Wounds: no wounds Neuro: General: patient oriented x3 Extrem: General: Yes normal to inspection Objective Data Labs CBC & Chem 7: 10/22/20 08:11 10/22/20 08:11 Labs: Laboratory Results - last 24 hr 10/22/20 10/22/20 08:11 08:11 WBC 10.6 RBC 2.67 L Hgb 7.8 L Hct 22.9 L MCV 85.8 MCH 29.2 MCHC 34.1 RDW 18.1 H Plt Count 32 L D MPV 9.9 Absolute Nucleated RBC 0.130 H Nucleated RBC % (auto) 1.2 H Sodium 130 L Potassium 3.3 Chloride 104 Carbon Dioxide 22 Anion Gap 7 L BUN 7 L Creatinine 2.86 H Estim Creat Clear Calc 16.6 Estimated GFR 16 Random Glucose 51 L* Calcium 7.8 L D Microbiology Microbiology Results: Microbiology 10/19/20 15:01 Blood - Venous Blood Culture - Final Staphylococcus epidermidis 10/19/20 14:56 Blood - Venous Blood Culture - Final Staphylococcus epidermidis 10/21/20 13:04 Blood - Arterial Line Blood Culture - Preliminary Prelim: GPC Gram Stain only 10/21/20 13:04 Blood - Arterial Line Blood Culture - Preliminary Prelim: GPC Gram Stain only 10/19/20 13:19 Stool Stool Culture - Preliminary Normal so far. 10/19/20 00:00 Urine Catheterized - High Catheter Urine Culture - Final Procedures Date of Service Date of Service: 10/22/20 Assessment & Plan Assessment and plan (1) C. difficile colitis: Status: Acute (2) CKD (chronic kidney disease): Status: Acute (3) Bacteremia: Status: Acute Assessment and Plan: 1. ESRD: cont HD 3x/wk ( TTS) 2. GPC c/w CLABI and needs Pcath removed today 3. AMS: d/t low BS vs opther 4. Anemia: Hb incr after xfusion 5. C.diff REC: Pcath removal today, ABx as noted w vanco--ask ID for their input re: duration and whether needs echo etc..; new Pcath Sunday and HD vs temp line if remains bacteremic on Sunday Time Spent With Patient Time: Total time spent is greater than 50% in coordination of care (as documented) at patient's floor/unit and/or counseling patient: Progress Note: Quality Stroke Does the patient have a stroke diagnosis?: No
[2020-10-22 10:21] LABS: Glucose, Whole Blood 168 mg/dL (60-115)
--- NOTE | 2020-10-22 10:50 | P.PNIM_ITS ---
Subjective Subjective Date of Service: 10/22/20 Interval History: Seen and examined. Events noted Lethargic this am--BS 50 and given D50, easily aroused Repeat blood culture from the PermCath is positive for Gram-positive cocci. Review of Systems Gen: no fever Resp: no sob, no cough CV: no chest, no MAYORGA, no leg edema GI: No n/v, no abd pain Neuro: No confusion Physical Exam Vital Signs: Vital Signs: Last Vital Signs Temp 97.6 F 10/22/20 07:27 Pulse 98 10/22/20 07:27 Resp 18 10/22/20 07:27 BP 132/60 10/22/20 07:27 Pulse Ox 95 10/22/20 07:27 Body Mass Index 31.1 Const: Other: General: AO X 3, no acute distress Resp: CTA bilateral CVS: S1,S2,RRR GI: +BS, NT, no distention Skin: decub ulcer, see picture in record Neuro: motor grossly intact Psych: appropriate affect Objective Data Current Medications Generic Name Dose Route Start Last Admin Trade Name Romainq PRN Reason Stop Dose Admin Acetaminophen 650 mg 10/19/20 20:40 10/20/20 20:32 Acetaminophen 325 Mg Tablet PO 650 mg Q6H PRN Administration Pain, Mild (Pain Scale 1-3) Albuterol Sulfate 2 puff 10/19/20 20:44 Albuterol Sulfate 90 Mcg 8 Gm Inhaler INHALE Q4H PRN dyspnea Allopurinol 200 mg 10/20/20 09:00 10/22/20 09:23 Allopurinol 100 Mg Tablet PO 200 mg DAILY DANIEL Administration Aspirin 81 mg 10/20/20 09:00 10/22/20 09:23 Aspirin 81 Mg Tab.Chew PO 81 mg DAILY DANIEL Administration Atorvastatin Calcium 10 mg 10/19/20 21:00 10/21/20 23:08 Atorvastatin Calcium 10 Mg Tablet PO 10 mg BEDTIME DANIEL Administration Clonazepam 0.5 mg 10/19/20 20:44 10/20/20 03:31 Clonazepam 0.5 Mg Tablet PO 0.5 mg Q8H PRN Administration anxiety Metronidazole 500 mg in 100 mls @ 100 mls/hr 10/19/20 23:45 10/22/20 10:23 Flagyl IV Infused Q8H DANIEL Infusion Vancomycin HCl 750 mg/ Sodium 265 mls @ 265 mls/hr 10/20/20 17:00 10/22/20 00 :31 Chloride IV Infused Q24H [facility] Infusion Loratadine 10 mg 10/20/20 09:00 10/22/20 09:23 Loratadine 10 Mg Tablet PO 10 mg DAILY [facility] Administration Melatonin 6 mg 10/19/20 20:40 Melatonin 3 Mg Tablet PO BEDTIME PRN Insomnia Metoclopramide HCl 5 mg 10/19/20 21:00 10/22/20 09:23 Metoclopramide Hcl 5 Mg Tablet PO 5 mg BID [facility] Administration Midodrine 10 mg 10/19/20 20:45 10/21/20 23:10 Midodrine Hcl 10 Mg Tablet PO 10 mg TUTHSA [facility] Administration Nystatin 1 appl 10/19/20 21:00 10/22/20 09:24 Nystatin Powder 15 Gm Bottle TOPICAL 1 appl TID [facility] Administration Protocol Omeprazole 40 mg 10/20/20 06:30 10/22/20 05:48 Omeprazole 40 Mg Capsule.Dr PO Not Given DAILY@0630 [facility] Pharmacy Consult 1 each 10/19/20 12:56 Consult Rx Perform Med Rec MISCELLANE ONCE PRN Consult order Pharmacy Consult 1 each 10/20/20 15:23 Consult Rx Vancomycin Dosing MISCELLANE DAILY PRN Consult order Polyethylene Glycol 17 gm 10/19/20 21:00 10/21/20 23:07 Polyethylene Glycol 3350 17 Gm Powd.Pack PO Not Given BEDTIME [facility] Senna 17.2 mg 10/19/20 20:40 Sennosides 8.6 Mg Tablet PO BEDTIME PRN Constipation Sodium Chloride 3 ml 10/20/20 00:00 10/22/20 09:23 0.9 % Sodium Chloride Flush 3 Ml Syringe IVFLUSH 3 ml QSHIFT [facility] Administration Vancomycin HCl 125 mg 10/19/20 21:00 10/22/20 09:23 Vancomycin Hcl 125 Mg Capsule PO 125 mg Q6H [facility] Administration Labs CBC & Chem 7: 10/22/20 08:11 10/22/20 08:11 Labs: Laboratory Results - last 24 hr 10/22/20 10/22/20 10/22/20 08:11 08:11 10:17 MCV 85.8 MCH 29.2 MCHC 34.1 RDW 18.1 H Plt Count 32 L D MPV 9.9 Absolute Nucleated RBC 0.130 H Nucleated RBC % (auto) 1.2 H Anion Gap 7 L Estim Creat Clear Calc 16.6 Estimated GFR 16 POC Glucose 168 H Random Glucose 51 L* Calcium 7.8 L D Microbiology Microbiology Results: Microbiology 10/19/20 15:01 Blood Culture - Final Blood - Venous Staphylococcus epidermidis 10/19/20 14:56 Blood Culture - Final Blood - Venous Staphylococcus epidermidis 10/21/20 13:04 Blood Culture - Preliminary Blood - Arterial Line Prelim: GPC Gram Stain only 10/21/20 13:04 Blood Culture - Preliminary Blood - Arterial Line Prelim: GPC Gram Stain only 10/19/20 13:19 Stool Culture - Preliminary Stool Normal so far. Assessment and Plan (1) Bacteremia: Status: Acute (2) Anemia: Status: Acute (3) CKD (chronic kidney disease): Status: Acute (4) C. difficile colitis: Status: Acute Assessment and Plan: 75-year-old female with a past medical history of multiple myeloma, anemia requiring blood transfusions, ESRD on hemodialysis-TTS, history of C diff colitis, care home resident, mostly bedbound, history of thrombocytopenia with a chief complaint of anemia. Anemia:? No obvious signs of bleeding reported.? Stool guaiac was negative.? Patient had similar presentations in the past requiring blood transfusion. Patient's hemoglobin on presentation was 5.9-received 2 units of blood transfusion; with improvement hemoglobin to 8.4. C, and essentially unchanged, might need transfusion during next dialysis Thrombocytopenia:? Chronic, stable C dif--Vanco PO, Flagyl GPCC--bacteremia--IV vanco after dialysis, check random level, Permacath to be removed. ID following, Sacral ulcer is pending. Proctocolitis/C diff infection.. Flagyl and Vanco as above, History of liver lesion:? Stable as per the CT scan.? Patient was seen by GI during the last admission.? Recommended follow-up with GI. ESRD:? Nephrology consult., HD TTS Possible dc tomorrow Quality Stroke Does the patient have a stroke diagnosis?: No VTE Prior VTE?: No VTE Risk Level:: Medical - moderate - high VTE Device Contraindication: N/A - Device Ordered VTE Drug Contraindication: Treatment Not Indicated
--- NOTE | 2020-10-22 13:35 | PM.IDPN ---
Subjective Subjective Date of Service: 10/22/20 Critical Care Time (minutes): 15 Comment: she has Cdiff she has staph epi blood Objective Data Labs CBC & Chem 7: 10/29/20 08:41 10/29/20 08:41 Labs: Laboratory Results - last 24 hr 10/22/20 10/22/20 10/22/20 08:11 08:11 10:17 WBC 10.6 RBC 2.67 L Hgb 7.8 L Hct 22.9 L MCV 85.8 MCH 29.2 MCHC 34.1 RDW 18.1 H Plt Count 32 L D MPV 9.9 Absolute Nucleated RBC 0.130 H Nucleated RBC % (auto) 1.2 H Sodium 130 L Potassium 3.3 Chloride 104 Carbon Dioxide 22 Anion Gap 7 L BUN 7 L Creatinine 2.86 H Estim Creat Clear Calc 16.6 Estimated GFR 16 POC Glucose 168 H Random Glucose 51 L* Calcium 7.8 L D Microbiology Microbiology Results: Microbiology 10/19/20 13:19 Stool Stool Culture - Final 10/19/20 15:01 Blood - Venous Blood Culture - Final Staphylococcus epidermidis 10/19/20 14:56 Blood - Venous Blood Culture - Final Staphylococcus epidermidis 10/21/20 13:04 Blood - Arterial Line Blood Culture - Preliminary Prelim: GPC Gram Stain only 10/21/20 13:04 Blood - Arterial Line Blood Culture - Preliminary Prelim: GPC Gram Stain only 10/19/20 00:00 Urine Catheterized - High Catheter Urine Culture - Final Physical Exam Vital Signs: Vital Signs: Last Vital Signs Temp 98.1 F 10/22/20 11:23 Pulse 72 10/22/20 11:23 Resp 18 10/22/20 11:23 BP 128/74 10/22/20 11:23 Pulse Ox 97 10/22/20 11:23 Body Mass Index 31.1 Const: General: cooperative Resp: Effort & Inspection: normal respiratory effort Cardio: Rate: regular rate Rhythm: regular rhythm GI: Palpation (GI): Soft to palpation and nontender Assessment and Plan Assessment and plan (1) Bacteremia: Problem details: she has probable permacath source would remove permacath 2 weeks IV Vancomycin if TTE unremarkable Status: Acute (2) C. difficile colitis: Status: Acute Assessment and Plan: Cdiff Po Vancomycin for 14 days stop flagyl now Time Spent With Patient Time: Total time spent is greater than 50% in coordination of care (as documented) at patient's floor/unit and/or counseling patient: Time with patient: 15 - 24 minutes
--- NOTE | 2020-10-22 13:44 | P.CONWO_ITS ---
History of Present Illness Data of Consult Service Date: 10/22/20 Requesting physician: Ricardo Hernandez Primary Care Provider: Chris Giron MD [facility] Reason for consult: boggy heels, macerated buttocks 75-year-old female with multiple my alone who presented to the emergency department with dizziness and bloody stool. She was admitted on September 20. She was found to have metastatic disease including with kick lesions of the sacrum. She was being cared for in a fdc prior to her presentation. She is on air bed with inflatable heel boots. She is responsive to me but tired. Review of Systems Review of Systems: denies buttock pain, eating ok, lunch is here, does not walk, more details unobtainable as patient is lethargic [facility] Medical History (Updated 10/22/20 @ 14:01 by ELTON Kaufman) Anemia Bacteremia C. difficile colitis CKD (chronic kidney disease) HTN (hypertension) Multiple myeloma Social History (Updated 09/20/20 @ 10:31 by Vanessa Quiroz DO) Household Members: None Housing: Other Do you presently have visiting nurse or other home services: Yes (from [facility]) Patient Tobacco Use Status: Never used Tobacco Currently Displaying Signs/Symptoms of Drug Intoxication Withdrawal: No Have you been hit, kicked, punched, or otherwise hurt by someone within the past year? If so, by whom?: No Do you feel safe in your current relationship?: No Is there a partner from a previous relationship who is making you feel unsafe now?: No Are you made to feel afraid or neglected: No Advance Directives: No Advance Directives Information Provided: No Do you have thoughts of harming others: None Do you have a plan to hurt others: No Plan Recently lost weight without trying: No Eating poorly because of decreased appetite: No service: No Current occupational status: retired Meds Allergies Allergy/AdvReac Type Severity Reaction Status Date / Time lisinopril AdvReac Angioedema Verified 09/21/20 00:34 Active Medications: Current Medications Generic Name Dose Route Start Last Admin Trade Name Freq PRN Reason Stop Dose Admin Acetaminophen 650 mg 10/19/20 20:40 10/20/20 20:32 Acetaminophen 325 Mg Tablet PO 650 mg Q6H PRN Administration Pain, Mild (Pain Scale 1-3) Albuterol Sulfate 2 puff 10/19/20 20:44 Albuterol Sulfate 90 Mcg 8 Gm Inhaler INHALE Q4H PRN dyspnea Allopurinol 200 mg 10/20/20 09:00 10/22/20 09:23 Allopurinol 100 Mg Tablet PO 200 mg DAILY DANIEL Administration Aspirin 81 mg 10/20/20 09:00 10/22/20 09:23 Aspirin 81 Mg Tab.Chew PO 81 mg DAILY DANIEL Administration Atorvastatin Calcium 10 mg 10/19/20 21:00 10/21/20 23:08 Atorvastatin Calcium 10 Mg Tablet PO 10 mg BEDTIME DANIEL Administration Clonazepam 0.5 mg 10/19/20 20:44 10/20/20 03:31 Clonazepam 0.5 Mg Tablet PO 0.5 mg Q8H PRN Administration anxiety Vancomycin HCl 750 mg/ Sodium 265 mls @ 265 mls/hr 10/20/20 17:00 10/22/20 00:31 Chloride IV Infused Q24H [facility] Infusion Loratadine 10 mg 10/20/20 09:00 10/22/20 09:23 Loratadine 10 Mg Tablet PO 10 mg DAILY [facility] Administration Melatonin 6 mg 10/19/20 20:40 Melatonin 3 Mg Tablet PO BEDTIME PRN Insomnia Metoclopramide HCl 5 mg 10/19/20 21:00 10/22/20 09:23 Metoclopramide Hcl 5 Mg Tablet PO 5 mg BID DANIEL Administration Midodrine 10 mg 10/19/20 20:45 10/21/20 23:10 Midodrine Hcl 10 Mg Tablet PO 10 mg TUTHSA [facility] Administration Nystatin 1 appl 10/19/20 21:00 10/22/20 09:24 Nystatin Powder 15 Gm Bottle TOPICAL 1 appl TID [facility] Administration Protocol Omeprazole 40 mg 10/20/20 06:30 10/22/20 05:48 Omeprazole 40 Mg Capsule.Dr PO Not Given DAILY@0630 [facility] Pharmacy Consult 1 each 10/19/20 12:56 Consult Rx Perform Med Rec MISCELLANE ONCE PRN Consult order Pharmacy Consult 1 each 10/20/20 15:23 Consult Rx Vancomycin Dosing MISCELLANE DAILY PRN Consult order Polyethylene Glycol 17 gm 10/19/20 21:00 10/21/20 23:07 Polyethylene Glycol 3350 17 Gm Powd.Pack PO Not Given BEDTIME [facility] Senna 17.2 mg 10/19/20 20:40 Sennosides 8.6 Mg Tablet PO BEDTIME PRN Constipation Sodium Chloride 3 ml 10/20/20 00:00 10/22/20 12:09 0.9 % Sodium Chloride Flush 3 Ml Syringe IVFLUSH 3 ml QSHIFT [facility] Administration Vancomycin HCl 125 mg 10/19/20 21:00 10/22/20 09:23 Vancomycin Hcl 125 Mg Capsule PO 125 mg Q6H DANIEL Administration Home Medications Medication Instructions Recorded Confirmed Last Taken Type acetaminophen 325 mg tablet 2 tab PO Q6H PRN 09/20/20 10/19/20 Unknown History albuterol sulfate 90 mcg/actuation 2 puff INHALATION Q4H PRN 09/20/20 10/19/20 Unknown History aerosol inhaler (Proventil HFA) allopurinol 100 mg tablet 2 tab PO DAILY 09/20/20 10/19/20 Unknown History atorvastatin 10 mg tablet 1 tab PO BEDTIME 09/20/20 10/19/20 Unknown History clonazepam 0.5 mg tablet 1 tab PO Q8H PRN 09/20/20 10/19/20 Unknown History loperamide 2 mg tablet 1 tab PO Q3H PRN 09/20/20 10/19/20 Unknown History loratadine 10 mg tablet 1 tab PO DAILY 09/20/20 10/19/20 Unknown History aspirin 81 mg chewable tablet 81 mg PO DAILY 10/19/20 10/19/20 Unknown History carboxymethylcellulose sodium 1 % 2 drp OPHTHALMIC (EYE) Q4H PRN 10/19/20 10/19/20 Unknown History eye drops (Artificial Tears (carboxymethylcellulose)) diclofenac sodium 1 % topical gel 4 g TOPICAL BID 10/19/20 10/19/20 Unknown Hi story hydrocortisone 1 % topical cream 1 appl TOPICAL TID PRN 10/19/20 10/19/20 Unknown History melatonin 5 mg tablet 5 mg PO BEDTIME 10/19/20 10/19/20 Unknown History metoclopramide HCl 5 mg tablet 5 mg PO BID 10/19/20 10/19/20 Unknown History midodrine 10 mg tablet 10 mg PO TUTHSA 10/19/20 10/19/20 Unknown History nystatin 100,000 unit/gram topical 1 appl TOPICAL TID 10/19/20 10/19/20 Unknown History powder omeprazole 40 mg capsule,delayed 40 mg PO DAILY 10/19/20 10/19/20 Unknown History release ondansetron HCl 4 mg tablet 4 mg PO Q6H PRN 10/19/20 10/19/20 Unknown History (Zofran) phenyleph-shark liver 1 appl NM BID PRN 10/19/20 10/19/20 Unknown History [id number] rectal cream polyethylene glycol 3350 17 17 g PO BEDTIME 10/19/20 10/19/20 Unknown History gram/dose oral powder (Miralax) Physical Exam Vital Signs and Narrative: Vital Signs: Last Vital Signs Temp 98.1 F 10/22/20 11:23 Pulse 72 10/22/20 11:23 Resp 18 10/22/20 11:23 BP 128/74 10/22/20 11:23 Pulse Ox 97 10/22/20 11:23 Body Mass Index 31.1 Follows commands in slow-manner. No edema of the bilateral lower extremities. No hyper reflexia at the patella bilaterally. The left heel is intact with minimal bogginess. Full blanching is seen. No open wound. The right heel is pressure injury stage one at risk for opening but thus far intact. No skin breakdown about the coccyx, buttocks or sacral region. Mild erythema but no open wound. Blanching is intact. Results Labs CBC and Chem 7: 10/22/20 08:11 10/22/20 08:11 Labs: Laboratory Results - last 24 hr 10/22/20 10/22/20 10/22/20 08:11 08:11 10:17 MCV 85.8 MCH 29.2 MCHC 34.1 RDW 18.1 H Plt Count 32 L D MPV 9.9 Absolute Nucleated RBC 0.130 H Nucleated RBC % (auto) 1.2 H Anion Gap 7 L Estim Creat Clear Calc 16.6 Estimated GFR 16 POC Glucose 168 H Random Glucose 51 L* Calcium 7.8 L D Imaging Radiologist's Impressions: Impressions Sacrum and Coccyx X-Ray 10/22/20 09:12 IMPRESSION: 1. Known lytic lesion sacrum and pelvis, better appreciated on recent CT. 2. No interval visible new destructive process, fracture, or periostitis. No gas tracking in the soft tissues. Assessment and Plan (1) Unspecified skin changes: Status: Acute 75-year-old female with multiple myeloma, chronic kidney disease and bacteremia with lytic lesions of the pelvis/sacrum not showing any correlating wounds. Continue with air bed, frequent change of position and inflatable heel boots. Continue to promote nutrition. Add continue with skin prep to the boggy heels and zinc oxide to the intact dermis about the coccygeal and sacral region. Thank you for allowing us to participate in your patient's care.
--- NOTE | 2020-10-22 15:15 | MHC.CM.PN ---
Female 75 DX C-DIFF Patient from [facility]. Spouse to bring HCP to hospital.DP return to [facility] via BLS.
[2020-10-22 16:39] LABS: Creatinine Clr Calc Pharmacy 14.3; Estimated Glomerular Filt Rate 14
[2020-10-22 16:43] LABS: Vancomycin Trough 17.1 mcg/mL (10.0-20.0)
[2020-10-22] MEDS: Acetaminophen 325 MG TABLET 650 MG PO (22:25)
[2020-10-22] MEDS: Atorvastatin Calcium 10 MG TABLET PO (22:26)
[2020-10-23] VITALS (7 sets, daily range): BP systolic 100–152; BP diastolic 57–76; PULSE 91–101; RESP 17–20; TEMP 36.3–36.8; O2SAT 93–97
[2020-10-23] MEDS: vancomycin HCL 125 MG CAPSULE PO (03:27)
[2020-10-23] MEDS: Omeprazole 40 MG CAPSULE.DR PO (06:07)
--- NOTE | 2020-10-23 07:40 | PC.NURSE ---
Addendum for 10/19 - 10/20/2020 7p - 7A shift addendum for nursing admission skin assessment on the above date: Pt from [facility] admitted with recurrent cdif+ diarrhea s/p dialysis/anemia s/p dialysis (received 2 units prbc's in ED. Per ER report and initial admission assessment by this RN, skin noted to be excoriated at buttocks 2nd to frequent incontinence of loose stool. cleaned & barrier cream applied. Lg bruis @ L rib/flank 2nd to fall per pt, a&ox person & place, confused at times. bilat heels boggy. elevated all 4 extremeties on pillows & turn/repos q2h. Report to next shift given - requested to f/u with Caity Jurado, field application engineer.
[2020-10-23] MEDS: allopurinoL 100 MG TABLET 200 MG PO (09:46)
[2020-10-23] MEDS: Acetaminophen 325 MG TABLET 650 MG PO (09:46)
[2020-10-23] MEDS: 0.9 % Sodium Chloride Flush 3 ML SYRINGE IVFLUSH ×3 (09:46→21:15)
[2020-10-23] MEDS: Aspirin 81 MG TAB.CHEW PO (09:47)
[2020-10-23] MEDS: Loratadine 10 MG TABLET PO (09:47)
[2020-10-23] MEDS: Metoclopramide HCl 5 MG TABLET PO (09:47)
[2020-10-23] MEDS: Nystatin Powder 15 GM BOTTLE 1 APPL TOPICAL ×3 (09:47→21:05)
[2020-10-23] MEDS: vancomycin HCL Oral Solution 125 MG/5 ML SOLN.RECON PO ×2 (12:41→18:41)
--- NOTE | 2020-10-23 13:04 | P.PNIM_ITS ---
Subjective Subjective Date of Service: 10/23/20 Interval History: Seen and examined. Events noted more alert this morning, no other complaint Review of Systems Gen: no fever Resp: no sob, no cough CV: no chest, no MAYORGA, no leg edema GI: No n/v, no abd pain Neuro: No confusion Physical Exam Vital Signs: Vital Signs: Last Vital Signs Temp 98.3 F 10/23/20 11:40 Pulse 91 10/23/20 11:40 Resp 18 10/23/20 11:40 BP 109/57 L 10/23/20 11:40 Pulse Ox 96 10/23/20 11:40 Body Mass Index 31.1 Const: Other: General: AO X 3, no acute distress Resp: CTA bilateral CVS: S1,S2,RRR GI: +BS, NT, no distention Skin: decub ulcer, see picture in record Neuro: motor grossly intact Psych: appropriate affect Objective Data Current Medications Generic Name Dose Route Start Last Admin Trade Name Freq PRN Reason Stop Dose Admin Acetaminophen 650 mg 10/19/20 20:40 10/23/20 09:46 Acetaminophen 325 Mg Tablet PO 650 mg Q6H PRN Administration Pain, Mild (Pain Scale 1-3) Albuterol Sulfate 2 puff 10/19/20 20:44 Albuterol Sulfate 90 Mcg 8 Gm Inhaler INHALE Q4H PRN dyspnea Allopurinol 200 mg 10/20/20 09:00 10/23/20 09:46 Allopurinol 100 Mg Tablet PO 200 mg DAILY DANIEL Administration Aspirin 81 mg 10/20/20 09:00 10/23/20 09:47 Aspirin 81 Mg Tab.Chew PO 81 mg DAILY DANIEL Administration Atorvastatin Calcium 10 mg 10/19/20 21:00 10/22/20 22:26 Atorvastatin Calcium 10 Mg Tablet PO 10 mg BEDTIME DANIEL Administration Clonazepam 0.5 mg 10/19/20 20:44 10/20/20 03:31 Clonazepam 0.5 Mg Tablet PO 0.5 mg Q8H PRN Administration anxiety Vancomycin HCl 750 mg/ Sodium 265 mls @ 265 mls/hr 10/23/20 16:45 Chloride IV Q48H DANIEL Loratadine 10 mg 10/20/20 09:00 10/23/20 09:47 Loratadine 10 Mg Tablet PO 10 mg DAILY DANIEL Administration Melatonin 6 mg 10/19/20 20:40 Melatonin 3 Mg Tablet PO BEDTIME PRN Insomnia Metoclopramide HCl 5 mg 10/19/20 21:00 10/23/20 09:47 Metoclopramide Hcl 5 Mg Tablet PO 5 mg BID DANIEL Administration Midodrine 10 mg 10/19/20 20:45 10/21/20 23:10 Midodrine Hcl 10 Mg Tablet PO 10 mg TUTHSA DANIEL Administration Nystatin 1 appl 10/19/20 21:00 10/23/20 09:47 Nystatin Powder 15 Gm Bottle TOPICAL 1 appl TID [facility] Administration Protocol Omeprazole 40 mg 10/20/20 06:30 10/23/20 06:07 Omeprazole 40 Mg Capsule. PO 40 mg DAILY@0630 [facility] Administration Pharmacy Consult 1 each 10/19/20 12:56 Consult Rx Perform Med Rec MISCELLANE ONCE PRN Consult order Pharmacy Consult 1 each 10/20/20 15:23 Consult Rx Vancomycin Dosing MISCELLANE DAILY PRN Consult order Polyethylene Glycol 17 gm 10/19/20 21:00 10/22/20 22:25 Polyethylene Glycol 3350 17 Gm Powd.Pack PO 17 gm BEDTIME DANIEL Administration Senna 17.2 mg 10/19/20 20:40 Sennosides 8.6 Mg Tablet PO BEDTIME PRN Constipation Sodium Chloride 3 ml 10/20/20 00:00 10/23/20 09:46 0.9 % Sodium Chloride Flush 3 Ml Syringe IVFLUSH 3 ml QSHIFT [facility] Administration Vancomycin HCl 125 mg 10/23/20 12:00 10/23/20 12:41 Vancomycin Hcl Oral Solution 125 Mg/5 Ml Soln.Recon PO 125 mg Q6H [facility] Administration Labs CBC & Chem 7: 10/22/20 08:11 10/22/20 15:51 Labs: Laboratory Results - last 24 hr 10/19/20 10/22/20 10/22/20 13:19 15:51 15:51 Estim Creat Clear Calc 14.3 Estimated GFR 14 Vancomycin Trough 17.1 Herpes Simplex Culture SEE NOTE Microbiology Microbiology Results: Microbiology 10/21/20 13:04 Blood Culture - Preliminary Blood - Arterial Line Staphylococcus species 10/22/20 Unknown Catheter Tip Culture - Preliminary Catheter Tip - Other Culture in progress. 10/21/20 13:04 Blood Culture - Preliminary Blood - Arterial Line Staphylococcus species 10/19/20 14:56 Blood Culture - Final Blood - Venous Staphylococcus epidermidis 10/19/20 13:19 Stool Culture - Final Stool 10/19/20 15:01 Blood Culture - Final Blood - Venous Staphylococcus epidermidis Assessment and Plan (1) Bacteremia: Status: Acute (2) Anemia: Status: Acute (3) C. difficile colitis: Status: Acute (4) CKD (chronic kidney disease): Status: Acute Assessment and Plan: 75-year-old female with a past medical history of multiple myeloma, anemia requiring blood transfusions, ESRD on hemodialysis-TTS, history of C diff colitis, snf resident, mostly bedbound, history of thrombocytopenia with a chief complaint of anemia. Anemia:? No obvious signs of bleeding reported.? Stool guaiac was negative.? Patient had similar presentations in the past requiring blood transfusion. Patient's hemoglobin on presentation was 5.9-received 2 units of blood transfusion; with improvement hemoglobin to 8.4. C, and essentially unchanged, might need transfusion during next dialysis Thrombocytopenia:? Chronic, stable C dif--Vanco PO, Flagyl Staph Aureus bacteremia--bacteremia--IV vanco after dialysis, check random level, Permacath removed on 10/22. ID following, Sacral xray: 1. Known lytic lesion sacrum and pelvis, better appreciated on recent CT. 2. No interval visible new destructive process, fracture, or periostitis. No gas tracking in the soft tissu Proctocolitis/C diff infection.. Flagyl and Vanco as above, History of liver lesion:? Stable as per the CT scan.? Patient was seen by GI during the last admission.? Recommended follow-up with GI. ESRD:? Nephrology consult., HD TTS--to skip dialysis this weekend Quality Stroke Does the patient have a stroke diagnosis?: No VTE Prior VTE?: No VTE Risk Level:: Medical - moderate - high VTE Device Contraindication: N/A - Device Ordered VTE Drug Contraindication: Treatment Not Indicated
--- NOTE | 2020-10-23 18:57 | PM.PNNEP ---
Subjective Subjective Date of Service: 10/23/20 Interval history: Seen and examined. Events noted Physical Exam Vital Signs: Vital Signs: Last Vital Signs Temp 97.8 F 10/23/20 14:56 Pulse 97 10/23/20 14:56 Resp 20 10/23/20 14:56 BP 100/65 10/23/20 14:56 Pulse Ox 93 10/23/20 14:56 Body Mass Index 31.1 Const: General: cooperative Orientation/consciousness: patient oriented x3 Limitations: no limitations HENMT: Head: Yes normal to inspection Ears: hearing grossly normal bilaterally General nose exam: Normal external nose present Face and sinus: Yes normal facial exam Mouth: Normal oral and palatal mucosa present Eyes: Other: Conjunctival pallor EOM: EOMs intact bilaterally Neck: Neck: Yes normal visual inspection Resp: Effort & Inspection: normal respiratory effort Auscultation: clear to auscultation bilaterally Cardio: Rate: regular rate Rhythm: regular rhythm Heart sounds: S1 normal heart sound present and S2 normal heart sound present GI: Inspection: Yes normal to inspection Palpation (GI): Soft to palpation, nontender, no guarding and not rigid : Other: Brown stool noted on rectal Skin breakdown noted to bilateral labia with skin friability/bleeding Skin: General skin exam: no rashes or lesions noted Rashes: no rashes Wounds: no wounds Neuro: General: patient oriented x3 Extrem: General: Yes normal to inspection Objective Data Labs CBC & Chem 7: 10/22/20 08:11 10/22/20 15:51 Microbiology Microbiology Results: Microbiology 10/21/20 13:04 Blood - Arterial Line Blood Culture - Preliminary Staphylococcus species 10/22/20 Unknown Catheter Tip - Other Catheter Tip Culture - Preliminary Culture in progress. 10/21/20 13:04 Blood - Arterial Line Blood Culture - Preliminary Staphylococcus species 10/19/20 14:56 Blood - Venous Blood Culture - Final Staphylococcus epidermidis 10/19/20 13:19 Stool Stool Culture - Final 10/19/20 15:01 Blood - Venous Blood Culture - Final Staphylococcus epidermidis 10/19/20 00:00 Urine Catheterized - High Catheter Urine Culture - Final Procedures Date of Service Date of Service: 10/23/20 Assessment & Plan Assessment and plan (1) C. difficile colitis: Status: Acute (2) CKD (chronic kidney disease): Status: Acute (3) Bacteremia: Status: Acute Assessment and Plan: 1. ESRD: cont HD 3x/wk ( TTS) 2. GPC c/w CLABI and Pcath removed 10/22/20 3. AMS: w/u in progress 4. Anemia: Hb incr after xfusion 5. C.diff REC: Pcath removed and new one to be placed 10/25 or 10/26, ABx as noted w vanco--ask ID for their input re: duration and whether needs echo etc..; new Pcath Sunday and HD vs temp line if remains bacteremic on Sunday Time Spent With Patient Time: Total time spent is greater than 50% in coordination of care (as documented) at patient's floor/unit and/or counseling patient: Progress Note: Quality Stroke Does the patient have a stroke diagnosis?: No
[2020-10-24 03:20] VITALS: BP 110/59; PULSE 101; RESP 17; TEMP 37.4; O2SAT 95
[2020-10-24 03:33] LABS: Glucose, Whole Blood 68 mg/dL (60-115)
[2020-10-24 04:07] LABS: Hemoglobin 9.4 g/dl (12.0-16.0); PLT CLUMP 1
[2020-10-24 04:08] LABS: Hematocrit 28.3 % (37-47); Mean Corpuscular HGB Conc 33.2 g/dl (31.0-35.0); Mean Corpuscular Hemoglobin 29.5 pg (27.0-33.0); Mean Corpuscular Volume 88.7 fL (80-98); Red Blood Count 3.19 X10*6/uL (4.20-5.50); Red Cell Distribution Width 19.4 % (11.0-16.0); White Blood Count 13.6 X10*3/uL (4.8-10.8)
[2020-10-24 04:17] LABS: Ammonia 45 umol/L (13-55); NRBC Pct Auto 1.8 /100WBC (0.0-0.2); Platelet Count 29 X10*3/uL (160-400)
[2020-10-24 04:30] LABS: Band Neutrophils Percent 6 % (3-5); Lymphocytes Absolute Manual 1.1 X10*3/uL (0.6-4.8); Lymphocytes Percent Manual 8 % (20-40); Monocytes Absolute Manual 0.5 X10*3/uL (0.0-1.2); Monocytes Percent Manual 4 % (2-11); Neutrophils Percent Manual 82 % (45-73); Nucleated Red Blood Cells 4 /100WBC (0-0)
[2020-10-24 04:32] LABS: RBC Morphology NOTED
[2020-10-24 04:33] LABS: Acanthocytes 1+ (0-2) /OIF; Macrocytosis 1+ (5-14) /OIF; Microcytosis 1+ (5-14) /OIF; Ovalocytes 1+ (5-14) /OIF; Schistocytes 1+ (0-2) /OIF
[2020-10-24 04:34] LABS: Large Platelet PRESENT; Platelet Estimate DECREASED (NORMAL); Platelet Morphology Comment NORMAL; Polychromasia 1+ (0-2) /OIF; Target Cells 1+ (5-14) /OIF; Tear Drop Cells 1+ (0-2) /OIF
[2020-10-24 04:37] LABS: Dohle Bodies PRES; Toxic Vacuolation PRES
[2020-10-24 04:51] LABS: Alanine Aminotransferase 13 U/L (0-31); Albumin Level 1.1 g/dL (3.5-5.0); Alkaline Phosphatase 85 U/L (39-117); Anion Gap 12 (12-20); Aspartate Amino Transferase 27 U/L (5-31); Bilirubin Total 0.9 mg/dL (0.0-1.0); Blood Urea Nitrogen 17 mg/dL (9-16); Calcium 9.6 mg/dL (8.4-10.2); Carbon Dioxide 20 mmol/L (22-29); Chloride 104 mmol/L (96-108); Creatinine Clr Calc Pharmacy 9.5; Estimated Glomerular Filt Rate 9; Glucose Random 69 mg/dL (60-115); Potassium 4.1 mmol/L (3.3-5.1); Sodium 132 mmol/L (135-145); Total Protein 9.7 g/dL (6.5-8.0)
[2020-10-24 07:37] VITALS: BP 112/57; PULSE 111; RESP 18; TEMP 36.3; O2SAT 97
--- NOTE | 2020-10-24 08:52 | P.PNIM_ITS ---
Subjective Subjective Date of Service: 10/24/20 Interval History: Seen in f/u for sepsis, bacteremia. Over all has become increasing less responsive, vitals stable, ammonial level normal, requesting CT head this morning. Vanco level is fine, no further fever Review of Systems Gen: no fever Resp: no sob, no cough CV: no chest, no MAYORGA, no leg edema GI: No n/v, no abd pain Neuro: Unresponsive Physical Exam Vital Signs: Vital Signs: Last Vital Signs Temp 97.4 F 10/24/20 07:37 Pulse 111 H 10/24/20 07:37 Resp 18 10/24/20 07:37 BP 112/57 L 10/24/20 07:37 Pulse Ox 97 10/24/20 07:37 Body Mass Index 31.1 Const: Other: General: Difficult to arouse, Resp: CTA bilateral CVS: S1,S2,RRR GI: +BS, NT, no distention Skin: decub ulcer, as previously noted Neuro: difficult to assess, given unresponsiveness Psych: unresponsive as stated Objective Data Current Medications Generic Name Dose Route Start Last Admin Trade Name Freq PRN Reason Stop Dose Admin Acetaminophen 650 mg 10/19/20 20:40 10/23/20 09:46 Acetaminophen 325 Mg Tablet PO 650 mg Q6H PRN Administration Pain, Mild (Pain Scale 1-3) Albuterol Sulfate 2 puff 10/19/20 20:44 Albuterol Sulfate 90 Mcg 8 Gm Inhaler INHALE Q4H PRN dyspnea Allopurinol 200 mg 10/20/20 09:00 10/23/20 09:46 Allopurinol 100 Mg Tablet PO 200 mg DAILY DANIEL Administration Aspirin 81 mg 10/20/20 09:00 10/23/20 09:47 Aspirin 81 Mg Tab.Chew PO 81 mg DAILY DANIEL Administration Atorvastatin Calcium 10 mg 10/19/20 21:00 10/23/20 21:19 Atorvastatin Calcium 10 Mg Tablet PO Not Given BEDTIME DANIEL Clonazepam 0.5 mg 10/19/20 20:44 10/20/20 03:31 Clonazepam 0.5 Mg Tablet PO 0.5 mg Q8H PRN Administration anxiety Vancomycin HCl 500 mg/ Sodium 110 mls @ 110 mls/hr 10/24/20 16:00 Chloride IV Q48H DANIEL Loratadine 10 mg 10/20/20 09:00 10/23/20 09:47 Loratadine 10 Mg Tablet PO 10 mg DAILY [facility] Administration Melatonin 6 mg 10/19/20 20:40 Melatonin 3 Mg Tablet PO BEDTIME PRN Insomnia Metoclopramide HCl 5 mg 10/19/20 21:00 10/23/20 21:19 Metoclopramide Hcl 5 Mg Tablet PO Not Given BID [facility] Midodrine 10 mg 10/19/20 20:45 10/23/20 21:15 Midodrine Hcl 10 Mg Tablet PO Not Given [facility] Nystatin 1 appl 10/19/20 21:00 10/23/20 21:05 Nystatin Powder 15 Gm Bottle TOPICAL 1 appl TID [facility] Administration Protocol Omeprazole 40 mg 10/20/20 06:30 10/24/20 05:54 Omeprazole 40 Mg Capsule.Dr PO Not Given DAILY@0630 [facility] Pharmacy Consult 1 each 10/19/20 12:56 Consult Rx Perform Med Rec MISCELLANE ONCE PRN Consult order Pharmacy Consult 1 each 10/20/20 15:23 Consult Rx Vancomycin Dosing MISCELLANE DAILY PRN Consult order Polyethylene Glycol 17 gm 10/19/20 21:00 10/23/20 21:15 Polyethylene Glycol 3350 17 Gm Powd.Pack PO Not Given BEDTIME [facility] Senna 17.2 mg 10/19/20 20:40 Sennosides 8.6 Mg Tablet PO BEDTIME PRN Constipation Sodium Chloride 3 ml 10/20/20 00:00 10/23/20 21:15 0.9 % Sodium Chloride Flush 3 Ml Syringe IVFLUSH 3 ml QSHIFT [facility] Administration Vancomycin HCl 125 mg 10/23/20 12:00 10/24/20 05:54 Vancomycin Hcl Oral Solution 125 Mg/5 Ml Soln.Recon PO Not Given Q6H [facility] Labs CBC & Chem 7: 10/24/20 04:00 10/24/20 04:00 Labs: Laboratory Results - last 24 hr 10/24/20 10/24/20 10/24/20 03:28 04:00 04:00 MCV 88.7 MCH 29.5 MCHC 33.2 RDW 19.4 H Plt Count 29 L MPV Not Reportable Immature Gran % (Auto) Cancelled Neut % (Auto) Cancelled Lymph % (Auto) Cancelled [place] % (Auto) Cancelled Eos % (Auto) Cancelled Baso % (Auto) Cancelled Lymph # (Auto) Cancelled [place] # (Auto) Cancelled Eos # (Auto) Cancelled Baso # (Auto) Cancelled Abs Immat Gran (auto) Cancelled Absolute Neuts (auto) Cancelled Absolute Nucleated RBC 0.240 H Nucleated RBC % (auto) 1.8 H Neutrophils % (Manual) 82 H Band Neutrophils % 6 H Lymphocytes % (Manual) 8 L Monocytes % (Manual) 4 Abs Neuts (Manual) 12.0 H Lymphocytes # (Manual) 1.1 Monocytes # (Manual) 0.5 Nucleated RBCs 4 H Toxic Vacuolation PRES Dohle Bodies PRES Platelet Estimate DECREASED Large Platelets PRESENT Plt Morphology Comment NORMAL RBC Morphology NOTED Polychromasia 1+ (0-2) Microcytosis 1+ (5-14) Macrocytosis 1+ (5-14) Target Cells 1+ (5-14) Tear Drop Cells 1+ (0-2) Ovalocytes 1+ (5-14) Acanthocytes (Spur) 1+ (0-2) Schistocytes 1+ (0-2) Anion Gap 12 Estim Creat Clear Calc 9.5 Estimated GFR 9 POC Glucose 68 Random Glucose 69 D Calcium 9.6 D Total Bilirubin 0.9 AST 27 ALT 13 Alkaline Phosphatase 85 Ammonia Total Protein 9.7 H Albumin 1.1 L Random Vancomycin 10/24/20 10/24/20 04:00 05:55 MCV MCH MCHC RDW Plt Count MPV Immature Gran % (Auto) Neut % (Auto) Lymph % (Auto) [place] % (Auto) Eos % (Auto) Baso % (Auto) Lymph # (Auto) [place] # (Auto) Eos # (Auto) Baso # (Auto) Abs Immat Gran (auto) Absolute Neuts (auto) Absolute Nucleated RBC Nucleated RBC % (auto) Neutrophils % (Manual) Band Neutrophils % Lymphocytes % (Manual) Monocytes % (Manual) Abs Neuts (Manual) Lymphocytes # (Manual) Monocytes # (Manual) Nucleated RBCs Toxic Vacuolation Dohle Bodies Platelet Estimate Large Platelets Plt Morphology Comment RBC Morphology Polychromasia Microcytosis Macrocytosis Target Cells Tear Drop Cells Ovalocytes Acanthocytes (Spur) Schistocytes Anion Gap Estim Creat Clear Calc Estimated GFR POC Glucose Random Glucose Calcium Total Bilirubin AST ALT Alkaline Phosphatase Ammonia 45 Total Protein Albumin Random Vancomycin 14.0 L Microbiology Microbiology Results: Microbiology 10/22/20 Unknown Catheter Tip Culture - Preliminary Catheter Tip - Other Staphylococcus species 10/21/20 13:04 Blood Culture - Final Blood - Arterial Line Staphylococcus epidermidis 10/21/20 13:04 Blood Culture - Final Blood - Arterial Line Staphylococcus epidermidis 10/19/20 14:56 Blood Culture - Final Blood - Venous Staphylococcus epidermidis Assessment and Plan (1) Encephalopathy: Status: Acute (2) Unspecified skin changes: Status: Acute (3) Bacteremia: Status: Acute (4) Anemia: Status: Acute (5) CKD (chronic kidney disease): Status: Acute (6) C. difficile colitis: Status: Acute Assessment and Plan: 75-year-old female with a past medical history of multiple myeloma, anemia requiring blood transfusions, ESRD on hemodialysis-TTS, history of C diff c olitis, long term resident, mostly bedbound, history of thrombocytopenia with a chief complaint of anemia. AMS/Encephalopathy--unclear etiology at this point ? related to sepsis, uremia? metabolic profile unremarkable, ammonia ok, requesting ABG, CT head no acute finding, avoid all sedatives. Anemia:? No obvious signs of bleeding reported.? Stool guaiac was negative.? Patient had similar presentations in the past requiring blood transfusion. Patient's hemoglobin on presentation was 5.9-received 2 units of blood transfusion; Hgb is now 9.4 Thrombocytopenia:? Chronic, trending down, no 29, likely worse from sepsis, will get hematology input tomorrow, I don't think there is indication for transfusion at this time. C dif--Vanco PO, may need to change to IV Flagyl since not able to take by mouth at this time. Staph Aureus bacteremia, likely related to catheter, blood cultures x 4, and catheter tip growing Staph epidermidiss, Permacath removed 10/22. Continue Vanco post dialysis, level today 14, will give 250 once. ID following, Sacral xray 10/22: 1. Known lytic lesion sacrum and pelvis, better appreciated on recent CT. 2. No interval visible new destructive process, fracture, or periostitis. No gas tracking in the soft tissue--unlikely source of infection. Echo 10/22 no vegetations. Proctocolitis/C diff infection.. Vanco oral and IV as above History of liver lesion:? Stable as per the CT scan.? Patient was seen by GI during the last admission.? Recommended follow-up with GI. ESRD:? Nephrology consult., HD TTS--to skip dialysis this weekend. Will discuss with son after I tried reaching out to family--apparently came by earlier but I was not I aware. Person to contact is listed as Ramiro Meneses, I called 2 numbers in systems, mailbox full at and number listed as work number [place] area [place] no answer and left message. Quality Stroke Does the patient have a stroke diagnosis?: No VTE Prior VTE?: No VTE Risk Level:: Medical - moderate - high VTE Device Contraindication: N/A - Device Ordered VTE Drug Contraindication: Treatment Not Indicated
[2020-10-24 09:13] LABS: ABG Base Excess -1.8 mmol/L; ABG HCO3 21 mmol/L (22-26); ABG pCO2 29 mmHg (32-45); ABG pCO2 TC 28 mmHg (32-45); ABG pH 7.45 (7.35-7.45); ABG pH TC 7.46 (7.35-7.45); ABG pO2 92 mmHg (83-108); ABG pO2 TC 88 (83-108)
[2020-10-24 09:14] LABS: ABG Refer to POC result
[2020-10-24] MEDS: 0.9 % Sodium Chloride Flush 3 ML SYRINGE IVFLUSH ×3 (09:46→21:29)
[2020-10-24] MEDS: Nystatin Powder 15 GM BOTTLE 1 APPL TOPICAL ×3 (09:46→21:28)
[2020-10-24 11:20] VITALS: BP 124/64; PULSE 110; RESP 18; TEMP 36.6; O2SAT 97
[2020-10-24] MEDS: cefTRIAXone sodium 1 GM in 0.9 % Sodium Chloride 50 ML IV (14:15)
[2020-10-24] MEDS: vancomycin HCL 500 MG in 0.9 % Sodium Chloride 100 ML 110 MG IV (15:34)
--- NOTE | 2020-10-24 15:36 | P.CNNE_ITS ---
History of Present Illness Data of Consult Service Date: 10/24/20 Primary Care Provider: Chris Giron MD [facility] Reason for consult: Confusion 75-year-old female with a past medical history of multiple myeloma, anemia r equiring blood transfusions-recently on 09/21/2020; history of C diff infection, ESRD on hemodialysis via Port-A-Cath, [facility] resident, mostly bed-bound?I was asked to see for change in mental status. She was unable to provide any history and did not respond to verbal commands. [facility] Past Medical History Medical History (Updated 10/24/20 @ 15:39 by Sarah Howard MD) Anemia Bacteremia C. difficile colitis CKD (chronic kidney disease) HTN (hypertension) Multiple myeloma Social History Social History (Updated 09/20/20 @ 10:31 by Vanessa Quiroz DO) Household Members: None Housing: Other Do you presently have visiting nurse or other home services: Yes (from the [facility]) Patient Tobacco Use Status: Never used Tobacco Currently Displaying Signs/Symptoms of Drug Intoxication Withdrawal: No Have you been hit, kicked, punched, or otherwise hurt by someone within the past year? If so, by whom?: No Do you feel safe in your current relationship?: No Is there a partner from a previous relationship who is making you feel unsafe now?: No Are you made to feel afraid or neglected: No Advance Directives: No Advance Directives Information Provided: No Do you have thoughts of harming others: None Do you have a plan to hurt others: No Plan Recently lost weight without trying: No Eating poorly because of decreased appetite: No service: No Current occupational status: retired [employer] Allergies Allergy/AdvReac Type Severity Reaction Status Date / Time lisinopril AdvReac Angioedema Verified 09/21/20 00:34 Active Medications: Current Medications Generic Name Dose Route Start Last Admin Trade Name Freq PRN Reason Stop Dose Admin Acetaminophen 650 mg 10/19/20 20:40 10/23/20 09:46 Acetaminophen 325 Mg Tablet PO 650 mg Q6H PRN Administration Pain, Mild (Pain Scale 1-3) Albuterol Sulfate 2 puff 10/19/20 20:44 Albuterol Sulfate 90 Mcg 8 Gm Inhaler INHALE Q4H PRN dyspnea Allopurinol 200 mg 10/20/20 09:00 10/24/20 09:57 Allopurinol 100 Mg Tablet PO Not Given DAILY [facility] Aspirin 81 mg 10/20/20 09:00 10/24/20 09:57 Aspirin 81 Mg Tab.Chew PO Not Given DAILY [facility] Atorvastatin Calcium 10 mg 10/19/20 21:00 10/23/20 21:19 Atorvastatin Calcium 10 Mg Tablet PO Not Given BEDTIME [facility] Clonazepam 0.5 mg 10/19/20 20:44 10/20/20 03:31 Clonazepam 0.5 Mg Tablet PO 0.5 mg Q8H PRN Administration anxiety Vancomycin HCl 500 mg/ Sodium 110 mls @ 110 mls/hr 10/24/20 16:00 Chloride IV Q48H DANIEL Ceftriaxone Sodium 1 gm/ 50 mls @ 100 mls/hr 10/24/20 14:00 10/24/20 14:15 Sodium Chloride IV 100 mls/hr Q24H [facility] Administration Loratadine 10 mg 10/20/20 09:00 10/24/20 09:57 Loratadine 10 Mg Tablet PO Not Given DAILY [facility] Melatonin 6 mg 10/19/20 20:40 Melatonin 3 Mg Tablet PO BEDTIME PRN Insomnia Metoclopramide HCl 5 mg 10/19/20 21:00 10/24/20 09:58 Metoclopramide Hcl 5 Mg Tablet PO Not Given BID [facility] Midodrine 10 mg 10/19/20 20:45 10/23/20 21:15 Midodrine Hcl 10 Mg Tablet PO Not Given TUTHSA [facility] Nystatin 1 appl 10/19/20 21:00 10/24/20 14:16 Nystatin Powder 15 Gm Bottle TOPICAL 1 appl TID [facility] Administration Protocol Omeprazole 40 mg 10/20/20 06:30 10/24/20 05:54 Omeprazole 40 Mg Capsule.Dr PO Not Given DAILY@0630 [facility] Pharmacy Consult 1 each 10/19/20 12:56 Consult Rx Perform Med Rec MISCELLANE ONCE PRN Consult order Pharmacy Consult 1 each 10/20/20 15:23 Consult Rx Vancomycin Dosing MISCELLANE DAILY PRN Consult order Polyethylene Glycol 17 gm 10/19/20 21:00 10/23/20 21:15 Polyethylene Glycol 3350 17 Gm Powd.Pack PO Not Given BEDTIME [facility] Senna 17.2 mg 10/19/20 20:40 Sennosides 8.6 Mg Tablet PO BEDTIME PRN Constipation Sodium Chloride 3 ml 10/20/20 00:00 10/24/20 09:46 0.9 % Sodium Chloride Flush 3 Ml Syringe IVFLUSH 3 ml QSHIFT [facility] Administration Vancomycin HCl 125 mg 10/23/20 12:00 10/24/20 13:57 Vancomycin Hcl Oral Solution 125 Mg/5 Ml Soln.Recon PO Not Given Q6H [facility] Home Medications Medication Instructions Recorded Confirmed Last Taken Type acetaminophen 325 mg tablet 2 tab PO Q6H PRN 09/20/20 10/19/20 Unknown History albuterol sulfate 90 mcg/actuation 2 puff INHALATION Q4H PRN 09/20/20 10/19/20 Unknown History aerosol inhaler (Proventil HFA) allopurinol 100 mg tablet 2 tab PO DAILY 09/20/20 10/19/20 Unknown History atorvastatin 10 mg tablet 1 tab PO BEDTIME 09/20/20 10/19/20 Unknown History clonazepam 0.5 mg tablet 1 tab PO Q8H PRN 09/20/20 10/19/20 Unknown History loperamide 2 mg tablet 1 tab PO Q3H PRN 09/20/20 10/19/20 Unknown History loratadine 10 mg tablet 1 tab PO DAILY 09/20/20 10/19/20 Unknown History aspirin 81 mg chewable tablet 81 mg PO DAILY 10/19/20 10/19/20 Unknown History carboxymethylcellulose sodium 1 % 2 drp OPHTHALMIC (EYE) Q4H PRN 10/19/20 10/19/20 Unknown History eye drops (Artificial Tears (carboxymethylcellulose)) diclofenac sodium 1 % topical gel 4 g TOPICAL BID 10/19/20 10/19/20 Unknown History hydrocortisone 1 % topical cream 1 appl TOPICAL TID PRN 10/19/20 10/19/20 Unknown History melatonin 5 mg tablet 5 mg PO BEDTIME 10/19/20 10/19/20 Unknown History metoclopramide HCl 5 mg tablet 5 mg PO BID 10/19/20 10/19/20 Unknown History midodrine 10 mg tablet 10 mg PO TUTHSA 10/19/20 10/19/20 Unknown History nystatin 100,000 unit/gram topical 1 appl TOPICAL TID 10/19/20 10/19/20 Unknown History powder omeprazole 40 mg capsule,delayed 40 mg PO DAILY 10/19/20 10/19/20 Unknown History release ondansetron HCl 4 mg tablet 4 mg PO Q6H PRN 10/19/20 10/19/20 Unknown History (Zofran) phenyleph-shark liver 1 appl [place] BID PRN 10/19/20 10/19/20 Unknown History [id number] rectal cream polyethylene glycol 3350 17 17 g PO BEDTIME 10/19/20 10/19/20 Unknown History gram/dose oral powder (Miralax) Physical Exam Vital Signs: Vital Signs: Last Vital Signs Temp 97.8 F 10/24/20 11:20 Pulse 110 H 10/24/20 11:20 Resp 18 10/24/20 11:20 BP 124/64 10/24/20 11:20 Pulse Ox 97 10/24/20 11:20 Body Mass Index 31.1 Neuro: Other: She was quite drowsy and not responding to verbal commands. She was withdrawing with pain in all 4 extremities. Plantars were bilaterally extensor. Deep tendon reflexes were trace to absent. Face was symmetrical. Pupils were about 2 mm round reactive to light. There was no gaze deviation or jerking. Results Labs CBC & Chem 7: 10/24/20 04:00 10/24/20 04:00 Labs: Short CBC 10/24/20 Range/Units 04:00 WBC 13.6 H (4.8-10.8) X10*3/uL Hgb 9.4 L D (12.0-16.0) g/dl Hct 28.3 L D (37-47) % Plt Count 29 L (160-400) X10*3/uL BMP 10/24/20 04:00 Sodium 132 L Potassium 4.1 D Chloride 104 Carbon Dioxide 20 L BUN 17 H D Creatinine 4.96 H* Calcium 9.6 D Liver Function 10/24/20 Range/Units 04:00 Total Bilirubin 0.9 (0.0-1.0) mg/dL AST 27 (5-31) U/L ALT 13 (0-31) U/L Alkaline Phosphatase 85 (39-117) U/L Albumin 1.1 L (3.5-5.0) g/dL Noncontrast head CT did not reveal any significant abnormality. Microbiology Microbiology Results: Microbiology 10/22/20 Unknown Catheter Tip - Other Catheter Tip Culture - Preliminary Staphylococcus species 10/21/20 13:04 Blood - Arterial Line Blood Culture - Final Staphylococcus epidermidis 10/21/20 13:04 Blood - Arterial Line Blood Culture - Final Staphylococcus epidermidis 10/19/20 14:56 Blood - Venous Blood Culture - Final Staphylococcus epidermidis 10/19/20 13:19 Stool Stool Culture - Final 10/19/20 15:01 Blood - Venous Blood Culture - Final Staphylococcus epidermidis 10/19/20 00:00 Urine Catheterized - High Catheter Urine Culture - Final Assessment and Plan (1) Encephalopathy: Status: Acute 75 years old woman with severe encephalopathy of unclear etiology at this time. For proper evaluation, an MRI of brain, and if no obvious explanation is found, spinal fluid analysis including cytology is recommended Procedures Date of Service Date of Service: 10/24/20
[2020-10-24 16:00] VITALS: BP 114/56; PULSE 97; RESP 18; TEMP 36.3; O2SAT 95
[2020-10-24] MEDS: Scopolamine 1.5 MG PATCH.TD.3 EAR-BEHIND (18:10)
--- NOTE | 2020-10-24 19:54 | PM.PNNEP ---
Subjective Subjective Date of Service: 10/24/20 Interval history: Seen and examined, events noted Remains confused and Neuro eval in progress Physical Exam Vital Signs: Vital Signs: Last Vital Signs Temp 97.3 F 10/24/20 16:00 Pulse 97 10/24/20 16:00 Resp 18 10/24/20 16:00 BP 114/56 L 10/24/20 16:00 Pulse Ox 95 10/24/20 16:00 Body Mass Index 31.1 Const: General: cooperative Orientation/consciousness: patient oriented x3 Limitations: no limitations HENMT: Head: Yes normal to inspection Ears: hearing grossly normal bilaterally General nose exam: Normal external nose present Face and sinus: Yes normal facial exam Mouth: Normal oral and palatal mucosa present Eyes: Other: Conjunctival pallor EOM: EOMs intact bilaterally Neck: Neck: Yes normal visual inspection Resp: Effort & Inspection: normal respiratory effort Auscultation: clear to auscultation bilaterally Cardio: Rate: regular rate Rhythm: regular rhythm Heart sounds: S1 normal heart sound present and S2 normal heart sound present GI: Inspection: Yes normal to inspection Palpation (GI): Soft to palpation, nontender, no guarding and not rigid : Other: Brown stool noted on rectal Skin breakdown noted to bilateral labia with skin friability/bleeding Skin: General skin exam: no rashes or lesions noted Rashes: no rashes Wounds: no wounds Neuro: General: patient oriented x3 Extrem: General: Yes normal to inspection Objective Data Labs CBC & Chem 7: 10/24/20 04:00 10/24/20 04:00 Labs: Laboratory Results - last 24 hr 10/24/20 10/24/20 10/24/20 03:28 04:00 04:00 WBC 13.6 H RBC 3.19 L Hgb 9.4 L D Hct 28.3 L D MCV 88.7 MCH 29.5 MCHC 33.2 RDW 19.4 H Plt Count 29 L MPV Not Reportable Immature Gran % (Auto) Cancelled Neut % (Auto) Cancelled Lymph % (Auto) Cancelled [place] % (Auto) Cancelled Eos % (Auto) Cancelled Baso % (Auto) Cancelled Lymph # (Auto) Cancelled [place] # (Auto) Cancelled Eos # (Auto) Cancelled Baso # (Auto) Cancelled Abs Immat Gran (auto) Cancelled Absolute Neuts (auto) Cancelled Absolute Nucleated RBC 0.240 H Nucleated RBC % (auto) 1.8 H Neutrophils % (Manual) 82 H Band Neutrophils % 6 H Lymphocytes % (Manual) 8 L Monocytes % (Manual) 4 Abs Neuts (Manual) 12.0 H Lymphocytes # (Manual) 1.1 Monocytes # (Manual) 0.5 Nucleated RBCs 4 H Toxic Vacuolation PRES Dohle Bodies PRES Platelet Estimate DECREASED Large Platelets PRESENT Plt Morphology Comment NORMAL RBC Morphology NOTED Polychromasia 1+ (0-2) Microcytosis 1+ (5-14) Macrocytosis 1+ (5-14) Target Cells 1+ (5-14) Tear Drop Cells 1+ (0-2) Ovalocytes 1+ (5-14) Acanthocytes (Spur) 1+ (0-2) Schistocytes 1+ (0-2) O2 Saturation ABG pH at Pt Temp ABG pH (Temp Correct) ABG pCO2 at Pt Temp ABG pCO2 (Temp Corrct ABG pO2 at Pt Temp ABG pO2 (Temp Correct ABG HCO3 ABG Base Excess (Actual) Sodium 132 L Potassium 4.1 D Chloride 104 Carbon Dioxide 20 L Anion Gap 12 BUN 17 H D Creatinine 4.96 H* Estim Creat Clear Calc 9.5 Estimated GFR 9 POC Glucose 68 Random Glucose 69 D Calcium 9.6 D Total Bilirubin 0.9 AST 27 ALT 13 Alkaline Phosphatase 85 Ammonia Total Protein 9.7 H Albumin 1.1 L Random Vancomycin 10/24/20 10/24/20 10/24/20 04:00 05:55 09:06 WBC RBC Hgb Hct MCV MCH MCHC RDW Plt Count MPV Immature Gran % (Auto) Neut % (Auto) Lymph % (Auto) [place] % (Auto) Eos % (Auto) Baso % (Auto) Lymph # (Auto) [place] # (Auto) Eos # (Auto) Baso # (Auto) Abs Immat Gran (auto) Absolute Neuts (auto) Absolute Nucleated RBC Nucleated RBC % (auto) Neutrophils % (Manual) Band Neutrophils % Lymphocytes % (Manual) Monocytes % (Manual) Abs Neuts (Manual) Lymphocytes # (Manual) Monocytes # (Manual) Nucleated RBCs Toxic Vacuolation Dohle Bodies Platelet Estimate Large Platelets Plt Morphology Comment RBC Morphology Polychromasia Microcytosis Macrocytosis Target Cells Tear Drop Cells Ovalocytes Acanthocytes (Spur) Schistocytes O2 Saturation 95.0 ABG pH at Pt Temp 7.45 ABG pH (Temp Correct) 7.46 H ABG pCO2 at Pt Temp 29 L ABG pCO2 (Temp Corrct 28 L ABG pO2 at Pt Temp 92 ABG pO2 (Temp Correct 88 ABG HCO3 21 L ABG Base Excess (Actual) -1.8 Sodium Potassium Chloride Carbon Dioxide Anion Gap BUN Creatinine Estim Creat Clear Calc Estimated GFR POC Glucose Random Glucose Calcium Total Bilirubin AST ALT Alkaline Phosphatase Ammonia 45 Total Protein Albumin Random Vancomycin 14.0 L Microbiology Microbiology Results: Microbiology 10/22/20 Unknown Catheter Tip - Other Catheter Tip Culture - Preliminary Staphylococcus species 10/21/20 13:04 Blood - Arterial Line Blood Culture - Final Staphylococcus epidermidis 10/21/20 13:04 Blood - Arterial Line Blood Culture - Final Staphylococcus epidermidis 10/19/20 14:56 Blood - Venous Blood Culture - Final Staphylococcus epidermidis 10/19/20 13:19 Stool Stool Culture - Final 10/19/20 15:01 Blood - Venous Blood Culture - Final Staphylococcus epidermidis 10/19/20 00:00 Urine Catheterized - High Catheter Urine Culture - Final Procedures Date of Service Date of Service: 10/24/20 Assessment & Plan Assessment and plan (1) C. difficile colitis: Status: Acute (2) CKD (chronic kidney disease): Status: Acute (3) Bacteremia: Status: Acute Assessment and Plan: 1. ESRD: cont HD 3x/wk ( TTS) 2. GPC c/w CLABI and Pcath removed 10/22/20---clut Staph epidermis 3. AMS: w/u in progress 4. Anemia: Hb incr after xfusion 5. C.diff REC: new Pcath Mon adn HD vs temp line as it depends on repeat bld cult and ID input; neuri w/u AMS; ABx a s per ID Time Spent With Patient Time: Total time spent is greater than 50% in coordination of care (as documented) at patient's floor/unit and/or counseling patient: Progress Note: Quality Stroke Does the patient have a stroke diagnosis?: No
[2020-10-24 20:00] VITALS: BP 109/55; PULSE 95; RESP 18; TEMP 36.2; O2SAT 95
[2020-10-24 23:12] VITALS: BP 101/58; PULSE 100; RESP 18; TEMP 36.6; O2SAT 95
--- NOTE | 2020-10-25 | EEG_ITS ---
This is a 16-channel EEG. The patient was reported unresponsive during the tracing. Background EEG rhythm was slow and theta to delta range with frequent triphasic wave and slight burst suppression pattern. No definite sharp waves and spikes were noted. Photic stimulation and hyperventilation were not performed. Cardiac lead did not reveal any significant abnormality. IMPRESSION: Diffuse slowing of significant nature that was nonspecific and could result from metabolic toxic encephalopathy, but also result from late stages of status epilepticus. Clinical correlation is recommended. Some features were suggestive more of metabolic toxic etiology. MD POONAM Lombardi/BOBBY / [phone]
[2020-10-25 02:54] VITALS: BP 98/59; PULSE 106; RESP 108; TEMP 36.3; O2SAT 95
[2020-10-25 07:14] VITALS: BP 116/55; PULSE 96; RESP 18; TEMP 36.9; O2SAT 97
--- NOTE | 2020-10-25 07:55 | PM.PNNEP ---
Subjective Subjective Date of Service: 10/25/20 Interval history: Seen and examined, events noted Remains confused and Neuro eval in progress Physical Exam Vital Signs: Vital Signs: Last Vital Signs Temp 98.5 F 10/25/20 07:14 Pulse 96 10/25/20 07:14 Resp 18 10/25/20 07:14 BP 116/55 L 10/25/20 07:14 Pulse Ox 97 10/25/20 07:14 Body Mass Index 31.1 Const: Other: General: Difficult to arouse, Resp: CTA bilateral CVS: S1,S2,RRR GI: +BS, NT, no distention Skin: decub ulcer, as previously noted Neuro: difficult to assess, given unresponsiveness Psych: unresponsive as stated General: cooperative Orientation/consciousness: patient oriented x3 Limitations: no limitations HENMT: Head: Yes normal to inspection Ears: hearing grossly normal bilaterally General nose exam: Normal external nose present Face and sinus: Yes normal facial exam Mouth: Normal oral and palatal mucosa present Eyes: Other: Conjunctival pallor EOM: EOMs intact bilaterally Neck: Neck: Yes normal visual inspection Resp: Effort & Inspection: normal respiratory effort Auscultation: clear to auscultation bilaterally Cardio: Rate: regular rate Rhythm: regular rhythm Heart sounds: S1 normal heart sound present and S2 normal heart sound present GI: Inspection: Yes normal to inspection Palpation (GI): Soft to palpation, nontender, no guarding and not rigid : Other: Brown stool noted on rectal Skin breakdown noted to bilateral labia with skin friability/bleeding Skin: General skin exam: no rashes or lesions noted Rashes: no rashes Wounds: no wounds Neuro: Other: She was quite drowsy and not responding to verbal commands. She was withdrawing with pain in all 4 extremities. Plantars were bilaterally extensor. Deep tendon reflexes were trace to absent. Face was symmetrical. Pupils were about 2 mm round reactive to light. There was no gaze deviation or jerking. General: patient oriented x3 Extrem: General: Yes normal to inspection Objective Data Labs CBC & Chem 7: 10/24/20 04:00 10/24/20 04:00 Labs: Laboratory Results - last 24 hr 10/24/20 09:06 O2 Saturation 95.0 ABG pH at Pt Temp 7.45 ABG pH (Temp Correct) 7.46 H ABG pCO2 at Pt Temp 29 L ABG pCO2 (Temp Corrct 28 L ABG pO2 at Pt Temp 92 ABG pO2 (Temp Correct 88 ABG HCO3 21 L ABG Base Excess (Actual) -1.8 Microbiology Microbiology Results: Microbiology 10/22/20 Unknown Catheter Tip - Other Catheter Tip Culture - Preliminary Staphylococcus species 10/21/20 13:04 Blood - Arterial Line Blood Culture - Final Staphylococcus epidermidis 10/21/20 13:04 Blood - Arterial Line Blood Culture - Final Staphylococcus epidermidis 10/19/20 14:56 Blood - Venous Blood Culture - Final Staphylococcus epidermidis 10/19/20 13:19 Stool Stool Culture - Final 10/19/20 15:01 Blood - Venous Blood Culture - Final Staphylococcus epidermidis 10/19/20 00:00 Urine Catheterized - High Catheter Urine Culture - Final Procedures Date of Service Date of Service: 10/25/20 Assessment & Plan Assessment and plan (1) C. difficile colitis: Status: Acute (2) CKD (chronic kidney disease): Status: Acute (3) Bacteremia: Status: Acute Assessment and Plan: 1. ESRD: cont HD 3x/wk ( TTS) 2. GPC c/w CLABI and Pcath removed 10/22/20---clut Staph epidermis 3. AMS: w/u in progress 4. Anemia: Hb incr after xfusion 5. C.diff REC: new Pcath Mon adn HD vs temp line as it depends on repeat bld cult and ID input; neuri w/u AMS; ABx a s per ID Assessment and Plan: dialysis ordered for am Progress Note: Quality Stroke Does the patient have a stroke diagnosis?: No
[2020-10-25] MEDS: 0.9 % Sodium Chloride Flush 3 ML SYRINGE IVFLUSH ×3 (07:58→21:53)
--- NOTE | 2020-10-25 09:09 | MHC.CM.PN ---
at this time dc plan remains the same, for patient to return to [facility] when medically stable. cm to cont. to follow.
[2020-10-25] MEDS: Nystatin Powder 15 GM BOTTLE 1 APPL TOPICAL ×3 (11:10→21:53)
[2020-10-25 11:17] VITALS: BP 109/66; PULSE 108; RESP 24; TEMP 36.7; O2SAT 95
--- NOTE | 2020-10-25 13:27 | P.PNIM_ITS ---
Subjective Subjective Date of Service: 10/26/20 Interval History: Seen in f/u for sepsis, bacteremia. Over all has become increasing less responsive, vitals stable, ammonia, Neurology is recommending MRI and possibly LP Review of Systems Gen: no fever Resp: no sob, no cough CV: no chest, no MAYORGA, no leg edema GI: No n/v, no abd pain Neuro: Unresponsive Physical Exam Vital Signs: Vital Signs: Last Vital Signs Temp 98.0 F 10/25/20 11:17 Pulse 108 H 10/25/20 11:17 Resp 24 H 10/25/20 11:17 BP 109/66 10/25/20 11:17 Pulse Ox 95 10/25/20 11:17 Body Mass Index 31.1 Const: Other: General: Difficult to arouse, Resp: CTA bilateral CVS: S1,S2,RRR GI: +BS, NT, no distention Skin: decub ulcer, as previously noted Neuro: difficult to assess, given unresponsiveness Psych: unresponsive as stated Objective Data Current Medications Generic Name Dose Route Start Last Admin Trade Name Romainq PRN Reason Stop Dose Admin Acetaminophen 650 mg 10/19/20 20:40 10/23/20 09:46 Acetaminophen 325 Mg Tablet PO 650 mg Q6H PRN Administration Pain, Mild (Pain Scale 1-3) Albuterol Sulfate 2 puff 10/19/20 20:44 Albuterol Sulfate 90 Mcg 8 Gm Inhaler INHALE Q4H PRN dyspnea Allopurinol 200 mg 10/20/20 09:00 10/25/20 09:02 Allopurinol 100 Mg Tablet PO Not Given DAILY DANIEL Aspirin 81 mg 10/20/20 09:00 10/25/20 09:02 Aspirin 81 Mg Tab.Chew PO Not Given DAILY DANIEL Atorvastatin Calcium 10 mg 10/19/20 21:00 10/24/20 21:51 Atorvastatin Calcium 10 Mg Tablet PO Not Given BEDTIME DANIEL Vancomycin HCl 500 mg/ Sodium 110 mls @ 110 mls/hr 10/24/20 16:00 10/24/20 16:48 Chloride IV Infused Q48H DANIEL Infusion Ceftriaxone Sodium 1 gm/ 50 mls @ 100 mls/hr 10/24/20 14:00 10/24/20 15:42 Sodium Chloride IV Infused Q24H DANIEL Infusion Loratadine 10 mg 10/20/20 09:00 10/25/20 09:02 Loratadine 10 Mg Tablet PO Not Given DAILY [facility] Melatonin 6 mg 10/19/20 20:40 Melatonin 3 Mg Tablet PO BEDTIME PRN Insomnia Metoclopramide HCl 5 mg 10/19/20 21:00 10/25/20 09:02 Metoclopramide Hcl 5 Mg Tablet PO Not Given BID [facility] Midodrine 10 mg 10/19/20 20:45 10/23/20 21:15 Midodrine Hcl 10 Mg Tablet PO Not Given TUTHSA [facility] Nystatin 1 appl 10/19/20 21:00 10/25/20 11:10 Nystatin Powder 15 Gm Bottle TOPICAL 1 appl TID [facility] Administration Protocol Omeprazole 40 mg 10/20/20 06:30 10/25/20 05:25 Omeprazole 40 Mg Capsule.Dr PO Not Given DAILY@0630 [facility] Pharmacy Consult 1 each 10/19/20 12:56 Consult Rx Perform Med Rec MISCELLANE ONCE PRN Consult order Pharmacy Consult 1 each 10/20/20 15:23 Consult Rx Vancomycin Dosing MISCELLANE DAILY PRN Consult order Polyethylene Glycol 17 gm 10/19/20 21:00 10/24/20 21:45 Polyethylene Glycol 3350 17 Gm Powd.Pack PO Not Given BEDTIME [facility] Scopolamine 1.5 mg 10/24/20 17:00 10/24/20 18:10 Scopolamine 1.5 Mg Patch.Td.3 EAR-BEHIND 1.5 mg Q72H [facility] Administration Senna 17.2 mg 10/19/20 20:40 Sennosides 8.6 Mg Tablet PO BEDTIME PRN Constipation Sodium Chloride 3 ml 10/20/20 00:00 10/25/20 07:58 0.9 % Sodium Chloride Flush 3 Ml Syringe IVFLUSH 3 ml QSHIFT [facility] Administration Vancomycin HCl 125 mg 10/23/20 12:00 10/25/20 11:12 Vancomycin Hcl Oral Solution 125 Mg/5 Ml Soln.Recon PO Not Given Q6H [facility] Labs CBC & Chem 7: 10/26/20 11:00 10/24/20 04:00 Microbiology Microbiology Results: Microbiology 10/22/20 Unknown Catheter Tip Culture - Final Catheter Tip - Other Staphylococcus epidermidis Assessment and Plan (1) Encephalopathy: Status: Acute (2) Bacteremia: Status: Acute (3) Anemia: Status: Acute Assessment and Plan: 75-year-old female with a past medical history of multiple myeloma, anemia requiring blood transfusions, ESRD on hemodialysis-TTS, history of C diff colitis, [facility] resident, mostly bedbound, history of thrombocytopenia with a chief complaint of anemia. AMS/Encephalopathy--unclear etiology at this point ? related to sepsis, uremia? metabolic profile unremarkable, ammonia ok, requesting ABG, CT head no acute finding. EEG scheduled, Neurology is asking for MRI and possibly LP, will arrange for the MRI--will be difficult given patietn's condition and maybe better to discuss goals of care. Anemia:? No obvious signs of bleeding reported.? Stool guaiac was negative.? Patient had similar presentations in the past requiring blood transfusion. Patient's hemoglobin on presentation was 5.9-received 2 units of blood transfusion; Hgb is now 9.4 Thrombocytopenia:? Chronic, trending down, no 29, likely worse from sepsis, will get hematology input tomorrow, I don't think there is indication for transfusion at this time. C dif--Vanco PO, may need to change to IV Flagyl since not able to take by mouth at this time. Staph Aureus bacteremia (Staph Epi), likely related to catheter, blood cultures x 4, and catheter tip growing Staph epidermidiss, Permacath removed 10/22. Continue Vanco post dialysis, level today 14, will give 250 once. ID following, Sacral xray 10/22: 1. Known lytic lesion sacrum and pelvis, better appreciated on recent CT. 2. No interval visible new destructive process, fracture, or periostitis. No gas tracking in the soft tissue--unlikely source of infection. Echo 10/22 no vegetations. Proctocolitis/C diff infection.. Vanco oral and IV as above History of liver lesion:? Stable as per the CT scan.? Patient was seen by GI during the last admission.? Recommended follow-up with GI. ESRD:? Nephrology consult., HD TTS--to skip dialysis this weekend. Temporary catheter tody and dialysis Will discuss with son after I tried reaching out to family--I spoke to and updated him about treatment plan as outline, code status remains full for now Quality Stroke Does the patient have a stroke diagnosis?: No VTE Prior VTE?: No VTE Risk Level:: Medical - moderate - high VTE Device Contraindication: N/A - Device Ordered VTE Drug Contraindication: Treatment Not Indicated
[2020-10-25] MEDS: cefTRIAXone sodium 1 GM in 0.9 % Sodium Chloride 50 ML IV (14:30)
--- NOTE | 2020-10-25 15:18 | MHC.SLORD ---
Speech Language Pathology Order Status: Received order for bedside swallow eval. CARBONIZER TESTER attempted to see patient this morning and this afternoon 2x. Patient is not appropriate due to lethargy. CARBONIZER TESTER was unable to wake patient with verbal stimuli and sternal rub. Will re-attempt tomorrow morning. Tray is held due to mental status.
[2020-10-25 15:24] VITALS: BP 108/59; PULSE 90; RESP 20; TEMP 36.4; O2SAT 98
[2020-10-25 19:26] VITALS: BP 114/78; PULSE 96; RESP 20; TEMP 36.6; O2SAT 95
[2020-10-26] VITALS (10 sets, daily range): BP systolic 90–132; BP diastolic 48–63; PULSE 65–108; RESP 16–24; TEMP 36.1–37.1; O2SAT 91–97
[2020-10-26] MEDS: 0.9 % Sodium Chloride Flush 3 ML SYRINGE IVFLUSH ×2 (07:57→17:31)
[2020-10-26] MEDS: Nystatin Powder 15 GM BOTTLE 1 APPL TOPICAL ×3 (07:58→21:20)
--- NOTE | 2020-10-26 09:55 | W.PM.DNNEP ---
Subjective Subjective This patient was seen during dialysis. Interval history: Seen in f/u for sepsis, bacteremia. Over all has become increasing less responsive, vitals stable, ammonia, Neurology is recommending MRI and possibly LP Physical Exam Vital Signs: Vital Signs: Last Vital Signs Temp 97.8 F 10/26/20 07:21 Pulse 85 10/26/20 07:21 Resp 22 H 10/26/20 07:21 BP 90/50 L 10/26/20 07:21 Pulse Ox 93 10/26/20 07:21 Body Mass Index 31.1 Const: Other: General: Difficult to arouse, Resp: CTA bilateral CVS: S1,S2,RRR GI: +BS, NT, no distention Skin: decub ulcer, as previously noted Neuro: difficult to assess, given unresponsiveness Psych: unresponsive as stated General: cooperative Orientation/consciousness: patient oriented x3 Limitations: no limitations HENMT: Head: Yes normal to inspection Ears: hearing grossly normal bilaterally General nose exam: Normal external nose present Face and sinus: Yes normal facial exam Mouth: Normal oral and palatal mucosa present Eyes: Other: Conjunctival pallor EOM: EOMs intact bilaterally Neck: Neck: Yes normal visual inspection Resp: Effort & Inspection: normal respiratory effort Auscultation: clear to auscultation bilaterally Cardio: Rate: regular rate Rhythm: regular rhythm Heart sounds: S1 normal heart sound present and S2 normal heart sound present GI: Inspection: Yes normal to inspection Palpation (GI): Soft to palpation, nontender, no guarding and not rigid : Other: Brown stool noted on rectal Skin breakdown noted to bilateral labia with skin friability/bleeding Skin: General skin exam: no rashes or lesions noted Rashes: no rashes Wounds: no wounds Neuro: Other: She was quite drowsy and not responding to verbal commands. She was withdrawing with pain in all 4 extremities. Plantars were bilaterally extensor. Deep tendon reflexes were trace to absent. Face was symmetrical. Pupils were about 2 mm round reactive to light. There was no gaze deviation or jerking. General: patient oriented x3 Extrem: General: Yes normal to inspection Assessment & Plan Assessment and plan (1) Encephalopathy: Status: Acute (2) Bacteremia: Status: Acute (3) Anemia: Status: Acute Assessment and Plan: 75-year-old female with a past medical history of multiple myeloma, anemia requiring blood transfusions, ESRD on hemodialysis-TTS, history of C diff colitis, [facility] resident, mostly bedbound, history of thrombocytopenia with a chief complaint of anemia. AMS/Encephalopathy--unclear etiology at this point ? related to sepsis, uremia? metabolic profile unremarkable, ammonia ok, requesting ABG, CT head no acute finding. EEG scheduled, Neurology is asking for MRI and possibly LP, will arrange for the MRI--will be difficult given patietn's condition and maybe better to discuss goals of care. Anemia:? No obvious signs of bleeding reported.? Stool guaiac was negative.? Patient had similar presentations in the past requiring blood transfusion. Patient's hemoglobin on presentation was 5.9-received 2 units of blood transfusion; Hgb is now 9.4 Thrombocytopenia:? Chronic, trending down, no 29, likely worse from sepsis, will get hematology input tomorrow, I don't think there is indication for transfusion at this time. C dif--Vanco PO, may need to change to IV Flagyl since not able to take by mouth at this time. Staph Aureus bacteremia (Staph Epi), likely related to catheter, blood cultures x 4, and catheter tip growing Staph epidermidiss, Permacath removed 10/22. Continue Vanco post dialysis, level today 14, will give 250 once. ID following, Sacral xray 10/22: 1. Known lytic lesion sacrum and pelvis, better appreciated on recent CT. 2. No interval visible new destructive process, fracture, or periostitis. No gas tracking in the soft tissue--unlikely source of infection. Echo 10/22 no vegetations. Proctocolitis/C diff infection.. Vanco oral and IV as above History of liver lesion:? Stable as per the CT scan.? Patient was seen by GI during the last admission.? Recommended follow-up with GI. ESRD:? Nephrology consult., HD TTS--to skip dialysis this weekend. Temporary catheter today and dialysis Time Spent With Patient Time: Total time spent is greater than 50% in coordination of care (as documented) at patient's floor/unit and/or counseling patient: Procedures Date of Service Date of Service: 10/26/20
--- NOTE | 2020-10-26 10:01 | P.CDIC_ITS ---
CDI Concurrent Query Service Date: 10/26/20 Documentation Clarification: Please clarify if you are treating a proba ble/suspected/likely or confirmed: Clarity to a diagnosis documented: Acute encephalopathy Septic encephalopathy Toxic encephalopathy Other, undetermined Provider Response: Metabolic Encephalopathy PLEASE DO NOT DELETE/MODIFY EXISTING CONTENT Additional information is needed in order to code to the highest accuracy and appropriate Severity of Illness (SOI). Please clarify the information noted below in your progress notes and discharge summary. Risk Factors/Clinical Indicators/Treatments Altered mental status, lethargic with sepsis, bacteremia. PN: encephalopathy - unclear, ? sepsis, uremia? urine turbid, positive nitrite, + leukocytes. PN: 8/9 - less responsive ? LP, decubitus ulcer as previously noted. Vancomycin, Ceftriaxone, IV fluids CDS: Shayy Adhikari CCS, CDIS Contact Number: [phone] Please Review the information above and exercise your independent professional judgment in responding to the query. If you concur, pleas document in the PROGRESS NOTES and DISCHARGE SUMMARY. If you do not agree with the query, please document in the query above. THIS QUERY IS PART OF THE PERMANENT MEDICAL RECORD
[2020-10-26 11:08] LABS: Hemoglobin 7.3 g/dl (12.0-16.0)
[2020-10-26 11:10] LABS: Hematocrit 22.7 % (37-47); Mean Corpuscular HGB Conc 32.2 g/dl (31.0-35.0); Mean Corpuscular Hemoglobin 29.3 pg (27.0-33.0); Mean Corpuscular Volume 91.2 fL (80-98); Mean Platelet Volume 10.9 fL (9.4-12.3); NRBC Pct Auto 0.9 /100WBC (0.0-0.2); Red Blood Count 2.49 X10*6/uL (4.20-5.50); Red Cell Distribution Width 19.7 % (11.0-16.0); White Blood Count 10.4 X10*3/uL (4.8-10.8)
[2020-10-26 11:12] LABS: Platelet Count 38 X10*3/uL (160-400)
--- NOTE | 2020-10-26 12:42 | MHC.SLORD ---
Speech Language Pathology Order Status: SOCKET PULLER attempted to see pt this morning for bedside swallow evaluation. Pt unable to wake to verbal stimuli. When awoken via sternal rub, pt did not remain awake for long. Pt not appropriate for PO trials at this time. SOCKET PULLER will reattempt tomorrow morning.
--- NOTE | 2020-10-26 13:22 | P.PNIM_ITS ---
Subjective Subjective Date of Service: 10/26/20 Interval History: Seen in f/u for sepsis, bacteremia. She remains minimally responsive. No fever, WBC normal. Review of Systems Gen: no fever Resp: no sob, no cough CV: no chest, no MAYORGA, no leg edema GI: No n/v, no abd pain Neuro: Unresponsive Physical Exam Vital Signs: Vital Signs: Last Vital Signs Temp 96.9 F 10/26/20 10:44 Pulse 65 10/26/20 10:44 Resp 22 H 10/26/20 07:21 BP 99/63 10/26/20 10:44 Pulse Ox 95 10/26/20 10:44 Body Mass Index 31.1 Const: Other: General: Difficult to arouse, Resp: CTA bilateral CVS: S1,S2,RRR GI: +BS, NT, no distention Skin: decub ulcer, as previously noted Neuro: difficult to assess, given unresponsiveness Psych: unresponsive as stated Neuro: Other: She was quite drowsy and not responding to verbal commands. She was withdrawing with pain in all 4 extremities. Plantars were bilaterally extensor. Deep tendon reflexes were trace to absent. Face was symmetrical. Pupils were about 2 mm round reactive to light. There was no gaze deviation or jerking. Objective Data Current Medications Generic Name Dose Route Start Last Admin Trade Name Freq PRN Reason Stop Dose Admin Acetaminophen 650 mg 10/19/20 20:40 10/23/20 09:46 Acetaminophen 325 Mg Tablet PO 650 mg Q6H PRN Administration Pain, Mild (Pain Scale 1-3) Albuterol Sulfate 2 puff 10/19/20 20:44 Albuterol Sulfate 90 Mcg 8 Gm Inhaler INHALE Q4H PRN dyspnea Allopurinol 200 mg 10/20/20 09:00 10/26/20 07:58 Allopurinol 100 Mg Tablet PO Not Given DAILY DANIEL Aspirin 81 mg 10/20/20 09:00 10/26/20 07:58 Aspirin 81 Mg Tab.Chew PO Not Given DAILY DANIEL Atorvastatin Calcium 10 mg 10/19/20 21:00 10/25/20 21:41 Atorvastatin Calcium 10 Mg Tablet PO Not Given BEDTIME DANIEL Vancomycin HCl 500 mg/ Sodium 110 mls @ 110 mls/hr 10/24/20 16:00 10/24/20 16:48 Chloride IV Infused Q48H DANIEL Infusion Ceftriaxone Sodium 1 gm/ 50 mls @ 100 mls/hr 10/24/20 14:00 10/25/20 15:41 Sodium Chloride IV Infused Q24H [facility] Infusion Loratadine 10 mg 10/20/20 09:00 10/26/20 07:58 Loratadine 10 Mg Tablet PO Not Given DAILY DANIEL Melatonin 6 mg 10/19/20 20:40 Melatonin 3 Mg Tablet PO BEDTIME PRN Insomnia Metoclopramide HCl 5 mg 10/19/20 21:00 10/26/20 07:58 Metoclopramide Hcl 5 Mg Tablet PO Not Given BID [facility] Midodrine 10 mg 10/19/20 20:45 10/23/20 21:15 Midodrine Hcl 10 Mg Tablet PO Not Given TUTHSA [facility] Nystatin 1 appl 10/19/20 21:00 10/26/20 07:58 Nystatin Powder 15 Gm Bottle TOPICAL 1 appl TID [facility] Administration Protocol Omeprazole 40 mg 10/20/20 06:30 10/26/20 05:32 Omeprazole 40 Mg Capsule.Dr PO Not Given DAILY@0630 [facility] Pharmacy Consult 1 each 10/19/20 12:56 Consult Rx Perform Med Rec MISCELLANE ONCE PRN Consult order Pharmacy Consult 1 each 10/20/20 15:23 Consult Rx Vancomycin Dosing MISCELLANE DAILY PRN Consult order Polyethylene Glycol 17 gm 10/19/20 21:00 10/25/20 21:42 Polyethylene Glycol 3350 17 Gm Powd.Pack PO Not Given BEDTIME [facility] Scopolamine 1.5 mg 10/24/20 17:00 10/24/20 18:10 Scopolamine 1.5 Mg Patch.Td.3 EAR-BEHIND 1.5 mg Q72H [facility] Administration Senna 17.2 mg 10/19/20 20:40 Sennosides 8.6 Mg Tablet PO BEDTIME PRN Constipation Sodium Chloride 3 ml 10/20/20 00:00 10/26/20 07:57 0.9 % Sodium Chloride Flush 3 Ml Syringe IVFLUSH 3 ml QSHIFT [facility] Administration Vancomycin HCl 125 mg 10/23/20 12:00 10/26/20 10:35 Vancomycin Hcl Oral Solution 125 Mg/5 Ml Soln.Recon PO Not Given Q6H [facility] Labs CBC & Chem 7: 10/26/20 11:00 10/24/20 04:00 Labs: Laboratory Results - last 24 hr 10/26/20 11:00 MCV 91.2 MCH 29.3 MCHC 32.2 RDW 19.7 H Plt Count 38 L D MPV 10.9 Absolute Nucleated RBC 0.090 H Nucleated RBC % (auto) 0.9 H Assessment and Plan (1) Encephalopathy: Status: Acute (2) Bacteremia: Status: Acute (3) Anemia: Status: Acute Assessment and Plan: 75-year-old female with a past medical history of multiple myeloma, anemia requiring blood transfusions, ESRD on hemodialysis-TTS, history of C diff colitis, [facility] resident, mostly bedbound, history of thrombocytopenia with a chief complaint of anemia. AMS/Encephalopathy--unclear etiology at this point ? related to sepsis, uremia? metabolic profile unremarkable, ammonia ok, requesting ABG, CT head no acute finding. EEG scheduled, Neurology is asking for MRI and possibly LP, MRI shows no acute finding. Mental status remain depressed so will proceed to LP as next step Anemia:? No obvious signs of bleeding reported.? Stool guaiac was negative.? Patient had similar presentations in the past requiring blood transfusion. Patient's hemoglobin on presentation was 5.9-received 2 units of blood transfusion; Hgb is now 7.3, will transfuse 2 units during dialysis Thrombocytopenia:? stable at 39, I don't think there is indication for transfusion at this time. C dif--Vanco PO, may need to change to IV Flagyl since not able to take by mouth at this time. Staph Aureus bacteremia (Staph Epi), likely related to catheter, blood cultures x 4, and catheter tip growing Staph epidermidiss, Permacath removed 10/22. Continue Vanco post dialysis, level today 14, will give 250 once. ID following, Sacral xray 10/22: 1. Known lytic lesion sacrum and pelvis, better appreciated on recent CT. 2. No interval visible new destructive process, fracture, or periostitis. No gas tracking in the soft tissue--unlikely source of infection. Echo 10/22 no vegetations. Proctocolitis/C diff infection.. Vanco oral and IV as above History of liver lesion:? Stable as per the CT scan.? Patient was seen by GI during the last admission.? Recommended follow-up with GI. ESRD:? Nephrology consult., HD TTS--to skip dialysis this weekend. Temporary catheter tody and dialysis Will discuss with son after I tried reaching out to family--I spoke to and updated him about treatment plan as outline, code status remains full for now Quality Stroke Does the patient have a stroke diagnosis?: No VTE Prior VTE?: No VTE Risk Level:: Medical - moderate - high VTE Device Contraindication: N/A - Device Ordered VTE Drug Contraindication: Treatment Not Indicated
--- NOTE | 2020-10-26 14:21 | PC.NURSE ---
Patient arrived to short stay surgery in bed. Two PRN angios present. #20 left neck and #22 right forearm, both dressings dry and intact, flushed well with no s/s infiltration. Right hand noted to be colder when compared to the rest of arm, as well as swollen with pitting edema (Likely due to previous infiltrated IV site in right hand as hand was bruised and covered with gauze/tape). Patient responded to tactile stimuli (pressing on finger beds), brisk capillary refill, strong radial pulse. One ring also present on right ring finger. Ring able to move around finger (not cutting circulation) however, unable to be removed due to swelling. Arm raised up on a pillow and warmed with blankets.
[2020-10-26] MEDS: cefTRIAXone sodium 1 GM in 0.9 % Sodium Chloride 50 ML IV (17:25)
[2020-10-26] MEDS: vancomycin HCL 500 MG in 0.9 % Sodium Chloride 100 ML 110 MG IV (17:31)
[2020-10-27] VITALS (9 sets, daily range): BP systolic 94–119; BP diastolic 48–68; PULSE 68–126; RESP 18–24; TEMP 36.2–36.9; O2SAT 96–100; BMI 31.1
[2020-10-27] MEDS: 0.9 % Sodium Chloride Flush 3 ML SYRINGE IVFLUSH ×3 (00:21→23:00)
--- NOTE | 2020-10-27 08:40 | P.PNNP_ITS ---
Subjective Subjective Date of Service: 10/27/20 Interval history: Seen in f/u for sepsis, bacteremia. She remains minimally responsive. No fever, WBC normal. Physical Exam Vital Signs: Vital Signs: Last Vital Signs Temp 97.3 F 10/27/20 07:17 Pulse 105 H 10/27/20 07:17 Resp 20 10/27/20 07:17 BP 118/52 L 10/27/20 07:17 Pulse Ox 96 10/27/20 07:17 Body Mass Index 31.1 Const: Other: General: Difficult to arouse, Resp: CTA bilateral CVS: S1,S2,RRR GI: +BS, NT, no distention Skin: decub ulcer, as previously noted Neuro: difficult to assess, given unresponsiveness Psych: unresponsive as stated General: cooperative Orientation/consciousness: patient oriented x3 Limitations: no limitations HENMT: Head: Yes normal to inspection Ears: hearing grossly normal bilaterally General nose exam: Normal external nose present Face and sinus: Yes normal facial exam Mouth: Normal oral and palatal mucosa present Eyes: Other: Conjunctival pallor EOM: EOMs intact bilaterally Neck: Neck: Yes normal visual inspection Resp: Effort & Inspection: normal respiratory effort Auscultation: clear to auscultation bilaterally Cardio: Rate: regular rate Rhythm: regular rhythm Heart sounds: S1 normal heart sound present and S2 normal heart sound present GI: Inspection: Yes normal to inspection Palpation (GI): Soft to palpation, nontender, no guarding and not rigid : Other: Brown stool noted on rectal Skin breakdown noted to bilateral labia with skin friability/bleeding Skin: General skin exam: no rashes or lesions noted Rashes: no rashes Wounds: no wounds Neuro: Other: She was quite drowsy and not responding to verbal commands. She was withdrawing with pain in all 4 extremities. Plantars were bilaterally extensor. Deep tendon reflexes were trace to absent. Face was symmetrical. Pupils were about 2 mm round reactive to light. There was no gaze deviation or jerking. General: patient oriented x3 Extrem: General: Yes normal to inspection Objective Data Labs CBC & Chem 7: 10/26/20 11:00 10/24/20 04:00 Labs: Laboratory Results - last 24 hr 10/26/20 10/26/20 11:00 18:48 WBC 10.4 RBC 2.49 L D Hgb 7.3 L D Hct 22.7 L MCV 91.2 MCH 29.3 MCHC 32.2 RDW 19.7 H Plt Count 38 L D MPV 10.9 Absolute Nucleated RBC 0.090 H Nucleated RBC % (auto) 0.9 H Blood Type O Positive Antibody Screen NEGATIVE Crossmatch See Detail Microbiology Microbiology Results: Microbiology 10/25/20 16:14 Blood - Venous Blood Culture - Preliminary No growth after 24 hours. 10/25/20 16:14 Blood - Venous Blood Culture - Preliminary No growth after 24 hours. 10/22/20 Unknown Catheter Tip - Other Catheter Tip Culture - Final Staphylococcus epidermidis 10/21/20 13:04 Blood - Arterial Line Blood Culture - Final Staphylococcus epidermidis 10/21/20 13:04 Blood - Arterial Line Blood Culture - Final Staphylococcus epidermidis 10/19/20 14:56 Blood - Venous Blood Culture - Final Staphylococcus epidermidis 10/19/20 13:19 Stool Stool Culture - Final 10/19/20 15:01 Blood - Venous Blood Culture - Final Staphylococcus epidermidis 10/19/20 00:00 Urine Catheterized - High Catheter Urine Culture - Final Procedures Date of Service Date of Service: 10/27/20 Assessment & Plan Assessment and plan (1) Encephalopathy: Status: Acute (2) Bacteremia: Status: Acute (3) Anemia: Status: Acute Assessment and Plan: 75-year-old female with a past medical history of multiple myeloma, anemia requiring blood transfusions, ESRD on hemodialysis-TTS, history of C diff colitis, longterm resident, mostly bedbound, history of thrombocytopenia with a chief complaint of anemia. Anemia:? No obvious signs of bleeding reported.? Stool guaiac was negative.? Patient had similar presentations in the past requiring blood transfusion. check iron stores procrit ordered dialysis yesterday with new PC Time Spent With Patient Time: Total time spent is greater than 50% in coordination of care (as documented) at patient's floor/unit and/or counseling patient: Progress Note: Quality Stroke Does the patient have a stroke diagnosis?: No
[2020-10-27 09:12] LABS: Hematocrit 28.4 % (37-47); Hemoglobin 9.5 g/dl (12.0-16.0); Mean Corpuscular HGB Conc 33.5 g/dl (31.0-35.0); Mean Corpuscular Hemoglobin 30.5 pg (27.0-33.0); Mean Corpuscular Volume 91.3 fL (80-98); Mean Platelet Volume 11.5 fL (9.4-12.3); Red Blood Count 3.11 X10*6/uL (4.20-5.50); Red Cell Distribution Width 17.3 % (11.0-16.0); White Blood Count 6.8 X10*3/uL (4.8-10.8)
[2020-10-27 09:13] LABS: NRBC Pct Auto 1.2 /100WBC (0.0-0.2); Platelet Count 37 X10*3/uL (160-400)
[2020-10-27 09:48] LABS: Anion Gap 12 (12-20); Blood Urea Nitrogen 34 mg/dL (9-16); Carbon Dioxide 20 mmol/L (22-29); Chloride 105 mmol/L (96-108); Creatinine Clr Calc Pharmacy 9.1; Estimated Glomerular Filt Rate 8; Glucose Random 76 mg/dL (60-115); Iron 42 mcg/dL (30-160); Potassium 3.8 mmol/L (3.3-5.1); Sodium 133 mmol/L (135-145); Unsaturated Iron Binding < 17 ug/dL
[2020-10-27 09:57] LABS: Calcium 7.9 mg/dL (8.4-10.2)
[2020-10-27 10:07] LABS: Atypical Lymph Absolute Manual 0.1 x10*3/uL; Atypical Lymphs Percent Manual 1 % (0-6); Band Neutrophils Percent 7 % (3-5); Blast Percent 1 %; Blastocytes Absolute 0.1 X10*3/uL; Lymphocytes Absolute Manual 0.3 X10*3/uL (0.6-4.8); Lymphocytes Percent Manual 5 % (20-40); Macrocytosis 1+ (5-14) /OIF; Metamyelocytes Absolute 0.1 X10*3/uL; Metamyelocytes Percent 2 %; Microcytosis 1+ (5-14) /OIF; Monocytes Absolute Manual 0.3 X10*3/uL (0.0-1.2); Monocytes Percent Manual 5 % (2-11); Myelocytes Absolute 0.1 X10*/uL; Myelocytes Percent 1 %; Neutrophils Absolute Manual 5.6 X10*3/uL (2.2-7.9); Neutrophils Percent Manual 76 % (45-73); Plasma Cells % 2 %; Plasma Cells Absolute Manual 0.1 X10*3/uL; Polychromasia 1+ (0-2) /OIF; RBC Morphology NOTED
[2020-10-27 10:08] LABS: Ovalocytes 1+ (5-14) /OIF; Platelet Estimate DECREASED (NORMAL); Platelet Morphology Comment NORMAL; Target Cells 1+ (5-14) /OIF; Tear Drop Cells 1+ (0-2) /OIF; Toxic Vacuolation PRESENT
--- NOTE | 2020-10-27 10:14 | MHC.SLORD ---
Speech Language Pathology Order Status: RADIO ENGINEER attempted to see pt for PO trials this morning. Per RN, pt is off floor receiving dialysis treatment. RADIO ENGINEER will reattempt later today if time allows or tomorrow morning.
[2020-10-27 11:12] LABS: Ferritin 7251 ng/mL (10-250)
--- NOTE | 2020-10-27 11:56 | MHC.CM.PN ---
Female 75 DX C-DIFF Patient came from [facility]. DP is to return to [facility] via BLS. Per MD rounds A goals of care meeting with family is planned. CM will follow.
--- NOTE | 2020-10-27 14:18 | P.PNIM_ITS ---
Subjective Subjective Date of Service: 10/28/20 Interval History: Seen in f/u for sepsis, bacteremia. Patient remains unresponsive, but seem a little better today after dialysis. IR will do LP because they are concern about BP. No respiratory issue, sating 100 RA. I tried reaching out to by phone with no answer. Review of Systems Review of Systems: Yes Unobtainable due to mental status Physical Exam Vital Signs: Vital Signs: Last Vital Signs Temp 97.2 F 10/27/20 12:12 Pulse 98 10/27/20 12:12 Resp 20 10/27/20 12:12 BP 117/68 10/27/20 12:12 Pulse Ox 98 10/27/20 12:12 Body Mass Index 31.1 Const: Other: General: Difficult to arouse, Resp: CTA bilateral CVS: S1,S2,RRR GI: +BS, NT, no distention Skin: decub ulcer, as previously noted Neuro: difficult to assess, given unresponsiveness, Psych: unresponsive as stated Objective Data Current Medications Generic Name Dose Route Start Last Admin Trade Name Naima PRN Reason Stop Dose Admin Acetaminophen 650 mg 10/19/20 20:40 10/23/20 09:46 Acetaminophen 325 Mg Tablet PO 650 mg Q6H PRN Administration Pain, Mild (Pain Scale 1-3) Albuterol Sulfate 2 puff 10/19/20 20:44 Albuterol Sulfate 90 Mcg 8 Gm Inhaler INHALE Q4H PRN dyspnea Allopurinol 200 mg 10/20/20 09:00 10/27/20 07:58 Allopurinol 100 Mg Tablet PO Not Given DAILY DANIEL Aspirin 81 mg 10/20/20 09:00 10/27/20 07:58 Aspirin 81 Mg Tab.Chew PO Not Given DAILY DANIEL Atorvastatin Calcium 10 mg 10/19/20 21:00 10/26/20 18:45 Atorvastatin Calcium 10 Mg Tablet PO Not Given BEDTIME DANIEL Vancomycin HCl 500 mg/ Sodium 110 mls @ 110 mls/hr 10/24/20 16:00 10/26/20 18:37 Chloride IV Infused Q48H DANIEL Infusion Ceftriaxone Sodium 1 gm/ 50 mls @ 100 mls/hr 10/24/20 14:00 10/26/20 18:36 Sodium Chloride IV Infused Q24H DANIEL Infusion Loratadine 10 mg 10/20/20 09:00 10/27/20 07:59 Loratadine 10 Mg Tablet PO Not Given DAILY [facility] Melatonin 6 mg 10/19/20 20:40 Melatonin 3 Mg Tablet PO BEDTIME PRN Insomnia Metoclopramide HCl 5 mg 10/19/20 21:00 10/27/20 07:59 Metoclopramide Hcl 5 Mg Tablet PO Not Given BID [facility] Midodrine 10 mg 10/19/20 20:45 10/26/20 18:45 Midodrine Hcl 10 Mg Tablet PO Not Given TUTHSA [facility] Nystatin 1 appl 10/19/20 21:00 10/27/20 08:00 Nystatin Powder 15 Gm Bottle TOPICAL Not Given TID [facility] Protocol Omeprazole 40 mg 10/20/20 06:30 10/27/20 05:30 Omeprazole 40 Mg Capsule.Dr PO Not Given DAILY@0630 [facility] Pharmacy Consult 1 each 10/19/20 12:56 Consult Rx Perform Med Rec MISCELLANE ONCE PRN Consult order Pharmacy Consult 1 each 10/20/20 15:23 Consult Rx Vancomycin Dosing MISCELLANE DAILY PRN Consult order Polyethylene Glycol 17 gm 10/19/20 21:00 10/26/20 18:46 Polyethylene Glycol 3350 17 Gm Powd.Pack PO Not Given BEDTIME [facility] Scopolamine 1.5 mg 10/24/20 17:00 10/24/20 18:10 Scopolamine 1.5 Mg Patch.Td.3 EAR-BEHIND 1.5 mg Q72H [facility] Administration Senna 17.2 mg 10/19/20 20:40 Sennosides 8.6 Mg Tablet PO BEDTIME PRN Constipation Sodium Chloride 3 ml 10/20/20 00:00 10/27/20 07:58 0.9 % Sodium Chloride Flush 3 Ml Syringe IVFLUSH Not Given QSHIFT [facility] Vancomycin HCl 125 mg 10/23/20 12:00 10/27/20 13:37 Vancomycin Hcl Oral Solution 125 Mg/5 Ml Soln.Recon PO Not Given Q6H [facility] Labs CBC & Chem 7: 10/27/20 09:00 10/27/20 09:00 Microbiology Microbiology Results: Microbiology 10/25/20 16:14 Blood Culture - Preliminary Blood - Venous No growth after 24 hours. 10/25/20 16:14 Blood Culture - Preliminary Blood - Venous No growth after 24 hours. Assessment and Plan (1) Encephalopathy: Status: Acute (2) Bacteremia: Status: Acute (3) Anemia: Status: Acute Assessment and Plan: 75-year-old female with a past medical history of multiple myeloma, anemia requiring blood transfusions, ESRD on hemodialysis-TTS, history of C diff colitis, [place] [facility] resident, mostly bedbound, history of thrombocytopenia with a chief complaint of anemia. AMS/Encephalopathy--unclear etiology at this point ? related to sepsis, uremia? metabolic profile unremarkable, ammonia ok, requesting ABG, CT head no acute finding. EEG no seizure, MRI no acute finding. LP unable to be done, IR will reattempt tomorrow. ? Uremia, seem a bit better today following dialysis. Anemia:? No obvious signs of bleeding reported.? Stool guaiac was negative.? P atient had similar presentations in the past requiring blood transfusion. Patient's hemoglobin on presentation was 5.9-received 2 units of blood transfusion; Hgb is now 7.3, will transfuse 2 units during dialysis Thrombocytopenia:? stable at 39, I don't think there is indication for transfusion at this time. C dif--Vanco PO, she has not been able to take oral meds, will add NGT and give Vanco that way Staph Aureus bacteremia (Staph Epi), likely related to catheter, blood cultures x 4, and catheter tip growing Staph epidermidiss, Permacath removed 8. Last culture negative x 24, will continue IV vanco post dialysis.e. ID following, Sacral xray 10/22: 1. Known lytic lesion sacrum and pelvis, better appreciated on recent CT. 2. No interval visible new destructive process, fracture, or periostitis. No gas tracking in the soft tissue--unlikely source of infection. Echo 10/22 no vegetations. Proctocolitis/C diff infection.. Vanco oral and IV as above, NGT to give PO Vanco that way, no diarrhea at this time History of liver lesion:? Stable as per the CT scan.? Patient was seen by GI during the last admission.? Recommended follow-up with GI. ESRD:? Nephrology consult., HD TTS--to skip dialysis this weekend. Temporary catheter tody and dialysis I tried calling to discuss goal of care again, and no answer. LP could not be done d/t concern of Low BP Quality Stroke Does the patient have a stroke diagnosis?: No VTE Prior VTE?: No VTE Risk Level:: Medical - moderate - high VTE Device Contraindication: N/A - Device Ordered VTE Drug Contraindication: Treatment Not Indicated
--- NOTE | 2020-10-27 14:31 | PC.NURSE ---
Pt arrived to [facility] for lumbar puncture procedure today. Pt moaning and grunting, moving fingers when name is called. Dialysis catheter appears bloody under dressing. Per Leda RN, dialysis catheter was reported bloody overnight and dressing was changed, not aware of any anticoagulants given during dialysis. Attempted to call dialysis room, no answer. BP 77/54, patient repositioned and bp increased to 93/65. 02 80's. pt suctioned at bedside with good response. 02 ranging 95-97%. Dr. Washington notified of above.
[2020-10-27] MEDS: cefTRIAXone sodium 1 GM in 0.9 % Sodium Chloride 50 ML IV (16:06)
[2020-10-27] MEDS: Scopolamine 1.5 MG PATCH.TD.3 EAR-BEHIND (16:11)
--- NOTE | 2020-10-27 16:23 | PC.NURSE ---
Patient has been mildly responsive to sternal rub all day. Pt was suctioned by the charge nurse and it was white and frothy. notofied. Pt went for a LP but it was not done. MD aware. PT is back on the flooor. Pt has not been receiving po meds. MD notified and will order an NG tube to administer po meds.
--- NOTE | 2020-10-27 21:37 | PC.NURSE ---
Vanco trough came back normal 16.6 tonight per pharmacy. Testing machine was down and specimen sent to [facility]. Unable to update level in [facility].
[2020-10-27] MEDS: Atorvastatin Calcium 10 MG TABLET PO (22:55)
[2020-10-27] MEDS: Metoclopramide HCl 5 MG TABLET PO (22:55)
[2020-10-27] MEDS: Nystatin Powder 15 GM BOTTLE 1 APPL TOPICAL (22:56)
[2020-10-27] MEDS: vancomycin HCL Oral Solution 125 MG/5 ML SOLN.RECON PO (23:00)
[2020-10-28] VITALS (21 sets, daily range): BP systolic 80–101; BP diastolic 40–64; PULSE 97–105; RESP 15–24; TEMP 36.4–37.9; O2SAT 86–98
[2020-10-28] MEDS: vancomycin HCL Oral Solution 125 MG/5 ML SOLN.RECON PO ×3 (05:51→17:44)
[2020-10-28 06:49] LABS: Vancomycin Random 16.6 mcg/mL (15-20)
--- NOTE | 2020-10-28 09:46 | MHC.SLORD ---
Speech Language Pathology Order Status: With sternal rub, patient groaned but would not open her eyes. Patient does not remain awake for more than a few seconds. Not appropriate for PO trials at this time. Patient has NG tube.
[2020-10-28] MEDS: 0.9 % Sodium Chloride Flush 3 ML SYRINGE IVFLUSH ×3 (09:50→21:34)
[2020-10-28] MEDS: Midodrine HCl 10 MG TABLET NG-TUBE (09:50)
[2020-10-28] MEDS: Nystatin Powder 15 GM BOTTLE 1 APPL TOPICAL ×3 (09:52→21:33)
[2020-10-28 11:39] LABS: VBG Base Excess -3.1 mmol/L; VBG HCO3 19 mmol/L (22-26); VBG pCO2 25 mmHg; VBG pH 7.47 (7.32-7.43); VBG pO2 66 mmHg
[2020-10-28 11:39] LABS: Venous Blood Gas Refer to POC result
[2020-10-28 11:52] LABS: Ammonia 37 umol/L (13-55)
[2020-10-28 11:54] LABS: Lactic Acid 0.8 mmol/L (0.5-2.0)
--- NOTE | 2020-10-28 11:57 | P.PNIM_ITS ---
Subjective Subjective Date of Service: 10/29/20 Interval History: Seen in f/u for sepsis, bacteremia and encephalopathy. Patient remains unresponsive, post dialysis, No fever. IR still not comfortable in perfoming LP, so I asked Dr. Lopez to do this. LP results partially available. CSF protein 126, glucose 48 (more than 2/3 of serum), WBC reported to be 18 (not officially in EMR yet). Gram stain no organisms, no polys. Culture pending. [facility] meningoencephalitis panel send to [facility]. She has been on Vancomycin and Ceftriaxone which would cover bacterial meningitis, especially if same as organisms in the blood. Her respiratory status. Review of Systems Review of Systems: Yes Unobtainable due to mental status Physical Exam Vital Signs: Vital Signs: Last Vital Signs Temp 98.0 F 10/28/20 11:24 Pulse 97 10/28/20 11:24 Resp 20 10/28/20 11:24 BP 97/51 L 10/28/20 11:24 Pulse Ox 97 10/28/20 11:24 Body Mass Index 31.1 Const: Other: General: Difficult to arouse, Resp: CTA bilateral CVS: S1,S2,RRR GI: +BS, NT, no distention Skin: decub ulcer, as previously noted Neuro: difficult to assess, given unresponsiveness, Psych: unresponsive as stated Objective Data Current Medications Generic Name Dose Route Start Last Admin Trade Name Freq PRN Reason Stop Dose Admin Acetaminophen 650 mg 10/28/20 09:35 Acetaminophen 325 Mg Tablet NG-TUBE Q6H PRN Pain, Mild (Pain Scale 1-3) Albuterol Sulfate 2 puff 10/19/20 20:44 Albuterol Sulfate 90 Mcg 8 Gm Inhaler INHALE Q4H PRN dyspnea Allopurinol 200 mg 10/28/20 09:35 Allopurinol 100 Mg Tablet NG-TUBE DAILY DANIEL Aspirin 81 mg 10/28/20 09:36 Aspirin 81 Mg Tab.Chew NG-TUBE DAILY DANIEL Atorvastatin Calcium 10 mg 10/28/20 09:36 Atorvastatin Calcium 10 Mg Tablet NG-TUBE BEDTIME DANIEL Ceftriaxone Sodium 1 gm/ 50 mls @ 100 mls/hr 10/24/20 14:00 10/27/20 16:47 Sodium Chloride IV Infused Q24H DANIEL Infusion Vancomycin HCl 500 mg/ Sodium 110 mls @ 110 mls/hr 10/28/20 17:00 Chloride IV Q48H [facility] Loratadine 10 mg 10/28/20 09:36 Loratadine 10 Mg Tablet NG-TUBE DAILY [facility] Melatonin 6 mg 10/19/20 20:40 Melatonin 3 Mg Tablet PO BEDTIME PRN Insomnia Metoclopramide HCl 5 mg 10/28/20 09:36 Metoclopramide Hcl 5 Mg Tablet NG-TUBE BID [facility] Midodrine 10 mg 10/28/20 09:37 10/28/20 09:50 Midodrine Hcl 10 Mg Tablet NG-TUBE 10 mg TUTHSA [facility] Administration Nystatin 1 appl 10/19/20 21:00 10/28/20 09:52 Nystatin Powder 15 Gm Bottle TOPICAL 1 appl TID [facility] Administration Protocol Omeprazole 40 mg 10/20/20 06:30 10/28/20 05:51 Omeprazole 40 Mg Capsule.Dr STEIN Not Given DAILY@0630 [facility] Pharmacy Consult 1 each 10/19/20 12:56 Consult Rx Perform Med Rec MISCELLANE ONCE PRN Consult order Polyethylene Glycol 17 gm 10/19/20 21:00 10/27/20 22:56 Polyethylene Glycol 3350 17 Gm Powd.Pack PO Not Given BEDTIME [facility] Scopolamine 1.5 mg 10/24/20 17:00 10/27/20 16:11 Scopolamine 1.5 Mg Patch.Td.3 EAR-BEHIND 1.5 mg Q72H [facility] Administration Senna 17.2 mg 10/28/20 09:35 Sennosides 8.6 Mg Tablet NG-TUBE BEDTIME PRN Constipation Sodium Chloride 3 ml 10/20/20 00:00 10/28/20 09:50 0.9 % Sodium Chloride Flush 3 Ml Syringe IVFLUSH 3 ml QSHIFT [facility] Administration Vancomycin HCl 125 mg 10/23/20 12:00 10/28/20 05:51 Vancomycin Hcl Oral Solution 125 Mg/5 Ml Soln.Recon PO 125 mg Q6H [facility] Administration Labs CBC & Chem 7: 10/29/20 08:41 10/29/20 08:41 Labs: Laboratory Results - last 24 hr 10/27/20 10/27/20 10/28/20 09:00 16:24 11:26 Smear Path Review SEE NOTE VBG pH VBG pCO2 VBG pO2 VBG HCO3 VBG O2 Saturation VBG Base Excess Lactic Acid 0.8 Ammonia Random Vancomycin 16.6 10/28/20 10/28/20 11:26 11:32 Smear Path Review VBG pH 7.47 H VBG pCO2 25 VBG pO2 66 VBG HCO3 19 L VBG O2 Saturation 93.0 VBG Base Excess -3.1 Lactic Acid Ammonia 37 Random Vancomycin Microbiology Microbiology Results: Microbiology 10/25/20 16:14 Blood Culture - Preliminary Blood - Venous No growth after 48 hours. 10/25/20 16:14 Blood Culture - Preliminary Blood - Venous No growth after 48 hours. Assessment and Plan (1) Encephalopathy: Status: Acute (2) Bacteremia: Status: Acute (3) Anemia: Status: Acute (4) CKD (chronic kidney disease): Status: Acute (5) C. difficile colitis: Status: Acute Assessment and Plan: 75-year-old female with a past medical history of multiple myeloma, anemia requiring blood transfusions, ESRD on hemodialysis-TTS, history of C diff colitis, retirement resident, mostly bedbound, history of thrombocytopenia with a chief complaint of anemia. AMS/Encephalopathy--unclear etiology at this point ? related to sepsis, uremia? metabolic profile unremarkable, ammonia ok, requesting ABG, CT head no acute finding. EEG no seizure, MRI no acute finding. LP unable to be done, IR will reattempt tomorrow. ? Uremia, seem a bit better today following dialysis. CSF analysis, other than increase WBC is not consistent with meningitis--and if it were, she is on the right medications with ceftriaxone and Vancomycin. Further testing with Meningoencephalitis panel should be available later tonight Anemia:? No obvious signs of bleeding reported.? Stool guaiac was negative.? Patient had similar presentations in the past requiring blood transfusion. Patient's hemoglobin on presentation was 5.9-received 2 units of blood transfusion; last hemoglobin 9.5 on 10/27 Thrombocytopenia:? stable at 37, I don't think there is indication for transfusion at this time. C dif--Vanco PO, she has not been able to take oral meds, will add NGT and give Vanco that way Staph Aureus bacteremia (Staph Epi), likely related to catheter, blood cultures x 4, and catheter tip growing Staph epidermidiss, Permacath removed 10/22. Last culture negative x 24, will continue IV vanco post dialysis., level 15 today. ID following, Sacral xray 10/22: 1. Known lytic lesion sacrum and pelvis, better appreciated on recent CT. 2. No interval visible new destructive process, fracture, or periostitis. No gas tracking in the soft tissue--unlikely source of infection. Echo 10/22 no vegetations. Proctocolitis. IV Vanco and Ceftriaxone as above History of liver lesion:? Stable as per the CT scan.? Patient was seen by GI during the last admission.? Recommended follow-up with GI. ESRD:? Nephrology consult., HD TTS--to skip dialysis this weekend. Temporary catheter tody and dialysis FEN--starting tube feed today I discussed the patient's clinical course and overall poor condition and likely poor prognosis with and discuss code status and he states if we think something jethro help we should do ti. And Also discussed with step daughter who thin this may not be what patient want. will continue discussion with Quality Stroke Does the patient have a stroke diagnosis?: No VTE Prior VTE?: No VTE Risk Level:: Medical - moderate - high VTE Device Contraindication: N/A - Device Ordered VTE Drug Contraindication: Treatment Not Indicated
[2020-10-28 14:10] LABS: Glucose CSF 48 mg/dL; Total Protein CSF 126.3 mg/dL (15-45)
[2020-10-28 14:13] LABS: CSF Appearance Clear, Colorless; CSF Tube # 2
[2020-10-28] MEDS: cefTRIAXone sodium 1 GM in 0.9 % Sodium Chloride 50 ML IV (14:42)
[2020-10-28 15:29] LABS: Vancomycin Random 15.8 mcg/mL (15-20)
--- NOTE | 2020-10-28 16:05 | PM.PROC ---
Brief Operative Note Date of procedure: 10/28/20 Pre-op diagnosis: Altered mental status Post-op diagnosis: same Procedure: PROCEDURE:? Diagnostic lumbar puncture. INDICATION:? Altered mental status. ANESTHESIA:? Local anesthesia. The patient is a 75-year-old man with altered mental status.? On no sedatives.? Dr. Hernandez requested a diagnostic lumbar puncture. Consent for the procedure was obtained from the patient's . The procedure was done in the sitting position.? After prepping the back w betadine x 3,, local anesthesia with 1% lidocaine was infiltrated in the L3-L4 interspace.? A 20 gauge Quicke spinal needle was advanced in the midline and smooth flow of CSF was obtained on the 1st pass, with no hemo or paresthesia. CSF appeared slightly yellow-tinged, although I cannot rule out the possibility that the yellow color was a reflection off the Betadine prep. Opening pressure was 310 mm. Approximately 8 cc of CSF was removed into 4 tubes. I recommended to Dr. Hernandez that the 1st tube be sent to microbiology. He will place all the orders for lab analysis. The patient tolerated the procedure well with no complications, and was replaced supine at the end of the procedure. ? Surgeon: Kirby Lopez
[2020-10-28 16:38] LABS: Appearance CSF CLEAR; CSF Tube # 4; Color CSF COLORLESS
[2020-10-28 16:40] LABS: Red Blood Cell CSF 0 MM*3; White Blood Cell CSF 18 MM*3
[2020-10-28 16:50] LABS: CSF Other Cells % 35 %; Lymphocytes CSF 65 %; Neutrophils CSF 0 %
[2020-10-28 17:30] LABS: Glucose, Whole Blood 72 mg/dL (60-115)
[2020-10-28 20:22] LABS: Hematocrit 26.4 % (37-47); Hemoglobin 8.7 g/dl (12.0-16.0); Mean Corpuscular Hemoglobin 30.4 pg (27.0-33.0); Mean Corpuscular Volume 92.3 fL (80-98); Mean Platelet Volume 11.2 fL (9.4-12.3); NRBC Pct Auto 0.9 /100WBC (0.0-0.2); Red Blood Count 2.86 X10*6/uL (4.20-5.50); Red Cell Distribution Width 17.9 % (11.0-16.0); White Blood Count 6.6 X10*3/uL (4.8-10.8)
[2020-10-28 20:24] LABS: Platelet Count 36 X10*3/uL (160-400)
[2020-10-28 20:40] LABS: Lactic Acid 1.1 mmol/L (0.5-2.0)
[2020-10-28 21:16] LABS: Band Neutrophils Percent 8 % (3-5); Basophils Abs Manual 0.1 X10*3/uL (0.0-0.3); Basophils Percent Manual 1 % (0-1); Eosinophils Absolute Manual 0.1 X10*3/UL (0.0-0.8); Eosinophils Percent Manual 1 % (0-4); Lymphocytes Absolute Manual 0.8 X10*3/uL (0.6-4.8); Lymphocytes Percent Manual 12 % (20-40); Metamyelocytes Absolute 0.4 X10*3/uL; Metamyelocytes Percent 6 %; Microcytosis 1+ (5-14) /OIF; Monocytes Absolute Manual 0.1 X10*3/uL (0.0-1.2); Monocytes Percent Manual 2 % (2-11); Myelocytes Absolute 0.1 X10*/uL; Myelocytes Percent 1 %; Neutrophils Absolute Manual 5.1 X10*3/uL (2.2-7.9); Neutrophils Percent Manual 69 % (45-73); RBC Morphology NOTED
[2020-10-28 21:17] LABS: Acanthocytes 1+ (0-2) /OIF; Burr Cells 1+ (0-2) /OIF; Large Platelet PRESENT; Platelet Estimate DECREASED (NORMAL); Platelet Morphology Comment NOTED; Polychromasia 1+ (0-2) /OIF
[2020-10-28] MEDS: Acetaminophen 325 MG TABLET 650 MG NG-TUBE (21:32)
[2020-10-28] MEDS: Metoclopramide HCl 5 MG TABLET NG-TUBE (21:32)
[2020-10-28] MEDS: Atorvastatin Calcium 10 MG TABLET NG-TUBE (21:32)
[2020-10-28] MEDS: cefTRIAXone sodium 2 GM in 0.9 % Sodium Chloride 50 ML IV (21:40)
[2020-10-29] MEDS: vancomycin HCL Oral Solution 125 MG/5 ML SOLN.RECON PO ×2 (00:18→05:00)
--- NOTE | 2020-10-29 00:32 | PC.NURSE ---
At 1915 pt bp 80/42, spO2 86-88 on room air, rectal temp 100.2. Dr Negro notified. 30 ml/kg bolus ordered and administered. CBC and blood cultures ordered and collected. Temp improved with prn tylenol. Pt originally placed on 4L NC, spO2 improving now on 1L NC. BP 92/56 after bolus. CSF panel negative per lab.
[2020-10-29 04:00] VITALS: BP 91/50; PULSE 95; RESP 16; TEMP 36.3; O2SAT 94
--- NOTE | 2020-10-29 08:28 | W.PM.DNNEP ---
Subjective Subjective This patient was seen during dialysis. Interval history: will discuss withdrawal of dialsysis with the . Physical Exam Vital Signs: Vital Signs: Last Vital Signs Temp 97.4 F 10/29/20 04:00 Pulse 95 10/29/20 04:00 Resp 16 10/29/20 04:00 BP 91/50 L 10/29/20 04:00 Pulse Ox 94 10/29/20 04:00 Body Mass Index 31.1 Const: Other: General: Difficult to arouse, Resp: CTA bilateral CVS: S1,S2,RRR GI: +BS, NT, no distention Skin: decub ulcer, as previously noted Neuro: difficult to assess, given unresponsiveness, Psych: unresponsive as stated General: cooperative Orientation/consciousness: patient oriented x3 Limitations: no limitations HENMT: Head: Yes normal to inspection Ears: hearing grossly normal bilaterally General nose exam: Normal external nose present Face and sinus: Yes normal facial exam Mouth: Normal oral and palatal mucosa present Eyes: Other: Conjunctival pallor EOM: EOMs intact bilaterally Neck: Neck: Yes normal visual inspection Resp: Effort & Inspection: normal respiratory effort Auscultation: clear to auscultation bilaterally Cardio: Rate: regular rate Rhythm: regular rhythm Heart sounds: S1 normal heart sound present and S2 normal heart sound present GI: Inspection: Yes normal to inspection Palpation (GI): Soft to palpation, nontender, no guarding and not rigid : Other: Brown stool noted on rectal Skin breakdown noted to bilateral labia with skin friability/bleeding Skin: General skin exam: no rashes or lesions noted Rashes: no rashes Wounds: no wounds Neuro: Other: She was quite drowsy and not responding to verbal commands. She was withdrawing with pain in all 4 extremities. Plantars were bilaterally extensor. Deep tendon reflexes were trace to absent. Face was symmetrical. Pupils were about 2 mm round reactive to light. There was no gaze deviation or jerking. General: patient oriented x3 Extrem: General: Yes normal to inspection Assessment & Plan Assessment and plan (1) Encephalopathy: Status: Acute (2) Bacteremia: Status: Acute (3) Anemia: Status: Acute Assessment and Plan: 75-year-old female with a past medical history of multiple myeloma, anemia requiring blood transfusions, ESRD on hemodialysis-TTS, history of C diff colitis, long-term resident, mostly bedbound, history of thrombocytopenia with a chief complaint of anemia. AMS/Encephalopathy--unclear etiology at this point ? related to sepsis, uremia? metabolic profile unremarkable, ammonia ok, requesting ABG, CT head no acute finding. EEG no seizure, MRI no acute finding. LP unable to be done, IR will reattempt tomorrow. ? Uremia, seem a bit better today following dialysis. CSF analysis, other than increase WBC is not consistent with meningitis--and if it were, she is on the right medications with ceftriaxone and Vancomycin. Further testing with Meningoencephalitis panel should be available later tonight Anemia:? No obvious signs of bleeding reported.? Stool guaiac was negative.? Patient had similar presentations in the past requiring blood transfusion. Patient's hemoglobin on presentation was 5.9-received 2 units of blood transfusion; last hemoglobin 9.5 on 10/27 Thrombocytopenia:? stable at 37, I don't think there is indication for transfusion at this time. C dif--Vanco PO, she has not been able to take oral meds, will add NGT and give Vanco that way Staph Aureus bacteremia (Staph Epi), likely related to catheter, blood cultures x 4, and catheter tip growing Staph epidermidiss, Permacath removed 10/22. Last culture negative x 24, will continue IV vanco post dialysis., level 15 today. ID following, Sacral xray 10/22: 1. Known lytic lesion sacrum and pelvis, better appreciated on recent CT. 2. No interval visible new destructive process, fracture, or periostitis. No gas tracking in the soft tissue--unlikely source of infection. Echo 10/22 no vegetations. Proctocolitis. IV Vanco and Ceftriaxone as above History of liver lesion:? Stable as per the CT scan.? Patient was seen by GI during the last admission.? Recommended follow-up with GI. ESRD:? Nephrology consult., HD TTS--to skip dialysis this weekend. Temporary catheter tody and dialysis FEN--starting tube feed today I discussed the patient's clinical course and overall poor condition and likely poor prognosis with and discuss code status and he states if we think something jethro help we should do ti. And Also discussed with step daughter who thin this may not be what patient want. will continue discussion with jesse Time Spent With Patient Time: Total time spent is greater than 50% in coordination of care (as documented) at patient's floor/unit and/or counseling patient: Procedures Date of Service Date of Service: 10/29/20
--- NOTE | 2020-10-29 08:38 | P.PNNP_ITS ---
Subjective Subjective Date of Service: 10/29/20 Interval history: I discuss withdrawal of dialsysis with the . He agrees. 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 he wants her to stay in hospital Physical Exam Vital Signs: Vital Signs: Last Vital Signs Temp 97.4 F 10/29/20 04:00 Pulse 95 10/29/20 04:00 Resp 16 10/29/20 04:00 BP 91/50 L 10/29/20 04:00 Pulse Ox 94 10/29/20 04:00 Body Mass Index 31.1 Const: Other: General: Difficult to arouse, Resp: CTA bilateral CVS: S1,S2,RRR GI: +BS, NT, no distention Skin: decub ulcer, as previously noted Neuro: difficult to assess, given unresponsiveness, Psych: unresponsive as stated General: cooperative Orientation/consciousness: patient oriented x3 Limitations: no limitations HENMT: Head: Yes normal to inspection Ears: hearing grossly normal bilaterally General nose exam: Normal external nose present Face and sinus: Yes normal facial exam Mouth: Normal oral and palatal mucosa present Eyes: Other: Conjunctival pallor EOM: EOMs intact bilaterally Neck: Neck: Yes normal visual inspection Resp: Effort & Inspection: normal respiratory effort Auscultation: clear to auscultation bilaterally Cardio: Rate: regular rate Rhythm: regular rhythm Heart sounds: S1 normal heart sound present and S2 normal heart sound present GI: Inspection: Yes normal to inspection Palpation (GI): Soft to palpation, nontender, no guarding and not rigid : Other: Brown stool noted on rectal Skin breakdown noted to bilateral labia with skin friability/bleeding Skin: General skin exam: no rashes or lesions noted Rashes: no rashes Wounds: no wounds Neuro: Other: She was quite drowsy and not responding to verbal commands. She was withdrawing with pain in all 4 extremities. Plantars were bilaterally extensor. Deep tendon reflexes were trace to absent. Face was symmetrical. Pupils were about 2 mm round reactive to light. There was no gaze deviation or jerking. General: patient oriented x3 Extrem: General: Yes normal to inspection Objective Data Labs CBC & Chem 7: 10/28/20 20:15 10/27/20 09:00 Labs: Laboratory Results - last 24 hr 10/28/20 10/28/20 10/28/20 11:26 11:26 11:32 WBC RBC Hgb Hct MCV MCH MCHC RDW Plt Count MPV Immature Gran % (Auto) Neut % (Auto) Lymph % (Auto) [place] % (Auto) Eos % (Auto) Baso % (Auto) Lymph # (Auto) [place] # (Auto) Eos # (Auto) Baso # (Auto) Abs Immat Gran (auto) Absolute Neuts (auto) Absolute Nucleated RBC Nucleated RBC % (auto) Neutrophils % (Manual) Band Neutrophils % Lymphocytes % (Manual) Monocytes % (Manual) Eosinophils % (Manual) Basophils % (Manual) Metamyelocytes % Myelocytes % Abs Neuts (Manual) Lymphocytes # (Manual) Monocytes # (Manual) Eosinophils # (Manual) Basophils # (Manual) Metamyelocytes # Myelocytes # Platelet Estimate Large Platelets Plt Morphology Comment RBC Morphology Polychromasia Microcytosis [place] Cells Acanthocytes (Spur) VBG pH 7.47 H VBG pCO2 25 VBG pO2 66 VBG HCO3 19 L VBG O2 Saturation 93.0 VBG Base Excess -3.1 POC Glucose Lactic Acid 0.8 Ammonia 37 Fl Pathologist Review CSF Tube Number CSF Volume CSF Appearance CSF Color CSF WBC CSF RBC CSF Neutrophils CSF Lymphocytes CSF Other Cells % CSF Appearance (b) CSF Glucose CSF Total Protein CSF Mening/Enceph PCR Random Vancomycin 10/28/20 10/28/20 10/28/20 12:29 12:29 12:29 WBC RBC Hgb Hct MCV MCH MCHC RDW Plt Count MPV Immature Gran % (Auto) Neut % (Auto) Lymph % (Auto) [place] % (Auto) Eos % (Auto) Baso % (Auto) Lymph # (Auto) [place] # (Auto) Eos # (Auto) Baso # (Auto) Abs Immat Gran (auto) Absolute Neuts (auto) Absolute Nucleated RBC Nucleated RBC % (auto) Neutrophils % (Manual) Band Neutrophils % Lymphocytes % (Manual) Monocytes % (Manual) Eosinophils % (Manual) Basophils % (Manual) Metamyelocytes % Myelocytes % Abs Neuts (Manual) Lymphocytes # (Manual) Monocytes # (Manual) Eosinophils # (Manual) Basophils # (Manual) Metamyelocytes # Myelocytes # Platelet Estimate Large Platelets Plt Morphology Comment RBC Morphology Polychromasia Microcytosis [place] Cells Acanthocytes (Spur) VBG pH VBG pCO2 VBG pO2 VBG HCO3 VBG O2 Saturation VBG Base Excess POC Glucose Lactic Acid Ammonia Fl Pathologist Review CSF Tube Number 4 2 CSF Volume 4.0 CSF Appearance CLEAR CSF Color COLORLESS CSF WBC 18 H* CSF RBC 0 CSF Neutrophils 0 CSF Lymphocytes 65 CSF Other Cells % 35 CSF Appearance (b) Clear, Colorless CSF Glucose 48 CSF Total Protein 126.3 H CSF Mening/Enceph PCR SEE NOTE Random Vancomycin 10/28/20 10/28/20 10/28/20 12:29 14:53 17:22 WBC RBC Hgb Hct MCV MCH MCHC RDW Plt Count MPV Immature Gran % (Auto) Neut % (Auto) Lymph % (Auto) [place] % (Auto) Eos % (Auto) Baso % (Auto) Lymph # (Auto) [place] # (Auto) Eos # (Auto) Baso # (Auto) Abs Immat Gran (auto) Absolute Neuts (auto) Absolute Nucleated RBC Nucleated RBC % (auto) Neutrophils % (Manual) Band Neutrophils % Lymphocytes % (Manual) Monocytes % (Manual) Eosinophils % (Manual) Basophils % (Manual) Metamyelocytes % Myelocytes % Abs Neuts (Manual) Lymphocytes # (Manual) Monocytes # (Manual) Eosinophils # (Manual) Basophils # (Manual) Metamyelocytes # Myelocytes # Platelet Estimate Large Platelets Plt Morphology Comment RBC Morphology Polychromasia Microcytosis [place] Cells Acanthocytes (Spur) VBG pH VBG pCO2 VBG pO2 VBG HCO3 VBG O2 Saturation VBG Base Excess POC Glucose 72 Lactic Acid Ammonia Fl Pathologist Review SEE NOTE CSF Tube Number CSF Volume CSF Appearance CSF Color CSF WBC CSF RBC CSF Neutrophils CSF Lymphocytes CSF Other Cells % CSF Appearance (b) CSF Glucose CSF Total Protein CSF Mening/Enceph PCR Random Vancomycin 15.8 10/28/20 10/28/20 20:15 20:15 WBC 6.6 RBC 2.86 L Hgb 8.7 L Hct 26.4 L MCV 92.3 MCH 30.4 MCHC 33.0 RDW 17.9 H Plt Count 36 L MPV 11.2 Immature Gran % (Auto) Cancelled Neut % (Auto) Cancelled Lymph % (Auto) Cancelled [place] % (Auto) Cancelled Eos % (Auto) Cancelled Baso % (Auto) Cancelled Lymph # (Auto) Cancelled [place] # (Auto) Cancelled Eos # (Auto) Cancelled Baso # (Auto) Cancelled Abs Immat Gran (auto) Cancelled Absolute Neuts (auto) Cancelled Absolute Nucleated RBC 0.060 H Nucleated RBC % (auto) 0.9 H Neutrophils % (Manual) 69 Band Neutrophils % 8 H Lymphocytes % (Manual) 12 L Monocytes % (Manual) 2 Eosinophils % (Manual) 1 Basophils % (Manual) 1 Metamyelocytes % 6 Myelocytes % 1 Abs Neuts (Manual) 5.1 Lymphocytes # (Manual) 0.8 Monocytes # (Manual) 0.1 Eosinophils # (Manual) 0.1 Basophils # (Manual) 0.1 Metamyelocytes # 0.4 Myelocytes # 0.1 Platelet Estimate DECREASED Large Platelets PRESENT Plt Morphology Comment NOTED RBC Morphology NOTED Polychromasia 1+ (0-2) Microcytosis 1+ (5-14) [place] Cells 1+ (0-2) Acanthocytes (Spur) 1+ (0-2) VBG pH VBG pCO2 VBG pO2 VBG HCO3 VBG O2 Saturation VBG Base Excess POC Glucose Lactic Acid 1.1 Ammonia Fl Pathologist Review CSF Tube Number CSF Volume CSF Appearance CSF Color CSF WBC CSF RBC CSF Neutrophils CSF Lymphocytes CSF Other Cells % CSF Appearance (b) CSF Glucose CSF Total Protein CSF Mening/Enceph PCR Random Vancomycin Microbiology Microbiology Results: Microbiology 10/28/20 12:29 Cerebrospinal Fluid Gram Stain - Final 10/28/20 12:29 Cerebrospinal Fluid CSF Examination - Final 10/28/20 12:29 Cerebrospinal Fluid Fluid Description - Final 10/25/20 16:14 Blood - Venous Blood Culture - Preliminary No growth after 48 hours. 10/25/20 16:14 Blood - Venous Blood Culture - Preliminary No growth after 48 hours. 10/22/20 Unknown Catheter Tip - Other Catheter Tip Culture - Final Staphylococcus epidermidis 10/21/20 13:04 Blood - Arterial Line Blood Culture - Final Staphylococcus epidermidis 10/21/20 13:04 Blood - Arterial Line Blood Culture - Final Staphylococcus epidermidis 10/19/20 14:56 Blood - Venous Blood Culture - Final Staphylococcus epidermidis 10/19/20 13:19 Stool Stool Culture - Final 10/19/20 15:01 Blood - Venous Blood Culture - Final Staphylococcus epidermidis 10/19/20 00:00 Urine Catheterized - High Catheter Urine Culture - Final Procedures Date of Service Date of Service: 10/29/20 Assessment & Plan Assessment and plan (1) Encephalopathy: Status: Acute (2) Bacteremia: Status: Acute (3) Anemia: Status: Acute Assessment and Plan: 75-year-old female with a past medical history of multiple myeloma, anemia requiring blood transfusions, ESRD on hemodialysis-TTS, history of C diff colitis, penitentiary resident, mostly bedbound, history of thrombocytopenia with a chief complaint of anemia. AMS/Encephalopathy--unclear etiology at this point ? related to sepsis, uremia? metabolic profile unremarkable, ammonia ok, requesting ABG, CT head no acute finding. EEG no seizure, MRI no acute finding. LP unable to be done, IR will re attempt tomorrow. ? Uremia, seem a bit better today following dialysis. CSF analysis, other than increase WBC is not consistent with meningitis--and if it were, she is on the right medications with ceftriaxone and Vancomycin. Further testing with Meningoencephalitis panel should be available later tonight Anemia:? No obvious signs of bleeding reported.? Stool guaiac was negative.? Patient had similar presentations in the past requiring blood transfusion. Patient's hemoglobin on presentation was 5.9-received 2 units of blood transfusion; last hemoglobin 9.5 on 10/27 Thrombocytopenia:? stable at 37, I don't think there is indication for transfusion at this time. C dif--Vanco PO, she has not been able to take oral meds, will add NGT and give Vanco that way Staph Aureus bacteremia (Staph Epi), likely related to catheter, blood cultures x 4, and catheter tip growing Staph epidermidiss, Permacath removed 8. Last culture negative x 24, will continue IV vanco post dialysis., level 15 today. ID following, Sacral xray 10/22: 1. Known lytic lesion sacrum and pelvis, better appreciated on recent CT. 2. No interval visible new destructive process, fracture, or periostitis. No gas tracking in the soft tissue--unlikely source of infection. Echo 10/22 no vegetations. Proctocolitis. IV Vanco and Ceftriaxone as above History of liver lesion:? Stable as per the CT scan.? Patient was seen by GI during the last admission.? Recommended follow-up with GI. ESRD:? Nephrology consult., HD TTS--to skip dialysis this weekend. Temporary catheter tody and dialysis FEN--starting tube feed today I discussed the patient's clinical course and overall poor condition and likely poor prognosis with and discuss code status and he states if we think something jethro help we should do ti. And Also discussed with step daughter who thin this may not be what patient want. will continue discussion with jesse Time Spent With Patient Time: Total time spent is greater than 50% in coordination of care (as documented) at patient's floor/unit and/or counseling patient: Progress Note: Quality Stroke Does the patient have a stroke diagnosis?: No
[2020-10-29 08:50] LABS: Hematocrit 25.4 % (37-47); Hemoglobin 8.3 g/dl (12.0-16.0); Mean Corpuscular HGB Conc 32.7 g/dl (31.0-35.0); Mean Corpuscular Hemoglobin 30.4 pg (27.0-33.0); Mean Platelet Volume 10.1 fL (9.4-12.3); NRBC Pct Auto 0.4 /100WBC (0.0-0.2); Red Blood Count 2.73 X10*6/uL (4.20-5.50); Red Cell Distribution Width 17.9 % (11.0-16.0); White Blood Count 4.9 X10*3/uL (4.8-10.8)
[2020-10-29 08:52] LABS: Platelet Count 31 X10*3/uL (160-400)
[2020-10-29 09:20] LABS: Alanine Aminotransferase 12 U/L (0-31); Alkaline Phosphatase 89 U/L (39-117); Anion Gap 8 (12-20); Aspartate Amino Transferase 21 U/L (5-31); Bilirubin Total 0.6 mg/dL (0.0-1.0); Blood Urea Nitrogen 21 mg/dL (9-16); Calcium 7.5 mg/dL (8.4-10.2); Carbon Dioxide 18 mmol/L (22-29); Chloride 108 mmol/L (96-108); Creatinine Clr Calc Pharmacy 12.8; Estimated Glomerular Filt Rate 12; Glucose Random 109 mg/dL (60-115); Potassium 3.2 mmol/L (3.3-5.1); Sodium 131 mmol/L (135-145); Total Protein 8.5 g/dL (6.5-8.0)
[2020-10-29 09:31] LABS: Band Neutrophils Percent 5 % (3-5); Eosinophils Absolute Manual 0.1 X10*3/UL (0.0-0.8); Eosinophils Percent Manual 2 % (0-4); Lymphocytes Absolute Manual 0.3 X10*3/uL (0.6-4.8); Lymphocytes Percent Manual 7 % (20-40); Metamyelocytes Absolute 0.1 X10*3/uL; Metamyelocytes Percent 2 %; Monocytes Percent Manual 1 % (2-11); Myelocytes Absolute 0.1 X10*/uL; Myelocytes Percent 2 %; Neutrophils Absolute Manual 4.2 X10*3/uL (2.2-7.9); Neutrophils Percent Manual 81 % (45-73); Platelet Estimate DECREASED (NORMAL); Platelet Morphology Comment NORMAL
[2020-10-29 09:32] LABS: Macrocytosis 1+ (5-14) /OIF; RBC Morphology NOTED; Toxic Vacuolation PRESENT
[2020-10-29 09:33] LABS: Nucleated Red Blood Cells 3 /100WBC (0-0)
[2020-10-29] MEDS: 0.9 % Sodium Chloride Flush 3 ML SYRINGE IVFLUSH ×2 (09:53→17:18)
--- NOTE | 2020-10-29 10:07 | PC.NURSE ---
1005 Tube feeding stopped and NG tube removed per Dr. Hernandez
--- NOTE | 2020-10-29 11:47 | P.PNIM_ITS ---
Subjective Subjective Date of Service: 10/29/20 Interval History: F/u on encephalopathy, bacteremia, sepsis, patient's condition deteliorated further overnight with low blood pressure, drop in oxygen saturation, and remain pretty much unresponsive. CSF meningoecephalitis panel is negative for meningitis, encephalitis. This morning there was further dicussion with family regarding poor prognosis, Dr. Navarro, dialysis doctor and Myself spoke to who agree to stop dialysis and make patient hospices/comfort care. Review of Systems Review of Systems: Yes Unobtainable due to mental status Physical Exam Vital Signs: Vital Signs: Last Vital Signs Temp 97.4 F 10/29/20 04:00 Pulse 95 10/29/20 04:00 Resp 16 10/29/20 04:00 BP 91/50 L 10/29/20 04:00 Pulse Ox 94 10/29/20 04:00 Body Mass Index 31.1 General: Coma Resp: no respiratory distress CVS: S1,S2,RRR GI: +BS, NT, no distention Skin: No rash, decub ulcer as previously documented Neuro: motor grossly intact Psych: Unresponsive, as above Objective Data Current Medications Generic Name Dose Route Start Last Admin Trade Name Freq PRN Reason Stop Dose Admin Lorazepam 0.5 mg 10/29/20 08:58 Lorazepam 2 Mg/Ml Vial IVPUSH Q4H PRN Anxiety Morphine Sulfate 2 mg 10/29/20 08:58 Morphine Sulfate 2 Mg/Ml Cartridge IVPUSH Q1H PRN Discomfort/Shortness of breath Sodium Chloride 3 ml 10/20/20 00:00 10/29/20 09:53 0.9 % Sodium Chloride Flush 3 Ml Syringe IVFLUSH 3 ml QSHIFT DANIEL Administration Labs CBC & Chem 7: 10/29/20 08:41 10/29/20 08:41 Labs: Laboratory Results - last 24 hr 10/28/20 10/28/20 10/28/20 11:26 11:26 12:29 MCV MCH MCHC RDW Plt Count MPV Immature Gran % (Auto) Neut % (Auto) Lymph % (Auto) [place] % (Auto) Eos % (Auto) Baso % (Auto) Lymph # (Auto) [place] # (Auto) Eos # (Auto) Baso # (Auto) Abs Immat Gran (auto) Absolute Neuts (auto) Absolute Nucleated RBC Nucleated RBC % (auto) Neutrophils % (Manual) Band Neutrophils % Lymphocytes % (Manual) Monocytes % (Manual) Eosinophils % (Manual) Basophils % (Manual) Metamyelocytes % Myelocytes % Abs Neuts (Manual) Lymphocytes # (Manual) Monocytes # (Manual) Eosinophils # (Manual) Basophils # (Manual) Metamyelocytes # Myelocytes # Nucleated RBCs Toxic Vacuolation Platelet Estimate Large Platelets Plt Morphology Comment RBC Morphology Polychromasia Microcytosis Macrocytosis [place] Cells Acanthocytes (Spur) Anion Gap Estim Creat Clear Calc Estimated GFR POC Glucose Random Glucose Lactic Acid 0.8 Calcium Total Bilirubin AST ALT Alkaline Phosphatase Ammonia 37 Total Protein Albumin Fl Pathologist Review CSF Tube Number 4 CSF Volume 4.0 CSF Appearance CLEAR CSF Color COLORLESS CSF WBC 18 H* CSF RBC 0 CSF Neutrophils 0 CSF Lymphocytes 65 CSF Other Cells % 35 CSF Appearance (b) CSF Glucose CSF Total Protein CSF Mening/Enceph PCR Random Vancomycin 10/28/20 10/28/20 10/28/20 12:29 12:29 12:29 MCV MCH MCHC RDW Plt Count MPV Immature Gran % (Auto) Neut % (Auto) Lymph % (Auto) [place] % (Auto) Eos % (Auto) Baso % (Auto) Lymph # (Auto) [place] # (Auto) Eos # (Auto) Baso # (Auto) Abs Immat Gran (auto) Absolute Neuts (auto) Absolute Nucleated RBC Nucleated RBC % (auto) Neutrophils % (Manual) Band Neutrophils % Lymphocytes % (Manual) Monocytes % (Manual) Eosinophils % (Manual) Basophils % (Manual) Metamyelocytes % Myelocytes % Abs Neuts (Manual) Lymphocytes # (Manual) Monocytes # (Manual) Eosinophils # (Manual) Basophils # (Manual) Metamyelocytes # Myelocytes # Nucleated RBCs Toxic Vacuolation Platelet Estimate Large Platelets Plt Morphology Comment RBC Morphology Polychromasia Microcytosis Macrocytosis [place] Cells Acanthocytes (Spur) Anion Gap Estim Creat Clear Calc Estimated GFR POC Glucose Random Glucose Lactic Acid Calcium Total Bilirubin AST ALT Alkaline Phosphatase Ammonia Total Protein Albumin Fl Pathologist Review SEE NOTE CSF Tube Number 2 CSF Volume CSF Appearance CSF Color CSF WBC CSF RBC CSF Neutrophils CSF Lymphocytes CSF Other Cells % CSF Appearance (b) Clear, Colorless CSF Glucose 48 CSF Total Protein 126.3 H CSF Mening/Enceph PCR SEE NOTE Random Vancomycin 10/28/20 10/28/20 10/28/20 14:53 17:22 20:15 MCV 92.3 MCH 30.4 MCHC 33.0 RDW 17.9 H Plt Count 36 L MPV 11.2 Immature Gran % (Auto) Cancelled Neut % (Auto) Cancelled Lymph % (Auto) Cancelled [place] % (Auto) Cancelled Eos % (Auto) Cancelled Baso % (Auto) Cancelled Lymph # (Auto) Cancelled [place] # (Auto) Cancelled Eos # (Auto) Cancelled Baso # (Auto) Cancelled Abs Immat Gran (auto) Cancelled Absolute Neuts (auto) Cancelled Absolute Nucleated RBC 0.060 H Nucleated RBC % (auto) 0.9 H Neutrophils % (Manual) 69 Band Neutrophils % 8 H Lymphocytes % (Manual) 12 L Monocytes % (Manual) 2 Eosinophils % (Manual) 1 Basophils % (Manual) 1 Metamyelocytes % 6 Myelocytes % 1 Abs Neuts (Manual) 5.1 Lymphocytes # (Manual) 0.8 Monocytes # (Manual) 0.1 Eosinophils # (Manual) 0.1 Basophils # (Manual) 0.1 Metamyelocytes # 0.4 Myelocytes # 0.1 Nucleated RBCs Toxic Vacuolation Platelet Estimate DECREASED Large Platelets PRESENT Plt Morphology Comment NOTED RBC Morphology NOTED Polychromasia 1+ (0-2) Microcytosis 1+ (5-14) Macrocytosis [place] Cells 1+ (0-2) Acanthocytes (Spur) 1+ (0-2) Anion Gap Estim Creat Clear Calc Estimated GFR POC Glucose 72 Random Glucose Lactic Acid Calcium Total Bilirubin AST ALT Alkaline Phosphatase Ammonia Total Protein Albumin Fl Pathologist Review CSF Tube Number CSF Volume CSF Appearance CSF Color CSF WBC CSF RBC CSF Neutrophils CSF Lymphocytes CSF Other Cells % CSF Appearance (b) CSF Glucose CSF Total Protein CSF Mening/Enceph PCR Random Vancomycin 15.8 10/28/20 10/29/20 10/29/20 20:15 08:41 08:41 MCV 93.0 MCH 30.4 MCHC 32.7 RDW 17.9 H Plt Count 31 L MPV 10.1 Immature Gran % (Auto) Cancelled Neut % (Auto) Cancelled Lymph % (Auto) Cancelled [place] % (Auto) Cancelled Eos % (Auto) Cancelled Baso % (Auto) Cancelled Lymph # (Auto) Cancelled [place] # (Auto) Cancelled Eos # (Auto) Cancelled Baso # (Auto) Cancelled Abs Immat Gran (auto) Cancelled Absolute Neuts (auto) Cancelled Absolute Nucleated RBC 0.020 H Nucleated RBC % (auto) 0.4 H Neutrophils % (Manual) 81 H Band Neutrophils % 5 Lymphocytes % (Manual) 7 L Monocytes % (Manual) 1 L Eosinophils % (Manual) 2 Basophils % (Manual) Metamyelocytes % 2 Myelocytes % 2 Abs Neuts (Manual) 4.2 Lymphocytes # (Manual) 0.3 L Monocytes # (Manual) Eosinophils # (Manual) 0.1 Basophils # (Manual) Metamyelocytes # 0.1 Myelocytes # 0.1 Nucleated RBCs 3 H Toxic Vacuolation PRESENT Platelet Estimate DECREASED Large Platelets Plt Morphology Comment NORMAL RBC Morphology NOTED Polychromasia Microcytosis Macrocytosis 1+ (5-14) [place] Cells Acanthocytes (Spur) Anion Gap 8 L Estim Creat Clear Calc 12.8 Estimated GFR 12 POC Glucose Random Glucose 109 D Lactic Acid 1.1 Calcium 7.5 L Total Bilirubin 0.6 AST 21 ALT 12 Alkaline Phosphatase 89 Ammonia Total Protein 8.5 H Albumin 1.0 L Fl Pathologist Review CSF Tube Number CSF Volume CSF Appearance CSF Color CSF WBC CSF RBC CSF Neutrophils CSF Lymphocytes CSF Other Cells % CSF Appearance (b) CSF Glucose CSF Total Protein CSF Mening/Enceph PCR Random Vancomycin Microbiology Microbiology Results: Microbiology 10/28/20 12:29 Gram Stain - Final Cerebrospinal Fluid CSF Examination - Final Fluid Description - Final CSF Culture - Preliminary No growth after 1 day Assessment and Plan (1) Encephalopathy: Status: Acute (2) Bacteremia: Status: Acute (3) Anemia: Status: Acute (4) CKD (chronic kidney disease): Status: Acute (5) C. difficile colitis: Status: Acute Assessment and Plan: 75-year-old female with a past medical history of multiple myeloma, anemia requiring blood transfusions, ESRD on hemodialysis-TTS, history of C diff colitis, alf resident, mostly bedbound, history of thrombocytopenia w ith a chief complaint of anemia. AMS/Encephalopathy--unclear etiology at this point ? related to sepsis, uremia? metabolic profile unremarkable, ammonia ok, requesting ABG, CT head no acute finding. EEG no seizure, MRI no acute finding. LP unable to be done, IR will reattempt tomorrow. ? Uremia, seem a bit better today following dialysis. CSF analysis, other than increase WBC is not consistent with meningitis, Meningoencephalitis panel is negative for all tested agents. Likely toxic metabolic encephalopathy from sepsis and component of uremia Staph Aureus bacteremia (Staph Epi), likely related to catheter, blood cultures x 4, and catheter tip growing Staph epidermidiss, Permacath removed 10/22. Last culture negative x 24, s., level 15 today. ID following, Sacral xray 10/22: 1. K nown lytic lesion sacrum and pelvis, better appreciated on recent CT. 2. No interval visible new destructive process, fracture, or periostitis. No gas tracking in the soft tissue--unlikely source of infection. Echo 10/22 no vegetations. -Adequately treated with IV Vanco and Ceftriaxone. Anemia:? No obvious signs of bleeding reported.? Stool guaiac was negative.? Patient had similar presentations in the past requiring blood transfusion. Patient's hemoglobin on presentation was 5.9-received 2 units of blood transfusion; last hemoglobin 9.5 on 10/27 Thrombocytopenia:? stable at 37, I don't think there is indication for transfusion at this time. C dif--Vanco PO, she has not been able to take oral meds, will add NGT and give Vanco that way Proctocolitis. IV Vanco and Ceftriaxone as above History of liver lesion:? Stable as per the CT scan.? Patient was seen by GI during the last admission.? Recommended follow-up with GI. ESRD:? Nephrology consult., HD TTS--to skip dialysis this weekend. Temporary catheter tody and dialysis FEN--starting tube feed today Overall poor prognosis all along, and family has made her STAFF ANALYST/Hospice at this time. Stopped dialysis, Tube feed, DC NGT, Morphine and Ativan for comfort. No labs. Discussed with Ramiro Meneses. Hospice consult obtained. Quality Stroke Does the patient have a stroke diagnosis?: No VTE Prior VTE?: No VTE Risk Level:: Medical - moderate - high VTE Device Contraindication: N/A - Device Ordered VTE Drug Contraindication: Treatment Not Indicated
--- NOTE | 2020-10-29 11:47 | MHC.SLORD ---
Speech Language Pathology Order Status: FAMILY PARTNER checked in with RN this morning. No change in mental status. Due to lethargic state, patient is not appropriate for PO trials. Per RN, patient has NG tube and there might be discussion RE: possible MANAGER ENVIRONMENTAL HEALTH? Please re-refer if there is improvement in level of alertness and if swallow eval is indicated.
--- NOTE | 2020-10-29 12:32 | MHC.CM.PN ---
hospice saw patient and family member today. spouse, ramu, wants patient to stay here to pass and per hospice liasion patient is not GIP approp. at this time. i was told by hospice liasion that hospitalist is aware of this news, cm to cont. to follow.
--- NOTE | 2020-10-29 12:56 | MHC.CDI.CONC ---
CDI Concurrent Query Service Date: 11/01/20 Documentation Clarification: Please clarify if you are treating a probable/suspected/likely or confirmed: Septic shock Please specify if known or undetermined Provider Response: Other Other Diagnosis: Sepsis doesn't meet critieria of septic shock, has chronic low BP and and there was no fluid chalange PLEASE DO NOT DELETE/MODIFY EXISTING CONTENT Additional information is needed in order to code to the highest accuracy and appropriate Severity of Illness (SOI). Please clarify the information noted below in your progress notes and discharge summary. 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 Ativan for comfort. PN: 10/28 - General: coma Assessment - likely toxic metabolic encephalopathy from sepsis and component of uremia. CDS: Shayy Adhikari CCS, CDIS Contact Number: [phone] Please Review the information above and exercise your independent professional judgment in responding to the query. If you concur, pleas document in the PROGRESS NOTES and DISCHARGE SUMMARY. If you do not agree with the query, please document in the query above. THIS QUERY IS PART OF THE PERMANENT MEDICAL RECORD
--- NOTE | 2020-10-29 14:15 | MHC.CLN ---
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
[2020-10-29 16:00] VITALS: RESP 21
[2020-10-29] MEDS: Morphine Sulfate 2 MG/ML CARTRIDGE IVPUSH (17:17)
[2020-10-29 23:49] VITALS: RESP 20
[2020-10-30] MEDS: Morphine Sulfate 2 MG/ML CARTRIDGE IVPUSH ×2 (05:39→11:49)
[2020-10-30 08:00] VITALS: RESP 20
[2020-10-30] MEDS: 0.9 % Sodium Chloride Flush 3 ML SYRINGE IVFLUSH ×2 (11:50→17:13)
--- NOTE | 2020-10-30 14:14 | HO.PM.IMPN ---
Subjective Subjective Date of Service: 10/30/20 Interval History: No acute issues overnight Patient resting in bed, unresponsive Review of Systems Unable to obtain patient unresponsive Physical Exam Vital Signs: Vital Signs: Last Vital Signs Temp 97.4 F 10/29/20 04:00 Pulse 95 10/29/20 04:00 Resp 20 10/30/20 08:00 BP 91/50 L 10/29/20 04:00 Pulse Ox 94 10/29/20 04:00 Body Mass Index 31.1 General: No distress unresponsive Resp:? Mouth breathing CVS: S1,S2,RRR GI: +BS, no distention ? Objective Data Current Medications Generic Name Dose Route Start Last Admin Trade Name Freq PRN Reason Stop Dose Admin Lorazepam 0.5 mg 10/29/20 08:58 Lorazepam 2 Mg/Ml Vial IVPUSH Q4H PRN Anxiety Morphine Sulfate 2 mg 10/29/20 08:58 10/30/20 11:49 Morphine Sulfate 2 Mg/Ml Cartridge IVPUSH 2 mg Q1H PRN Administration Discomfort/Shortness of breath Sodium Chloride 3 ml 10/20/20 00:00 10/30/20 11:50 0.9 % Sodium Chloride Flush 3 Ml Syringe IVFLUSH 3 ml QSHIFT DANIEL Administration Labs CBC & Chem 7: 10/29/20 08:41 10/29/20 08:41 Microbiology Microbiology Results: Microbiology 10/28/20 12:29 Gram Stain - Final Cerebrospinal Fluid CSF Examination - Final Fluid Description - Final CSF Culture - Preliminary No growth after 2 days 10/28/20 20:14 Blood Culture - Preliminary Blood - Venous No growth after 24 hours. 10/28/20 20:15 Blood Culture - Preliminary Blood - Venous No growth after 24 hours. Assessment and Plan (1) Encephalopathy: Status: Acute (2) Bacteremia: Status: Acute (3) Anemia: Status: Acute (4) CKD (chronic kidney disease): Status: Acute (5) C. difficile colitis: Status: Acute Assessment and Plan: 75-year-old female with a past medical history of multiple myeloma, anemia requiring blood transfusions, ESRD on hemodialysis-TTS, history of C diff colitis, pen[facility]entiary resident, mostly bedbound, history of thrombocytopenia , admitted with a chief complaint of anemia. AMS/Encephalopathy - all workup negative EEG showed no seizures, MRI showed no acute findings, CSF analysis not consistent with meningitis and meningoencephalitis panel is negative Likely patient had toxic metabolic encephalopathy from sepsis and component of uremia Since patient was not making improvement with gradual declining in clinical status, with low blood pressure, drop in oxygen saturation, and unresponsiveness case was discussed by attending physician Dr. renteria and Dr. Navarro and family opted for comfort care Will continue morphine Ativan for comfort No lab draws Other diagnosis staph aureus bacteremia Anemia C diff colitis History of liver lesion End-stage renal disease on hemodialysis Quality Stroke Does the patient have a stroke diagnosis?: No VTE Prior VTE?: No VTE Risk Level:: Medical - moderate - high VTE Device Contraindication: N/A - Device Ordered VTE Drug Contraindication: Treatment Not Indicated
[2020-10-30 15:53] VITALS: RESP 15
[2020-10-30 22:12] LABS: HSV 1 DNA, CSF Not Detected (Not Detected); HSV 2 DNA, CSF Not Detected (Not Detected); Specimen Source CSF
[2020-10-30 23:44] VITALS: PULSE 91; RESP 18; TEMP 36.3; O2SAT 94
--- NOTE | 2020-10-31 08:25 | P.PNNP_ITS ---
Subjective Subjective Date of Service: 10/31/20 Interval history: No acute issues overnight Patient resting in bed, unresponsive Physical Exam Vital Signs: Vital Signs: Last Vital Signs Temp 97.4 F 10/30/20 23:44 Pulse 91 10/30/20 23:44 Resp 18 10/30/20 23:44 BP 91/50 L 10/29/20 04:00 Pulse Ox 94 10/30/20 23:44 Body Mass Index 31.1 Const: Other: General: Difficult to arouse, Resp: CTA bilateral CVS: S1,S2,RRR GI: +BS, NT, no distention Skin: decub ulcer, as previously noted Neuro: difficult to assess, given unresponsiveness, Psych: unresponsive as stated General: cooperative Orientation/consciousness: patient oriented x3 Limitations: no limitations HENMT: Head: Yes normal to inspection Ears: hearing grossly normal bilaterally General nose exam: Normal external nose present Face and sinus: Yes normal facial exam Mouth: Normal oral and palatal mucosa present Eyes: Other: Conjunctival pallor EOM: EOMs intact bilaterally Neck: Neck: Yes normal visual inspection Resp: Effort & Inspection: normal respiratory effort Auscultation: clear to auscultation bilaterally Cardio: Rate: regular rate Rhythm: regular rhythm Heart sounds: S1 normal heart sound present and S2 normal heart sound present GI: Inspection: Yes normal to inspection Palpation (GI): Soft to palpation, nontender, no guarding and not rigid : Other: Brown stool noted on rectal Skin breakdown noted to bilateral labia with skin friability/bleeding Skin: General skin exam: no rashes or lesions noted Rashes: no rashes Wounds: no wounds Neuro: Other: She was quite drowsy and not responding to verbal commands. She was withdrawing with pain in all 4 extremities. Plantars were bilaterally extensor. Deep tendon reflexes were trace to absent. Face was symmetrical. Pupils were about 2 mm round reactive to light. There was no gaze deviation or jerking. General: patient oriented x3 Extrem: General: Yes normal to inspection Objective Data Labs CBC & Chem 7: 10/29/20 08:41 10/29/20 08:41 Labs: Laboratory Results - last 24 hr 10/28/20 12:29 CSF Herpes I DNA (PCR) Not Detected CSF Herpes II DNA (PCR) Not Detected Body Source CSF Microbiology Microbiology Results: Microbiology 10/28/20 20:14 Blood - Venous Blood Culture - Preliminary No growth after 48 hours. 10/28/20 20:15 Blood - Venous Blood Culture - Preliminary No growth after 48 hours. 10/25/20 16:14 Blood - Venous Blood Culture - Final No growth after 5 days. 10/25/20 16:14 Blood - Venous Blood Culture - Final No growth after 5 days. 10/28/20 12:29 Cerebrospinal Fluid Gram Stain - Final 10/28/20 12:29 Cerebrospinal Fluid CSF Examination - Final 10/28/20 12:29 Cerebrospinal Fluid Fluid Description - Final 10/28/20 12:29 Cerebrospinal Fluid CSF Culture - Preliminary No growth after 2 days 10/22/20 Unknown Catheter Tip - Other Catheter Tip Culture - Final Staphylococcus epidermidis 10/21/20 13:04 Blood - Arterial Line Blood Culture - Final Staphylococcus epidermidis 10/21/20 13:04 Blood - Arterial Line Blood Culture - Final Staphylococcus epidermidis 10/19/20 14:56 Blood - Venous Blood Culture - Final Staphylococcus epidermidis 10/19/20 13:19 Stool Stool Culture - Final 10/19/20 15:01 Blood - Venous Blood Culture - Final Staphylococcus epidermidis 10/19/20 00:00 Urine Catheterized - High Catheter Urine Culture - Final Procedures Date of Service Date of Service: 10/31/20 Assessment & Plan Assessment and plan (1) Encephalopathy: Status: Acute (2) Bacteremia: Status: Acute (3) Anemia: Status: Acute (4) CKD (chronic kidney disease): Status: Acute (5) C. difficile colitis: Status: Acute Assessment and Plan: 75-year-old female with a past medical history of multiple myeloma, anemia requiring blood transfusions, ESRD on hemodialysis-[facility], history of C diff colitis, snf resident, mostly bedbound, history of thrombocytopenia , admitted with a chief complaint of anemia. AMS/Encephalopathy - all workup negative EEG showed no seizures, MRI showed no acute findings, CSF analysis not consistent with meningitis and mening oencephalitis panel is negative Likely patient had toxic metabolic encephalopathy from sepsis and component of uremia Since patient was not making improvement with gradual declining in clinical status, with low blood pressure, drop in oxygen saturation, and unresponsiveness I discussed her poor prognosis with her and weopted for comfort care dialysis withdrawn Will continue morphine Ativan for comfort I will sign off call for ? Time Spent With Patient Time: Total time spent is greater than 50% in coordination of care (as documented) at patient's floor/unit and/or counseling patient: Progress Note: Quality Stroke Does the patient have a stroke diagnosis?: No
[2020-10-31] MEDS: Morphine Sulfate 2 MG/ML CARTRIDGE IVPUSH ×2 (10:51→22:32)
[2020-10-31] MEDS: 0.9 % Sodium Chloride Flush 3 ML SYRINGE IVFLUSH ×2 (10:51→22:33)
--- NOTE | 2020-10-31 14:07 | P.PNIM_ITS ---
Subjective Subjective Date of Service: 10/31/20 Interval History: Unresponsive in no distress Review of Systems Unable to obtain review of systems since patient is unresponsive Physical Exam Vital Signs: Vital Signs: Last Vital Signs Temp 97.4 F 10/30/20 23:44 Pulse 91 10/30/20 23:44 Resp 18 10/30/20 23:44 BP 91/50 L 10/29/20 04:00 Pulse Ox 94 10/30/20 23:44 Body Mass Index 31.1 General: No distress unresponsive Resp:? No respiratory distress, no use of accessory muscles CVS: S1,S2,RRR GI: +BS, no distention Objective Data Current Medications Generic Name Dose Route Start Last Admin Trade Name Freq PRN Reason Stop Dose Admin Lorazepam 0.5 mg 10/29/20 08:58 Lorazepam 2 Mg/Ml Vial IVPUSH Q4H PRN Anxiety Morphine Sulfate 2 mg 10/29/20 08:58 10/31/20 10:51 Morphine Sulfate 2 Mg/Ml Cartridge IVPUSH 2 mg Q1H PRN Administration Discomfort/Shortness of breath Sodium Chloride 3 ml 10/20/20 00:00 10/31/20 10:51 0.9 % Sodium Chloride Flush 3 Ml Syringe IVFLUSH 3 ml QSHIFT DANIEL Administration Labs CBC & Chem 7: 10/29/20 08:41 10/29/20 08:41 Labs: Laboratory Results - last 24 hr 10/28/20 12:29 CSF Herpes I DNA (PCR) Not Detected CSF Herpes II DNA (PCR) Not Detected Body Source CSF Microbiology Microbiology Results: Microbiology 10/28/20 12:29 Gram Stain - Final Cerebrospinal Fluid CSF Examination - Final Fluid Description - Final CSF Culture - Final No growth after 3 days. 10/28/20 20:14 Blood Culture - Preliminary Blood - Venous No growth after 48 hours. 10/28/20 20:15 Blood Culture - Preliminary Blood - Venous No growth after 48 hours. 10/25/20 16:14 Blood Culture - Final Blood - Venous No growth after 5 days. 10/25/20 16:14 Blood Culture - Final Blood - Venous No growth after 5 days. Assessment and Plan (1) Encephalopathy: Status: Acute (2) Bacteremia: Status: Acute (3) CKD (chronic kidney disease): Status: Acute (4) C. difficile colitis: Status: Acute Assessment and Plan: 75-year-old female with a past medical history of multiple myeloma, anemia requiring blood transfusions, ESRD on hemodialysis-TTS, history of C diff colitis, custodial resident, mostly bedbound, history of thrombocytopenia , admitted with a chief complaint of anemia. AMS/Encephalopathy - all workup negative EEG showed no seizures, MRI showed no acute findings, CSF analysis not consistent with meningitis and meningoencephalitis panel is negative Likely patient had toxic metabolic encephalopathy from sepsis and component of uremia Since patient was not making improvement with gradual declining in clinical status, with low blood pressure, drop in oxygen saturation, and unresponsiveness case was discussed by attending physician Dr. Hernandez and Dr. Navarro with family ,and they opted for comfort care Patient appears comfortable, Will continue morphine Ativan for comfort No lab draws Other diagnosis staph aureus bacteremia Anemia C diff colitis History of liver lesion End-stage renal disease on hemodialysis Quality Stroke Does the patient have a stroke diagnosis?: No VTE Prior VTE?: No VTE Risk Level:: Medical - moderate - high VTE Device Contraindication: N/A - Device Ordered VTE Drug Contraindication: Treatment Not Indicated
[2020-10-31 15:42] VITALS: BP 92/60; PULSE 110; RESP 20; TEMP 36.5; O2SAT 95
[2020-10-31 19:37] VITALS: RESP 18
[2020-11-01] MEDS: 0.9 % Sodium Chloride Flush 3 ML SYRINGE IVFLUSH ×2 (07:58→16:19)
[2020-11-01] MEDS: Morphine Sulfate 2 MG/ML CARTRIDGE IVPUSH ×2 (07:58→12:02)
--- NOTE | 2020-11-01 13:14 | P.PNIM_ITS ---
Subjective Subjective Date of Service: 11/01/20 Interval History: Unresponsive, comfortable Review of Systems Review of Systems: Yes Unobtainable due to mental status Physical Exam Vital Signs: Vital Signs: Last Vital Signs Temp 97.7 F 10/31/20 15:42 Pulse 110 H 10/31/20 15:42 Resp 18 10/31/20 19:37 BP 92/60 10/31/20 15:42 Pulse Ox 95 10/31/20 15:42 Body Mass Index 31.1 Unresponsive, brething comfrtable, chest rising and falling, Objective Data Current Medications Generic Name Dose Route Start Last Admin Trade Name Freq PRN Reason Stop Dose Admin Lorazepam 0.5 mg 10/29/20 08:58 Lorazepam 2 Mg/Ml Vial IVPUSH Q4H PRN Anxiety Morphine Sulfate 2 mg 10/29/20 08:58 11/01/20 12:02 Morphine Sulfate 2 Mg/Ml Cartridge IVPUSH 2 mg Q1H PRN Administration Discomfort/Shortness of breath Sodium Chloride 3 ml 10/20/20 00:00 11/01/20 07:58 0.9 % Sodium Chloride Flush 3 Ml Syringe IVFLUSH 3 ml QSHIFT DANIEL Administration Labs CBC & Chem 7: 10/29/20 08:41 10/29/20 08:41 Assessment and Plan (1) Encephalopathy: Status: Acute (2) Bacteremia: Status: Acute (3) CKD (chronic kidney disease): Status: Acute (4) C. difficile colitis: Status: Acute Assessment and Plan: 75-year-old female with a past medical history of multiple myeloma, anemia requiring blood transfusions, ESRD on hemodialysis-TTS, history of C diff colitis, custodial resident, mostly bedbound, history of thrombocytopenia , admitted with a chief complaint of anemia. AMS/Encephalopathy - all workup, except for bacteremia, negative EEG showed no seizures, MRI showed no acute findings, CSF analysis not consistent with meningitis and meningoencephalitis panel is negative Likely patient had toxic metabolic encephalopathy from sepsis and component of uremia Since patient was not making improvement with gradual declining in clinical status, with low blood pressure, drop in oxygen saturation, and unresponsiveness case was discussed by attending physician Dr. Hernandez and Dr. Navarro with family ,and they opted for comfort care Patient appears comfortable, Will continue morphine Ativan for comfort No lab draws Other diagnosis staph aureus bacteremia Anemia C diff colitis History of liver lesion End-stage renal disease on hemodialysis Quality Stroke Does the patient have a stroke diagnosis?: No VTE Prior VTE?: No VTE Risk Level:: Medical - moderate - high VTE Device Contraindication: N/A - Device Ordered VTE Drug Contraindication: Treatment Not Indicated
[2020-11-01 15:24] VITALS: BP 92/42; PULSE 115; RESP 18; TEMP 36.6; O2SAT 92
--- NOTE | 2020-11-01 16:09 | PC.NURSE ---
Skin assessment completed today. Patient has stage 2 pu on coccyx and maceration to buttocks. EPC cream applied to area cover with foam dressing. Bilateral heels pink. Patient is now on comfort measures according to Dr. Hernandez's recent note.
[2020-11-01 19:35] VITALS: RESP 18
[2020-11-01 23:58] VITALS: RESP 20
[2020-11-02] MEDS: 0.9 % Sodium Chloride Flush 3 ML SYRINGE IVFLUSH ×4 (00:52→22:43)
[2020-11-02] MEDS: Morphine Sulfate 2 MG/ML CARTRIDGE IVPUSH ×7 (06:38→22:42)
--- NOTE | 2020-11-02 08:21 | MHC.CM.PN ---
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 cm to cont. to follow
--- NOTE | 2020-11-02 09:34 | P.PNIM_ITS ---
Subjective Subjective Date of Service: 11/02/20 Interval History: Follow-up: Patient responsive to pain , otherwise as per staff when they were changing the patient open eyes to 1 time this morning Physical Exam Vital Signs: Vital Signs: Last Vital Signs Temp 98 F 11/01/20 15:24 Pulse 115 H 11/01/20 15:24 Resp 20 11/01/20 23:58 BP 92/42 L 11/01/20 15:24 Pulse Ox 92 11/01/20 15:24 Body Mass Index 31.1 Cvs: rrr, [id number] . res: clear to auscultation . abd: nd,soft, bs present. neuro: responsive to painful stimuli Objective Data Current Medications Generic Name Dose Route Start Last Admin Trade Name Freq PRN Reason Stop Dose Admin Lorazepam 0.5 mg 10/29/20 08:58 Lorazepam 2 Mg/Ml Vial IVPUSH Q4H PRN Anxiety Morphine Sulfate 2 mg 10/29/20 08:58 11/02/20 06:38 Morphine Sulfate 2 Mg/Ml Cartridge IVPUSH 2 mg Q1H PRN Administration Discomfort/Shortness of breath Sodium Chloride 3 ml 10/20/20 00:00 11/02/20 09:23 0.9 % Sodium Chloride Flush 3 Ml Syringe IVFLUSH 3 ml QSHIFT DANIEL Administration Labs CBC & Chem 7: 10/29/20 08:41 10/29/20 08:41 Labs: Laboratory Results - last 24 hr 10/19/20 10/20/20 10/22/20 12:50 05:17 08:11 Creatinine 1.85 H 2.69 H 2.86 H 10/22/20 10/24/20 10/27/20 15:51 04:00 09:00 Creatinine 3.31 H 4.96 H* Cancelled 10/27/20 10/29/20 09:00 08:41 Creatinine 5.22 H* 3.71 H Assessment and Plan (1) Encephalopathy: Status: Acute Assessment and Plan: 75-year-old female with a past medical history of multiple myeloma, anemia requiring blood transfusions, ESRD on hemodialysis-TTS, history of C diff colitis, [facility] resident, mostly bedbound, history of thrombocytopenia , admitted with a chief complaint of anemia. AMS/Encephalopathy - all workup, except for bacteremia,? negative EEG showed no seizures, MRI showed no acute findings, CSF analysis not consistent with meningitis and meningoencephalitis panel is negative Likely patient had toxic metabolic encephalopathy from sepsis and component of uremia Since patient was not making improvement with gradual declining in clinical stat us, with low blood pressure, drop in oxygen saturation, and unresponsiveness case was discussed by attending physician Dr. Hernandez and Dr. Navarro with family ,and they opted for comfort care Patient appears comfortable- continue morphine Ativan for comfort No lab draws Other diagnosis staph aureus bacteremia Anemia C diff colitis History of liver lesion End-stage renal disease on hemodialysis Quality Stroke Does the patient have a stroke diagnosis?: No VTE Prior VTE?: No VTE Risk Level:: Medical - moderate - high VTE Device Contraindication: N/A - Device Ordered VTE Drug Contraindication: Treatment Not Indicated
[2020-11-02 10:29] VITALS: RESP 20
[2020-11-02 11:40] VITALS: RESP 18
[2020-11-02 14:28] VITALS: RESP 16
[2020-11-02 17:46] VITALS: RESP 16
[2020-11-03] MEDS: Morphine Sulfate 2 MG/ML CARTRIDGE IVPUSH ×4 (04:26→11:58)
[2020-11-03 07:35] VITALS: RESP 18
[2020-11-03] MEDS: 0.9 % Sodium Chloride Flush 3 ML SYRINGE IVFLUSH (07:35)
[2020-11-03 09:34] VITALS: RESP 16
[2020-11-03 11:35] VITALS: RESP 16
[2020-11-03 11:58] VITALS: RESP 14
--- NOTE | 2020-11-03 13:55 | P.PNIM_ITS ---
Subjective Subjective Date of Service: 11/03/20 Interval History: Follow-up:? Patient responsive to pain Physical Exam Vital Signs: Vital Signs: Last Vital Signs Temp 98 F 11/01/20 15:24 Pulse 115 H 11/01/20 15:24 Resp 14 11/03/20 11:58 BP 92/42 L 11/01/20 15:24 Pulse Ox 92 11/01/20 15:24 Body Mass Index 31.1 Cvs: rrr, [id number] . res: clear to auscultation . abd: nd,soft, bs present. neuro: responsive to painful stimuli Objective Data Current Medications Generic Name Dose Route Start Last Admin Trade Name Freq PRN Reason Stop Dose Admin Lorazepam 0.5 mg 11/03/20 09:19 Lorazepam 2 Mg/Ml Vial IVPUSH Q4H PRN Anxiety Morphine Sulfate 2 mg 11/03/20 09:18 11/03/20 11:58 Morphine Sulfate 2 Mg/Ml Cartridge IVPUSH 2 mg Q2H PRN Administration Pain, Mild (Pain Scale 1-3) Protocol Sodium Chloride 3 ml 10/20/20 00:00 11/03/20 07:35 0.9 % Sodium Chloride Flush 3 Ml Syringe IVFLUSH 3 ml QSHIFT DANIEL Administration Labs CBC & Chem 7: 10/29/20 08:41 10/29/20 08:41 Microbiology Microbiology Results: Microbiology 10/28/20 20:15 Blood Culture - Final Blood - Venous No growth after 5 days. 10/28/20 20:14 Blood Culture - Final Blood - Venous No growth after 5 days. Assessment and Plan (1) Encephalopathy: Status: Acute Assessment and Plan: 75-year-old female with a past medical history of multiple myeloma, anemia requiring blood transfusions, ESRD on hemodialysis-TTS, history of C diff colitis, residential resident, mostly bedbound, history of thrombocytopenia , admitted with a chief complaint of anemia. AMS/Encephalopathy - all workup, except for bacteremia,? negative EEG showed no seizures, MRI showed no acute findings, CSF analysis not consistent with meningitis and meningoencephalitis panel is negative Likely patient had toxic metabolic encephalopathy from sepsis and component of uremia Since patient was not making improvement with gradual declining in clinical status, with low blood pressure, drop in oxygen saturation, and unresponsiveness case was discussed by attending physician Dr. Hernandez and Dr. Navarro with family ,and they opted for comfort care Patient appears comfortable- continue morphine Ativan for comfort No lab draws Other diagnosis staph aureus bacteremia Anemia C diff colitis History of liver lesion End-stage renal disease on hemodialysis Quality Stroke Does the patient have a stroke diagnosis?: No VTE Prior VTE?: No VTE Risk Level:: Medical - moderate - high VTE Device Contraindication: N/A - Device Ordered VTE Drug Contraindication: Treatment Not Indicated
--- NOTE | 2020-11-03 15:01 | MHC.CM.PN ---
Female 75 Cdiff. Patient is [employer]. No plan for transfer. Patient does not meet GIP criteria. CM is following.
--- NOTE | 2020-11-03 15:27 | PM.DDS ---
Discharge Sum: Prov Provider Primary care physician: Chris Giron MD Admitting clinician: Naina Castanon Attending physician on admission: Owen Winter Consults: 10/19/20 20:40 Consult to Infectious Diseases Routine Consulting Provider: Terese Long Reason for consultation: decub ulcers/skin excoriations; UTI; C diff colitis Consult to Nephrology Routine Consulting Provider: Long Stacy Reason for consultation: ESRD 10/21/20 18:13 Consult to Wound Care Routine Consulting Provider: [facility] Reason for consultation: macerated buttocks/boggy heels Has provider been notified: Yes 10/24/20 12:26 Consult to Neurology Routine Consulting Provider: [facility] Reason for consultation: Progressive unresponsivensss Discharge Sum: Diag PCOD Cause of : Sepsis Contributing Factors (1) Encephalopathy: Contributing factors: Staph epidermidis bacteremia Other diagnosis staph aureus bacteremia Anemia C diff colitis History of liver lesion End-stage renal disease on hemodialysis Discharge Sum: Summary Date and Time Date of admission: 10/19/20 20:40 Date of : 11/03/20 Time of : 02:31 Summary Details: 75-year-old female with a past medical history of multiple myeloma, anemia requiring blood transfusions, ESRD on hemodialysis-TTS, history of C diff colitis, [facility] resident, mostly bedbound, history of thrombocytopenia , admitted with a chief complaint of anemia. AMS/Encephalopathy - all workup, except for bacteremia Staph Epidermidis,? negative EEG showed no seizures, MRI showed no acute findings, CSF analysis not consistent with meningitis and meningoencephalitis panel is negative Likely patient had toxic metabolic encephalopathy from sepsis and component of uremia. Since patient was not making improvement with gradual declining in clinical status, with low blood pressure, drop in oxygen saturation, and unresponsiveness case was discussed by attending physician Dr. Hernandez and Dr. Navarro with family ,and they opted for comfort care-subsequently patient today at 14:31 pm pronounced. Other diagnosis staph aureus bacteremia Anemia C diff colitis History of liver lesion End-stage renal disease on hemodialysis Additional Data Confirmation of as documented by pronouncing clinician: no pulse Family: contacted Attending/PCP notified?: No Attending physician: Naina Castanon MD Was code activated?: No Autopsy requested?: No line up examiner notified?: No Organ bank notified?: No Advance directives: No (patient was dnr/dni, comfort measures.) Hospice patient?: No
--- NOTE | 2020-11-03 16:06 | PC.NURSE ---
At 1516 nurse went to room. Patient without pulse, no respirations, pupils fixed and dilated. MD notified to come pronounce patient. Family(Ramiro) notified and reports he will not be in to visit. [facility] called.
== END 2020-11-03 17:36 | disposition expired | DRG 314 ==
LOC: HO.ED 15:47 → HO.IMC 21:07
PROVIDERS: Internal Medicine; Internal Medicine Nephrology; Physician Assistant; Radiology Diagnostic Radiology; Admitting Provider Hospitalist; Emergency Provider Emergency Medicine; PCP Family Medicine; Visit Provider Internal Medicine
PROC: 0JH63XZ Insertion of Tunneled Vascular Access Device into Chest Subcutaneous Tissue and Fascia, Percutaneous Approach (ICD-10-PCS; principal; 2020-10-26 14:00)
DX: T82.7XXA Infection and inflammatory reaction due to other cardiac and vascular devices, implants and grafts, initial encounter (principal); N18.6 End stage renal disease; R65.20 Severe sepsis without septic shock; A41.01 Sepsis due to Methicillin susceptible Staphylococcus aureus; G92 Toxic encephalopathy; A04.71 Enterocolitis due to Clostridium difficile, recurrent; N39.0 Urinary tract infection, site not specified; I12.0 Hypertensive chronic kidney disease with stage 5 chronic kidney disease or end stage renal disease; D69.6 Thrombocytopenia, unspecified; K76.9 Liver disease, unspecified; Z20.822 Contact with and (suspected) exposure to COVID-19; Z85.79 Personal history of other malignant neoplasms of lymphoid, hematopoietic and related tissues; D63.1 Anemia in chronic kidney disease; Z99.2 Dependence on renal dialysis; Z79.82 Long term (current) use of aspirin; Z79.899 Other long term (current) drug therapy; Z51.5 Encounter for palliative care
CPT/HCPCS: 36415; 36430; 36558; 36589; 36600; 70450; 70551; 71045; 72220; 74176; 76937; 80048; 80053; 80202; 81001; 82042; 82140; 82272; 82565; 82728; 82803; 82945; 82947; 83540; 83605; 83690; 83735; 84157; 84166; 85007; 85025; 85027; 85610; 85730; 86140; 86850; 86900; 86901; 86923; 87015; 87040; 87045; 87046; 87070; 87071; 87077; 87086; 87186; 87205; 87255; 87324; 87491; 87493; 87529; 87591; 87635; 88108; 89051; 89055; 90999; 93005; 93306; 95816; 96361; 96365; 96367; 99222; 99285; C1752; C1769; J0171; J0461; J0696; J1100; J1170; J1200; J2270; J2370; J2405; J3010; J3370; P9016

== ENCOUNTER 2020-10-25 00:13 | Outpatient (REF) | payer MEDICARE, SELFPAY | END 2020-10-25 00:14 | disposition home or self-care (01) | LOC: HO.MMNH1L 00:13 | PROVIDERS: Visit Provider Family Medicine | DX: Z13.89 Encounter for screening for other disorder (principal) ==